=== PATIENT | male | born 1950 | race Caucasian/White ===

== ENCOUNTER 2018-08-01 12:29 | Inpatient (IN) | payer MEDICARE, OTHER ==
[~2018-08-01] VITALS: Ht 180.3 cm; Wt 70.3 kg
[2018-08-01] MEDS ORDERED: DIOVAN160 MG ORAL (12:32)
[2018-08-01] MEDS ORDERED: METFORMIN500 MG/5 M PO (12:32)
[2018-08-01] MEDS ORDERED: FLOMAX0.4 MG ORAL (12:32)
[2018-08-01] MEDS ORDERED: RISPERIDONE2 MG/2 ML PO (12:32)
[2018-08-01] MEDS ORDERED: DIURIL25 MG ORAL (12:32)
--- NOTE | 2018-08-01 12:40 | NUR ---
ED Nurse Note: Pt came from [facility] due to necrotic tissue on his right toe x 4 days. Denies pain. Pt has a hx of HTN, DM, schizophrenia. A + O x4. Skin warm to touch.
--- NOTE | 2018-08-01 13:09 | NUR ---
ED Nurse Note: Blood has been collected.
[2018-08-01 13:22] LABS: BASOPHILS % (AUTO) 0.8 % (0.0-2.0); EOSINOPHILS % (AUTO) 1.6 % (0.0-3.0); HEMATOCRIT 31.2 % (42.0-52.0); HEMOGLOBIN 9.7 G/DL (14.2-18.0); LYMPHOCYTES % (AUTO) 24.2 % (20.0-45.0); MEAN CORPUSCULAR VOLUME 71 FL (80-99); MONOCYTES % (AUTO) 6.3 % (1.0-10.0); PLATELET COUNT 344 K/UL (150-450); RED CELL DISTRIBUTION WIDTH 18.2 % (11.6-14.8)
--- NOTE | 2018-08-01 13:22 | NUR ---
ED Nurse Note: Xray has been completed.
[2018-08-01 13:29] LABS: ANION GAP 10 mmol/L (5-15); BLOOD UREA NITROGEN 16 mg/dL (7-18); CALCIUM 10.2 MG/DL (8.5-10.1); CARBON DIOXIDE 28 MMOL/L (21-32); CHLORIDE 104 MMOL/L (98-107); CREATININE 0.9 MG/DL (0.55-1.30); POTASSIUM 3.6 MMOL/L (3.5-5.1); SODIUM 142 MMOL/L (136-145)
[2018-08-01 13:44] LABS: ALANINE AMINOTRANSFERASE 20 U/L (12-78); ALBUMIN 3.6 G/DL (3.4-5.0); ALBUMIN/GLOBULIN RATIO 0.8 (1.0-2.7); ALKALINE PHOSPHATASE 97 U/L (46-116); ASPARTATE AMINO TRANSFERASE 15 U/L (15-37); BILIRUBIN,TOTAL 0.2 MG/DL (0.2-1.0); CKMB 0.6 NG/ML (0.0-3.6); CREATINE KINASE 94 U/L (26-308)
[2018-08-01] MEDS ORDERED: cefTRIAXone 1 GM in NS 55 ML IVPB ONE (14:30)
[2018-08-01] MEDS ORDERED: Vancomycin 1 GM in NS 275 ML IVPB ONE (14:30)
--- NOTE | 2018-08-01 14:59 | NUR ---
ED Nurse Note: Gave telephone report to NAMAN Schwartz.
--- NOTE | 2018-08-01 15:41 | NUR ---
ED Nurse Note: Pt was transferred up to unit via kelly w/ EMT. No acute distress noted. Left ER w/ all belongings.
--- NOTE | 2018-08-01 16:11 | NUR ---
NURSE NOTES: received pt awake alert, aox2, call light within reach. pt came with soiled diaper with bm formed, cleaned pt kept pt clean dry and comfortable. paged Dr Kelley via office [phone] awaiting callback for admission orders lac 20g, bed in lowest position locked.
[2018-08-01] MEDS ORDERED: RISPERDAL0.5 MG ORAL (16:33)
[2018-08-01] MEDS ORDERED: LANTUS SOL100 UNIT/1 SUBQ (16:33)
[2018-08-01] MEDS ORDERED: GLIMEPIRIDE1 MG ORAL (16:33)
[2018-08-01] MEDS ORDERED: CRESTOR10 M2 ORAL (16:33)
[2018-08-01] MEDS ORDERED: AMLODIPINE BESY10 MG ORAL (16:33)
[2018-08-01] MEDS ORDERED: HUMALOG 75/255 UNIT1 SUBQ (16:33)
[2018-08-01] MEDS ORDERED: QUETIAPINE FUMA50 MG ORAL (16:33)
[2018-08-01] MEDS ORDERED: POTASSIUM CHLO10 ME3 ORAL (16:41)
[2018-08-01] MEDS: NovoLOG Insulin Flexpen SUBQ SCH ×2 (16:51→20:35)
--- NOTE | 2018-08-01 17:13 | Diagnostic Imaging Report ---
Indication: Cough, chest pain Technique: One view of the chest Comparison: none Findings: No acute infiltrates, effusions, or congestion. Tortuous calcified aorta. Normal heart size. Upper mediastinum unremarkable. Impression: No acute process.
--- NOTE | 2018-08-01 17:19 | Diagnostic Imaging Report ---
Indication: Pain Technique: 2 views of the left tibia and fibula Comparison: none Findings: No acute fractures. No dislocations. The joint spaces are preserved. There are vascular calcifications noted. Impression: No acute process
--- NOTE | 2018-08-01 17:26 | Diagnostic Imaging Report ---
Indication: Foot pain Technique: 2 views right foot Comparison: none Findings: Exam is limited, due to the availability of only 2 views. Bones appear osteoporotic. There are questionably destructive changes of the terminal tuft of the fifth distal phalanx. No acute fractures. No dislocations. The joint spaces are preserved. Impression: Apparent destructive changes of the fifth distal phalanx, raises concern for acute osteomyelitis. Correlate with clinical findings. Patient's nurse notified of this finding at the time of interpretation No acute bony trauma
--- NOTE | 2018-08-01 17:28 | Consultation ---
Consult Note Consult Note asked to eval at the request of Dr Brown Assessment/Plan Diabetic Right Foot Osteo right 5th toe Hypochromic Anemia mild Hypercalcemia clinically dehydrated h/o HTN Plan: Iron Panel Stool OB Antibiotics BP and BS check Hydrate Per orders Levi Urias MD Aug 01, 2018 17:28
[2018-08-01] MEDS: D5NS 1,000 ML IV SCH (17:33)
[2018-08-01 17:35] VITALS: BP 137/70
[2018-08-01] MEDS: Docusate 100mg cap ORAL SCH (17:56)
[2018-08-01 18:00] LABS: % IRON SATURATION 9 % (15-50); IRON 33 ug/dL (50-175); TOTAL IRON BINDING CAPACITY 358 ug/dL (250-450)
[2018-08-01 18:14] LABS: FERRITIN 8 NG/ML (8-388)
--- NOTE | 2018-08-01 18:48 | NUR ---
HAND-OFF: Report given to CHARLENE FLORENCE.
--- NOTE | 2018-08-01 18:50 | NUR ---
NURSE NOTES: called and spoke with Dr Short re blood glucose fingerstick results, received order to not continue lantus 65u sq qd, and dc glipimiride
--- NOTE | 2018-08-01 19:35 | NUR ---
NURSE NOTES: Received patient in bed, awake, alert, oriented x2, patient is responsive to verbal and tactile stimuli, call light is within reach, be dis in low position, locked and alarm is on. Will continue to follow up on safety and comfort.
[2018-08-01 20:00] VITALS: BP 131/64
[2018-08-01] MEDS: Tamsulosin 0.4mg cap ORAL SCH (20:27)
[2018-08-01] MEDS ORDERED: NovoLOG Insulin Flexpen SUBQ SCH (21:00)
[2018-08-01] MEDS: Piperacillin/Tazobactam 3.375 GM in NS 110 ML IVPB SCH (22:27)
[2018-08-02] VITALS: BP 123/66
[2018-08-02] MEDS: Vancomycin 750mg/NS 250ml IVPB SCH ×2 (03:56→17:21)
[2018-08-02 04:47] VITALS: BP 131/72
[2018-08-02] MEDS: Piperacillin/Tazobactam 3.375 GM in NS 110 ML IVPB SCH ×3 (05:40→22:00)
[2018-08-02 06:03] LABS: BASOPHILS % (AUTO) 0.5 % (0.0-2.0); EOSINOPHILS % (AUTO) 2.3 % (0.0-3.0); HEMATOCRIT 30.2 % (42.0-52.0); HEMOGLOBIN 9.4 G/DL (14.2-18.0); LYMPHOCYTES % (AUTO) 23.8 % (20.0-45.0); MEAN CORPUSCULAR VOLUME 70 FL (80-99); MONOCYTES % (AUTO) 6.2 % (1.0-10.0); NEUTROPHILS % (AUTO) 67.1 % (45.0-75.0); PLATELET COUNT 352 K/UL (150-450); RED BLOOD COUNT 4.29 M/UL (4.70-6.10); RED CELL DISTRIBUTION WIDTH 18.2 % (11.6-14.8)
[2018-08-02 06:17] LABS: ALANINE AMINOTRANSFERASE 20 U/L (12-78); ALBUMIN 3.5 G/DL (3.4-5.0); ALBUMIN/GLOBULIN RATIO 0.8 (1.0-2.7); ALKALINE PHOSPHATASE 93 U/L (46-116); ANION GAP 8 mmol/L (5-15); ASPARTATE AMINO TRANSFERASE 15 U/L (15-37); BILIRUBIN,TOTAL 0.5 MG/DL (0.2-1.0); BLOOD UREA NITROGEN 10 mg/dL (7-18); CALCIUM 9.4 MG/DL (8.5-10.1); CARBON DIOXIDE 29 MMOL/L (21-32); CHLORIDE 105 MMOL/L (98-107); CHOLESTEROL 133 MG/DL (< 200); CREATININE 0.9 MG/DL (0.55-1.30); HDL CHOLESTEROL 51 MG/DL (40-60); PHOSPHORUS 3.5 MG/DL (2.5-4.9); POTASSIUM 3.2 MMOL/L (3.5-5.1); SODIUM 142 MMOL/L (136-145); TRIGLYCERIDES 132 MG/DL (30-150)
[2018-08-02] MEDS: NovoLOG Insulin Flexpen SUBQ SCH ×4 (06:19→21:00)
[2018-08-02] MEDS ORDERED: Glimepiride 1mg tab ORAL SCH (06:30)
--- NOTE | 2018-08-02 06:57 | General Progress Note ---
Assessment/Plan Problem List: (1) Lactic acidosis ICD Codes: E87.2 - Acidosis SNOMED: 83128131 (2) Abnormal TSH ICD Codes: R79.89 - Other specified abnormal findings of blood chemistry SNOMED: 102867216 (3) Diabetes mellitus out of control ICD Codes: E11.65 - Type 2 diabetes mellitus with hyperglycemia SNOMED: 95051944, 718273814 (4) Gangrene ICD Codes: I96 - Gangrene, not elsewhere classified SNOMED: 334118919 Assessment/Plan add Levemir 12 units qam add Starlix 120 mg ac tid continue to hold Metformin NISS ac / hs low TSH is most likely due to sick euthyroid repeat thyroid function tomorrow Subjective Allergies: Coded Allergies: No Known Allergies (Unverified , 08/01/18) All Systems: reviewed and negative except above Subjective events noted admitted with right foot osteo DM regimen as OP: Lantus 65 units + Metformin 1000 mg bid + Amaryl 2 mg daily lactic acid elevated on presentation Objective Last 24 Hour Vital Signs Date Time Temp Pulse Resp B/P (MAP) Pulse Ox O2 Delivery O2 Flow Rate FiO2 08/02/18 04:47 97.5 76 18 131/72 (91) 08/02/18 00:00 97.0 74 17 123/66 (85) 08/01/18 21:00 Room Air 08/01/18 20:00 97.2 76 18 131/64 (86) 08/01/18 17:35 98.0 70 20 137/70 (92) 100 08/01/18 16:24 Room Air 08/01/18 15:39 98.0 78 22 129/77 98 Room Air 08/01/18 12:25 97.3 76 16 130/66 94 Room Air Intake and Output 08/01/18 08/02/18 19:00 07:00 Intake Total 340 ml 550 ml Output Total 1 ml Balance 340 ml 549 ml Intake Oral 240 ml IV Total 100 ml 550 ml Output Urine Total 1 ml # Voids 1 # Bowel Movements 1 1 Laboratory Tests 08/01/18 10:00: Iron Level 33L, Total Iron Binding Capacity 358, Percent Iron Saturation 9L, Unsaturated Iron Binding 325, Ferritin 8, C-Reactive Protein, Quantitative 0.6 08/01/18 13:00: White Blood Count 10.0, Red Blood Count 4.40L, Hemoglobin 9.7L, Hematocrit 31.2L , Mean Corpuscular Volume 71L, Mean Corpuscular Hemoglobin 22.0L, Mean Corpuscular Hemoglobin Concent 31.1L, Red Cell Distribution Width 18.2H, Platelet Count 344, Mean Platelet Volume 6.4L, Neutrophils (%) (Auto) 67.0, Lymphocytes (%) (Auto) 24.2, Monocytes (%) (Auto) 6.3, Eosinophils (%) (Auto) 1.6, Basophils (%) (Auto) 0.8, Sodium Level 142, Potassium Level 3.6, Chloride Level 104, Carbon Dioxide Level 28, Anion Gap 10, Blood Urea Nitrogen 16, Creatinine 0.9, Estimat Glomerular Filtration Rate > 60, Glucose Level 102, Lactic Acid Level 2.40H, Calcium Level 10.2H, Total Bilirubin 0.2, Aspartate Amino Transf (AST/SGOT) 15, Alanine Aminotransferase (ALT/SGPT) 20, Alkaline Phosphatase 97, Total Creatine Kinase 94, Creatine Kinase MB 0.6, Creatine Kinase MB Relative Index 0.6, Troponin I 0.090H, Total Protein 8.1, Albumin 3.6 , Globulin 4.5, Albumin/Globulin Ratio 0.8L, Lipase 42L 08/01/18 14:03: Lactic Acid Level 2.20 08/02/18 05:15: White Blood Count 11.0H, Red Blood Count 4.29L, Hemoglobin 9.4L, Hematocrit 30.2L, Mean Corpuscular Volume 70L, Mean Corpuscular Hemoglobin 21.9L, Mean Corpuscular Hemoglobin Concent 31.1L, Red Cell Distribution Width 18.2H, Platelet Count 352, Mean Platelet Volume 6.2L, Neutrophils (%) (Auto) 67.1, Lymphocytes (%) (Auto) 23.8, Monocytes (%) (Auto) 6.2, Eosinophils (%) (Auto) 2.3, Basophils (%) (Auto) 0.5, Sodium Level 142, Potassium Level 3.2L, Chloride Level 105, Carbon Dioxide Level 29, Anion Gap 8, Blood Urea Nitrogen 10, Creatinine 0.9, Estimat Glomerular Filtration Rate > 60, Glucose Level 72L, Calcium Level 9.4, Total Bilirubin 0.5, Aspartate Amino Transf (AST/SGOT) 15, Alanine Aminotransferase (ALT/SGPT) 20, Alkaline Phosphatase 93, Troponin I [ Pending], Total Protein 7.9, Albumin 3.5, Globulin 4.4, Albumin/Globulin Ratio 0.8L, Erythrocyte Sedimentation Rate [Pending], Hemoglobin A1c 8.8H, Uric Acid 2.9, Phosphorus Level 3.5, Magnesium Level 1.3L, Pro-B-Type Natriuretic Peptide 151H, Triglycerides Level 132, Cholesterol Level 133, LDL Cholesterol 56, HDL Cholesterol 51, Cholesterol/HDL Ratio 2.6L, Vitamin B12 Level [Pending], Folate [Pending], Thyroid Stimulating Hormone (TSH) 0.288L Height (Feet): 5 Height (Inches): 11.00 Weight (Pounds): 155 General Appearance: no apparent distress Neck: normal alignment Cardiovascular: normal rate Respiratory/Chest: lungs clear Abdomen: normal bowel sounds Objective Current Medications Medications (Trade) Dose Ordered Sig/Stacey Route PRN Reason Start Time Stop Time Status Last Admin Dose Admin Acetaminophen (Tylenol) 650 mg Q4H PRN ORAL Mild Pain/Temp > 100.5 08/01/18 16:45 08/31/18 16:44 Amlodipine Besylate (Norvasc) 10 mg DAILY ORAL 08/02/18 09:00 09/01/18 08:59 Atorvastatin Calcium (Lipitor) 10 mg BEDTIME ORAL 08/01/18 21:00 08/31/18 20:59 08/01/18 20:27 Dextrose (Dextrose 50%) 25 ml Q30M PRN IV Hypoglycemia 08/01/18 16:45 08/31/18 16:44 08/01/18 17:28 Dextrose (Dextrose 50%) 50 ml Q30M PRN IV Hypoglycemia 08/01/18 16:45 08/31/18 16:44 Dextrose/Sodium Chloride 1,000 ml @ 50 mls/hr Q20H IV 08/01/18 17:33 08/31/18 17:32 08/01/18 17:33 Docusate Sodium (Colace) 100 mg THREE TIMES A DAY ORAL 08/01/18 18:00 08/31/18 17:59 08/01/18 17:56 Insulin Aspart (NovoLOG) BEFORE MEALS AND HS SUBQ 08/01/18 16:51 08/31/18 16:50 08/01/18 20:35 Pantoprazole (Protonix) 40 mg DAILY ORAL 08/01/18 17:45 08/31/18 17:44 08/01/18 17:56 Piperacillin Sod/ Tazobactam Sod 3.375 gm/Sodium Chloride 110 ml @ 27.5 mls/hr EVERY 8 HOURS IVPB 08/01/18 22:00 08/06/18 21:59 08/02/18 05:40 Quetiapine Fumarate (SEROquel) 100 mg QHS ORAL 08/01/18 21:00 08/31/18 20:59 08/01/18 20:27 Tamsulosin HCl (Flomax) 0.4 mg QHS ORAL 08/01/18 21:00 08/31/18 20:59 08/01/18 20:27 Vancomycin HCl (Vanco rx to dose) 1 ea DAILY PRN MISC Per rx protocol 08/01/18 16:00 08/31/18 15:59 Vancomycin/Sodium Chloride 250 ml @ 166.667 mls/hr Q12H IVPB 08/02/18 05:00 08/07/18 04:59 08/02/18 03:56 Item Value Date Time Bedside Blood Glucose 94 mg/dl 08/02/18 06 Bedside Blood Glucose 204 mg/dl H 08/01/182034 Bedside Blood Glucose 180 mg/dl H 08/01/18 184 Juvencio Short MD Aug 02, 2018 06:57
--- NOTE | 2018-08-02 07:02 | NUR ---
NURSE NOTES: Received a call from the lab, troponin is 0.094, called Dr. Kelley and left a voice message. Addendum: 08/02/18 at 0716 by RENEE CHANG RN laboratory equipment cleanerbetsey Paiz
--- NOTE | 2018-08-02 07:16 | NUR ---
HAND-OFF: Report given to Efren FLORENCE.
[2018-08-02 07:36] VITALS: BP 133/74
[2018-08-02] MEDS: Docusate 100mg cap ORAL SCH ×3 (08:15→17:31)
[2018-08-02] MEDS ORDERED: Levemir Flexpen SUBQ SCH (09:00)
--- NOTE | 2018-08-02 09:50 | NUR ---
NURSE NOTES: paged dr Starkey via md office (spoke with Phuong) re troponin uptrend
[2018-08-02 11:33] LABS: APPEARANCE,URINE CLEAR; BILIRUBIN, URINE NEGATIVE (NEGATIVE); COLOR,URINE PALE YELLOW; GLUCOSE, URINE (UA) 4+ (NEGATIVE); KETONES,URINE NEGATIVE (NEGATIVE); LEUKOCYTE ESTERASE ,URINE 1+ (NEGATIVE); NITRITE,URINE NEGATIVE (NEGATIVE); PH,URINE 6.5 (4.5-8.0); PROTEIN,URINE NEGATIVE (NEGATIVE); UROBILINOGEN,URINE NORMAL MG/DL (0.0-1.0)
[2018-08-02 12:00] VITALS: BP 126/72
--- NOTE | 2018-08-02 12:30 | NUR ---
NURSE NOTES: dr Starkey called back ordered for ekg. pt asymptomatic
--- NOTE | 2018-08-02 12:31 | Nephrology Progress Note ---
Assessment/Plan Problem List: (1) Diabetes mellitus out of control (2) Gangrene (3) Low iron (4) Low vitamin B12 level Assessment Diabetic Right Foot Osteo right 5th toe Hypochromic Anemia mild Hypercalcemia clinically dehydrated h/o HTN Plan IV Iron B12 IM Mag IV BP and BS control antibiotics per consultants Subjective ROS Limited/Unobtainable: No Constitutional: Reports: malaise Objective Objective Last 24 Hour Vital Signs Date Time Temp Pulse Resp B/P (MAP) Pulse Ox O2 Delivery O2 Flow Rate FiO2 08/02/18 08:15 80 133/74 08/02/18 07:45 Room Air 08/02/18 07:36 97.5 80 18 133/74 (93) 08/02/18 04:47 97.5 76 18 131/72 (91) 08/02/18 00:00 97.0 74 17 123/66 (85) 08/01/18 21:00 Room Air 08/01/18 20:00 97.2 76 18 131/64 (86) 08/01/18 17:35 98.0 70 20 137/70 (92) 100 08/01/18 16:24 Room Air 08/01/18 15:39 98.0 78 22 129/77 98 Room Air Intake and Output 08/01/18 08/02/18 19:00 07:00 Intake Total 340 ml 550 ml Output Total 1 ml Balance 340 ml 549 ml Intake Oral 240 ml IV Total 100 ml 550 ml Output Urine Total 1 ml # Voids 1 # Bowel Movements 1 1 Laboratory Tests 08/01/18 13:00: White Blood Count 10.0, Red Blood Count 4.40L, Hemoglobin 9.7L, Hematocrit 31.2L , Mean Corpuscular Volume 71L, Mean Corpuscular Hemoglobin 22.0L, Mean Corpuscular Hemoglobin Concent 31.1L, Red Cell Distribution Width 18.2H, Platelet Count 344, Mean Platelet Volume 6.4L, Neutrophils (%) (Auto) 67.0, Lymphocytes (%) (Auto) 24.2, Monocytes (%) (Auto) 6.3, Eosinophils (%) (Auto) 1.6, Basophils (%) (Auto) 0.8, Sodium Level 142, Potassium Level 3.6, Chloride Level 104, Carbon Dioxide Level 28, Anion Gap 10, Blood Urea Nitrogen 16, Creatinine 0.9, Estimat Glomerular Filtration Rate > 60, Glucose Level 102, Lactic Acid Level 2.40H, Calcium Level 10.2H, Total Bilirubin 0.2, Aspartate Amino Transf (AST/SGOT) 15, Alanine Aminotransferase (ALT/SGPT) 20, Alkaline Phosphatase 97, Total Creatine Kinase 94, Creatine Kinase MB 0.6, Creatine Kinase MB Relative Index 0.6, Troponin I 0.090H, Total Protein 8.1, Albumin 3.6 , Globulin 4.5, Albumin/Globulin Ratio 0.8L, Lipase 42L 08/01/18 14:03: Lactic Acid Level 2.20 08/02/18 05:15: White Blood Count 11.0H, Red Blood Count 4.29L, Hemoglobin 9.4L, Hematocrit 30.2L, Mean Corpuscular Volume 70L, Mean Corpuscular Hemoglobin 21.9L, Mean Corpuscular Hemoglobin Concent 31.1L, Red Cell Distribution Width 18.2H, Platelet Count 352, Mean Platelet Volume 6.2L, Neutrophils (%) (Auto) 67.1, Lymphocytes (%) (Auto) 23.8, Monocytes (%) (Auto) 6.2, Eosinophils (%) (Auto) 2.3, Basophils (%) (Auto) 0.5, Sodium Level 142, Potassium Level 3.2L, Chloride Level 105, Carbon Dioxide Level 29, Anion Gap 8, Blood Urea Nitrogen 10, Creatinine 0.9, Estimat Glomerular Filtration Rate > 60, Glucose Level 72L, Calcium Level 9.4, Total Bilirubin 0.5, Aspartate Amino Transf (AST/SGOT) 15, Alanine Aminotransferase (ALT/SGPT) 20, Alkaline Phosphatase 93, Troponin I 0.094H, Total Protein 7.9, Albumin 3.5, Globulin 4.4, Albumin/Globulin Ratio 0.8L, Erythrocyte Sedimentation Rate 32H, Hemoglobin A1c 8.8H, Uric Acid 2.9, Phosphorus Level 3.5, Magnesium Level 1.3L, Pro-B-Type Natriuretic Peptide 151H , Triglycerides Level 132, Cholesterol Level 133, LDL Cholesterol 56, HDL Cholesterol 51, Cholesterol/HDL Ratio 2.6L, Vitamin B12 Level 124L, Folate 28.6 , Thyroid Stimulating Hormone (TSH) 0.288L 08/02/18 10:30: Urine Color Pale yellow, Urine Appearance Clear, Urine pH 6.5, Urine Specific [place] 1.005, Urine Protein Negative, Urine Glucose (UA) 4+H, Urine Ketones Negative, Urine Blood Negative, Urine Nitrite Negative, Urine Bilirubin Negative , Urine Urobilinogen Normal, Urine Leukocyte Esterase 1+H, Urine RBC [Pending], Urine WBC [Pending], Urine Squamous Epithelial Cells [Pending], Urine Bacteria [ Pending] Height (Feet): 5 Height (Inches): 11.00 Weight (Pounds): 155 General Appearance: no apparent distress Cardiovascular: normal rate Respiratory/Chest: lungs clear Abdomen: soft Extremities: other - no change Levi Urias MD Aug 02, 2018 12:31
[2018-08-02] MEDS ORDERED: Nitroglycerin Patch 0.4mg TDERMAL SCH (13:00)
[2018-08-02] MEDS ORDERED: Vitamin B12 1000mcg/ml Inj IM ONE (13:00)
--- NOTE | 2018-08-02 13:14 | Consultation ---
History of Present Illness General Date patient seen: Aug 02, 2018 Time patient seen: 13:07 Chief Complaint: Lower Extremity Injury Present Illness HPI - Pt seen bedside, with nursing staff. Pt was transferred from SNF for Right foot 5th and 3rd digit gangrene. Pt denies any constitutional symptoms, relates pain to Right foot. States his wounds have been there for many 6 months. Allergies: Coded Allergies: No Known Allergies (Unverified , 08/01/18) Medication History Scheduled Amlodipine Besylate* (Amlodipine Besylate*), 10 MG ORAL DAILY, (Reported) Glimepiride* (Glimepiride*), 2 MG ORAL BEFORE BREAKFAST, (Reported) Hydrochlorothiazide (Hydrochlorothiazide), 12.5 MG ORAL DAILY, (Reported) Insulin Glargine (Lantus), 65 SUBQ DAILY, (Reported) Metformin HCl (Metformin HCl), 1,000 MG PO BID, (Reported) Potassium Chloride (Potassium Chloride), 10 MEQ ORAL DAILY, (Reported) Quetiapine Fumarate* (Quetiapine Fumarate*), 100 MG ORAL QHS, (Reported) Risperidone* (Risperdal*), 0.5 MG ORAL QHS, (Reported) Rosuvastatin Calcium* (Crestor*), 10 MG ORAL QHS, (Reported) Tamsulosin HCl (Flomax), 0.4 MG ORAL DAILY, (Reported) Valsartan (Diovan), 320 MG ORAL DAILY, (Reported) Miscellaneous Medications Insulin Human Lispro (Humalog), 0 SUBQ, (Reported) Risperidone (Risperidone), 1 MG PO, (Reported) Patient History Healthcare decision maker N Resuscitation status Advanced Directive on File Physical Exam Physical Exam Narrative Focused LE PE: Right foot: non-palpable pulses DP/PT. Increase temp differential. necrosis noted to digits 3 and 5 . No active purulent drainage or malodor. (+) edema and ascending erythema. Last 24 Hour Vital Signs Date Time Temp Pulse Resp B/P (MAP) Pulse Ox O2 Delivery O2 Flow Rate FiO2 08/02/18 12:00 97.5 72 18 126/72 (90) 08/02/18 08:15 80 133/74 08/02/18 07:45 Room Air 08/02/18 07:36 97.5 80 18 133/74 (93) 08/02/18 04:47 97.5 76 18 131/72 (91) 08/02/18 00:00 97.0 74 17 123/66 (85) 08/01/18 21:00 Room Air 08/01/18 20:00 97.2 76 18 131/64 (86) 08/01/18 17:35 98.0 70 20 137/70 (92) 100 08/01/18 16:24 Room Air 08/01/18 15:39 98.0 78 22 129/77 98 Room Air Intake and Output 08/01/18 08/02/18 19:00 07:00 Intake Total 340 ml 550 ml Output Total 1 ml Balance 340 ml 549 ml Intake Oral 240 ml IV Total 100 ml 550 ml Output Urine Total 1 ml # Voids 1 # Bowel Movements 1 1 Laboratory Tests Test 08/01/18 14:03 08/02/18 05:15 08/02/18 05:18 08/02/18 10:30 Lactic Acid Level 2.20 mmol/L (0.66-2.22) White Blood Count 11.0 K/UL (4.8-10.8) H Red Blood Count 4.29 M/UL (4.70-6.10) L Hemoglobin 9.4 G/DL (14.2-18.0) L Hematocrit 30.2 % (42.0-52.0) L Mean Corpuscular Volume 70 FL (80-99) L Mean Corpuscular Hemoglobin 21.9 PG (27.0-31.0) L Mean Corpuscular Hemoglobin Concent 31.1 G/DL (32.0-36.0) L Red Cell Distribution Width 18.2 % (11.6-14.8) H Platelet Count 352 K/UL (150-450) Mean Platelet Volume 6.2 FL (6.5-10.1) L Neutrophils (%) (Auto) 67.1 % (45.0-75.0) Lymphocytes (%) (Auto) 23.8 % (20.0-45.0) Monocytes (%) (Auto) 6.2 % (1.0-10.0) Eosinophils (%) (Auto) 2.3 % (0.0-3.0) Basophils (%) (Auto) 0.5 % (0.0-2.0) Erythrocyte Sedimentation Rate 32 MM/HR (0-20) H Sodium Level 142 MMOL/L (136-145) Potassium Level 3.2 MMOL/L (3.5-5.1) L Chloride Level 105 MMOL/L (98-107) Carbon Dioxide Level 29 MMOL/L (21-32) Anion Gap 8 mmol/L (5-15) Blood Urea Nitrogen 10 mg/dL (7-18) Creatinine 0.9 MG/DL (0.55-1.30) Estimat Glomerular Filtration Rate > 60 mL/min (>60) Glucose Level 72 MG/DL (74-106) L Hemoglobin A1c 8.8 % (4.3-6.0) H Uric Acid 2.9 MG/DL (2.6-7.2) Calcium Level 9.4 MG/DL (8.5-10.1) Phosphorus Level 3.5 MG/DL (2.5-4.9) Magnesium Level 1.3 MG/DL (1.8-2.4) L Total Bilirubin 0.5 MG/DL (0.2-1.0) Aspartate Amino Transf (AST/SGOT) 15 U/L (15-37) Alanine Aminotransferase (ALT/SGPT) 20 U/L (12-78) Alkaline Phosphatase 93 U/L (46-116) Troponin I 0.094 ng/mL (0.000-0.056) Pro-B-Type Natriuretic Peptide 151 pg/mL (0-125) H Total Protein 7.9 G/DL (6.4-8.2) Albumin 3.5 G/DL (3.4-5.0) Globulin 4.4 g/dL Albumin/Globulin Ratio 0.8 (1.0-2.7) L Triglycerides Level 132 MG/DL (30-150) Cholesterol Level 133 MG/DL (< 200) LDL Cholesterol 56 mg/dL (<100) HDL Cholesterol 51 MG/DL (40-60) Cholesterol/HDL Ratio 2.6 (3.3-4.4) L Vitamin B12 Level 124 PG/ML (193-986) L Folate 28.6 NG/ML (8.6-58.9) Thyroid Stimulating Hormone (TSH) 0.288 uiU/mL (0.358-3.740) Carcinoembryonic Antigen Pending Urine Color Pale yellow Urine Appearance Clear Urine pH 6.5 (4.5-8.0) Urine Specific [place] 1.005 (1.005-1.035) Urine Protein Negative (NEGATIVE) Urine Glucose (UA) 4+ (NEGATIVE) H Urine Ketones Negative (NEGATIVE) Urine Blood Negative (NEGATIVE) Urine Nitrite Negative (NEGATIVE) Urine Bilirubin Negative (NEGATIVE) Urine Urobilinogen Normal MG/DL (0.0-1.0) Urine Leukocyte Esterase 1+ (NEGATIVE) H Urine RBC 0-2 /HPF (0 - 0) H Urine WBC 0-2 /HPF (0 - 0) Urine Squamous Epithelial Cells Occasional /LPF Urine Bacteria Occasional /HPF (NONE) Height (Feet): 5 Height (Inches): 11.00 Weight (Pounds): 155 Medications Current Medications Medications (Trade) Dose Ordered Sig/Stacey Route PRN Reason Start Time Stop Time Status Last Admin Dose Admin Acetaminophen (Tylenol) 650 mg Q4H PRN ORAL Mild Pain/Temp > 100.5 08/01/18 16:45 08/31/18 16:44 Amlodipine Besylate (Norvasc) 10 mg DAILY ORAL 08/02/18 09:00 09/01/18 08:59 08/02/18 08:15 Aspirin (ASA) 81 mg DAILY ORAL 08/03/18 09:00 09/02/18 08:59 Atorvastatin Calcium (Lipitor) 10 mg BEDTIME ORAL 08/01/18 21:00 08/31/18 20:59 08/01/18 20:27 Dextrose (Dextrose 50%) 25 ml Q30M PRN IV Hypoglycemia 08/02/18 07:00 09/01/18 06:59 Dextrose (Dextrose 50%) 50 ml Q30M PRN IV Hypoglycemia 08/02/18 07:00 09/01/18 06:59 Dextrose/Sodium Chloride 1,000 ml @ 50 mls/hr Q20H IV 08/01/18 17:33 08/31/18 17:32 08/01/18 17:33 Docusate Sodium (Colace) 100 mg THREE TIMES A DAY ORAL 08/01/18 18:00 08/31/18 17:59 08/01/18 17:56 Insulin Aspart (NovoLOG) BEFORE MEALS AND HS SUBQ 08/01/18 16:51 08/31/18 16:50 08/02/18 12:13 Insulin Detemir (Levemir) 12 units DAILY SUBQ 08/02/18 09:00 09/01/18 08:59 08/02/18 08:59 Iron Sucrose 100 mg/Sodium Chloride 60 ml @ 240 mls/hr BEDTIME IV 08/03/18 21:00 08/07/18 21:14 Iron Sucrose 200 mg/Sodium Chloride 120 ml @ 240 mls/hr ONCE IV 08/02/18 15:00 08/02/18 17:00 Nateglinide (Starlix) 120 mg TIAC ORAL 08/02/18 11:30 09/01/18 11:29 08/02/18 12:22 Nitroglycerin (Ntg) 1 patch Q24H TDERMAL 08/02/18 13:00 09/01/18 12:59 Pantoprazole (Protonix) 40 mg DAILY ORAL 08/01/18 17:45 08/31/18 17:44 08/02/18 08:15 Piperacillin Sod/ Tazobactam Sod 3.375 gm/Sodium Chloride 110 ml @ 27.5 mls/hr EVERY 8 HOURS IVPB 08/01/18 22:00 08/06/18 21:59 08/02/18 05:40 Quetiapine Fumarate (SEROquel) 100 mg QHS ORAL 08/01/18 21:00 08/31/18 20:59 08/01/18 20:27 Tamsulosin HCl (Flomax) 0.4 mg QHS ORAL 08/01/18 21:00 08/31/18 20:59 08/01/18 20:27 Vancomycin HCl (Vanco rx to dose) 1 ea DAILY PRN MISC Per rx protocol 08/01/18 16:00 08/31/18 15:59 Vancomycin/Sodium Chloride 250 ml @ 166.667 mls/hr Q12H IVPB 08/02/18 05:00 08/07/18 04:59 08/02/18 03:56 Assessment/Plan Assessment/Plan A: Right foot cellulitis Right foot dry gangrene of digits 3 and 5. P: - Pt seen and evaluated. - Discuss findings with patient. - WBC, 11 - Temp, 97.5 - Ordered Right foot XR and MRI, complete study if no contraindications present. R/O OM or deep ST infection, abscess. - Arterial U/S to Right foot ordered. - Rec vasc consult. - IV Abx. - Will await vasc and imaging studies before proceeding with surgical intervention. - Pod will cont to monitor. Guanaco Herrmann DPM Aug 02, 2018 13:14
[2018-08-02] MEDS: D5NS 1,000 ML IV SCH (13:43)
[2018-08-02] MEDS ORDERED: Iron Sucrose 200 MG in NS 110 ML IV SCH (15:00)
--- NOTE | 2018-08-02 15:27 | NUR ---
CARDIOLOGY : PT REFUSED 2-D ECHO .
--- NOTE | 2018-08-02 16:00 | Consultation ---
DATE OF CONSULTATION: 08/02/2018 INFECTIOUS DISEASES CONSULTATION CONSULTING PHYSICIAN: Flako Rivas M.D. PRIMARY ATTENDING PHYSICIAN: Wyatt Kelley M.D. REASON FOR CONSULTATION: Toe osteomyelitis and gangrene, diabetic foot. HISTORY OF PRESENT ILLNESS: This is a 67-year-old white male [facility] because of blue discoloration on right foot. The patient has history of diabetes mellitus that seems to be poorly controlled. X-ray of the foot showed big toe osteomyelitis on the right side. PAST MEDICAL HISTORY: Significant for diabetes mellitus, CVA, anemia, hypertension. ALLERGIES: No known drug allergies. MEDICATIONS: Getting amlodipine, Levemir insulin, magnesium sulfate, vancomycin and Zosyn, Flomax, atorvastatin, Colace, Tylenol. SOCIAL HISTORY: intermediate resident. History of smoking. Single. No drug or alcohol abuse. REVIEW OF SYSTEMS: The pain in the right foot. No fever. No chills. No coughing. No nausea or vomiting. No diarrhea. No problem passing urine. PHYSICAL EXAMINATION: VITAL SIGNS: Temperature 97.5, pulse 80, blood pressure 133/74. GENERAL APPEARANCE: No acute distress. HEAD AND NECK: No teeth. HEART: S1 and S2 regular. LUNGS: Clear. ABDOMEN: Soft and nontender. EXTREMITIES: No edema. Has gangrene in the third and fifth toe in the right side, foot seems to be warm. LABORATORY AND DIAGNOSTIC DATA: Sodium 142, potassium 3.2, chloride 105, bicarb 25. Hemoglobin A1c 8.8. lactic acid at the time of admission was 2.4, coming to 2.2. Albumin is 3.5. WBC 11, hemoglobin 9.4, hematocrit 30.2, platelet 352. UA is pending. Tibia and fibular x-ray, no acute problem. Right hip x-ray, destructive change of the fifth distal phalanx, concern of acute osteomyelitis. Chest x-ray, no acute process. IMPRESSION: 1. Diabetic foot with osteomyelitis of the fifth toe and gangrene of third and fifth toe. 2. The patient have uncontrolled diabetes mellitus. 3. Anemia. 4. History of CVA. 5. Hypertension. 6. Dyslipidemia. RECOMMENDATION: We will continue with vancomycin and Zosyn. Case was discussed with the primary doctor. The patient needs content manager and vascular surgery evaluation. At the end of my exam, I thank Dr. Kelley for involving me in the care of this patient. Flako Rivas M.D. DR: Vera JOB#: [id number] CC: [id number]
[2018-08-02 16:14] VITALS: BP 129/77
--- NOTE | 2018-08-02 16:58 | NUR ---
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 97.3 HR 76 RR 16 B/P 130/66 ESR 32 WBC 11.0 TROP 0.090 XRAY-TIBIAL/FIB NO FX RIGHT FOOT X-RAY= SUSPICIOUS OF OSTEOMYELITIS IS: H/L INSERTION ADMITTED TO MED/SURG MED/SURG STATUS
[2018-08-02] MEDS ORDERED: Isovue-370 150ml vial INJ PRN (17:00)
--- NOTE | 2018-08-02 17:02 | NUR ---
NURSE NOTES: relayed to Dr Collins re right leg vascular findings, received orders and entered.
[2018-08-02] MEDS: Heparin 5000 units/ml inj SUBQ SCH ×2 (17:21→21:42)
--- NOTE | 2018-08-02 17:30 | NUR ---
ENTRY LEVEL SALES CONSULTANT NOTES CLINICALS FAXED TO [facility] FOR TRANSFER.
--- NOTE | 2018-08-02 17:46 | Cardiology Report ---
APPROVED REPORT EXAM: Two-dimensional and M-mode echocardiogram with Doppler and color Doppler. INDICATION Chest Pain M-Mode DIMENSIONS IVSd1.0 (0.7-1.1cm)Left Atrium (MM)2.6 (1.6-4.0cm) LVDd4.4 (3.5-5.6cm)Aortic Root4.1 (2.0-3.7cm) PWd1.1 (0.7-1.1cm)Aortic Cusp Exc.1.8 (1.5-2.0cm) IVSs1.2 cm LVDs2.9 (2.5-4.0cm) PWs1.8 cm Normal left ventricular chamber size, systolic function and wall motion to extent visualized. Left ventricular ejection fraction estimated to be 55-60%. No evidence of left ventricular hypertrophy. No evidence of pericardial fat or effusion. All other cardiac chamber sizes are within normal limits. Mild aortic valve sclerosis with adequate cusp excursion. Mildly thickened mitral valve leaflets with normal excursion. Mild mitral annulus and aortic root calcification. Pulmonic valve not well visualized. IVC at normal size with physiologic collapse . A color flow and spectral Doppler study was performed and revealed: Mild aortic regurgitation. Mitral diastolic velocities suggest reduced left ventricular relaxation c/w mild LV diastolic dysfunction (Grade I ) Trace mitral regurgitation. Trace tricuspid regurgitation. Tricuspid systolic velocities suggests peak right ventricular systolic pressure of 15mmHg
[2018-08-02] MEDS ORDERED: Norco 5mg/325mg tab ORAL PRN (18:00)
--- NOTE | 2018-08-02 18:42 | Cardiology Report ---
APPROVED REPORT EKG Measurement Heart [id number] Sinus rhythm with premature atrial complexes Nonspecific T wave abnormality Abnormal ECG
--- NOTE | 2018-08-02 18:46 | NUR ---
HAND-OFF: Report given to CHARLENE FLORENCE.
--- NOTE | 2018-08-02 18:48 | NUR ---
NURSE NOTES: CALLED AND SPOKE Luke AMAYA FROM [employer] [phone] AND DARIA AMAYA PT HAS NO FAMILY AND TO CALL HAND ENGRAVER EUSEBIO [phone] Addendum: 08/02/18 at 1852 by LUIS LINDSAY RN NURSE NOTES: CORRECTION ADRIAN* Addendum: 08/02/18 at 1853 by LUIS LINDSAY RN ADRIAN FLORES IS THE SPIRITUAL ADVISOR BUT NOT THE PT POA NOR RESPONSIBLE LIBERTARIAN Addendum: 08/02/18 at 1857 by LUIS LINDSAY RN PAGED DR HUERTA [phone] AND DR FRANCO [phone] TO LET THEM KNOW PT HAS NO FAMILY (PER SPIRITUAL ADVISOR OF [employer]) AND CANT CONSENT. AWAITING CALL BACK. THEY NEED TO SIGN OFF ON ANY PROCEDURE. ADRIAN FLORES (SPIRITUAL ADVISOR ) IS NOT THE LEGAL GUARDIAN
--- NOTE | 2018-08-02 19:22 | NUR ---
NURSE NOTES: Per Dr. Butler, contact Dr. Kelley for consent, MD was paged by am nurse Efren, awaiting for to call back
--- NOTE | 2018-08-02 19:41 | NUR ---
NURSE NOTES: Received patient in bed, asleep, responsive to verbal and tactile stimuli, no acute distress noted or reported, call light is within reach, bed is locked, low and alarm is on. Will continue to monitor for safety and comfort.
[2018-08-02 20:00] VITALS: BP 125/65
--- NOTE | 2018-08-02 20:10 | Cardiology Progress Note ---
Assessment/Plan Assessment/Plan The patient is seen and examined, full cardiology consult note is dictated. Objective Last 24 Hour Vital Signs Date Time Temp Pulse Resp B/P (MAP) Pulse Ox O2 Delivery O2 Flow Rate FiO2 08/02/18 18:28 97.5 08/02/18 16:14 97.5 76 18 129/77 (94) 08/02/18 13:05 126/72 08/02/18 12:00 97.5 72 18 126/72 (90) 08/02/18 08:15 80 133/74 08/02/18 07:45 Room Air 08/02/18 07:36 97.5 80 18 133/74 (93) 08/02/18 04:47 97.5 76 18 131/72 (91) 08/02/18 00:00 97.0 74 17 123/66 (85) 08/01/18 21:00 Room Air Intake and Output 08/01/18 08/02/18 19:00 07:00 Intake Total 340 ml 550 ml Output Total 1 ml Balance 340 ml 549 ml Intake Oral 240 ml IV Total 100 ml 550 ml Output Urine Total 1 ml # Voids 1 # Bowel Movements 1 1 Laboratory Tests Test 08/02/18 05:15 08/02/18 05:18 08/02/18 10:30 White Blood Count 11.0 K/UL (4.8-10.8) H Red Blood Count 4.29 M/UL (4.70-6.10) L Hemoglobin 9.4 G/DL (14.2-18.0) L Hematocrit 30.2 % (42.0-52.0) L Mean Corpuscular Volume 70 FL (80-99) L Mean Corpuscular Hemoglobin 21.9 PG (27.0-31.0) L Mean Corpuscular Hemoglobin Concent 31.1 G/DL (32.0-36.0) L Red Cell Distribution Width 18.2 % (11.6-14.8) H Platelet Count 352 K/UL (150-450) Mean Platelet Volume 6.2 FL (6.5-10.1) L Neutrophils (%) (Auto) 67.1 % (45.0-75.0) Lymphocytes (%) (Auto) 23.8 % (20.0-45.0) Monocytes (%) (Auto) 6.2 % (1.0-10.0) Eosinophils (%) (Auto) 2.3 % (0.0-3.0) Basophils (%) (Auto) 0.5 % (0.0-2.0) Erythrocyte Sedimentation Rate 32 MM/HR (0-20) H Sodium Level 142 MMOL/L (136-145) Potassium Level 3.2 MMOL/L (3.5-5.1) L Chloride Level 105 MMOL/L (98-107) Carbon Dioxide Level 29 MMOL/L (21-32) Anion Gap 8 mmol/L (5-15) Blood Urea Nitrogen 10 mg/dL (7-18) Creatinine 0.9 MG/DL (0.55-1.30) Estimat Glomerular Filtration Rate > 60 mL/min (>60) Glucose Level 72 MG/DL (74-106) L Hemoglobin A1c 8.8 % (4.3-6.0) H Uric Acid 2.9 MG/DL (2.6-7.2) Calcium Level 9.4 MG/DL (8.5-10.1) Phosphorus Level 3.5 MG/DL (2.5-4.9) Magnesium Level 1.3 MG/DL (1.8-2.4) L Total Bilirubin 0.5 MG/DL (0.2-1.0) Aspartate Amino Transf (AST/SGOT) 15 U/L (15-37) Alanine Aminotransferase (ALT/SGPT) 20 U/L (12-78) Alkaline Phosphatase 93 U/L (46-116) Troponin I 0.094 ng/mL (0.000-0.056) Pro-B-Type Natriuretic Peptide 151 pg/mL (0-125) H Total Protein 7.9 G/DL (6.4-8.2) Albumin 3.5 G/DL (3.4-5.0) Globulin 4.4 g/dL Albumin/Globulin Ratio 0.8 (1.0-2.7) L Triglycerides Level 132 MG/DL (30-150) Cholesterol Level 133 MG/DL (< 200) LDL Cholesterol 56 mg/dL (<100) HDL Cholesterol 51 MG/DL (40-60) Cholesterol/HDL Ratio 2.6 (3.3-4.4) L Vitamin B12 Level 124 PG/ML (193-986) L Folate 28.6 NG/ML (8.6-58.9) Thyroid Stimulating Hormone (TSH) 0.288 uiU/mL (0.358-3.740) Carcinoembryonic Antigen Pending Urine Color Pale yellow Urine Appearance Clear Urine pH 6.5 (4.5-8.0) Urine Specific Tyner 1.005 (1.005-1.035) Urine Protein Negative (NEGATIVE) Urine Glucose (UA) 4+ (NEGATIVE) H Urine Ketones Negative (NEGATIVE) Urine Blood Negative (NEGATIVE) Urine Nitrite Negative (NEGATIVE) Urine Bilirubin Negative (NEGATIVE) Urine Urobilinogen Normal MG/DL (0.0-1.0) Urine Leukocyte Esterase 1+ (NEGATIVE) H Urine RBC 0-2 /HPF (0 - 0) H Urine WBC 0-2 /HPF (0 - 0) Urine Squamous Epithelial Cells Occasional /LPF Urine Bacteria Occasional /HPF (NONE) Igor Starkey MD Aug 02, 2018 20:10
[2018-08-02] MEDS: Tamsulosin 0.4mg cap ORAL SCH (21:00)
--- NOTE | 2018-08-02 22:10 | NUR ---
NURSE NOTES:Basin Operator Adam Jorgensenamara nursing hammer shop supervisor Aditya called to see if a bed is still needed for this patient, nurse charge rn spoke with Dr Kelley at 2230 who stated that he and Dr Collins will document that this is an emergency transfer in view of the fact that the patient is unable to give informed consent and there is no documented next of kin. Aditya assigned [facility] 534. [facility] at [phone] with eta of 45 minutes.
--- NOTE | 2018-08-02 22:27 | NUR ---
NURSE NOTES: troponin reported 0.105, RN called and left a vm for Dr. Kelley. CN was made aware
--- NOTE | 2018-08-02 22:30 | Consultation ---
DATE OF CONSULTATION: 08/02/2018 CARDIOLOGY CONSULTATION CONSULTING PHYSICIAN: Igor Starkey M.D. REFERRING PHYSICIAN: Wyatt Kelley M.D. REASON FOR CONSULTATION: Management of elevated troponin I level. HISTORY OF PRESENT ILLNESS: The patient is a very unfortunate 67-year-old gentleman, a resident of nursing facility, who was brought in by the ambulance from [facility] due to necrotic tissue on the right foot. The patient was started on IV antibiotic therapy. Consultation with net web application developer. Initial evaluation in the emergency department revealed the blood pressure 130/66 mmHg and heart rate of 76. The patient was afebrile. The patient's past medical history is significant for history of hypertension, diabetes mellitus, and schizophrenia. At the time of arrival to the emergency department, initial evaluation revealed anemia with hemoglobin and hematocrit of 9.7 and 31.2 respectively. Also presence of elevation of troponin I level at 0.09. The patient was admitted to Med/Surg unit for evaluation and management of the gangrenous toe, possible osteomyelitis. Cardiology consultation was made at the request of Dr. Kelley for evaluation and management of elevated troponin I level. PAST MEDICAL HISTORY: Diabetes mellitus, history of CVA, history of anemia, history of hypertension, and history of psychiatric disorder/schizophrenia. ALLERGIES: No known drug allergies. SOCIAL HISTORY: He is resident of a detention facility. The patient is single. There is no prior history of drug or alcohol use, although the patient was a smoker. REVIEW OF SYSTEMS: HEENT: Denies any headache, diplopia, or blurred vision. CONSTITUTIONAL: No fever, chills, night sweats, or weight loss. CARDIOVASCULAR: Denies any chest pain, shortness breath, PND, orthopnea, or leg swelling. PULMONARY: Denies any cough, hemoptysis, or wheezing. GASTROINTESTINAL: Denies any nausea, vomiting, diarrhea, constipation, abdominal pain, or GI bleed. GENITOURINARY: Denies any hematuria, dysuria, or incontinence. NEUROLOGIC: Denies any motor dysfunction, sensory deficit, or altered speech. There is a history of prior stroke. MUSCULOSKELETAL: The patient has pain in the right foot due to ulceration. MEDICATIONS: List of medications in the nursing facility including amlodipine 10 mg p.o. daily, glimepiride 2 mg p.o. before meals, hydrochlorothiazide 12.5 mg daily, Lantus insulin 65 units subcutaneous daily, Humalog insulin as needed, metformin 1000 mg twice daily, potassium chloride 10 mEq p.o. daily, Seroquel 100 mg p.o. nightly, risperidone 1 mg p.o. daily and 0.5 mg nightly, Crestor 10 mg p.o. nightly, tamsulosin 0.4 mg p.o. daily, and Diovan mg p.o. daily. ALLERGIES: No known drug allergies. FAMILY HISTORY: No premature coronary artery disease in first-degree relatives. PHYSICAL EXAMINATION: VITAL SIGNS: The patient's blood pressure was 130/66, heart rate 76, respirations 16, O2 saturation 94% on room air, and temperature 97.3 degrees Fahrenheit. GENERAL: The patient is a very unfortunate 67-year-old, in no apparent respiratory distress. HEENT: Atraumatic and normocephalic. Anicteric. Pupils are equal, round, and reactive to light and accommodation. Extraocular muscles intact. NECK: JVP less than 5 cm. No carotid bruits. Carotid upstrokes 2+ bilaterally. CARDIOVASCULAR: Normal S1, S2. Regular rate and rhythm. No murmurs, gallops, or rubs. PMI is at fourth intercostal space in the midclavicular line. LUNGS: Clear to auscultation bilaterally. ABDOMEN: Soft, nontender, and nondistended. No hepatosplenomegaly. Positive bowel sounds. EXTREMITIES: There is no edema, clubbing, or cyanosis. There is a gangrene in the third and fifth toe on the right foot. DIAGNOSTIC DATA: A 12-lead electrocardiogram showed sinus rhythm at a rate of 73 with premature atrial complexes and nonspecific ST and T-wave abnormalities. A 2-D echocardiography shows normal LV systolic function with LVEF of about 55% to 60%. There is mild aortic regurgitation, grade 1 LV diastolic dysfunction, and right ventricular systolic pressure measured at 15 mmHg. Chest x-ray showed no acute cardiopulmonary disease. ASSESSMENT AND PLAN: The patient is a very unfortunate 67-year-old gentleman, seen in Cardiology consultation. 1. Slight elevation of troponin I level, could be secondary to underlying infection. However, non-ST elevation myocardial infarction type 2 with demand ischemia is also a consideration, especially in a patient with many risk factors for coronary artery disease including diabetes mellitus, hypertension, and prior history of vascular event, i.e. CVA. I would like to obtain another serial troponin I level. The patient will benefit from aspirin as well as statin. The patient's atorvastatin will be up titrated to 40 mg p.o. nightly. We will also start the patient on metoprolol for double-product control. The patient is currently chest pain free, therefore no urgent cardiac intervention is required. 2. Diabetic foot ulcer/osteomyelitis. The patient will benefit from lower extremity arterial duplex study. 3. Diabetes mellitus. Aspirin and statin are the mainstay of therapy for peripheral vasculopathy. 4. History of hypertension. The patient will be continued on amlodipine. Metoprolol will be added to the regimen for double-product control as well as management of hypertension. We will continue following the blood pressure in this hospitalization. I would like to thank Dr. Kelley for allowing me to participate in the care of this patient. Igor Starkey M.D. DR: HI JOB#: [id number] CC:
--- NOTE | 2018-08-02 22:41 | General Progress Note ---
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
--- NOTE | 2018-08-02 22:43 | NUR ---
NURSE NOTES: RN called dr Starkey and left vm in regards to high troponin levels, awaiting for MD to call back
--- NOTE | 2018-08-02 22:48 | NUR ---
NURSE NOTES: DR Starkey called back, no new orders or concerns at this time.
[2018-08-02] MEDS ORDERED: ASPIR 8181 MG ORAL (23:14)
[2018-08-02] MEDS ORDERED: ACETAMINOPHEN325 M1 ORAL (23:14)
[2018-08-02] MEDS ORDERED: ATORVASTATIN CA10 MG ORAL (23:14)
[2018-08-02] MEDS ORDERED: DEXTROSE 50%-WA50 M1 IV (23:15)
[2018-08-02] MEDS ORDERED: NORCO 5-325 TA1 EACH ORAL (23:15)
[2018-08-02] MEDS ORDERED: D5NS IV (23:15)
[2018-08-02] MEDS ORDERED: COLACE100 MG ORAL (23:15)
[2018-08-02] MEDS ORDERED: NOVOLOG100 UNITS1 (23:16)
[2018-08-02] MEDS ORDERED: VENOFER100 MG/5 M IV (23:16)
[2018-08-02] MEDS ORDERED: HEPARIN SO5000 UNIT2 SUBQ (23:16)
[2018-08-02] MEDS ORDERED: LEVEMIR FL100 UNIT/1 SUBQ (23:17)
[2018-08-02] MEDS ORDERED: NITROSTAT0.4 M1 SL (23:17)
[2018-08-02] MEDS ORDERED: STARLIX60 MG ORAL (23:17)
[2018-08-02] MEDS ORDERED: ZOSYN 3.373.375 GM/1 IVPB (23:18)
[2018-08-02] MEDS ORDERED: PROTONIX40 MG ORAL (23:18)
[2018-08-02] MEDS ORDERED: VANCOMYCIN750 MG/150 IV (23:19)
[2018-08-02] MEDS ORDERED: DEXTROSE 50%-WA50 ML IV (23:21)
--- NOTE | 2018-08-02 23:44 | NUR ---
NURSE NOTES: Patient will be transferred to [facility] bed 534, report given to Mable, awaiting ambulance.
--- NOTE | 2018-08-03 00:03 | NUR ---
NURSE NOTES: Patient is being picked up by [facility], VSS, no distress noted, time of discharge is 0010. Report given to ambulance staff.
--- NOTE | 2018-08-03 05:00 | History and Physical Report ---
DATE OF ADMISSION: 08/01/2018 HISTORY OF PRESENT ILLNESS: The patient is admitted for gangrene of the right toe mainly the third and fifth digit toe on the right. 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 The patient is diabetic and also has high blood pressure as well. The patient is a poor historian, but does complain of pain over the wound. PAST MEDICAL HISTORY: Hypertension, NIDDM, psychosis, BPH, prior CVA with left paresis. ALLERGIES: No known allergies. MEDICATIONS: Hydrochlorothiazide, insulin, calcium, Seroquel, Flomax, and losartan. FAMILY HISTORY: Does have history of hypertension. SOCIAL HISTORY: Denies smoking, alcohol, or illicit drugs. Does have history of smoking. REVIEW OF SYSTEMS: HEENT: Denies headaches. RESPIRATORY: Denies shortness of breath. Denies cough. Clear to auscultation. CARDIOVASCULAR: Denies chest pain. GASTROINTESTINAL: Denies nausea, vomiting, or diarrhea. Abdomen is soft. EXTREMITIES: Does have gangrene in the third and fifth right toe fingers. PHYSICAL EXAMINATION: VITAL SIGNS: Temperature is 97.5, pulse is 70, and blood pressure 126/70. HEENT: PERRLA. NECK: Supple. No lymphadenopathy. CHEST: Clear to auscultation. CARDIOVASCULAR: Regular rate and rhythm. No murmurs or extra sounds. GASTROINTESTINAL: Soft, nontender, and nondistended. No organomegaly. EXTREMITIES: Does have gangrene of the third and fifth right toe, dry, but does have pedal pulses present in that leg. SCREENER AND BLENDER: Oriented x1. Reflexes equal in both sides. LABORATORY DATA: WBC of 10, hemoglobin 9.7, and platelets of 344,000. Sodium 142, potassium 3.2, and creatinine of 0.9. Troponin of 0.092. ASSESSMENT AND PLAN: 1. Hypokalemia. 2. Gangrene in the right third and fifth toes. pedal pulses present. He does have contractures. 3. Electrolyte imbalance. PLAN: I have consulted Dr. Short, Dr. Collins, Dr. Urias, Dr. Staton, Dr. Arriola, , and Dr. Starkey for cardiac clearance in case for a possible angiogram. We are going to transfer the patient to [facility] because we do not have angiogram suites at the [facility]. The gearcase assembler and the charge nurse both are made aware of the transfer. Wyatt Kelley M.D. DR: AJAY JOB#: [id number] CC:
[2018-08-03] MEDS ORDERED: Aspirin Baby 81mg ORAL SCH (09:00)
--- NOTE | 2018-08-03 10:41 | Diagnostic Imaging Report ---
Indication: Foot pain and osteomyelitis Technique: 3 views right foot Comparison: none Findings: No acute fractures. No dislocations. There is mild hallux valgus and metatarsus adductus. No osseous erosions, or unusual periosteal reaction, or other findings to suggest acute osteomyelitis. Note that the terminal tuft of the fifth digit is not well-demonstrated, however. There are some vascular calcifications Impression: No definite acute bony trauma No definite findings to suggest acute osseous myelitis. Note, however, limited sensitivity of plain radiograph for such. Consider MRI or bone scan for better characterization if there is high clinical suspicion
[2018-08-03] MEDS ORDERED: Iron Sucrose 100 MG in NS 55 ML IV SCH (21:00)
--- NOTE | 2018-08-03 22:52 | Consultation ---
History of Present Illness General Chief Complaint: Lower Extremity Injury Present Illness Allergies: Coded Allergies: No Known Allergies (Unverified , 08/01/18) Medication History Scheduled Amlodipine Besylate* (Amlodipine Besylate*), 10 MG ORAL DAILY, (Reported) Aspirin* (Aspir 81*), 81 MG ORAL DAILY, (Reported) Atorvastatin Calcium* (Lipitor*), 10 MG ORAL BEDTIME, (Reported) Docusate Sodium* (Colace*), 100 MG ORAL THREE TIMES A DAY, (Reported) Heparin Sod (Porcine) (Heparin Sodium*), 5,000 UNITS SUBQ EVERY 8 HOURS, ( Reported) Insulin Detemir (Levemir Flexpen), 12 UNITS SUBQ DAILY, (Reported) Iron Sucrose (Venofer), 100 MG IV HS, (Reported) Nateglinide* (Starlix*), 120 MG ORAL THREE TIMES A DAY, (Reported) Pantoprazole* (Protonix*), 40 MG ORAL DAILY, (Reported) Muvyzxclemjf-Ajgg-Tppdytci,Iso (Zosyn 3.375 Gm Pre Mix-Bag), 3.375 GM IVPB EVERY 8 HOURS, (Reported) Quetiapine Fumarate* (Quetiapine Fumarate*), 100 MG ORAL QHS, (Reported) Tamsulosin HCl (Flomax), 0.4 MG ORAL DAILY, (Reported) Vancomycin In Dextrose,Iso-Osm (Vancomycin 750 Mg/150 Ml Bag), 750 MG IV Q12HR, (Reported) [D5ns], 50 ML IV Q1HR, (Reported) Scheduled PRN Acetaminophen* (Acetaminophen 325MG Tablet*), 650 MG ORAL Q4H PRN for Mild Pain/ Temp > 100.5, (Reported) Dextrose 50 % In Water (Dextrose 50%-Water Vial), 50 ML IV Q30MIN PRN for hypoglycemia, (Reported) Dextrose 50 % in Water (Dextrose 50%-Water Syringe), 25 ML IV Q30MIN PRN for Hypoglycemia, (Reported) Hydrocodone Bit/Acetaminophen 5-325* ([place] 5-325*), 1 TAB ORAL Q4H PRN for For Pain, (Reported) Nitroglycerin (Nitrostat), 0.4 MG SL Q5M X3 DOSES PRN for CHEST PAIN, (Reported) Miscellaneous Medications Insulin Aspart (Novolog Flexpen), (Reported) Discontinued Medications Glimepiride* (Glimepiride*), 2 MG ORAL BEFORE BREAKFAST, (Reported) Discontinued Reason: MD discontinued med Hydrochlorothiazide (Hydrochlorothiazide), 12.5 MG ORAL DAILY, (Reported) Discontinued Reason: MD discontinued med Insulin Glargine (Lantus), 65 SUBQ DAILY, (Reported) Discontinued Reason: MD discontinued med Insulin Human Lispro (Humalog), 0 SUBQ, (Reported) Discontinued Reason: MD discontinued med Metformin HCl (Metformin HCl), 1,000 MG PO BID, (Reported) Discontinued Reason: MD discontinued med Potassium Chloride (Potassium Chloride), 10 MEQ ORAL DAILY, (Reported) Discontinued Reason: MD discontinued med Risperidone (Risperidone), 1 MG PO, (Reported) Discontinued Reason: MD discontinued med Risperidone* (Risperdal*), 0.5 MG ORAL QHS, (Reported) Discontinued Reason: MD discontinued med Rosuvastatin Calcium* (Crestor*), 10 MG ORAL QHS, (Reported) Discontinued Reason: MD discontinued med Valsartan (Diovan), 320 MG ORAL DAILY, (Reported) Discontinued Reason: MD discontinued med Patient History Healthcare decision maker N Resuscitation status Advanced Directive on File Physical Exam Intake and Output 08/02/18 08/03/18 19:00 07:00 Intake Total 1017.5 ml Output Total 300 ml Balance 717.5 ml Intake Oral 640 ml IV Total 377.5 ml Output Urine Total 300 ml # Voids 1 # Bowel Movements 1 Height (Feet): 5 Height (Inches): 11.00 Weight (Pounds): 155 Assessment/Plan Assessment/Plan Hematology/Oncology Consultation Requesting MD: Wyatt Kelley Date of Service: 08/02/18 Reason for consultation: Anemia and Leukocytosis HISTORY OF PRESENT ILLNESS:The patient is admitted for gangrene of the right toe mainly the third and fifth digit toe on the right. The patient has organic brain syndrome. 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 Hematology/Oncology was consulted due to Anemia and Leukocytosis. Hgb 9, Wbc 11. PAST MEDICAL HISTORY: Hypertension, diabetes mellitus,schizophrenia, prior CVA with left paresis. ALLERGIES: No known allergies. MEDICATIONS: Hydrochlorothiazide, insulin, calcium, Seroquel, Flomax, and losartan. FAMILY HISTORY: Does have history of hypertension. SOCIAL HISTORY: Denies smoking, alcohol, or illicit drugs. Does have history of smoking. REVIEW OF SYSTEMS: HEENT: Denies headaches. RESPIRATORY: Denies shortness of breath. Denies cough. Clear to auscultation. CARDIOVASCULAR: Denies chest pain. GASTROINTESTINAL: Denies nausea, vomiting, or diarrhea. Abdomen is soft. EXTREMITIES: Does have gangrene in the third and fifth right toe fingers. PHYSICAL EXAMINATION: VITAL SIGNS: Temperature is 97.5, pulse is 70, and blood pressure 126/70. HEENT: PERRLA. NECK: Supple. No lymphadenopathy. CHEST: Clear to auscultation. CARDIOVASCULAR: Regular rate and rhythm. No murmurs or extra sounds. GASTROINTESTINAL: Soft, nontender, and nondistended. No organomegaly. EXTREMITIES: Does have gangrene of the third and fifth right toe, dry, but does have pedal pulses present in that leg. LINING SEWER: Oriented x1. Reflexes equal in both sides. LABORATORY DATA: WBC of 10, hemoglobin 9.7, and platelets of 344,000. Sodium 142, potassium 3.2, and creatinine of 0.9. Troponin of 0.092. ASSESSMENT AND PLAN: # Anemia of chronic disease (or of iron deficiency) due to underlying chronic medical issues, multifactorial --> Anemia workup has been ordered --> No evidence of hemolysis is noted, peripheral smear has been reviewed. --> Hgb goal >7. Transfuse prn. --> Epogen or iron at this time is not particularly indicated --> Medications have been reviewed #Leukocytosis. Likely related to underlying infection versus reactive process. -->Peripheral has been ordered, results are pending -->Medications have been reviewed -->Imaging has been reviewed --> Blood cultures and urine cultures prn has been started on abx, empiric treatment # Gangrene in the right third and fifth toes. pedal pulse present. He does have contractures. # Diabetic foot ulcer/osteomyelitis. # Diabetes mellitus. Aspirin and statin are the mainstay of therapy for peripheral vasculopathy. # History of hypertension, control as well as management of hypertension. --> appreciate cardiology recs The timing of this note does not necessarily reflect the time of the patient was seen Greatly appreciate consultation! Jose M Wade MD Aug 03, 2018 22:52
--- NOTE | 2018-08-04 10:56 | Discharge Summary ---
Discharge Summary Discharge Summary _ DATE OF ADMISSION: 08/01/2018 DATE OF DISCHARGE: 08/03/2018 DISCHARGED BY: Dr. Wyatt Darling CONSULTANTS: Dr. Jose M Urias BRIEF HOSPITAL COURSE: Patient is a 67-year-old male, who presented to ED for evaluation of gangrene of the right toe mainly on the third and fifth digit of the right foot. Patient has history of organic brain syndrome. He had previous stroke with residual left-sided hemiparesis and tremors in the upper extremity. He has diabetes and elevated blood pressure. He has history of BPH and psychosis. On evaluation at ED, vital signs were stable. Patient was afebrile. Blood work did not show any leukocytosis, hemoglobin was 9.7, hematocrit 31. Electrolytes were stable. Calcium was elevated to 10. Troponin was 0.090. X- ray of the right foot showed apparent destructive changes in the fifth distal phalanx, concerning for osteomyelitis. There was no acute bony trauma. Then admitted for evaluation of gangrene was third and fifth right toe. ID was consulted. Patient was started on IV vancomycin and Zosyn. I at least was consulted. On examination of the right foot patient have nonpalpable pulses on the dorsalis pedis and posterior tibia. There was necrosis noted to the digits on the third and fifth. There was no active purulent drainage or malodor. There was edema and ascending erythema. He was given wound care. Cardiac evaluation was done. Patient had elevated troponin level. Twelve-lead electrocardiogram showed sinus rhythm with a rate of 73 with premature atrial complexes and nonspecific ST and T wave abnormalities. A 2D echocardiogram showed normal LV systolic function with LVEF of about 55-60%. There is mild aortic regurgitation, grade 1 LV diastolic dysfunction and right ventricular systolic pressure measured at 50 mmHg. Slight elevation of troponin could be secondary to underlying infection, however non-ST elevated [place] type II with demand ischemia is also consideration especially patient had many risk factors for coronary artery disease including diabetes mellitus, hypertension and prior history of a vascular event. He was given Lipitor. He was given aspirin. Noted to have low TSH. He was seen by erosion control specialist. Patient most likely have sick euthyroid. Blood glucose was monitored. Hemoglobin A1c was 8.8. He was continued on a low sliding scale, Levemir 12 units every morning and was started on Starlix 120 mg before meals 3 times daily. Metformin was placed on hold. Patient was noted to have anemia, assessed to be due to chronic disease and of iron deficiency. He was given IV iron and B12. Magnesium was repleted. He was given potassium supplement. He was placed on heparin for DVT prophylaxis. He was seen by vascular surgeon. Patient has severe right leg arterial ischemia and multilevel arterial occlusive iliac, femoral and tibial disease. Patient was recommended need to have right leg angiogram and revascularization and to have CT angiogram of the aorta to feet to delineate vascular pathology. He was eventually transferred to [facility] for angiogram. FINAL DIAGNOSES: Ischemic right foot and toe gangrene Severe right leg arterial ischemia Multilevel arterial occlusive disease Anemia of chronic disease due to iron deficiency Leukocytosis due to infection and reactive process Diabetic right foot ulcer with possible osteomyelitis, present on admission Diabetes mellitus Hypertension Hypokalemia Hypomagnesemia Mild hyperkalemia COPD Hyperlipidemia Elevated troponin possibly due to underlying infection or non-ST elevated [place] type II with demand ischemia DISPOSITION: Patient was transferred to [facility]. DISCHARGE MEDICATIONS: Refer to Discharge Medication List. I have been assigned to complete a discharge summary on this account, I was not involved with the patient's management. Christina Andrade NP Aug 04, 2018 10:56
--- NOTE | 2018-08-04 22:04 | Emergency Room Report ---
History of Present Illness General Chief Complaint: Lower Extremity Injury Source: Patient, Medical Record, EMS Present Illness HPI Patient presents from nursing facility with complaint of possible infection to the right foot Patient himself reports that these symptoms have been ongoing for several days Denies any fevers or chills patient is somewhat of a poor historian therefore history of present illness is limited Also refer to the transferring note for input and nursing facility report There was no reports of fevers patient denies any trauma patient has multiple comorbidities including diabetes Allergies: Coded Allergies: No Known Allergies (Unverified , 08/01/18) Patient History Limited by: medical condition Past Medical History: see triage record Pertinent Family History: unable to obtain Reviewed Nursing Documentation: PMH: Agreed; PSxH: Agreed Nursing Documentation-PMH Past Medical History: No History, Except For Hx Cardiac Problems: Yes Hx Hypertension: Yes Hx Diabetes: Yes Hx Cancer: No Hx Gastrointestinal Problems: No History Of Psychiatric Problem: Yes - SCHIZO Hx Neurological Problems: No Review of Systems All Other Systems: limited - Other than the ones mentioned in the history of present illness all others are reviewed however they do stay limited due to the patient's mental status Physical Exam Vital Signs Date Time Temp Pulse Resp B/P (MAP) Pulse Ox O2 Delivery O2 Flow Rate FiO2 08/01/18 12:25 97.3 76 16 130/66 94 Room Air Sp02 EP Interpretation: reviewed, normal General Appearance: no apparent distress Head: normocephalic, atraumatic Eyes: bilateral eye PERRL, bilateral eye EOMI ENT: dry mucus membranes Neck: full range of motion, supple Respiratory: lungs clear Cardiovascular #1: regular rate, rhythm Gastrointestinal: non tender, soft Genitourinary: no CVA tenderness Musculoskeletal: other - Patient has flexion-extension of both feet Neurologic: alert, responsive, motor strength/tone normal Skin: other - Concerning findings of the right foot patient has purpuric discoloration of right toe, decreased palpable pulses, surrounding erythema Lymphatic: no adenopathy Medical Decision Making Diagnostic Impression: Primary Impression: Gangrene Additional Impressions: Necrosis Vascular insufficiency ER Course Patient's findings are concerning There are signs of vascular pathology along with secondary infection Patient symptoms have been ongoing for several days now Patient is initiated on initial antibiotics IV hydration will require further vascular specialty consultation and inpatient care Labs Test 08/02/18 05:15 08/02/18 05:18 08/02/18 10:30 08/02/18 21:20 White Blood Count 11.0 K/UL (4.8-10.8) Red Blood Count 4.29 M/UL (4.70-6.10) Hemoglobin 9.4 G/DL (14.2-18.0) Hematocrit 30.2 % (42.0-52.0) Mean Corpuscular Volume 70 FL (80-99) Mean Corpuscular Hemoglobin 21.9 PG (27.0-31.0) Mean Corpuscular Hemoglobin Concent 31.1 G/DL (32.0-36.0) Red Cell Distribution Width 18.2 % (11.6-14.8) Platelet Count 352 K/UL (150-450) Mean Platelet Volume 6.2 FL (6.5-10.1) Neutrophils (%) (Auto) 67.1 % (45.0-75.0) Lymphocytes (%) (Auto) 23.8 % (20.0-45.0) Monocytes (%) (Auto) 6.2 % (1.0-10.0) Eosinophils (%) (Auto) 2.3 % (0.0-3.0) Basophils (%) (Auto) 0.5 % (0.0-2.0) Erythrocyte Sedimentation Rate 32 MM/HR (0-20) Sodium Level 142 MMOL/L (136-145) Potassium Level 3.2 MMOL/L (3.5-5.1) Chloride Level 105 MMOL/L (98-107) Carbon Dioxide Level 29 MMOL/L (21-32) Anion Gap 8 mmol/L (5-15) Blood Urea Nitrogen 10 mg/dL (7-18) Creatinine 0.9 MG/DL (0.55-1.30) Estimat Glomerular Filtration Rate > 60 mL/min (>60) Glucose Level 72 MG/DL (74-106) Hemoglobin A1c 8.8 % (4.3-6.0) Uric Acid 2.9 MG/DL (2.6-7.2) Calcium Level 9.4 MG/DL (8.5-10.1) Phosphorus Level 3.5 MG/DL (2.5-4.9) Magnesium Level 1.3 MG/DL (1.8-2.4) Total Bilirubin 0.5 MG/DL (0.2-1.0) Aspartate Amino Transf (AST/SGOT) 15 U/L (15-37) Alanine Aminotransferase (ALT/SGPT) 20 U/L (12-78) Alkaline Phosphatase 93 U/L (46-116) Troponin I 0.094 ng/mL (0.000-0.056) 0.105 ng/mL (0.000-0.056) Pro-B-Type Natriuretic Peptide 151 pg/mL (0-125) Total Protein 7.9 G/DL (6.4-8.2) Albumin 3.5 G/DL (3.4-5.0) Globulin 4.4 g/dL Albumin/Globulin Ratio 0.8 (1.0-2.7) Triglycerides Level 132 MG/DL (30-150) Cholesterol Level 133 MG/DL (< 200) LDL Cholesterol 56 mg/dL (<100) HDL Cholesterol 51 MG/DL (40-60) Cholesterol/HDL Ratio 2.6 (3.3-4.4) Vitamin B12 Level 124 PG/ML (193-986) Folate 28.6 NG/ML (8.6-58.9) Thyroid Stimulating Hormone (TSH) 0.288 uiU/mL (0.358-3.740) Carcinoembryonic Antigen 3.0 ng/mL (0.0-4.7) Urine Color Pale yellow Urine Appearance Clear Urine pH 6.5 (4.5-8.0) Urine Specific [place] 1.005 (1.005-1.035) Urine Protein Negative (NEGATIVE) Urine Glucose (UA) 4+ (NEGATIVE) Urine Ketones Negative (NEGATIVE) Urine Blood Negative (NEGATIVE) Urine Nitrite Negative (NEGATIVE) Urine Bilirubin Negative (NEGATIVE) Urine Urobilinogen Normal MG/DL (0.0-1.0) Urine Leukocyte Esterase 1+ (NEGATIVE) Urine RBC 0-2 /HPF (0 - 0) Urine WBC 0-2 /HPF (0 - 0) Urine Squamous Epithelial Cells Occasional /LPF Urine Bacteria Occasional /HPF (NONE) Rhythm Strip Diag. Results EP Interpretation: yes Rate: 80 Rhythm: NSR, no PVC's, no ectopy Last Vital Signs Date Time Temp Pulse Resp B/P (MAP) Pulse Ox O2 Delivery O2 Flow Rate FiO2 08/02/18 21:00 Room Air 08/02/18 20:00 98.4 75 18 125/65 (85) 93 Status: improved Disposition: ADMITTED INPATIENT Condition: Serious Referrals: Wyatt Kelley MD (PCP) Wyatt Galvan DO Aug 04, 2018 22:04
--- NOTE | 2018-08-06 11:20 | Cardiology Report ---
APPROVED REPORT EKG Measurement Heart [id number] Normal sinus rhythm Normal ECG
--- NOTE | 2018-08-06 22:30 | Consultation ---
DATE OF CONSULTATION: 08/02/2018 VASCULAR SURGERY CONSULTATION CONSULTING PHYSICIAN: Ricardo Collins M.D. REFERRING PHYSICIAN: Wyatt Kelley M.D. REASON FOR EVALUATION: Right foot ischemic toe gangrene. HISTORY OF PRESENT ILLNESS: This is a 67-year-old male, who presented with worsening right foot necrosis and gangrene. The patient is awake, but confused. All the history obtained from medical records. The patient reportedly is nonambulatory in the fdc. PAST MEDICAL HISTORY: As above, history of stroke, PAD, hypertension, COPD, smoker 2 packs a day, diabetes mellitus, hyperlipidemia. MEDICATIONS: See attached MAR. ALLERGIES: No known drug allergies. SOCIAL HISTORY: He smokes 2 packs a day. prison resident. Denies history of drugs or alcohol abuse. FAMILY HISTORY: Unobtainable. REVIEW OF SYSTEMS: Unobtainable. PHYSICAL EXAMINATION: GENERAL: The patient is awake, but confused. Alert, but disoriented. VITAL SIGNS: Afebrile at 97, heart rate 80, blood pressure 115/70, and respirations 16. The patient has palpable radial pulses. No evidence of carotid bruit. LUNGS: Clear to auscultation. HEART: Regular rate. ABDOMEN: Soft, nontender. VASCULAR: He has weak right femoral pulse, stronger left femoral pulse. Absent popliteal and pedal pulses bilaterally. Left foot Dopplers are stronger. Right foot has ischemic toe gangrene and necrosis. IMPRESSION: 1. Ischemic right foot toe and foot gangrene and necrosis with weaker right femoral pulses, severe arterial occlusive disease, multilevel both inflow and outflow. 2. History of stroke. 3. Dementia 4. Hypertension. 5. COPD. 6. 2 pack-a-day smoker. 7. Diabetes mellitus. 8. Hyperlipidemia. PLAN: 1. Medical optimization progress. 2. Antiplatelet and statin therapy. 3. We will obtain a CT angiogram of the aorta to both lower extremity to delineate vasculopathy. The patient will need right leg angiography and revascularization prior to right foot toe amputation with Podiatry service. 4. The above was discussed at length with the patient and the nurse at bedside and prior medical service. Ricardo Collins M.D. DR: COLIN JOB#: [id number] CC: Ricardo Collins M.D.; Fax#: [phone] WYATT KELLEY M.D. ; FAX#: [phone]
--- NOTE | 2018-08-07 14:16 | Diagnostic Imaging Report ---
APPROVED REPORT CPT Code: 17912 Symptoms Comments: Right foot 5th and 3rd digit gangrene Pain RIGHT LEG: Common femoral artery waveform analysis is abnormal, suggestive of iliac arterial occlusive disease. Color flow duplex sonography reveals an occlusion in the proximal superficial femoral artery. Reconstitution is noted at the distal superficial femoral artery The popliteal artery is patent. The tibioperoneal trunk is also patent. The posterior tibial, anterior tibial and dorsalis pedis arteries are severely calcified. Doppler tibial artery waveform analysis is monophasic is consistent with severe to critical ischemia at rest. NAMAN Schwartz was notified of abnormal results at 1430 hours.
--- NOTE | 2018-08-07 14:16 | Diagnostic Imaging Report ---
APPROVED REPORT CPT Code: 82264 Present Symptoms Lower Extremity Pain: BILATERAL: Imaging reveals a patent deep venous system bilaterally. There is no evidence of thrombus within the femoral, popliteal or tibial segments. The greater saphenous veins are also within normal limits. Doppler indicates normal spontaneous flow within these segments.
--- NOTE | 2018-08-07 14:16 | Diagnostic Imaging Report ---
APPROVED REPORT CPT Code: 74333 Vascular Symptoms CVA/TIA: Risk Factors Smoking: Doppler Spectral Velocity Analysis RightLeft arteries. The Doppler spectral flow analysis is within normal limits in the common carotid artery. The Doppler spectral flow analysis indicates the degree of stenosis is moderate (50-69%) in the internal carotid artery, the external carotid artery, and the proximal subclavian artery. The vertebral artery is patent, without evidence of stenosis or steal. carotid arteries. The Doppler spectral flow analysis is within normal limits in the common carotid artery and the external carotid artery. The Doppler spectral flow analysis indicates the degree of stenosis is moderate (50-69%) in the internal carotid artery. The vertebral artery is patent, without evidence of stenosis or steal. Exam was very limited due to patient situation. Dr. Collins was informed at 1630 hours.
== END 2018-08-03 00:15 | disposition short-term general hospital (02) | DRG 281 ==
LOC: EDBD 12:29 → EMR 13:07 → 4E 14:10 → EDBEDREQ 14:14
DX: E11.52 Type 2 diabetes mellitus with diabetic peripheral angiopathy with gangrene (principal); I21.A1 Myocardial infarction type 2; I96 Gangrene, not elsewhere classified; I69.354 Hemiplegia and hemiparesis following cerebral infarction affecting left non-dominant side; M86.9 Osteomyelitis, unspecified; E11.621 Type 2 diabetes mellitus with foot ulcer; E86.0 Dehydration; E11.69 Type 2 diabetes mellitus with other specified complication; E78.5 Hyperlipidemia, unspecified; F17.210 Nicotine dependence, cigarettes, uncomplicated; E11.65 Type 2 diabetes mellitus with hyperglycemia; J44.9 Chronic obstructive pulmonary disease, unspecified; M20.5X1 Other deformities of toe(s) (acquired), right foot; I77.1 Stricture of artery; I10 Essential (primary) hypertension; F03.90 Unspecified dementia, unspecified severity, without behavioral disturbance, psychotic disturbance, mood disturbance, and anxiety; I69.398 Other sequelae of cerebral infarction; R25.1 Tremor, unspecified; N40.0 Benign prostatic hyperplasia without lower urinary tract symptoms; D50.9 Iron deficiency anemia, unspecified; E83.42 Hypomagnesemia; D63.8 Anemia in other chronic diseases classified elsewhere; Z79.4 Long term (current) use of insulin; E87.6 Hypokalemia; F09 Unspecified mental disorder due to known physiological condition; F20.9 Schizophrenia, unspecified; E07.81 Sick-euthyroid syndrome
CPT/HCPCS: 36415; 71045; 80053; 80061; 81001; 82378; 82550; 82553; 82607; 82728; 82746; 82962; 83036; 83540; 83550; 83605; 83690; 83735; 83880; 84100; 84443; 84484; 84550; 85025; 85651; 86140; 87040; 87081; 93005; 93306; 93880; 93926; 93970; 96365; 96368; 99285; J1815; J8499; S5561

== ENCOUNTER 2018-12-02 11:07 | Inpatient (IN) | payer MEDICARE, OTHER ==
[~2018-12-02] VITALS: Ht 175.3 cm; Wt 70.9 kg
[~2018-12-02 11:07] MED LIST: ACETAMINOPHEN325 M1 ORAL; AMLODIPINE BESY10 MG ORAL; ASPIR 8181 MG ORAL; ATORVASTATIN CA10 MG ORAL; COLACE100 MG ORAL; CRESTOR10 M2 ORAL; D5NS IV; DEXTROSE 50%-WA50 M1 IV; DEXTROSE 50%-WA50 ML IV; DIOVAN160 MG ORAL; DIURIL25 MG ORAL; FLOMAX0.4 MG ORAL; GLIMEPIRIDE1 MG ORAL; HEPARIN SO5000 UNIT2 SUBQ; HUMALOG 75/255 UNIT1 SUBQ; LANTUS SOL100 UNIT/1 SUBQ; LEVEMIR FL100 UNIT/1 SUBQ; METFORMIN500 MG/5 M PO; NITROSTAT0.4 M1 SL; NORCO 5-325 TA1 EACH ORAL; NOVOLOG100 UNITS1; POTASSIUM CHLO10 ME3 ORAL; PROTONIX40 MG ORAL; QUETIAPINE FUMA50 MG ORAL; RISPERDAL0.5 MG ORAL; RISPERIDONE2 MG/2 ML PO; STARLIX60 MG ORAL; VANCOMYCIN750 MG/150 IV; VENOFER100 MG/5 M IV; ZOSYN 3.373.375 GM/1 IVPB
[2018-12-02] MEDS ORDERED: HYDROcodone/Acetamin 5/325 tab ORAL ONE (11:15)
--- NOTE | 2018-12-02 11:18 | Emergency Room Report ---
History of Present Illness General Chief Complaint: Edema Source: Patient, EMS Present Illness HPI Patient presents with one week of increased pain and redness of his right lower leg. Patient has diabetes and is had partial foot amputation on that side. He denies taking any medication medication for the pain or antibiotics at this time. He states his tetanus is up-to-date. He still smokes. He denies any edema or calf tenderness. The pain is more in the anterior lower leg rated 10/ 10, burning and aching and constant. The foot is not tender. He is post transmetatarsal amputation of the foot. The patient denies fevers, chills, nausea, vomiting, diarrhea, chest pain, cough , joint pain, dysuria. Patient admitted July. D/C dx: Ischemic right foot and toe gangrene Severe right leg arterial ischemia Multilevel arterial occlusive disease Anemia of chronic disease due to iron deficiency Leukocytosis due to infection and reactive process Diabetic right foot ulcer with possible osteomyelitis, present on admission Diabetes mellitus Hypertension Hypokalemia Hypomagnesemia Mild hyperkalemia COPD Hyperlipidemia Elevated troponin possibly due to underlying infection or non-ST elevated [place] type II with demand ischemia Allergies: Coded Allergies: No Known Allergies (Unverified , 08/01/18) Patient History Past Medical History: see triage record, old chart reviewed Past Surgical History: other - transmetatarsal amputation R foot Social History: Reports: smoking Social History Narrative assisted living Reviewed Nursing Documentation: PMH: Agreed; PSxH: Agreed Nursing Documentation-PMH Hx Cardiac Problems: Yes Hx Hypertension: Yes Hx Diabetes: Yes Hx Cancer: No Hx Gastrointestinal Problems: No History Of Psychiatric Problem: Yes - SCHIZO Hx Neurological Problems: No Review of Systems All Other Systems: negative except mentioned in HPI Physical Exam Vital Signs Date Time Temp Pulse Resp B/P (MAP) Pulse Ox O2 Delivery O2 Flow Rate FiO2 12/02/18 11:07 98.2 73 20 115/70 (85) 96 Room Air Sp02 EP Interpretation: reviewed, normal General Appearance: no apparent distress, GCS 15, Chronically Ill Head: normocephalic Eyes: bilateral eye normal inspection, bilateral eye PERRL, bilateral eye EOMI ENT: moist mucus membranes Neck: supple Respiratory: lungs clear, normal breath sounds Cardiovascular #1: regular rate, rhythm Cardiovascular #2: 2+ radial (R); 1+ dorsalis pedis (R) - Slow but adequate capillary refill Gastrointestinal: normal inspection, normal bowel sounds, non tender, no mass, non-distended, scaphoid Genitourinary: no CVA tenderness Musculoskeletal: back normal, normal range of motion, other - Right foot transmetatarsal amputation Neurologic: alert, oriented x3, grossly normal Psychiatric: mood/affect normal Skin: warm/dry, other - Erythema mid right anterior tibial area, tobacco stains , small ulcer right dorsum of foot less than centimeter diameter without surrounding erythema Medical Decision Making Diagnostic Impression: Primary Impression: Cellulitis of right lower extremity Additional Impressions: Vascular insufficiency Tobacco abuse ER Course Patient presents with erythema and pain in his right lower extremity. Differential includes cellulitis, arterial insufficiency, muscle injury, fasciitis, osteomyelitis amongst others. Patient will be evaluated with EKG, chest x-ray, x-rays of the right lower extremities and labs. Clinically there is no evidence of DVT at this time and a good pulses dorsalis pedis. Patient will be treated with IV hydration and also [place] as he declines morphine at this time. I think consideration is vascular insufficiency. However there is good capillary refill in the foot is warm. EKG without injury. Chest x-ray with COPD and increased vascular markings. Tib- fib and right foot without gas gangrene however bony changes after amputation are present. Laboratory with normal white count. Normal lactate. Sedimentation rate upper limits of normal. Antibiotics begun. Pain improved. Patient admitted for further evaluation and continuation of IV antibiotics. Discussed with Dr. Kelley. Admitted to medical floor. Laboratory Tests Test 12/02/18 11:10 12/02/18 19:30 White Blood Count 7.6 K/UL (4.8-10.8) Red Blood Count 4.34 M/UL (4.70-6.10) L Hemoglobin 13.3 G/DL (14.2-18.0) L Hematocrit 39.0 % (42.0-52.0) L Mean Corpuscular Volume 90 FL (80-99) Mean Corpuscular Hemoglobin 30.6 PG (27.0-31.0) Mean Corpuscular Hemoglobin Concent 34.1 G/DL (32.0-36.0) Red Cell Distribution Width 12.7 % (11.6-14.8) Platelet Count 200 K/UL (150-450) Mean Platelet Volume 6.2 FL (6.5-10.1) L Neutrophils (%) (Auto) 62.6 % (45.0-75.0) Lymphocytes (%) (Auto) 26.8 % (20.0-45.0) Monocytes (%) (Auto) 7.1 % (1.0-10.0) Eosinophils (%) (Auto) 2.7 % (0.0-3.0) Basophils (%) (Auto) 0.8 % (0.0-2.0) Erythrocyte Sedimentation Rate 20 MM/HR (0-20) Prothrombin Time 10.7 SEC (9.30-11.50) Prothrombin Time INR 1.0 (0.9-1.1) PTT 26 SEC (23-33) Sodium Level 141 MMOL/L (136-145) Potassium Level 3.8 MMOL/L (3.5-5.1) Chloride Level 103 MMOL/L (98-107) Carbon Dioxide Level 29 MMOL/L (21-32) Anion Gap 9 mmol/L (5-15) Blood Urea Nitrogen 13 mg/dL (7-18) Creatinine 0.7 MG/DL (0.55-1.30) Estimate Glomerular Filtration Rate > 60 mL/min (>60) Glucose Level 120 MG/DL (74-106) H Lactic Acid Level 1.60 mmol/L (0.4-2.0) Calcium Level 9.3 MG/DL (8.5-10.1) Magnesium Level 1.3 MG/DL (1.8-2.4) L Total Bilirubin 0.7 MG/DL (0.2-1.0) Aspartate Amino Transferase (AST) 23 U/L (15-37) Alanine Aminotransferase (ALT) 35 U/L (12-78) Alkaline Phosphatase 72 U/L (46-116) Total Creatine Kinase 32 U/L (26-308) Troponin I 0.029 ng/mL (0.000-0.056) Pro-B-Type Natriuretic Peptide 61 pg/mL (0-125) Total Protein 7.1 G/DL (6.4-8.2) Albumin 3.4 G/DL (3.4-5.0) Globulin 3.7 g/dL Albumin/Globulin Ratio 0.9 (1.0-2.7) L Urine Color Pale yellow Urine Appearance Clear Urine pH 6.5 (4.5-8.0) Urine Specific [place] 1.005 (1.005-1.035) Urine Protein Negative (NEGATIVE) Urine Glucose (UA) Negative (NEGATIVE) Urine Ketones Negative (NEGATIVE) Urine Blood Negative (NEGATIVE) Urine Nitrite Negative (NEGATIVE) Urine Bilirubin Negative (NEGATIVE) Urine Urobilinogen Normal MG/DL (0.0-1.0) Urine Leukocyte Esterase 3+ (NEGATIVE) H Urine RBC 0-2 /HPF (0 - 0) H Urine WBC 2-4 /HPF (0 - 0) Urine Squamous Epithelial Cells None /LPF (NONE/OCC) Urine Bacteria Few /HPF (NONE) EKG Diagnostic Results Rate: normal Rhythm: NSR ST Segments: no acute changes Rhythm Strip Diag. Results EP Interpretation: yes Rhythm: NSR, no PVC's, no ectopy Chest X-Ray Diagnostic Results Chest X-Ray Diagnostic Results : Chest X-Ray Ordered: Yes # of Views/Limited/Complete: 1 View Indication: Other EP Interpretation: Yes Interpretation: no effusion, no pneumothorax, other - increased fuentes, technique? Impression: Other Electronically Signed by: Electronically signed by Azar Monteiro MD Other X-Ray Diagnostic Results Other X-Ray Diagnostic Results #1: X-Ray ordered: R tib fib # of Views/Limited Vs Complete: 4 View Indication: Other EP Interpretation: Yes Interpretation: no dislocation, no fractures, other - STS Impression: Other Electronically Signed by: Electronically signed by Azar Monteiro MD Other X-Ray Diagnostic Results #2: X-Ray ordered: foot # of Views/Limited Vs Complete: 3 View Indication: Other Interpretation: no dislocation, other - amputation, no gas, + STS Impression: Other Electronically Signed by: Electronically signed by Azar Monteiro MD Last Vital Signs Date Time Temp Pulse Resp B/P (MAP) Pulse Ox O2 Delivery O2 Flow Rate FiO2 12/02/18 16:00 98.1 63 17 116/53 (74) 95 12/02/18 14:46 Room Air Status: improved Disposition: ADMITTED INPATIENT Condition: Serious Azar Monteiro MD December 02, 2018 11:18
[2018-12-02] MEDS ORDERED: METFORMIN HCL750 MG ORAL (11:27)
[2018-12-02] MEDS ORDERED: CRESTOR10 M2 ORAL (11:27)
[2018-12-02] MEDS ORDERED: GLIMEPIRIDE1 MG ORAL (11:27)
[2018-12-02] MEDS ORDERED: DIOVAN320 MG ORAL (11:27)
[2018-12-02] MEDS ORDERED: RISPERDAL0.5 MG ORAL (11:27)
[2018-12-02] MEDS ORDERED: K-TAB ER20 MEQ PO (11:27)
[2018-12-02] MEDS ORDERED: HYDROCHLOROTH12.5 M2 ORAL (11:27)
--- NOTE | 2018-12-02 11:31 | NUR ---
ED Nurse Note: Pt BRENDA from [facility] due to R foot swelling and pain x 2 weeks, +2 non-pitting. All toes were amputated last year due to DM. Pain 04/19 rodrick. Pt AOx4, VSS rodrick. Will cont to monitor.
[2018-12-02 11:32] VITALS: BP 115/51
[2018-12-02 11:33] LABS: BASOPHILS % (AUTO) 0.8 % (0.0-2.0); EOSINOPHILS % (AUTO) 2.7 % (0.0-3.0); HEMOGLOBIN 13.3 G/DL (14.2-18.0); LYMPHOCYTES % (AUTO) 26.8 % (20.0-45.0); MEAN CORPUSCULAR VOLUME 90 FL (80-99); MONOCYTES % (AUTO) 7.1 % (1.0-10.0); NEUTROPHILS % (AUTO) 62.6 % (45.0-75.0); PLATELET COUNT 200 K/UL (150-450); RED BLOOD COUNT 4.34 M/UL (4.70-6.10); RED CELL DISTRIBUTION WIDTH 12.7 % (11.6-14.8); WHITE BLOOD COUNT 7.6 K/UL (4.8-10.8)
[2018-12-02 11:42] LABS: ANION GAP 9 mmol/L (5-15); BLOOD UREA NITROGEN 13 mg/dL (7-18); CALCIUM 9.3 MG/DL (8.5-10.1); CARBON DIOXIDE 29 MMOL/L (21-32); CHLORIDE 103 MMOL/L (98-107); CREATININE 0.7 MG/DL (0.55-1.30); POTASSIUM 3.8 MMOL/L (3.5-5.1); SODIUM 141 MMOL/L (136-145)
--- NOTE | 2018-12-02 11:43 | NUR ---
ED Nurse Note: Pt down to X-ray for imaging.
[2018-12-02 11:53] LABS: ALANINE AMINOTRANSFERASE 35 U/L (12-78); ALBUMIN 3.4 G/DL (3.4-5.0); ALBUMIN/GLOBULIN RATIO 0.9 (1.0-2.7); ALKALINE PHOSPHATASE 72 U/L (46-116); ASPARTATE AMINO TRANSFERASE 23 U/L (15-37); BILIRUBIN,TOTAL 0.7 MG/DL (0.2-1.0); CREATINE KINASE 32 U/L (26-308)
[2018-12-02] MEDS ORDERED: Piperacillin/Tazobactam 3.375 GM in NS 110 ML IVPB ONE (12:15)
[2018-12-02] MEDS ORDERED: Vancomycin 1 GM in NS 275 ML IVPB ONE (12:15)
--- NOTE | 2018-12-02 13:14 | Diagnostic Imaging Report ---
EXAM: XR Right Foot Complete, 3 or More Views CLINICAL HISTORY: Evaluate for osteomyelitis TECHNIQUE: Frontal, lateral and oblique views of the right foot. COMPARISON: Right foot x-rays dated 08/02/18 FINDINGS: Bones/joints: Patient is status post transmetatarsal amputation of the foot. No visible acute fracture or dislocation. No osseous erosions to suggest osteomyelitis. Soft tissues: No radiodense foreign bodies. No soft tissue gas lucencies. IMPRESSION: 1. Patient is status post transmetatarsal amputation of the foot. 2. No osseous erosions to suggest osteomyelitis. If there is continued clinical concern, MRI or nuclear medicine bone scan may be considered.
--- NOTE | 2018-12-02 13:15 | Diagnostic Imaging Report ---
EXAM: XR Chest, 1 View CLINICAL HISTORY: Osteomyelitis TECHNIQUE: Frontal view of the chest. COMPARISON: Chest x-rays dated 08/01/18 FINDINGS: Lungs: Mildly increased interstitial markings. The lungs are otherwise clear without focal consolidation. Pleural space: Unremarkable. The costophrenic angles are sharp. No visible pneumothorax. Heart: Unremarkable. No cardiomegaly. Mediastinum: Unremarkable. Bones/joints: Mild degenerative changes throughout the visualized spine and shoulder joints. Vasculature: Atherosclerotic calcifications are noted within the aortic arch. Tubes, lines and devices: Telemetry leads overlie the thorax. IMPRESSION: Mildly increased interstitial markings. This is nonspecific but may suggest mild pulmonary vascular congestion or a mild interstitial pneumonitis. No focal consolidation.
--- NOTE | 2018-12-02 13:16 | Diagnostic Imaging Report ---
EXAM: XR Right Tibia and Fibula, 2 Views CLINICAL HISTORY: Osteomyelitis TECHNIQUE: Frontal and lateral views of the right tibia and fibula. COMPARISON: No relevant prior studies available. FINDINGS: Bones/joints: Patient is status post transmetatarsal amputation of the right forefoot. The tibia and fibula appear intact without visible fracture or erosions. Soft tissues: Bimalleolar soft tissue swelling. No radiodense foreign bodies. No soft tissue gas lucencies. IMPRESSION: Bimalleolar soft tissue swelling.
--- NOTE | 2018-12-02 13:19 | NUR ---
NURSE NOTES: Received telephone report from NAMAN Guzman in ED. Per report, patient was swabbed for MRSA, VRE/CRE in ED. Patient is not yet on unit, will come up approximately 1330.
--- NOTE | 2018-12-02 14:00 | NUR ---
ED Nurse Note: Charge nurse Megan gave report to NAMAN Malloy at ext [phone]. Pt to be transfered to [facility] per protocol.
[2018-12-02] MEDS ORDERED: RISPERIDONE OD0.5 MG PO (14:26)
[2018-12-02 14:30] VITALS: BP 115/56
--- NOTE | 2018-12-02 14:30 | NUR ---
NURSE NOTES: Patient admitted to unit at 1410 accompanied by information technology manager. IV intact. Belongings checked at bedside. Transferred safely to bed, patient has unsteady gait, states he usually walks with a walker at home. Skin assessed by myself and [employer] operations consultant Jennifer. 2.5cm x 1cm raised scab on distal right foot present on admission, skin otherwise intact. Swelling noted in right leg. Patient reports no pain. Patient oriented to room. Fall precautions implemented. Side rails upx3, bed low and locked, call light in reach, bed alarm armed. Will continue to monitor.
[2018-12-02] MEDS ORDERED: METFORMIN HCL1000 M1 ORAL (14:36)
[2018-12-02] MEDS ORDERED: METFORMIN HCL1000 M2 ORAL (14:37)
[2018-12-02] MEDS ORDERED: POTASSIUM CHLO10 ME3 ORAL (14:38)
--- NOTE | 2018-12-02 15:03 | NUR ---
NURSE NOTES: Called Dr. Kelley emergency line and left voicemail with MD for admission orders. Awaiting callback from .
--- NOTE | 2018-12-02 15:29 | NUR ---
NURSE NOTES: Received callback from Dr. Kelley with admission orders. Entered orders. Reported Mag of 1.3 to MD LI stated to call Dr. Urias regarding Mag replacement and IVF. Will follow up and continue to monitor.
[2018-12-02] MEDS ORDERED: SEROQUEL XR150 MG ORAL (15:36)
[2018-12-02 16:00] VITALS: BP 116/53
--- NOTE | 2018-12-02 16:21 | NUR ---
NURSE NOTES: Called Dr. Urias for orders for Mag and IVF. Reported Mag of 1.3 to MD. No orders given, stated he will enter orders into EMR shortly. Will continue to monitor.
[2018-12-02] MEDS: NovoLOG Insulin Flexpen SUBQ SCH ×2 (16:30→20:43)
--- NOTE | 2018-12-02 16:35 | NUR ---
NURSE NOTES: Patient given urine cup for UA sample. Instructed to inform RN when voided.
--- NOTE | 2018-12-02 16:40 | Consultation ---
Consult Note Consult Note asked to eval for Low mag and fluid management HPI Patient presents with one week of increased pain and redness of his right lower leg. Patient has diabetes and is had partial foot amputation on that side. He denies taking any medication medication for the pain or antibiotics at this time. He states his tetanus is up-to-date. The patient denies fevers, chills, nausea, vomiting, diarrhea, chest pain, cough , joint pain, dysuria. No Known Allergies (Unverified , 08/01/18) Hx Cardiac Problems: Yes Hx Hypertension: Yes Hx Diabetes: Yes History Of Psychiatric Problem: Yes - SCHIZO examined interviewed data reviewed Assessment/Plan Low mag corrected Cellulitis UTI HTN controlled DM HgbA1c high IV mag given IV fluid UA adjust BP Levi Parker MD December 02, 2018 16:40
[2018-12-02] MEDS: D5 1/2NS 1,000 ML IV SCH (17:01)
--- NOTE | 2018-12-02 17:35 | NUR ---
NURSE NOTES: Contacted Dr. Kelley regarding patient's Seroquel, reported to MD that patient takes extended release at home. MD stated ok for patient to take regular release while in hospital.
--- NOTE | 2018-12-02 19:15 | NUR ---
NURSE NOTES: Urine sample provided, will transport to lab.
--- NOTE | 2018-12-02 19:35 | NUR ---
HAND-OFF: Report given to Tiffany FLORENCE. Patient is in stable condition.
[2018-12-02 20:06] VITALS: BP 149/63
[2018-12-02 20:15] LABS: APPEARANCE,URINE CLEAR; BILIRUBIN, URINE NEGATIVE (NEGATIVE); COLOR,URINE PALE YELLOW; GLUCOSE, URINE (UA) NEGATIVE (NEGATIVE); KETONES,URINE NEGATIVE (NEGATIVE); LEUKOCYTE ESTERASE ,URINE 3+ (NEGATIVE); NITRITE,URINE NEGATIVE (NEGATIVE); PH,URINE 6.5 (4.5-8.0); PROTEIN,URINE NEGATIVE (NEGATIVE); UROBILINOGEN,URINE NORMAL MG/DL (0.0-1.0)
--- NOTE | 2018-12-02 20:30 | NUR ---
NURSE NOTES: PATIENT IN BED, AWAKE, ALERT TO NAME AND PLACE. NO S/S DISTRESS NOTED. NO COMPLAINTS OF PAIN AT THIS TIME. BED IN LOWEST POSITION, CALL LIGHT WITHIN REACH, BED ALARM ON. IV IN PLACE, RUNNING IV FLUIDS. RIGHT LEG NOTED TO HAVE REDNESS AND SLIGHT SWELLING AND A SCAB AT THE END OF THE FOOT, PATIENT HAS NO TOES ON RIGHT FOOT. WILL CONTINUE TO MONITOR.
[2018-12-02] MEDS: Tamsulosin 0.4mg cap ORAL SCH (20:39)
[2018-12-02] MEDS: Atorvastatin 20mg tab ORAL SCH (20:39)
[2018-12-02] MEDS: metFORMIN 500mg tab ORAL SCH (20:39)
--- NOTE | 2018-12-02 21:45 | History and Physical Report ---
DATE OF ADMISSION: 12/02/2018 HISTORY OF PRESENT ILLNESS: The patient admitted for lower leg cellulitis. The patient also has diabetes and also borderline potassium. The patient is a poor historian due to dementia. Denies nausea, vomiting, or diarrhea. No pain. No shortness of breath. No cough or chills. Denies abdominal pain. Denies chills. PAST MEDICAL HISTORY: Hypertension, NIDDM, peripheral vascular disease, psychosis, BPH, hypertension. PAST SURGICAL HISTORY: Toe amputation. ALLERGIES: No known allergies. MEDICATIONS: Glimepiride, amlodipine, hydrochlorothiazide, metformin, potassium, Seroquel, risperidone, Flomax, and valsartan. FAMILY HISTORY: Noncontributory. SOCIAL HISTORY: Denies alcohol or illicit drugs. Comes from an assisted living. REVIEW OF SYSTEMS: HEENT: Denies headaches. RESPIRATORY: Denies shortness of breath. Denies cough. CARDIOVASCULAR: Denies chest pain. GASTROINTESTINAL: Denies nausea, vomiting, or diarrhea. EXTREMITIES: He does have chronic pain. CENTRAL NERVOUS SYSTEM: No change in vision or speech pattern. PHYSICAL EXAMINATION: VITAL SIGNS: Temperature 98.2, pulse is 73, blood pressure 115/70. HEENT: PERRLA. NECK: Supple. CHEST: Clear to auscultation. CARDIOVASCULAR: Regular rate and rhythm. No murmurs or extra sounds. GASTROINTESTINAL: Soft, nontender, and nondistended. No organomegaly. EXTREMITIES: He does have right cellulitis and it is warm to touch and tender to touch and edematous as well in the lower extremities status post . LABORATORY DATA: WBC of 7.6, hemoglobin of 13.2, and platelets of 200,000. Sodium 42, potassium 3.8, BUN of 313, creatinine 0.7, magnesium 1.3. ASSESSMENT AND PLAN: 1. Left lower extremity intravenous antibiotics. 2. Magnesium, on borderline. I will have Dr. Urias see the patient. 3. Cardiovascular, continue home medications. Wyatt Kelley M.D. DR: DEBBY JOB#: [id number] CC:
[2018-12-03 00:28] VITALS: BP 130/61
[2018-12-03 03:54] VITALS: BP 123/54
[2018-12-03] MEDS: NovoLOG Insulin Flexpen SUBQ SCH ×4 (05:47→21:05)
--- NOTE | 2018-12-03 05:47 | NUR ---
NURSE NOTES: PATIENT REFUSED ACCUCHECK AND NOVOLOG. NURSE EXPLAINED RISKS AND BENEFITS, PATIENT STILL REFUSED.
[2018-12-03 07:17] LABS: BASOPHILS % (AUTO) 0.6 % (0.0-2.0); EOSINOPHILS % (AUTO) 2.5 % (0.0-3.0); HEMATOCRIT 34.9 % (42.0-52.0); LYMPHOCYTES % (AUTO) 22.3 % (20.0-45.0); MEAN CORPUSCULAR VOLUME 90 FL (80-99); MONOCYTES % (AUTO) 6.6 % (1.0-10.0); NEUTROPHILS % (AUTO) 67.9 % (45.0-75.0); PLATELET COUNT 183 K/UL (150-450); RED BLOOD COUNT 3.87 M/UL (4.70-6.10); RED CELL DISTRIBUTION WIDTH 12.9 % (11.6-14.8); WHITE BLOOD COUNT 8.1 K/UL (4.8-10.8)
--- NOTE | 2018-12-03 07:25 | NUR ---
HAND-OFF: Report given to LIZZY JAVIER RN.
[2018-12-03 07:43] LABS: ALANINE AMINOTRANSFERASE 31 U/L (12-78); ALBUMIN/GLOBULIN RATIO 0.9 (1.0-2.7); ALKALINE PHOSPHATASE 62 U/L (46-116); ANION GAP 8 mmol/L (5-15); ASPARTATE AMINO TRANSFERASE 17 U/L (15-37); BILIRUBIN,TOTAL 0.6 MG/DL (0.2-1.0); BLOOD UREA NITROGEN 10 mg/dL (7-18); CALCIUM 8.6 MG/DL (8.5-10.1); CARBON DIOXIDE 28 MMOL/L (21-32); CHLORIDE 104 MMOL/L (98-107); CHOLESTEROL 116 MG/DL (< 200); CREATININE 0.7 MG/DL (0.55-1.30); GAMMA GLUTAMYL TRANSPEPTIDASE 24 U/L (5-85); HDL CHOLESTEROL 40 MG/DL (40-60); PHOSPHORUS 3.7 MG/DL (2.5-4.9); POTASSIUM 3.5 MMOL/L (3.5-5.1); SODIUM 139 MMOL/L (136-145); TRIGLYCERIDES 154 MG/DL (30-150)
--- NOTE | 2018-12-03 07:45 | NUR ---
NURSE NOTES: Received report from Tiffany FLORENCE. Patient is awake alert and oriented x2 with moments of confusion. IV intact and asymptomatic, running IVF per order. Patient sitting up in bed eating breakfast. Updated on plan of care. Mild swelling and redness noted in right leg. Fall precautions maintained. Side rails upx3, bed low and locked, call light in reach, bed alarm armed. Will continue to monitor.
[2018-12-03 08:00] VITALS: BP 137/66
[2018-12-03] MEDS ORDERED: hydroCHLOROthiazide 12.5mg TAB ORAL SCH (09:00)
[2018-12-03] MEDS ORDERED: Irbesartan 150mg tablet ORAL SCH ×2 (09:00)
[2018-12-03] MEDS: metFORMIN 500mg tab ORAL SCH ×2 (09:51→20:57)
[2018-12-03] MEDS: Glimepiride 1mg tab ORAL SCH (09:52)
[2018-12-03 12:00] VITALS: BP 139/65
[2018-12-03] MEDS: D5 1/2NS 1,000 ML IV SCH (13:22)
--- NOTE | 2018-12-03 13:38 | Nephrology Progress Note ---
Assessment/Plan Problem List: (1) Cellulitis of right lower extremity (2) UTI (urinary tract infection) (3) Electrolyte imbalance (4) Diabetes mellitus out of control Plan monitor lytes and chemistries- DC IV fluids Antibiotics Subjective ROS Limited/Unobtainable: No Constitutional: Reports: malaise Objective Objective Last 24 Hour Vital Signs Date Time Temp Pulse Resp B/P (MAP) Pulse Ox O2 Delivery O2 Flow Rate FiO2 12/03/18 12:00 97.1 70 18 139/65 (89) 97 12/03/18 09:52 74 137/66 12/03/18 09:52 137/66 12/03/18 09:00 Room Air 12/03/18 08:00 98.1 74 18 137/66 (89) 97 12/03/18 03:54 97.5 68 18 123/54 (77) 94 12/03/18 00:28 97.3 74 18 130/61 (84) 94 12/02/18 21:35 Room Air 12/02/18 20:06 97.3 64 18 149/63 (91) 94 12/02/18 16:00 98.1 63 17 116/53 (74) 95 12/02/18 16:00 98.1 63 17 116/53 (74) 95 12/02/18 14:46 Room Air 12/02/18 14:30 97.3 63 17 115/56 (75) 95 12/02/18 14:30 97.3 63 17 115/56 (75) 95 12/02/18 14:00 98.2 66 21 115/51 97 Room Air Intake and Output 12/02/18 12/03/18 18:59 06:59 Intake Total 1743.7 ml 300 ml Balance 1743.7 ml 300 ml Intake Oral 300 ml IV Total 1443.7 ml 300 ml # Voids 2 Current Medications Medications (Trade) Dose Ordered Sig/Stacey Route PRN Reason Start Time Stop Time Status Last Admin Dose Admin Amlodipine Besylate (Norvasc) 5 mg DAILY ORAL 12/03/18 09:00 01/02/19 08:59 12/03/18 09:52 Atorvastatin Calcium (Lipitor) 20 mg BEDTIME ORAL 12/02/18 21:00 01/01/19 20:59 12/02/18 20:39 Cefazolin Sodium 1 gm/Dextrose 55 ml @ 110 mls/hr Q8HR IVPB 12/03/18 14:00 12/10/18 13:59 Dextrose (Dextrose 50%) 25 ml Q30M PRN IV Hypoglycemia 12/02/18 15:15 01/01/19 15:14 Dextrose (Dextrose 50%) 50 ml Q30M PRN IV Hypoglycemia 12/02/18 15:15 01/01/19 15:14 Dextrose/Sodium Chloride 1,000 ml @ 50 mls/hr Q20H IV 12/02/18 17:00 01/01/19 16:59 12/03/18 13:22 Glimepiride (Amaryl) 2 mg DAILY ORAL 12/03/18 09:00 01/02/19 08:59 12/03/18 09:52 Insulin Aspart (NovoLOG) BEFORE MEALS AND HS SUBQ 12/02/18 16:30 01/01/19 16:29 12/03/18 11:44 Irbesartan (Avapro) 300 mg DAILY ORAL 12/04/18 09:00 01/03/19 08:59 Metformin HCl (Glucophage) 1,000 mg Q12HR ORAL 12/02/18 21:00 01/01/19 20:59 12/03/18 09:51 Potassium Chloride (K-Dur) 20 meq DAILY ORAL 12/03/18 09:00 01/02/19 08:59 12/03/18 09:52 Quetiapine Fumarate (SEROquel) 150 mg QHS ORAL 12/02/18 21:00 01/01/19 20:59 12/02/18 20:40 Risperidone (RisperDAL) 0.5 mg QHS ORAL 12/02/18 21:00 01/01/19 20:59 12/02/18 20:40 Tamsulosin HCl (Flomax) 0.4 mg BEDTIME ORAL 12/02/18 21:00 01/01/19 20:59 12/02/18 20:39 Laboratory Tests 12/02/18 19:30: Urine Color Pale yellow, Urine Appearance Clear, Urine pH 6.5, Urine Specific [place] 1.005, Urine Protein Negative, Urine Glucose (UA) Negative, Urine Ketones Negative, Urine Blood Negative, Urine Nitrite Negative, Urine Bilirubin Negative, Urine Urobilinogen Normal, Urine Leukocyte Esterase 3+H, Urine RBC 0- 2H, Urine WBC 2-4, Urine Squamous Epithelial Cells None, Urine Bacteria Few 12/03/18 04:50: White Blood Count 8.1, Red Blood Count 3.87L, Hemoglobin 12.0L, Hematocrit 34.9L , Mean Corpuscular Volume 90, Mean Corpuscular Hemoglobin 31.0, Mean Corpuscular Hemoglobin Concent 34.4, Red Cell Distribution Width 12.9, Platelet Count 183, Mean Platelet Volume 6.2L, Neutrophils (%) (Auto) 67.9, Lymphocytes ( %) (Auto) 22.3, Monocytes (%) (Auto) 6.6, Eosinophils (%) (Auto) 2.5, Basophils (%) (Auto) 0.6, Sodium Level 139, Potassium Level 3.5, Chloride Level 104, Carbon Dioxide Level 28, Anion Gap 8, Blood Urea Nitrogen 10, Creatinine 0.7, Estimat Glomerular Filtration Rate > 60, Glucose Level 175H, Hemoglobin A1c 9.7H , Uric Acid 3.7, Calcium Level 8.6, Phosphorus Level 3.7, Magnesium Level 1.9, Total Bilirubin 0.6, Gamma Glutamyl Transpeptidase 24, Aspartate Amino Transf ( AST/SGOT) 17, Alanine Aminotransferase (ALT/SGPT) 31, Alkaline Phosphatase 62, C -Reactive Protein, Quantitative < 0.4, Pro-B-Type Natriuretic Peptide 140H, Total Protein 6.5, Albumin 3.0L, Globulin 3.5, Albumin/Globulin Ratio 0.9L, Triglycerides Level 154H, Cholesterol Level 116, LDL Cholesterol 58, HDL Cholesterol 40, Cholesterol/HDL Ratio 2.9L Height (Feet): 5 Height (Inches): 9.00 Weight (Pounds): 157 General Appearance: no apparent distress Cardiovascular: regular rhythm Respiratory/Chest: lungs clear Abdomen: soft Objective no change Levi Urias MD December 03, 2018 13:38
[2018-12-03] MEDS: ceFAZolin sod 1 GM in D5W 55 ML IVPB SCH ×2 (13:41→21:15)
--- NOTE | 2018-12-03 14:49 | NUR ---
CASE MANAGEMENT: INITIAL REVIEW 68 YO M BRENDA CIFUENTES CC: EDEMA PMHX: HTN. DM. SCHIZOPHRENIA. SI:CELLULITIS. T 98.2 HR 73 RR 20 B/P 115/70 SATS 96% ON RA GLU 175 MG 1.3 IS: NS BOLUS X1 HYDROCODONE PO X1 PATIENT ADMITTED TO MED/SURG STATUS 12/02/2018 @ 1148 DC: PATIENT TO BE DISCHARGED TO SNF ONCE MEDICALLY CLEARED. PLAN OF CARE: VENOUS DUPLEX
[2018-12-03 16:00] VITALS: BP 98/52
--- NOTE | 2018-12-03 16:45 | Consultation ---
DATE OF CONSULTATION: 12/03/2018 INFECTIOUS DISEASES CONSULTATION PRIMARY ATTENDING PHYSICIAN: Wyatt Kelley M.D. REASON FOR CONSULTATION: Right leg cellulitis. HISTORY OF PRESENT ILLNESS: This is a 68-year-old white male admitted yesterday from nursing facility complaining of pain and erythema in right lower extremity. The patient has a history of admission in July 2018 with toe gangrene in right foot. It seems that the patient after discharge have toe amputation and vascular procedure in the right leg. The patient currently has no complaint. PAST MEDICAL HISTORY: Diabetes mellitus type 2, hypertension, hyperlipidemia, peripheral vascular disease, previous smoking, anemia, dementia, and toe amputation in right foot. ALLERGIES: No known drug allergies. MEDICATIONS: Amaryl, Avapro, amlodipine, Seroquel, Flomax, metformin, Risperdal, atorvastatin, insulin, got a dose of Zosyn and vancomycin yesterday in the ER. SOCIAL HISTORY: He is single. History of heavy smoking. No drug or alcohol abuse. custodial resident. REVIEW OF SYSTEMS: Currently, he has no fever, no chills. No coughing. No problem passing urine. No pain. PHYSICAL EXAMINATION: VITAL SIGNS: Temperature 98.1 degrees, pulse 74, and blood pressure 137/66. GENERAL APPEARANCE: No acute distress. HEAD AND NECK: Vineyard conjunctiva. No teeth or dentures. HEART: Normal rate. LUNGS: Clear. ABDOMEN: Soft and nontender. EXTREMITIES: He has some edema in right lower extremity. Faint erythema in lower asencio area. No open wound. Stump of toe amputation seems to be clean. He has a scar of surgery in femoral area that is healed. NEUROLOGIC: Awake, responsive. LABORATORY AND DIAGNOSTIC DATA: Sodium 139, potassium 3.5, chloride 104, bicarbonate 28, BUN 10, creatinine 0.7, and glucose is 175. WBC 8.1, hemoglobin 12, hematocrit 34.9, and platelets 183,0000. UA showed wbc's of 2 to 4. Foot x-ray showed transmetatarsal amputation. No osteomyelitis. tibia & fibula x-ray showed soft tissue swelling. Chest x-ray showed mildly increased interstitial markings. IMPRESSION: Cellulitis of right lower extremity nonpurulent. The patient has peripheral vascular disease, diabetes mellitus, dementia, hyperlipidemia, and hypertension. RECOMMENDATION: 1. We will start the patient on Ancef. 2. We will follow up venous duplex of right lower extremity. We will follow up the cultures. At the end of my exam, I thank Dr. Kelley for involving me in the care of this patient. Flako Rivas M.D. DR: Rhys JOB#: [id number] CC: ZEHRA
--- NOTE | 2018-12-03 19:30 | NUR ---
HAND-OFF: Report given to Leyla FLORENCE. Patient is in stable condition.
--- NOTE | 2018-12-03 19:31 | NUR ---
NURSE NOTES: Received report & pt from NAMAN Hughes. Pt lying in bed, a&ox2-3, in room air. No s/s of acute distress & no c/o pain at this time. IV site intact & S/L'd. Bed in lowest position, bed alarm on, call light within reach. Instructed pt to call for assistance. Will continue to monitor.
[2018-12-03 20:00] VITALS: BP 133/86
[2018-12-03] MEDS: Tamsulosin 0.4mg cap ORAL SCH (20:58)
[2018-12-03] MEDS: Atorvastatin 20mg tab ORAL SCH (20:58)
--- NOTE | 2018-12-03 22:16 | General Progress Note ---
Assessment/Plan Problem List: (1) Cellulitis of right lower extremity ICD Codes: L03.115 - Cellulitis of right lower limb SNOMED: 495928951 (2) Diabetes mellitus out of control ICD Codes: E11.65 - Type 2 diabetes mellitus with hyperglycemia SNOMED: 48178437, 702748395 (3) Electrolyte imbalance ICD Codes: E87.8 - Other disorders of electrolyte and fluid balance, not elsewhere classified SNOMED: 226758528 Status: progressing Assessment/Plan: cellulitis of lower extremity is improving afebrile niddm h/o labile sugar reviewed chart and labs Subjective ROS Limited/Unobtainable: Yes Allergies: Coded Allergies: No Known Allergies (Unverified , 08/01/18) Objective Last 24 Hour Vital Signs Date Time Temp Pulse Resp B/P (MAP) Pulse Ox O2 Delivery O2 Flow Rate FiO2 12/03/18 21:00 Room Air 12/03/18 20:00 97.2 69 18 133/86 (102) 96 12/03/18 16:00 97.3 75 19 98/52 (67) 98 12/03/18 12:00 97.1 70 18 139/65 (89) 97 12/03/18 09:52 74 137/66 12/03/18 09:52 137/66 12/03/18 09:00 Room Air 12/03/18 08:00 98.1 74 18 137/66 (89) 97 12/03/18 03:54 97.5 68 18 123/54 (77) 94 12/03/18 00:28 97.3 74 18 130/61 (84) 94 Intake and Output 12/02/18 12/03/18 19:00 07:00 Intake Total 1743.7 ml 350 ml Balance 1743.7 ml 350 ml Intake Oral 300 ml IV Total 1443.7 ml 350 ml # Voids 2 Laboratory Tests 12/03/18 04:50: White Blood Count 8.1, Red Blood Count 3.87L, Hemoglobin 12.0L, Hematocrit 34.9L , Mean Corpuscular Volume 90, Mean Corpuscular Hemoglobin 31.0, Mean Corpuscular Hemoglobin Concent 34.4, Red Cell Distribution Width 12.9, Platelet Count 183, Mean Platelet Volume 6.2L, Neutrophils (%) (Auto) 67.9, Lymphocytes ( %) (Auto) 22.3, Monocytes (%) (Auto) 6.6, Eosinophils (%) (Auto) 2.5, Basophils (%) (Auto) 0.6, Sodium Level 139, Potassium Level 3.5, Chloride Level 104, Carbon Dioxide Level 28, Anion Gap 8, Blood Urea Nitrogen 10, Creatinine 0.7, Estimat Glomerular Filtration Rate > 60, Glucose Level 175H, Hemoglobin A1c 9.7H , Uric Acid 3.7, Calcium Level 8.6, Phosphorus Level 3.7, Magnesium Level 1.9, Total Bilirubin 0.6, Gamma Glutamyl Transpeptidase 24, Aspartate Amino Transf ( AST/SGOT) 17, Alanine Aminotransferase (ALT/SGPT) 31, Alkaline Phosphatase 62, C -Reactive Protein, Quantitative < 0.4, Pro-B-Type Natriuretic Peptide 140H, Total Protein 6.5, Albumin 3.0L, Globulin 3.5, Albumin/Globulin Ratio 0.9L, Triglycerides Level 154H, Cholesterol Level 116, LDL Cholesterol 58, HDL Cholesterol 40, Cholesterol/HDL Ratio 2.9L Height (Feet): 5 Height (Inches): 9.00 Weight (Pounds): 157 Neck: supple Cardiovascular: regular rhythm Respiratory/Chest: lungs clear Abdomen: soft Wyatt Kelley MD December 03, 2018 22:16
[2018-12-04 04:00] VITALS: BP 128/50
[2018-12-04] MEDS: ceFAZolin sod 1 GM in D5W 55 ML IVPB SCH ×3 (05:15→21:24)
[2018-12-04] MEDS: NovoLOG Insulin Flexpen SUBQ SCH ×4 (06:30→21:23)
--- NOTE | 2018-12-04 06:31 | NUR ---
NURSE NOTES: Pt refused blood sugar check. Explained risks & benefits but pt continued to say "No". Offered to be repositioned but pt states "No".
--- NOTE | 2018-12-04 07:30 | NUR ---
HAND-OFF: Report given to NAMAN Wei. Pt in stable condition. Rounds done.
[2018-12-04 08:00] VITALS: BP 126/50
[2018-12-04] MEDS: Glimepiride 1mg tab ORAL SCH (08:57)
[2018-12-04] MEDS: metFORMIN 500mg tab ORAL SCH ×2 (08:57→20:45)
--- NOTE | 2018-12-04 10:00 | NUR ---
NURSE NOTES: During AM care, while RN and SOLAR DESIGN ENGINEER were bathing and changing pt. RN notes some redness in the sacral area. per wound care protocol pictures taken and uploaded. RN applied triad cream and Optifoam dressing. As well entered wound care consult to f/u. I will f/u as needed.
--- NOTE | 2018-12-04 10:15 | NUR ---
NURSE NOTES: Received report from Leyla FLORENCE, pt a/a/o laying in bed with no signs of distress or other issues at this time. pt has IV on the right FA gauge #18 heplock. pt has a right foot scab and right redness where was the cellulitis. pt is incontinent. [facility] medium diet, soft easy chew. pt is tolerating well with no signs of n/v. call light within reach, bed in lowest position. side rales up x2. I will f/u as needed.
[2018-12-04 12:00] VITALS: BP 137/60
--- NOTE | 2018-12-04 12:52 | Nephrology Progress Note ---
Assessment/Plan Problem List: (1) Cellulitis of right lower extremity (2) UTI (urinary tract infection) (3) Electrolyte imbalance (4) Diabetes mellitus out of control Plan monitor lytes and chemistries- DC IV fluids Antibiotics Subjective ROS Limited/Unobtainable: No Objective Objective Last 24 Hour Vital Signs Date Time Temp Pulse Resp B/P (MAP) Pulse Ox O2 Delivery O2 Flow Rate FiO2 12/04/18 09:00 Room Air 12/04/18 08:57 75 126/50 12/04/18 08:55 126/50 12/04/18 08:00 98.1 75 17 126/50 (75) 97 12/04/18 04:00 97.6 82 17 128/50 (76) 98 12/03/18 21:00 Room Air 12/03/18 20:00 97.2 69 18 133/86 (102) 96 12/03/18 16:00 97.3 75 19 98/52 (67) 98 Intake and Output 12/03/18 12/04/18 19:00 07:00 Intake Total 1330 ml 120 ml Balance 1330 ml 120 ml Intake Oral 920 ml 120 ml IV Total 410 ml # Voids 2 1 Current Medications Medications (Trade) Dose Ordered Sig/Stacey Route PRN Reason Start Time Stop Time Status Last Admin Dose Admin Amlodipine Besylate (Norvasc) 5 mg DAILY ORAL 12/03/18 09:00 01/02/19 08:59 12/04/18 08:57 Atorvastatin Calcium (Lipitor) 20 mg BEDTIME ORAL 12/02/18 21:00 01/01/19 20:59 12/03/18 20:58 Cefazolin Sodium 1 gm/Dextrose 55 ml @ 110 mls/hr Q8HR IVPB 12/03/18 14:00 12/10/18 13:59 12/04/18 05:15 Dextrose (Dextrose 50%) 25 ml Q30M PRN IV Hypoglycemia 12/02/18 15:15 01/01/19 15:14 Dextrose (Dextrose 50%) 50 ml Q30M PRN IV Hypoglycemia 12/02/18 15:15 01/01/19 15:14 Glimepiride (Amaryl) 2 mg DAILY ORAL 12/03/18 09:00 01/02/19 08:59 12/04/18 08:57 Insulin Aspart (NovoLOG) BEFORE MEALS AND HS SUBQ 12/02/18 16:30 01/01/19 16:29 12/04/18 11:27 Irbesartan (Avapro) 300 mg DAILY ORAL 12/04/18 09:00 01/03/19 08:59 12/04/18 08:55 Metformin HCl (Glucophage) 1,000 mg Q12HR ORAL 12/02/18 21:00 01/01/19 20:59 12/04/18 08:57 Potassium Chloride (K-Dur) 20 meq BID ORAL 12/03/18 18:00 01/02/19 08:59 12/04/18 08:57 Quetiapine Fumarate (SEROquel) 150 mg QHS ORAL 12/02/18 21:00 01/01/19 20:59 12/03/18 20:58 Risperidone (RisperDAL) 0.5 mg QHS ORAL 12/02/18 21:00 01/01/19 20:59 12/03/18 20:57 Tamsulosin HCl (Flomax) 0.4 mg BEDTIME ORAL 12/02/18 21:00 01/01/19 20:59 12/03/18 20:58 Height (Feet): 5 Height (Inches): 9.00 Weight (Pounds): 157 General Appearance: no apparent distress Objective no change Levi Urias MD December 04, 2018 12:52
--- NOTE | 2018-12-04 14:53 | Cardiology Report ---
APPROVED REPORT EKG Measurement Heart [id number] Normal sinus rhythm Normal ECG
[2018-12-04 16:00] VITALS: BP 141/93
--- NOTE | 2018-12-04 19:40 | NUR ---
HAND-OFF: Report given to Eze Benoit pt in stable condition.
--- NOTE | 2018-12-04 19:42 | NUR ---
NURSE NOTES: Patient in bed awake and oriented. VSS. No SOB noted. Able to verbalize needs. IV site clean and intact. Currently watching TV with no signs of pain or any discomfort. Needs attended. Call light within reach. Bed is locked and in low position. In stable condition.
[2018-12-04 20:00] VITALS: BP 60/93
--- NOTE | 2018-12-04 20:41 | General Progress Note ---
Assessment/Plan Problem List: (1) Cellulitis of right lower extremity ICD Codes: L03.115 - Cellulitis of right lower limb SNOMED: 777325493 (2) Diabetes mellitus out of control ICD Codes: E11.65 - Type 2 diabetes mellitus with hyperglycemia SNOMED: 28037862, 737530751 (3) Electrolyte imbalance ICD Codes: E87.8 - Other disorders of electrolyte and fluid balance, not elsewhere classified SNOMED: 403128537 Status: progressing Assessment/Plan: cellulitis of lower extremity is improving abx per id niddm Subjective ROS Limited/Unobtainable: Yes Allergies: Coded Allergies: No Known Allergies (Unverified , 08/01/18) Objective Last 24 Hour Vital Signs Date Time Temp Pulse Resp B/P (MAP) Pulse Ox O2 Delivery O2 Flow Rate FiO2 12/04/18 16:00 98.1 66 17 141/93 (109) 97 12/04/18 12:00 98.2 64 16 137/60 (85) 97 12/04/18 09:00 Room Air 12/04/18 08:57 75 126/50 12/04/18 08:55 126/50 12/04/18 08:00 98.1 75 17 126/50 (75) 97 12/04/18 04:00 97.6 82 17 128/50 (76) 98 12/03/18 21:00 Room Air Intake and Output 12/03/18 12/04/18 18:59 06:59 Intake Total 1380 ml 120 ml Balance 1380 ml 120 ml Intake Oral 920 ml 120 ml IV Total 460 ml # Voids 2 1 Height (Feet): 5 Height (Inches): 9.00 Weight (Pounds): 157 Cardiovascular: normal rate Respiratory/Chest: lungs clear - l Abdomen: soft Wyatt Kelley MD December 04, 2018 20:41
[2018-12-04] MEDS: Tamsulosin 0.4mg cap ORAL SCH (20:45)
[2018-12-04] MEDS: Atorvastatin 20mg tab ORAL SCH (20:45)
[2018-12-05 04:00] VITALS: BP 128/83
[2018-12-05] MEDS: ceFAZolin sod 1 GM in D5W 55 ML IVPB SCH ×3 (05:52→20:57)
[2018-12-05] MEDS: NovoLOG Insulin Flexpen SUBQ SCH ×4 (05:52→20:57)
[2018-12-05 06:19] LABS: BASOPHILS % (AUTO) 0.7 % (0.0-2.0); EOSINOPHILS % (AUTO) 2.2 % (0.0-3.0); HEMATOCRIT 35.7 % (42.0-52.0); HEMOGLOBIN 12.4 G/DL (14.2-18.0); LYMPHOCYTES % (AUTO) 16.6 % (20.0-45.0); MEAN CORPUSCULAR VOLUME 90 FL (80-99); MONOCYTES % (AUTO) 6.3 % (1.0-10.0); NEUTROPHILS % (AUTO) 74.1 % (45.0-75.0); PLATELET COUNT 182 K/UL (150-450); RED BLOOD COUNT 3.95 M/UL (4.70-6.10); RED CELL DISTRIBUTION WIDTH 12.6 % (11.6-14.8); WHITE BLOOD COUNT 8.9 K/UL (4.8-10.8)
[2018-12-05 07:17] LABS: ALANINE AMINOTRANSFERASE 51 U/L (12-78); ALBUMIN/GLOBULIN RATIO 0.9 (1.0-2.7); ALKALINE PHOSPHATASE 79 U/L (46-116); ANION GAP 11 mmol/L (5-15); ASPARTATE AMINO TRANSFERASE 30 U/L (15-37); BILIRUBIN,TOTAL 0.7 MG/DL (0.2-1.0); BLOOD UREA NITROGEN 13 mg/dL (7-18); CALCIUM 8.8 MG/DL (8.5-10.1); CARBON DIOXIDE 25 MMOL/L (21-32); CHLORIDE 105 MMOL/L (98-107); CREATININE 0.9 MG/DL (0.55-1.30); PHOSPHORUS 3.1 MG/DL (2.5-4.9); SODIUM 141 MMOL/L (136-145)
[2018-12-05 08:00] VITALS: BP 117/69
--- NOTE | 2018-12-05 08:00 | NUR ---
NURSE NOTES: Received report from Eze Benoit pt a/a/o laying in bed with no signs of distress or other issues at this time. IV on the right FA gauge #18 saline lock. pt able to tolerate his diet with no n/v. call light within reach, bed in lowest position. side rales up x2. I will f/u as needed.
[2018-12-05] MEDS: metFORMIN 500mg tab ORAL SCH ×2 (08:59→20:55)
[2018-12-05] MEDS: Glimepiride 1mg tab ORAL SCH (09:00)
[2018-12-05 12:00] VITALS: BP 114/57
--- NOTE | 2018-12-05 13:01 | Infectious Diseases Prog Note ---
Assessment/Plan Assessment/Plan IMPRESSION: Cellulitis of right lower extremity, nonpurulent. peripheral vascular disease, diabetes mellitus, dementia, hyperlipidemia, hypertension. RECOMMENDATION: 1. Continue Ancef. 2. At time of discharge PO Keflex Subjective ROS Limited/Unobtainable: Yes Constitutional: Reports: no symptoms Respiratory: Reports: no symptoms Gastrointestinal/Abdominal: Reports: no symptoms Musculoskeletal: Reports: no symptoms Allergies: Coded Allergies: No Known Allergies (Unverified , 08/01/18) Objective Vital Signs Last 24 Hour Vital Signs Date Time Temp Pulse Resp B/P (MAP) Pulse Ox O2 Delivery O2 Flow Rate FiO2 12/05/18 09:00 71 117/69 12/05/18 09:00 Room Air 12/05/18 08:58 117/69 12/05/18 08:00 97.1 71 19 117/69 (85) 97 12/05/18 04:00 98.6 69 17 128/83 (98) 98 12/04/18 21:00 Room Air 12/04/18 20:00 98.6 69 17 60/93 (82) 98 12/04/18 16:00 98.1 66 17 141/93 (109) 97 Height (Feet): 5 Height (Inches): 9.00 Weight (Pounds): 157 General Appearance: no acute distress HEENT: mucous membranes moist Respiratory/Chest: lungs clear Cardiovascular: normal rate Abdomen: soft, non tender Extremities: no edema, other - R TMA Skin: other - erythema on right leg decreased Neurologic/Psychiatric: alert, responsive Microbiology Date/Time Source Procedure Growth Status 12/02/18 13:32 Nasal Nares MRSA Culture - Final NO METHICILLIN RESISTANT STAPH AUREUS... Complete 12/02/18 13:32 Rectum VRE Culture - Final NO VANCOMYCIN RESISTANT ENTEROCOCCUS ... Complete 12/02/18 13:32 Rectum - Final NO CARBAPENEM-RESISTANT ENTEROBACTERI... Complete Laboratory Tests Test 12/05/18 05:49 White Blood Count 8.9 K/UL (4.8-10.8) Red Blood Count 3.95 M/UL (4.70-6.10) L Hemoglobin 12.4 G/DL (14.2-18.0) L Hematocrit 35.7 % (42.0-52.0) L Mean Corpuscular Volume 90 FL (80-99) Mean Corpuscular Hemoglobin 31.3 PG (27.0-31.0) H Mean Corpuscular Hemoglobin Concent 34.6 G/DL (32.0-36.0) Red Cell Distribution Width 12.6 % (11.6-14.8) Platelet Count 182 K/UL (150-450) Mean Platelet Volume 6.4 FL (6.5-10.1) L Neutrophils (%) (Auto) 74.1 % (45.0-75.0) Lymphocytes (%) (Auto) 16.6 % (20.0-45.0) L Monocytes (%) (Auto) 6.3 % (1.0-10.0) Eosinophils (%) (Auto) 2.2 % (0.0-3.0) Basophils (%) (Auto) 0.7 % (0.0-2.0) Sodium Level 141 MMOL/L (136-145) Potassium Level 4.0 MMOL/L (3.5-5.1) Chloride Level 105 MMOL/L (98-107) Carbon Dioxide Level 25 MMOL/L (21-32) Anion Gap 11 mmol/L (5-15) Blood Urea Nitrogen 13 mg/dL (7-18) Creatinine 0.9 MG/DL (0.55-1.30) Estimat Glomerular Filtration Rate > 60 mL/min (>60) Glucose Level 169 MG/DL (74-106) H Calcium Level 8.8 MG/DL (8.5-10.1) Phosphorus Level 3.1 MG/DL (2.5-4.9) Magnesium Level 1.2 MG/DL (1.8-2.4) L Total Bilirubin 0.7 MG/DL (0.2-1.0) Aspartate Amino Transf (AST/SGOT) 30 U/L (15-37) Alanine Aminotransferase (ALT/SGPT) 51 U/L (12-78) Alkaline Phosphatase 79 U/L (46-116) Total Protein 6.5 G/DL (6.4-8.2) Albumin 3.0 G/DL (3.4-5.0) L Globulin 3.5 g/dL Albumin/Globulin Ratio 0.9 (1.0-2.7) L Current Medications Medications (Trade) Dose Ordered Sig/Stacey Route PRN Reason Start Time Stop Time Status Last Admin Dose Admin Amlodipine Besylate (Norvasc) 5 mg DAILY ORAL 12/03/18 09:00 01/02/19 08:59 12/05/18 09:00 Atorvastatin Calcium (Lipitor) 20 mg BEDTIME ORAL 12/02/18 21:00 01/01/19 20:59 12/04/18 20:45 Cefazolin Sodium 1 gm/Dextrose 55 ml @ 110 mls/hr Q8HR IVPB 12/03/18 14:00 12/10/18 13:59 12/05/18 05:52 Dextrose (Dextrose 50%) 25 ml Q30M PRN IV Hypoglycemia 12/02/18 15:15 01/01/19 15:14 Dextrose (Dextrose 50%) 50 ml Q30M PRN IV Hypoglycemia 12/02/18 15:15 01/01/19 15:14 Glimepiride (Amaryl) 2 mg DAILY ORAL 12/03/18 09:00 01/02/19 08:59 12/05/18 09:00 Insulin Aspart (NovoLOG) BEFORE MEALS AND HS SUBQ 12/02/18 16:30 01/01/19 16:29 12/05/18 11:41 Irbesartan (Avapro) 300 mg DAILY ORAL 12/04/18 09:00 01/03/19 08:59 12/05/18 08:58 Magnesium Sulfate 100 ml @ 100 mls/hr Q1H IVPB 12/05/18 09:45 12/05/18 13:44 12/05/18 12:50 Metformin HCl (Glucophage) 1,000 mg Q12HR ORAL 12/02/18 21:00 01/01/19 20:59 12/05/18 08:59 Potassium Chloride (K-Dur) 20 meq BID ORAL 12/03/18 18:00 01/02/19 08:59 12/05/18 09:00 Quetiapine Fumarate (SEROquel) 150 mg QHS ORAL 12/02/18 21:00 01/01/19 20:59 12/04/18 20:45 Risperidone (RisperDAL) 0.5 mg QHS ORAL 12/02/18 21:00 01/01/19 20:59 12/04/18 20:45 Tamsulosin HCl (Flomax) 0.4 mg BEDTIME ORAL 12/02/18 21:00 01/01/19 20:59 12/04/18 20:45 Flako Rivas MD December 05, 2018 13:01
--- NOTE | 2018-12-05 14:31 | Nephrology Progress Note ---
Assessment/Plan Problem List: (1) Cellulitis of right lower extremity (2) UTI (urinary tract infection) (3) Electrolyte imbalance (4) Diabetes mellitus out of control Plan mag IV ordered monitor lytes and chemistries- DC IV fluids Antibiotics Subjective ROS Limited/Unobtainable: No Objective Objective Last 24 Hour Vital Signs Date Time Temp Pulse Resp B/P (MAP) Pulse Ox O2 Delivery O2 Flow Rate FiO2 12/05/18 12:00 98.1 79 20 114/57 (76) 95 12/05/18 09:00 71 117/69 12/05/18 09:00 Room Air 12/05/18 08:58 117/69 12/05/18 08:00 97.1 71 19 117/69 (85) 97 12/05/18 04:00 98.6 69 17 128/83 (98) 98 12/04/18 21:00 Room Air 12/04/18 20:00 98.6 69 17 60/93 (82) 98 12/04/18 16:00 98.1 66 17 141/93 (109) 97 Intake and Output 12/04/18 12/05/18 19:00 07:00 Intake Total 1800 ml 600 ml Balance 1800 ml 600 ml Intake Oral 1800 ml 600 ml # Voids 3 2 Laboratory Tests 12/05/18 05:49: White Blood Count 8.9, Red Blood Count 3.95L, Hemoglobin 12.4L, Hematocrit 35.7L , Mean Corpuscular Volume 90, Mean Corpuscular Hemoglobin 31.3H, Mean Corpuscular Hemoglobin Concent 34.6, Red Cell Distribution Width 12.6, Platelet Count 182, Mean Platelet Volume 6.4L, Neutrophils (%) (Auto) 74.1, Lymphocytes ( %) (Auto) 16.6L, Monocytes (%) (Auto) 6.3, Eosinophils (%) (Auto) 2.2, Basophils (%) (Auto) 0.7, Sodium Level 141, Potassium Level 4.0, Chloride Level 105, Carbon Dioxide Level 25, Anion Gap 11, Blood Urea Nitrogen 13, Creatinine 0.9, Estimat Glomerular Filtration Rate > 60, Glucose Level 169H, Calcium Level 8.8, Phosphorus Level 3.1, Magnesium Level 1.2L, Total Bilirubin 0.7, Aspartate Amino Transf (AST/SGOT) 30, Alanine Aminotransferase (ALT/SGPT) 51, Alkaline Phosphatase 79, Total Protein 6.5, Albumin 3.0L, Globulin 3.5, Albumin/Globulin Ratio 0.9L Height (Feet): 5 Height (Inches): 9.00 Weight (Pounds): 157 General Appearance: no apparent distress Cardiovascular: regular rhythm Respiratory/Chest: lungs clear Abdomen: soft Objective no change Levi Urias MD December 05, 2018 14:31
[2018-12-05 16:00] VITALS: BP 130/76
--- NOTE | 2018-12-05 16:09 | NUR ---
P.T NOTE: P.T EVALUATION COMPLETE. PATIENT IS BASELINE INDEPENDENT WITH ADL/FUNCTIONAL MOBILITIES. CURRENT FUNCTIONAL STATUS DOES NOT WARRANT SKILLED P.T SERVICES. NO P.T FOLLOW UP NEEDED. PATIENT MAY AMBULATE WITH NURSING DURING STAY. Addendum: 12/05/18 at 1609 by JASMIN DELVALLE PT Amended: Links added.
--- NOTE | 2018-12-05 19:34 | NUR ---
HAND-OFF: Report given to Eze Benoit pt in stable condition.
[2018-12-05 20:00] VITALS: BP 116/57
[2018-12-05] MEDS: Tamsulosin 0.4mg cap ORAL SCH (20:55)
[2018-12-05] MEDS: Atorvastatin 20mg tab ORAL SCH (20:56)
--- NOTE | 2018-12-05 21:00 | NUR ---
NURSE NOTES: Patient in bed awake and oriented. VSS. No SOB noted. Ambulated with assist. IV site running kept on TKO. Bed changed. Patient kept clean and dry. needs attended. Call light within reach. bed is locked and in low position. In stable condition.
--- NOTE | 2018-12-05 22:11 | General Progress Note ---
Assessment/Plan Problem List: (1) Cellulitis of right lower extremity ICD Codes: L03.115 - Cellulitis of right lower limb SNOMED: 641276035 (2) Diabetes mellitus out of control ICD Codes: E11.65 - Type 2 diabetes mellitus with hyperglycemia SNOMED: 29916457, 772581775 (3) Electrolyte imbalance ICD Codes: E87.8 - Other disorders of electrolyte and fluid balance, not elsewhere classified SNOMED: 437322141 Status: progressing Assessment/Plan: cellulitis of lower extremity is improving abx per id niddm dc planning s/p toe amputation sugar is improving reviewed chart and labs Subjective ROS Limited/Unobtainable: Yes Allergies: Coded Allergies: No Known Allergies (Unverified , 08/01/18) Objective Last 24 Hour Vital Signs Date Time Temp Pulse Resp B/P (MAP) Pulse Ox O2 Delivery O2 Flow Rate FiO2 12/05/18 21:00 Room Air 12/05/18 20:00 97.6 68 19 116/57 (76) 96 12/05/18 16:00 97.6 68 20 130/76 (94) 99 12/05/18 12:00 98.1 79 20 114/57 (76) 95 12/05/18 09:00 71 117/69 12/05/18 09:00 Room Air 12/05/18 08:58 117/69 12/05/18 08:00 97.1 71 19 117/69 (85) 97 12/05/18 04:00 98.6 69 17 128/83 (98) 98 Intake and Output 12/04/18 12/05/18 18:59 06:59 Intake Total 1800 ml 600 ml Balance 1800 ml 600 ml Intake Oral 1800 ml 600 ml # Voids 3 2 Laboratory Tests 12/05/18 05:49: White Blood Count 8.9, Red Blood Count 3.95L, Hemoglobin 12.4L, Hematocrit 35.7L , Mean Corpuscular Volume 90, Mean Corpuscular Hemoglobin 31.3H, Mean Corpuscular Hemoglobin Concent 34.6, Red Cell Distribution Width 12.6, Platelet Count 182, Mean Platelet Volume 6.4L, Neutrophils (%) (Auto) 74.1, Lymphocytes ( %) (Auto) 16.6L, Monocytes (%) (Auto) 6.3, Eosinophils (%) (Auto) 2.2, Basophils (%) (Auto) 0.7, Sodium Level 141, Potassium Level 4.0, Chloride Level 105, Carbon Dioxide Level 25, Anion Gap 11, Blood Urea Nitrogen 13, Creatinine 0.9, Estimat Glomerular Filtration Rate > 60, Glucose Level 169H, Calcium Level 8.8, Phosphorus Level 3.1, Magnesium Level 1.2L, Total Bilirubin 0.7, Aspartate Amino Transf (AST/SGOT) 30, Alanine Aminotransferase (ALT/SGPT) 51, Alkaline Phosphatase 79, Total Protein 6.5, Albumin 3.0L, Globulin 3.5, Albumin/Globulin Ratio 0.9L Height (Feet): 5 Height (Inches): 9.00 Weight (Pounds): 157 Neck: supple Cardiovascular: normal rate Respiratory/Chest: lungs clear Abdomen: soft Wyatt Kelley MD December 05, 2018 22:11
[2018-12-06] VITALS: BP 114/59
[2018-12-06 04:00] VITALS: BP 120/58
[2018-12-06] MEDS: ceFAZolin sod 1 GM in D5W 55 ML IVPB SCH (06:07)
[2018-12-06] MEDS: NovoLOG Insulin Flexpen SUBQ SCH ×2 (06:45→11:42)
--- NOTE | 2018-12-06 07:24 | NUR ---
NURSE NOTES:Resting in bed during rounds,nad,room air,bed locked,will continue current plan of care.
--- NOTE | 2018-12-06 07:24 | NUR ---
HAND-OFF: Report given to Светлана FLORENCE.
[2018-12-06 07:51] VITALS: BP 113/66
[2018-12-06] MEDS: Glimepiride 1mg tab ORAL SCH (08:27)
[2018-12-06] MEDS: metFORMIN 500mg tab ORAL SCH (08:28)
[2018-12-06] MEDS ORDERED: CEFTRIAXONE1 G2 IV (10:44)
--- NOTE | 2018-12-06 11:03 | NUR ---
DISCHARGE PLANNING CLINICALS FAXED TO [facility] T: [phone] F: [phone] AWAIT ACCEPTANCE
[2018-12-06 11:50] VITALS: BP 114/56
--- NOTE | 2018-12-06 12:32 | Nephrology Progress Note ---
Assessment/Plan Problem List: (1) Cellulitis of right lower extremity (2) UTI (urinary tract infection) (3) Electrolyte imbalance (4) Diabetes mellitus out of control Plan mag IV ordered 12/05 monitor lytes and chemistries- DC IV fluids Antibiotics ? DC Subjective ROS Limited/Unobtainable: No Objective Objective Last 24 Hour Vital Signs Date Time Temp Pulse Resp B/P (MAP) Pulse Ox O2 Delivery O2 Flow Rate FiO2 12/06/18 11:50 97.9 81 17 114/56 (75) 98 12/06/18 09:00 Room Air 12/06/18 08:30 113/66 12/06/18 08:28 79 113/66 12/06/18 07:51 97.4 79 17 113/66 (82) 98 12/06/18 04:00 97.6 66 18 120/58 (78) 96 12/06/18 00:00 97.8 70 18 114/59 (77) 96 12/05/18 21:00 Room Air 12/05/18 20:00 97.6 68 19 116/57 (76) 96 12/05/18 16:00 97.6 68 20 130/76 (94) 99 Intake and Output 12/05/18 12/06/18 19:00 07:00 Intake Total 800 ml 600 ml Balance 800 ml 600 ml Intake Oral 800 ml 600 ml # Voids 3 2 # Bowel Movements 1 Height (Feet): 5 Height (Inches): 9.00 Weight (Pounds): 156 General Appearance: no apparent distress Objective no change Levi Urias MD December 06, 2018 12:32
--- NOTE | 2018-12-06 13:51 | NUR ---
DISCHARGE PLANNED PATIENT WILL DISCHARGE TO [facility] ROOM [facility] SKILLED T: [phone] FOR NURSE TO NURSE REPORT [facility] HAS BEEN ARRANGED FOR 1530 SKILL TRAINING PROGRAM COORDINATOR PATIENT IS IN AGREEMENT WITH DISCHARGE PLAN ENGINEERING LEADER NOTIFIED [facility] TO WHERE PATIENT IS GOING
--- NOTE | 2018-12-06 14:12 | Infectious Diseases Prog Note ---
Assessment/Plan Assessment/Plan IMPRESSION: Cellulitis of right lower extremity, nonpurulent. peripheral vascular disease, diabetes mellitus, dementia, hyperlipidemia, hypertension. RECOMMENDATION: 1. discontinue Ancef. 2. discharge PO Keflex X 2 days Subjective ROS Limited/Unobtainable: Yes Constitutional: Reports: no symptoms Respiratory: Reports: no symptoms Cardiovascular: Reports: no symptoms Gastrointestinal/Abdominal: Reports: no symptoms Genitourinary: Reports: no symptoms Musculoskeletal: Reports: no symptoms Allergies: Coded Allergies: No Known Allergies (Unverified , 08/01/18) Objective Vital Signs Last 24 Hour Vital Signs Date Time Temp Pulse Resp B/P (MAP) Pulse Ox O2 Delivery O2 Flow Rate FiO2 12/06/18 11:50 97.9 81 17 114/56 (75) 98 12/06/18 09:00 Room Air 12/06/18 08:30 113/66 12/06/18 08:28 79 113/66 12/06/18 07:51 97.4 79 17 113/66 (82) 98 12/06/18 04:00 97.6 66 18 120/58 (78) 96 12/06/18 00:00 97.8 70 18 114/59 (77) 96 12/05/18 21:00 Room Air 12/05/18 20:00 97.6 68 19 116/57 (76) 96 12/05/18 16:00 97.6 68 20 130/76 (94) 99 Height (Feet): 5 Height (Inches): 9.00 Weight (Pounds): 156 General Appearance: no acute distress HEENT: mucous membranes moist Respiratory/Chest: lungs clear Cardiovascular: normal rate Abdomen: soft, non tender Extremities: other - mild edema of R leg, s/p TMA in R foot Skin: other - faint erythema of right leg near ankle Neurologic/Psychiatric: alert, responsive Current Medications Medications (Trade) Dose Ordered Sig/Stacey Route PRN Reason Start Time Stop Time Status Last Admin Dose Admin Amlodipine Besylate (Norvasc) 5 mg DAILY ORAL 12/03/18 09:00 01/02/19 08:59 12/05/18 09:00 Atorvastatin Calcium (Lipitor) 20 mg BEDTIME ORAL 12/02/18 21:00 01/01/19 20:59 12/05/18 20:56 Cefazolin Sodium 1 gm/Dextrose 55 ml @ 110 mls/hr Q8HR IVPB 12/03/18 14:00 12/10/18 13:59 12/06/18 06:07 Dextrose (Dextrose 50%) 25 ml Q30M PRN IV Hypoglycemia 12/02/18 15:15 01/01/19 15:14 Dextrose (Dextrose 50%) 50 ml Q30M PRN IV Hypoglycemia 12/02/18 15:15 01/01/19 15:14 Glimepiride (Amaryl) 2 mg DAILY ORAL 12/03/18 09:00 01/02/19 08:59 12/06/18 08:27 Insulin Aspart (NovoLOG) BEFORE MEALS AND HS SUBQ 12/02/18 16:30 01/01/19 16:29 12/06/18 11:42 Irbesartan (Avapro) 300 mg DAILY ORAL 12/04/18 09:00 01/03/19 08:59 12/06/18 08:30 Metformin HCl (Glucophage) 1,000 mg Q12HR ORAL 12/02/18 21:00 01/01/19 20:59 12/06/18 08:28 Potassium Chloride (K-Dur) 20 meq BID ORAL 12/03/18 18:00 01/02/19 08:59 12/06/18 08:29 Quetiapine Fumarate (SEROquel) 150 mg QHS ORAL 12/02/18 21:00 01/01/19 20:59 12/05/18 20:56 Risperidone (RisperDAL) 0.5 mg QHS ORAL 12/02/18 21:00 01/01/19 20:59 12/05/18 20:56 Tamsulosin HCl (Flomax) 0.4 mg BEDTIME ORAL 12/02/18 21:00 01/01/19 20:59 12/05/18 20:55 Flako Rivas MD December 06, 2018 14:12
--- NOTE | 2018-12-06 14:40 | NUR ---
NURSE NOTES:REORT GIVEN TO BISMARK CARTER.RE:TRANSFER REPORT TO [facility].
--- NOTE | 2018-12-06 15:25 | NUR ---
NURSE NOTES:REPORT GIVEN TO JOSE E([facility] TRANSPORTER TECH)RE:TRANSFER REPORT TO [facility].PATIENT STABLE ON BOBBIN STRIPPER.IV HEPLOCK FLUSHED/PATENT.
[2018-12-06] MEDS ORDERED: Cephalexin 500mg cap ORAL SCH (22:00)
--- NOTE | 2018-12-07 10:29 | Discharge Summary ---
Discharge Summary Discharge Summary _ DATE OF ADMISSION: 12/02/2018 DATE OF DISCHARGE: 12/06/2018 DISCHARGED BY: REASON FOR ADMISSION: 58 years old male with past medical history of hypertension, diabetes mellitus, COPD, hyperlipidemia, peripheral arterial occlusive disease with severe right leg arterial ischemia , status post transmetatarsal amputation, presented with increased pain and redness of the right lower leg. Patient reported tetanus up-to-date. Patient reported that he did not take any pain medication or antibiotics at this time. Patient still reported smoking. He denied edema or calf tenderness. Pain located more in the anterior lower leg , 10 out of 10, burning , aching and constant. Foot was nontender. Upon evaluation vital signs were stable. Laboratory work-up revealed no leukocytosis , stable hemoglobin and hematocrit. Stable electrolytes and renal parameters. Lactic acid 1.6. Glucose 120. Stable LFT. Troponin - 0.029. Pro BNP 61. Albumin 3.4. Urinalysis revealed few bacteria , +3 leukocyte esterase and minimal pyuria. EKG revealed sinus rhythm , no acute ischemic changes. Chest x-ray revealed mildly increased interstitial markings. No focal consolidation. X-ray of the right foot demonstrated status post transmetatarsal amputation of the foot. No osseous erosion to suggest osteomyelitis. X-ray of the right tibia-fibula demonstrated bimalleolar soft tissue swelling. No soft tissue gas , no erosion, no visible fracture. Patient started on empiric antibiotic , provided with analgesic and admitted for further evaluation and management. CONSULTANTS: ID specialist Dr. Barber art objects repairer Dr. Urias HOSPITAL COURSE: Patient admitted . Media Sales Executive and ID specialist closely followed. Blood cultures were negative. No leukocytosis , no fever. Patient was on IV antibiotic while in the hospital and discharged on oral Keflex to complete the course of treatment. Renal parameters and electrolytes were closely monitored, electrolytes corrected as needed and nephrotoxins were avoided. Magnesium was replaced. Blood sugar was managed with sliding scale of insulin. Hemoglobin A1c 9.7 , clearly not at goal. Blood sugar was managed with metformin, Amaryl and sliding scale of insulin. Patient will need further optimization of anti-glycemic regimen as outpatient. Patient will need further optimization of anti-glycemic regimen as outpatient. Lipid panel revealed borderline triglycerides of 154 , otherwise stable. Blood pressure was managed with angiotensin receptor anton and calcium channel anton. Blood pressure remained stable. Statin continued. Psychiatric medication regimen was continued . Patient was counseled on abstinence from smoking. Patient declined nicotine patch. Placement was arranged to senior care facility for continuation of care. Patient was stable for transfer . FINAL DIAGNOSES: Right lower extremity cellulitis Status post recent right foot transmetatarsal amputation Electrolyte imbalance/hypomagnesemia Diabetes mellitus [id number] Peripheral vascular disease Hypertension Hyperlipidemia Dementia DISCHARGE MEDICATIONS: See Medication Reconciliation list. DISCHARGE INSTRUCTIONS: Patient was discharged to the senior care facility. Follow up with medical doctor at the facility. I have been assigned to dictate discharge summary for this account. I was not involved in the patient's management. Rossi Randhawa NP December 07, 2018 10:29
--- NOTE | 2018-12-07 19:45 | Diagnostic Imaging Report ---
APPROVED REPORT CPT Code: 42042 Present Symptoms Lower Extremity Edema: BILATERAL: Imaging reveals a patent deep venous system bilaterally. There is no evidence of thrombus within the femoral, popliteal or tibial segments. The greater saphenous veins are also within normal limits. Doppler indicates normal spontaneous flow within these segments.
== END 2018-12-06 15:55 | DRG 603 ==
LOC: EDBD 11:07 → EMR 11:38 → 3E 11:48 → EDBEDREQ 12:31
DX: L03.115 Cellulitis of right lower limb (principal); I10 Essential (primary) hypertension; E11.51 Type 2 diabetes mellitus with diabetic peripheral angiopathy without gangrene; E83.42 Hypomagnesemia; E11.65 Type 2 diabetes mellitus with hyperglycemia; E78.5 Hyperlipidemia, unspecified; F03.90 Unspecified dementia, unspecified severity, without behavioral disturbance, psychotic disturbance, mood disturbance, and anxiety; Z89.421 Acquired absence of other right toe(s); Z87.891 Personal history of nicotine dependence; Z79.82 Long term (current) use of aspirin
CPT/HCPCS: 36415; 71045; 80053; 80061; 81001; 82550; 82962; 82977; 83036; 83605; 83735; 83880; 84100; 84484; 84550; 85025; 85610; 85651; 85730; 86140; 87040; 87081; 93005; 93970; 96365; 96368; 99285; J1815; J8499

== ENCOUNTER 2019-11-08 11:28 | Inpatient (IN) | payer MEDICARE, OTHER ==
[~2019-11-08] VITALS: Ht 172.7 cm; Wt 67.1 kg
[~2019-11-08 11:28] MED LIST changes: +CEFTRIAXONE1 G2 IV; +DIOVAN320 MG ORAL; +HYDROCHLOROTH12.5 M2 ORAL; +K-TAB ER20 MEQ PO; +METFORMIN HCL1000 M1 ORAL; +METFORMIN HCL1000 M2 ORAL; +METFORMIN HCL750 MG ORAL; +RISPERIDONE OD0.5 MG PO; +SEROQUEL XR150 MG ORAL
[2019-11-08] MEDS ORDERED: NOVOLOG100 UNIT/4 SQ (11:39)
[2019-11-08] MEDS ORDERED: TELMISARTAN80 MG PO (11:39)
[2019-11-08] MEDS ORDERED: LEVEMIR100 UNIT/1 SUBQ (11:39)
--- NOTE | 2019-11-08 11:40 | NUR ---
ED Nurse Note: Pt brought in by ambulance from [facility] d/t fever a couple days ago. No other symptoms noted. Pt 98.5 in triage. Respirations even and unlabored on room air. Heart rate elevated on the monitor @ 118. All other vitals stable as documented.
--- NOTE | 2019-11-08 11:47 | Emergency Room Report ---
History of Present Illness General Chief Complaint: Fever Source: Patient, EMS Present Illness HPI Disclaimer: Please note that this report is being documented using [employer] technology. This can lead to erroneous entry secondary to incorrect interpretation by the dictating instrument. HPI: 68-year-old male with a history of diabetes, COPD, hypertension, hyperlipidemia, peripheral arterial disease presents for evaluation of fever, hypoxia and hypotension. He presents from a nursing facility. Reportedly has been febrile over the past few days and short of breath. EMS denied cough. Patient does not provide any significant history and is not conversant. He appears to understand and sometimes nods at questions but does not seem to engage verbally. He does not provide any additional history. EMS states he is full code. They state he was hypoxic on room air approximately 88% but improved on 2 L nasal cannula. They also noted slight hypotension and tachycardia on route. His PMD notified me that his blood sugar was also elevated. PMH: Hyperlipidemia, hypertension, diabetes, COPD PSH: Right transmetatarsal amputation, right lower extremity orthopedic repair Allergies: None listed in chart Social Hx: None listed in chart Allergies: Coded Allergies: No Known Allergies (Unverified , 08/01/18) COVID-19 Screening Contact w/high risk pt: No Recent Travel to affected area: No Experienced COVID-19 symptoms?: Yes COVID-19 symptoms experienced: Fever (T>100.4F or >38C), Shortness of Breath Nursing Documentation-PMH Hx Cardiac Problems: Yes Hx Hypertension: Yes Hx Diabetes: Yes Hx Cancer: No Hx Gastrointestinal Problems: No Hx Neurological Problems: Yes Hx Weakness: Yes Review of Systems All Other Systems: limited - Unable to obtain information from patient Physical Exam Vital Signs Date Time Temp Pulse Resp B/P (MAP) Pulse Ox O2 Delivery O2 Flow Rate FiO2 11/08/19 11:29 98.4 82 20 88/56 (08) 89 Room Air General: Awake and alert, no acute distress, not responding verbally but nodding for yes and no answers HEENT: NC/AT. EOMI. Cardiovascular: Tachycardic. S1 and S2 normal. No murmur appreciated Resp: Normal work of breathing. No cough, wheezing or crackles appreciated Abdomen: Abdomen is soft, nondistended. Nontender Skin: Right TMA site clean dry and intact. Surgical scar on right upper asencio clean dry and intact and well-healed. MSK: Normal tone and bulk. Moving all extremities. Right transmetatarsal amputation looks clean dry and intact. Neuro: Awake and alert. Appears to understand but not responding verbally. He will not in hand gesture. Procedures Critical Care Time Critical Care Time Total critical care time: Approximately 31 minutes Due to a high probability of clinically significant, life threatening deterioration, the patient required the highest level of preparedness to intervene emergently and I personally spent this critical care time directly and personally managing the patient. This critical care time included obtaining a history, examining the patient, pulse oximetry, ordering and reviewing studies , ordering treatments, evaluating response to treatment and updating management plan as needed, frequent reassessment and discussion with other providers as well as arranging for ultimate disposition. This critical to care time was performed to assess and manage the high probability of life-threatening deterioration that could result in multiorgan failure. This critical care time is separate from the separately billable procedures and treating other patients. Medical Decision Making Diagnostic Impression: Primary Impression: Pneumonia due to COVID-19 virus Additional Impressions: UTI (urinary tract infection) Sepsis Hyperglycemia Elevated troponin ER Course 68-year-old male presents for evaluation of fever, shortness of breath, tachycardia and hypotension as well as elevated blood sugars. He presents from nursing facility. Differential includes was not limited to viral syndrome, pneumonia, bronchitis, COPD exacerbation, CHF gasping, ACS, dehydration, electrolyte abnormality, COVID-19 infection, sepsis to name a few. He arrives tachycardic and slightly hypotensive but saturating 95% on room air. Highest concern for respiratory tract infection or cardiac etiology. Based on the patient's presenting signs, symptoms and physical exam findings, the patient has been screened and is suspected to have COVID-19. Will order coronavirus swabs. Will treat empirically with antibiotics. Started IV hydration though will hydrate slowly to avoid fluid overload and pulmonary edema as the patient is suspected COVID-19. Patient will require admission. Laboratory Tests Test 11/08/19 11:50 11/08/19 12:04 White Blood Count 12.0 K/UL (4.8-10.8) H Red Blood Count 4.95 M/UL (4.70-6.10) Hemoglobin 14.2 G/DL (14.2-18.0) Hematocrit 42.5 % (42.0-52.0) Mean Corpuscular Volume 86 FL (80-99) Mean Corpuscular Hemoglobin 28.8 PG (27.0-31.0) Mean Corpuscular Hemoglobin Concent 33.5 G/DL (32.0-36.0) Red Cell Distribution Width 12.5 % (11.6-14.8) Platelet Count 141 K/UL (150-450) L Mean Platelet Volume 6.7 FL (6.5-10.1) Neutrophils (%) (Auto) % (45.0-75.0) Lymphocytes (%) (Auto) % (20.0-45.0) Monocytes (%) (Auto) % (1.0-10.0) Eosinophils (%) (Auto) % (0.0-3.0) Basophils (%) (Auto) % (0.0-2.0) Differential Total Cells Counted 100 Neutrophils % (Manual) 88 % (45-75) H Lymphocytes % (Manual) 11 % (20-45) L Monocytes % (Manual) 1 % (1-10) Eosinophils % (Manual) 0 % (0-3) Basophils % (Manual) 0 % (0-2) Band Neutrophils 0 % (0-8) Platelet Estimate Decreased L Platelet Morphology Normal Red Blood Cell Morphology Normal Prothrombin Time 10.0 SEC (9.30-11.50) Prothrombin Time INR 0.9 (0.9-1.1) Urine Color Pale yellow Urine Appearance Cloudy Urine pH 5 (4.5-8.0) Urine Specific [place] 1.015 (1.005-1.035) Urine Protein 3+ (NEGATIVE) H Urine Glucose (UA) 4+ (NEGATIVE) H Urine Ketones 3+ (NEGATIVE) H Urine Blood 4+ (NEGATIVE) H Urine Nitrite Negative (NEGATIVE) Urine Bilirubin Negative (NEGATIVE) Urine Urobilinogen Normal MG/DL (0.0-1.0) Urine Leukocyte Esterase 3+ (NEGATIVE) H Urine RBC 10-15 /HPF (0 - 0) H Urine WBC Tntc /HPF (0 - 0) H Urine Squamous Epithelial Cells Occasional /LPF Urine Bacteria Few /HPF (NONE) Urine Yeast Many /HPF (NONE) H Sodium Level 142 MMOL/L (136-145) Potassium Level 4.0 MMOL/L (3.5-5.1) Chloride Level 101 MMOL/L (98-107) Carbon Dioxide Level 28 MMOL/L (21-32) Anion Gap 13 mmol/L (5-15) Blood Urea Nitrogen 41 mg/dL (7-18) H Creatinine 2.3 MG/DL (0.55-1.30) H Estimated Glomerular Filtration Rate 28.3 mL/min (>60) Glucose Level 582 MG/DL (74-106) *H Lactic Acid Level 4.90 mmol/L (0.4-2.0) H Calcium Level 8.4 MG/DL (8.5-10.1) L Total Bilirubin 0.7 MG/DL (0.2-1.0) Aspartate Amino Transferase (AST) 57 U/L (15-37) H Alanine Aminotransferase (ALT) 58 U/L (12-78) Alkaline Phosphatase 89 U/L (46-116) Total Creatine Kinase 1057 U/L (26-308) H Creatine Kinase MB < 0.5 NG/ML (0.0-3.6) Creatine Kinase MB Relative Index 0.0 Troponin I 0.088 ng/mL (0.000-0.056) Pro-B-Type Natriuretic Peptide 491 pg/mL (0-125) H Total Protein 7.8 G/DL (6.4-8.2) Albumin 3.1 G/DL (3.4-5.0) L Globulin 4.7 g/dL Albumin/Globulin Ratio 0.7 (1.0-2.7) L Arterial Blood pH 7.462 (7.350-7.450) Arterial Blood Partial Pressure CO2 33.8 mmHg (35.0-45.0) L Arterial Blood Partial Pressure O2 59.7 mmHg (75.0-100.0) L Arterial Blood HCO3 23.6 mmol/L (22.0-26.0) Arterial Blood Oxygen Saturation 91.3 % (95-100) L Arterial Blood Base Excess 0.4 (-2-2) Gordon Test Positive EKG Diagnostic Results EKG Time: 11:54 Rate: tachycardiac Rhythm: NSR ST Segments: no acute changes Other Impression Sinus rhythm, normal axis, normal intervals, QTC 4 6 7 ms, no ST segment changes Rhythm Strip Diag. Results Rhythm Strip Time: 11:54 EP Interpretation: yes Rate: 115 Rhythm: no PVC's, no ectopy Chest X-Ray Diagnostic Results Chest X-Ray Diagnostic Results : Chest X-Ray Ordered: Yes # of Views/Limited/Complete: 1 View Indication: Shortness of Breath EP Interpretation: Yes Interpretation: other - Concern for right-sided consolidation consistent with pneumonia. No effusion, no pneumothorax Impression: Other - Right middle lobe pneumonia Electronically Signed by: Electronically signed by Dr. Forrest Mercado Reevaluation Time: 13:10 Last Vital Signs Date Time Temp Pulse Resp B/P (MAP) Pulse Ox O2 Delivery O2 Flow Rate FiO2 11/08/19 11:29 98.4 82 20 88/56 (67) 89 Room Air Reevaluation Impression Chest x-ray concerning for pneumonia in the right middle lobe with bilateral vascular congestion. Suspect novel coronavirus 19.swab is sent. Patient stays in isolation. EKG shows sinus tachycardia. Labs show lactic acidosis, elevated troponin, hyperglycemia without gap. Patient given IV fluids, IV insulin and will be admitted for further treatment to his PMD, Dr. Kelley. Disposition: ADMITTED INPATIENT Condition: Serious Forrest Mercado MD Nov 08, 2019 11:47
[2019-11-08] MEDS ORDERED: cefTRIAXone 1 GM in NS 55 ML IVPB ONE (12:00)
[2019-11-08] MEDS ORDERED: Azithromycin 500 MG in NS 275 ML IV ONE (12:00)
--- NOTE | 2019-11-08 12:05 | NUR ---
ED Nurse Note: blood and urine sent to lab
[2019-11-08 12:13] VITALS: BP 94/58
[2019-11-08 12:14] LABS: HEMATOCRIT 42.5 % (42.0-52.0); HEMOGLOBIN 14.2 G/DL (14.2-18.0); MEAN CORPUSCULAR VOLUME 86 FL (80-99); PLATELET COUNT 141 K/UL (150-450); RED BLOOD COUNT 4.95 M/UL (4.70-6.10); RED CELL DISTRIBUTION WIDTH 12.5 % (11.6-14.8)
[2019-11-08 12:15] LABS: APPEARANCE,URINE CLOUDY; BILIRUBIN, URINE NEGATIVE (NEGATIVE); COLOR,URINE PALE YELLOW; GLUCOSE, URINE (UA) 4+ (NEGATIVE); KETONES,URINE 3+ (NEGATIVE); LEUKOCYTE ESTERASE ,URINE 3+ (NEGATIVE); NITRITE,URINE NEGATIVE (NEGATIVE); PH,URINE 5 (4.5-8.0); PROTEIN,URINE 3+ (NEGATIVE); UROBILINOGEN,URINE NORMAL MG/DL (0.0-1.0)
[2019-11-08 12:26] LABS: INR 0.9 (0.9-1.1)
[2019-11-08 12:43] LABS: ALANINE AMINOTRANSFERASE 58 U/L (12-78); ALBUMIN 3.1 G/DL (3.4-5.0); ALBUMIN/GLOBULIN RATIO 0.7 (1.0-2.7); ALKALINE PHOSPHATASE 89 U/L (46-116); ANION GAP 13 mmol/L (5-15); ASPARTATE AMINO TRANSFERASE 57 U/L (15-37); BILIRUBIN,TOTAL 0.7 MG/DL (0.2-1.0); BLOOD UREA NITROGEN 41 mg/dL (7-18); CALCIUM 8.4 MG/DL (8.5-10.1); CARBON DIOXIDE 28 MMOL/L (21-32); CHLORIDE 101 MMOL/L (98-107); CKMB < 0.5 NG/ML (0.0-3.6); CREATINE KINASE 1057 U/L (26-308); CREATININE 2.3 MG/DL (0.55-1.30); SODIUM 142 MMOL/L (136-145)
[2019-11-08] MEDS ORDERED: Insulin Human Regular 100units/ml 3ml IV ONE (13:00)
--- NOTE | 2019-11-08 13:24 | NUR ---
ED Nurse Note: reflex lactic sent to lab
--- NOTE | 2019-11-08 14:03 | Consultation ---
Consult Note Consult Note I am asked to evaluate the patient at the request of Dr. Kelley for renal failure Patient presents to emergency room with fever hypoxia and hypotension Patient is known to me from his previous admission During last ER admission the patient had normal renal parameters Today in the emergency room the BUN and creatinine are elevated Medication list reviewed which includes diuretics and blood pressure medications Emergency room note: HPI: 68-year-old male with a history of diabetes, COPD, hypertension, hyperlipidemia, peripheral arterial disease presents for evaluation of fever, hypoxia and hypotension. He presents from a nursing facility. Reportedly has been febrile over the past few days and short of breath. EMS denied cough. Patient does not provide any significant history and is not conversant. He appears to understand and sometimes nods at questions but does not seem to engage verbally. He does not provide any additional history. EMS states he is full code. They state he was hypoxic on room air approximately 88% but improved on 2 L nasal cannula. They also noted slight hypotension and tachycardia on route. His PMD notified me that his blood sugar was also elevated. PMH: Hyperlipidemia, hypertension, diabetes, COPD PSH: Right transmetatarsal amputation, right lower extremity orthopedic repair No Known Allergies (Unverified , 08/01/18) COVID-19 Screening Contact w/high risk pt: No Recent Travel to affected area: No Experienced COVID-19 symptoms?: Yes COVID-19 symptoms experienced: Fever (T>100.4F or >38C), Shortness of Breath Hx Cardiac Problems: Yes Hx Hypertension: Yes Hx Diabetes: Yes Hx Neurological Problems: Yes Hx Weakness: Yes . Assessment/Plan Renal failure most likely acute on chronic Diabetes mellitus, presents with hyperglycemia Pneumonia due to COVID-19 virus Elevated troponin Sepsis, UTI, Suggestions: Will stop blood pressure medications Will hold diuretics and metformin Fluid challenge Keep the blood pressure and blood sugar in check Monitor renal parameters Avoid nephrotoxic's Antibiotics per ID Per orders Levi Urias MD Nov 08, 2019 14:03
--- NOTE | 2019-11-08 14:16 | Diagnostic Imaging Report ---
Indication: Shortness of breath Technique: One view of the chest Comparison: 12/02/2018 Findings: There is a wedge-shaped area of infiltrate in the inferior right upper lobe. This is not evident previously. There may be some peripheral hazy opacity in the right lower lobe. There is some atelectasis in the left midlung. The heart size is normal. Impression: Wedge-shaped area of infiltrate in the inferior right upper lobe. Most likely an area of pneumonia. Possibility of a pulmonary infarct should also be considered. Equivocal hazy right lower lung periphery opacity Left perihilar atelectasis
--- NOTE | 2019-11-08 14:40 | NUR ---
ED Nurse Note: called TELE to give report, charge nurse stated room is not ready yet, give us 20 more min.
[2019-11-08 15:19] VITALS: BP 130/69
--- NOTE | 2019-11-08 15:30 | NUR ---
ED Nurse Note: Patient was admited to TELE unit due to fever. Patient was transfered to the unit via gurney, by ACLS protocol, with all belongings. Patient AAO x1, VSS at this time.
--- NOTE | 2019-11-08 16:09 | NUR ---
NURSE NOTES: Patient was admitted from ED, IV is 18g left hand, pt is incontinent, pt was swabbed for CV-19, CRE, VRE, MRSA too, condom cath in place, pt has no orientation is semi non-verbal,
[2019-11-08] MEDS ORDERED: NovoLOG Insulin Flexpen SUBQ SCH (18:00)
[2019-11-08] MEDS ORDERED: Tamsulosin 0.4mg cap ORAL SCH (18:00)
[2019-11-08] MEDS: Levemir Flexpen SUBQ SCH (18:49)
[2019-11-08] MEDS: NovoLOG Insulin Flexpen SUBQ SCH ×2 (18:50→21:24)
--- NOTE | 2019-11-08 18:55 | NUR ---
NURSE NOTES: Md Short, stated to not give the 15 units of novolog but instead 8 units. This was due to the nurse contacting the Md and instruction that the blood sugar on the floor was 243. will change order
--- NOTE | 2019-11-08 19:35 | NUR ---
NURSE NOTES: Received pt and report from NAMAN Grigsby. Observed pt resting in bed with both eyes open and watching TV. Pt is A/Ox1. quality assurance monitor final is in placed; pt is ST (108). IV site intact, asymptomatic and patent; running 1/2 NS @100cc/hr. Bed is in the lowest position and locked. Call light and bedside table is within reach. No signs/symptoms of acute distress noted at this time. Will continue plan of care.
--- NOTE | 2019-11-08 19:47 | NUR ---
HAND-OFF: Report given to NAMAN Cheng. Pt in stable condition, endorsed plan of care.
[2019-11-08 20:00] VITALS: BP 121/63
[2019-11-08] MEDS: Pantoprazole Inj IVP SCH (21:08)
[2019-11-09] VITALS: BP 128/67
--- NOTE | 2019-11-09 00:14 | Consultation ---
DATE OF CONSULTATION: 11/08/2019 PULMONARY CONSULTATION CONSULTING PHYSICIAN: Jay Petersen MD HISTORY OF PRESENT ILLNESS: This is a 68-year-old male with history of COPD, hypertension, hyperlipidemia, disease, and diabetes, who was sent in for evaluation of fever, hypoxia, and hypotension. He is a alf resident. The patient has been short of breath for several days. He is unable to provide any further history. The patient was hypoxic on room air and received 2 liters of oxygen. He is a Full Code. PAST MEDICAL HISTORY: Notable for hyperlipidemia, hypertension, diabetes mellitus, COPD, alf resident. PAST SURGICAL HISTORY: Right metatarsal amputation and right lower extremity surgical repair. REVIEW OF SYSTEMS: Denies any headaches, hematemesis, melena, hematochezia, or weight loss. PHYSICAL EXAMINATION: GENERAL: Reveals a 68-year-old male. HEENT: Unremarkable. LUNGS: Clear breath sounds bilaterally. HEART: Normal heart sounds. ABDOMEN: Soft VITAL SIGNS: Blood pressure is 130/70, heart rate 110, respirations 20, he is afebrile, O2 saturation 99% on 2 L of oxygen. LABORATORY DATA: Lab testing shows white count 12,000, otherwise normal CBC. Creatinine is 2.3, glucose 582. Lactic acid 4.9. Troponin 0.08. IMAGING STUDIES: X-ray of the chest obtained, which shows right lung pneumonia. IMPRESSION: 1. Pneumonia. 2. Renal failure. 3. Diabetes mellitus. 4. disease. DISCUSSION: Admit to the hospital. The patient needs broad-spectrum antibiotics, diabetes control, IV fluids. Nephrology consultation has been obtained. Hold off on Glucophage. 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 Antibiotics have been placed. Jay Petersen M.D. DR: ONELIA JOB#: [id number] CC:
[2019-11-09 04:00] VITALS: BP 132/55
[2019-11-09] MEDS: Acetaminophen 500mg (ES) tab ORAL PRN (04:31)
[2019-11-09] MEDS: NovoLOG Insulin Flexpen SUBQ SCH ×7 (06:17→21:00)
[2019-11-09] MEDS ORDERED: metFORMIN 500mg tab ORAL SCH (06:30)
--- NOTE | 2019-11-09 06:40 | Consultation ---
History of Present Illness General Chief Complaint: Fever Present Illness Allergies: Coded Allergies: No Known Allergies (Unverified , 08/01/18) Medication History Scheduled Amlodipine Besylate* (Amlodipine Besylate*), 10 MG ORAL DAILY, (Reported) Ceftriaxone Sodium (Ceftriaxone), 1 GM IV DAILY, (Reported) Glimepiride* (Glimepiride*), 2 MG ORAL DAILY, (Reported) Hydrochlorothiazide* (Hydrochlorothiazide*), 12.5 MG ORAL DAILY, (Reported) Insulin Detemir (Levemir), 70 SUBQ BEDTIME, (Reported) Metformin Hcl (Metformin Hcl Er), 2,000 MG ORAL DAILY, (Reported) Potassium Chloride (Potassium Chloride), 10 MEQ ORAL DAILY, (Reported) Quetiapine Fumarate (Seroquel Xr), 150 MG ORAL BEDTIME, (Reported) Risperidone (Risperidone Odt), 0.5 MG PO HS, (Reported) Rosuvastatin Calcium* (Crestor*), 10 MG ORAL HS, (Reported) Tamsulosin HCl (Flomax), 0.4 MG ORAL HS, (Reported) Valsartan (Diovan), 320 MG ORAL DAILY, (Reported) Miscellaneous Medications Insulin Aspart (Novolog), UNIT SQ, (Reported) Telmisartan (Telmisartan), 80 MG PO, (Reported) Patient History Healthcare decision maker Resuscitation status Full Code Advanced Directive on File No Physical Exam Last 24 Hour Vital Signs Date Time Temp Pulse Resp B/P (MAP) Pulse Ox O2 Delivery O2 Flow Rate FiO2 11/09/19 05:15 98.7 11/09/19 05:01 98.7 11/09/19 04:00 115 11/09/19 04:00 100.6 106 20 132/55 (80) 92 11/09/19 00:00 117 11/09/19 00:00 99.9 113 20 128/67 (87) 93 11/08/19 21:00 Nasal Cannula 2.0 11/08/19 20:00 115 11/08/19 20:00 97.5 115 20 121/63 (82) 93 11/08/19 16:25 112 11/08/19 16:23 Nasal Cannula 2.0 11/08/19 15:30 98.4 111 20 130/69 96 Nasal Cannula 2.0 11/08/19 15:19 98.4 111 20 130/69 96 Nasal Cannula 2.0 11/08/19 12:13 79 20 Room Air 11/08/19 12:13 98.4 119 20 94/58 96 Room Air 11/08/19 11:29 98.4 82 20 88/56 (67) 89 Room Air Intake and Output 11/08/19 11/09/19 19:00 07:00 Intake Total 240 ml Output Total 200 ml Balance 40 ml Intake Oral 240 ml Output Urine Total 200 ml # Bowel Movements 1 Laboratory Tests Test 11/08/19 11:50 11/08/19 12:04 11/08/19 13:15 White Blood Count 12.0 K/UL (4.8-10.8) H Red Blood Count 4.95 M/UL (4.70-6.10) Hemoglobin 14.2 G/DL (14.2-18.0) Hematocrit 42.5 % (42.0-52.0) Mean Corpuscular Volume 86 FL (80-99) Mean Corpuscular Hemoglobin 28.8 PG (27.0-31.0) Mean Corpuscular Hemoglobin Concent 33.5 G/DL (32.0-36.0) Red Cell Distribution Width 12.5 % (11.6-14.8) Platelet Count 141 K/UL (150-450) L Mean Platelet Volume 6.7 FL (6.5-10.1) Neutrophils (%) (Auto) % (45.0-75.0) Lymphocytes (%) (Auto) % (20.0-45.0) Monocytes (%) (Auto) % (1.0-10.0) Eosinophils (%) (Auto) % (0.0-3.0) Basophils (%) (Auto) % (0.0-2.0) Differential Total Cells Counted 100 Neutrophils % (Manual) 88 % (45-75) H Lymphocytes % (Manual) 11 % (20-45) L Monocytes % (Manual) 1 % (1-10) Eosinophils % (Manual) 0 % (0-3) Basophils % (Manual) 0 % (0-2) Band Neutrophils 0 % (0-8) Platelet Estimate Decreased L Platelet Morphology Normal Red Blood Cell Morphology Normal Prothrombin Time 10.0 SEC (9.30-11.50) Prothromb Time International Ratio 0.9 (0.9-1.1) Urine Color Pale yellow Urine Appearance Cloudy Urine pH 5 (4.5-8.0) Urine Specific [place] 1.015 (1.005-1.035) Urine Protein 3+ (NEGATIVE) H Urine Glucose (UA) 4+ (NEGATIVE) H Urine Ketones 3+ (NEGATIVE) H Urine Blood 4+ (NEGATIVE) H Urine Nitrite Negative (NEGATIVE) Urine Bilirubin Negative (NEGATIVE) Urine Urobilinogen Normal MG/DL (0.0-1.0) Urine Leukocyte Esterase 3+ (NEGATIVE) H Urine RBC 10-15 /HPF (0 - 0) H Urine WBC Tntc /HPF (0 - 0) H Urine Squamous Epithelial Cells Occasional /LPF Urine Bacteria Few /HPF (NONE) Urine Yeast Many /HPF (NONE) H Sodium Level 142 MMOL/L (136-145) Potassium Level 4.0 MMOL/L (3.5-5.1) Chloride Level 101 MMOL/L (98-107) Carbon Dioxide Level 28 MMOL/L (21-32) Anion Gap 13 mmol/L (5-15) Blood Urea Nitrogen 41 mg/dL (7-18) H Creatinine 2.3 MG/DL (0.55-1.30) H Estimat Glomerular Filtration Rate 28.3 mL/min (>60) Glucose Level 582 MG/DL (74-106) *H Lactic Acid Level 4.90 mmol/L (0.4-2.0) H 4.40 mmol/L (0.66-2.22) H Calcium Level 8.4 MG/DL (8.5-10.1) L Total Bilirubin 0.7 MG/DL (0.2-1.0) Aspartate Amino Transf (AST/SGOT) 57 U/L (15-37) H Alanine Aminotransferase (ALT/SGPT) 58 U/L (12-78) Alkaline Phosphatase 89 U/L (46-116) Total Creatine Kinase 1057 U/L (26-308) H Creatine Kinase MB < 0.5 NG/ML (0.0-3.6) Creatine Kinase MB Relative Index 0.0 Troponin I 0.088 ng/mL (0.000-0.056) Pro-B-Type Natriuretic Peptide 491 pg/mL (0-125) H Total Protein 7.8 G/DL (6.4-8.2) Albumin 3.1 G/DL (3.4-5.0) L Globulin 4.7 g/dL Albumin/Globulin Ratio 0.7 (1.0-2.7) L Acetone Level Negative (NEGATIVE) Arterial Blood pH 7.462 (7.350-7.450) Arterial Blood Partial Pressure CO2 33.8 mmHg (35.0-45.0) L Arterial Blood Partial Pressure O2 59.7 mmHg (75.0-100.0) L Arterial Blood HCO3 23.6 mmol/L (22.0-26.0) Arterial Blood Oxygen Saturation 91.3 % (95-100) L Arterial Blood Base Excess 0.4 (-2-2) Gordon Test Positive Microbiology Date/Time Source Procedure Growth Status 11/08/19 11:50 Urine,Clean Catch Urine Culture - Preliminary NO GROWTH Resulted 11/08/19 14:25 Rectum Received Height (Feet): 5 Height (Inches): 8.00 Weight (Pounds): 148 Medications Current Medications Medications (Trade) Dose Ordered Sig/Stacey Route PRN Reason Start Time Stop Time Status Last Admin Dose Admin Acetaminophen (Tylenol) 500 mg Q4H PRN ORAL Temp >100.5/pain 11/08/19 16:45 12/08/19 16:44 11/09/19 04:31 Ceftriaxone Sodium 1 gm/ Dextrose 55 ml @ 110 mls/hr Q24H IVPB 11/09/19 12:00 11/16/19 11:59 Dextrose (Dextrose 50%) 25 ml Q30M PRN IV Hypoglycemia 11/08/19 18:00 02/06/20 17:59 Dextrose (Dextrose 50%) 50 ml Q30M PRN IV Hypoglycemia 11/08/19 18:00 02/06/20 17:59 Glimepiride (AmaryL) 2 mg DAILY ORAL 11/09/19 09:00 12/09/19 08:59 Insulin Aspart (NovoLOG) BEFORE MEALS AND HS SUBQ 11/08/19 21:00 02/06/20 20:59 11/08/19 21:24 Insulin Aspart (NovoLOG) 8 units NOVOTIAC SUBQ 11/09/19 06:30 02/06/20 17:59 Insulin Detemir (Levemir) 30 units BID SUBQ 11/08/19 18:00 02/06/20 17:59 11/08/19 18:49 Pantoprazole (Protonix) 40 mg Q12HR IVP 11/08/19 21:00 12/08/19 20:59 11/08/19 21:08 Sodium Chloride 1,000 ml @ 100 mls/hr Q10H IV 11/08/19 14:30 12/08/19 14:29 11/09/19 01:09 Tamsulosin HCl (Flomax) 0.4 mg DAILY@1800 ORAL 11/08/19 18:00 12/08/19 17:59 11/08/19 18:48 Assessment/Plan Assessment/Plan: Hematology/Oncology Consultation Requesting MD: Wyatt Kelley Date of Service: 11/09/2019 Reason for consultation: Anemia low platelets HISTORY OF PRESENT ILLNESS: 68y old male patient well known to me, is admitted for pna and also covid like symptoms, have reviewed pulm and renal recs. The patient has organic brain syndrome. 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 Hematology/Oncology was consulted due to Anemia and low plt. Currently on iso precautions, have seen him before. PAST MEDICAL HISTORY: Hypertension, diabetes mellitus,schizophrenia, prior CVA with left paresis. PAST SURG: right metatarsal foot amp ALLERGIES: No known allergies. MEDICATIONS: Hydrochlorothiazide, insulin, calcium, Seroquel, Flomax, and losartan. FAMILY HISTORY: Does have history of hypertension. SOCIAL HISTORY: Denies smoking, alcohol, or illicit drugs. Does have history of smoking. REVIEW OF SYSTEMS: HEENT: Denies headaches. RESPIRATORY: Some shortness of breath is noted. Denies cough. Clear to auscultation. CARDIOVASCULAR: Denies chest pain. GASTROINTESTINAL: Denies nausea, vomiting, or diarrhea. Abdomen is soft. EXTREMITIES s/p amp right metatarsal in the past PHYSICAL EXAMINATION: VITAL SIGNS: Temperature is 97.5, pulse is 70, and blood pressure 126/70. HEENT: PERRLA. NECK: Supple. No lymphadenopathy. CHEST: Clear to auscultation. CARDIOVASCULAR: Regular rate and rhythm. No murmurs or extra sounds. GASTROINTESTINAL: Soft, nontender, and nondistended. No organomegaly. EXTREMITIES: s/p metatarsal right sided amputation CODER: Oriented x1. Reflexes equal in both sides. LABORATORY DATA: 07/2018 WBC of 10, hemoglobin 9.7, and platelets of 344,000. Sodium 142, potassium 3.2, and creatinine of 0.9. Troponin of 0.092. 11/08/2019: wbc 12, hgb 13, plt 141k ASSESSMENT AND PLAN: # Leukocytosis. Likely related to underlying infection versus reactive process. In this case likely COVID19 related --> Peripheral has been ordered, results are pending --> Medications have been reviewed --> Imaging has been reviewed --> Blood cultures and urine cultures prn has been started on abx, empiric treatment --> COVID19 iso treatment # Thrombocytopenia likely covid v other infection related --> hep and hiv pending --> us abd as needed --> smear is noted --> pulm recss noted # Gangrene in the right third and fifth toes --> s/p right sided a,putation right metatarsal # Diabetic foot ulcer/osteomyelitis. # Diabetes mellitus. Aspirin and statin are the mainstay of therapy for peripheral vasculopathy. # History of hypertension --> appreciate cardiology recs The timing of this note does not necessarily reflect the time of the patient was seen Greatly appreciate consultation! Jose M Wade MD November 09, 2019 06:40
[2019-11-09 07:31] LABS: HEMOGLOBIN 14.2 G/DL (14.2-18.0); MEAN CORPUSCULAR VOLUME 85 FL (80-99); PLATELET COUNT 157 K/UL (150-450); RED BLOOD COUNT 4.94 M/UL (4.70-6.10); RED CELL DISTRIBUTION WIDTH 12.3 % (11.6-14.8); WHITE BLOOD COUNT 12.5 K/UL (4.8-10.8)
--- NOTE | 2019-11-09 07:37 | NUR ---
HAND-OFF: Report given to NAMAN Grigsby. Plan of care endorsed.
[2019-11-09 08:00] VITALS: BP 140/69
--- NOTE | 2019-11-09 08:15 | NUR ---
NURSE NOTES: Received report from NAMAN Cheng. Pt A/O x1, denies any pain, no s/sx of acute distress. Pt breathing and unlabored in 2L NC. Pt has R FA IV site, patent and asymptomatic, running IVF at 100ml/hr. Bed in lowest position, call light within reach. Will continue plan of care.
[2019-11-09] MEDS: Pantoprazole Inj IVP SCH (08:28)
[2019-11-09] MEDS: Glimepiride 1mg tab ORAL SCH (08:28)
[2019-11-09 08:42] LABS: ALANINE AMINOTRANSFERASE 57 U/L (12-78); ALBUMIN 2.9 G/DL (3.4-5.0); ALBUMIN/GLOBULIN RATIO 0.6 (1.0-2.7); ALKALINE PHOSPHATASE 84 U/L (46-116); ANION GAP 9 mmol/L (5-15); ASPARTATE AMINO TRANSFERASE 73 U/L (15-37); BILIRUBIN,TOTAL 0.7 MG/DL (0.2-1.0); BLOOD UREA NITROGEN 32 mg/dL (7-18); CALCIUM 8.1 MG/DL (8.5-10.1); CARBON DIOXIDE 30 MMOL/L (21-32); CHLORIDE 109 MMOL/L (98-107); CHOLESTEROL 82 MG/DL (< 200); CREATINE KINASE 925 U/L (26-308); CREATININE 1.3 MG/DL (0.55-1.30); GAMMA GLUTAMYL TRANSPEPTIDASE 42 U/L (5-85); HDL CHOLESTEROL 34 MG/DL (40-60); LACTATE DEHYDROGENASE 401 U/L (81-234); PHOSPHORUS 2.4 MG/DL (2.5-4.9); POTASSIUM 3.1 MMOL/L (3.5-5.1); SODIUM 148 MMOL/L (136-145); TRIGLYCERIDES 123 MG/DL (30-150)
[2019-11-09] MEDS: Levemir Flexpen SUBQ SCH ×2 (08:59→17:31)
--- NOTE | 2019-11-09 09:59 | Nephrology Progress Note ---
Assessment/Plan Problem List: (1) STEPHANIE (acute kidney injury) (2) Electrolyte imbalance (3) Hyperglycemia (4) Sepsis (5) Elevated troponin (6) Pneumonia due to COVID-19 virus (7) UTI (urinary tract infection) Assessment Renal failure most likely acute on chronic Diabetes mellitus, presents with hyperglycemia Pneumonia due to COVID-19 virus Elevated troponin Sepsis, UTI, Plan Will adjust blood pressure medications Correct low potassium and low phosphorus Will hold diuretics and metformin Discontinue IV fluid as BUN and creatinine improved Keep the blood pressure and blood sugar in check Monitor renal parameters Avoid nephrotoxic's Antibiotics per ID Per orders Subjective ROS Limited/Unobtainable: No Constitutional: Reports: malaise Objective Objective Last 24 Hour Vital Signs Date Time Temp Pulse Resp B/P (MAP) Pulse Ox O2 Delivery O2 Flow Rate FiO2 11/09/19 08:00 98.9 76 20 140/69 (92) 97 11/09/19 05:15 98.7 11/09/19 05:01 98.7 11/09/19 04:00 115 11/09/19 04:00 100.6 106 20 132/55 (80) 92 11/09/19 00:00 117 11/09/19 00:00 99.9 113 20 128/67 (87) 93 11/08/19 21:00 Nasal Cannula 2.0 11/08/19 20:00 115 11/08/19 20:00 97.5 115 20 121/63 (82) 93 11/08/19 16:25 112 11/08/19 16:23 Nasal Cannula 2.0 11/08/19 15:30 98.4 111 20 130/69 96 Nasal Cannula 2.0 11/08/19 15:19 98.4 111 20 130/69 96 Nasal Cannula 2.0 11/08/19 12:13 79 20 Room Air 11/08/19 12:13 98.4 119 20 94/58 96 Room Air 11/08/19 11:29 98.4 82 20 88/56 (67) 89 Room Air Intake and Output 11/08/19 11/09/19 19:00 07:00 Intake Total 240 ml Output Total 200 ml 300 ml Balance 40 ml -300 ml Intake Oral 240 ml Output Urine Total 200 ml 300 ml # Voids 2 # Bowel Movements 1 Laboratory Tests 11/08/19 11:50: White Blood Count 12.0H, Red Blood Count 4.95, Hemoglobin 14.2, Hematocrit 42.5 , Mean Corpuscular Volume 86, Mean Corpuscular Hemoglobin 28.8, Mean Corpuscular Hemoglobin Concent 33.5, Red Cell Distribution Width 12.5, Platelet Count 141L, Mean Platelet Volume 6.7, Neutrophils (%) (Auto) , Lymphocytes (%) ( Auto) , Monocytes (%) (Auto) , Eosinophils (%) (Auto) , Basophils (%) (Auto) , Differential Total Cells Counted 100, Neutrophils % (Manual) 88H, Lymphocytes % (Manual) 11L, Monocytes % (Manual) 1, Eosinophils % (Manual) 0, Basophils % ( Manual) 0, Band Neutrophils 0, Platelet Estimate DecreasedL, Platelet Morphology Normal, Red Blood Cell Morphology Normal, Prothrombin Time 10.0, Prothromb Time International Ratio 0.9, Urine Color Pale yellow, Urine Appearance Cloudy, Urine pH 5, Urine Specific [place] 1.015, Urine Protein 3+H, Urine Glucose (UA) 4+H, Urine Ketones 3+H, Urine Blood 4+H, Urine Nitrite Negative, Urine Bilirubin Negative, Urine Urobilinogen Normal, Urine Leukocyte Esterase 3+H, Urine RBC 10-15H, Urine WBC TntcH, Urine Squamous Epithelial Cells Occasional, Urine Bacteria Few, Urine Yeast ManyH, Sodium Level 142, Potassium Level 4.0, Chloride Level 101, Carbon Dioxide Level 28, Anion Gap 13, Blood Urea Nitrogen 41H, Creatinine 2.3H, Estimat Glomerular Filtration Rate 28.3, Glucose Level 582*H, Lactic Acid Level 4.90H, Calcium Level 8.4L, Total Bilirubin 0.7, Aspartate Amino Transf (AST/SGOT) 57H, Alanine Aminotransferase ( ALT/SGPT) 58, Alkaline Phosphatase 89, Total Creatine Kinase 1057H, Creatine Kinase MB < 0.5, Creatine Kinase MB Relative Index 0.0, Troponin I 0.088H, Pro-B -Type Natriuretic Peptide 491H, Total Protein 7.8, Albumin 3.1L, Globulin 4.7, Albumin/Globulin Ratio 0.7L, Acetone Level Negative 11/08/19 12:04: Arterial Blood pH 7.462H, Arterial Blood Partial Pressure CO2 33.8L, Arterial Blood Partial Pressure O2 59.7L, Arterial Blood HCO3 23.6, Arterial Blood Oxygen Saturation 91.3L, Arterial Blood Base Excess 0.4, Gordon Test Positive 11/08/19 13:15: Lactic Acid Level 4.40H 11/09/19 05:40: White Blood Count 12.5H, Red Blood Count 4.94, Hemoglobin 14.2, Hematocrit 42.0 , Mean Corpuscular Volume 85, Mean Corpuscular Hemoglobin 28.7, Mean Corpuscular Hemoglobin Concent 33.7, Red Cell Distribution Width 12.3, Platelet Count 157, Mean Platelet Volume 7.0, Neutrophils (%) (Auto) , Lymphocytes (%) ( Auto) , Monocytes (%) (Auto) , Eosinophils (%) (Auto) , Basophils (%) (Auto) , Differential Total Cells Counted 100, Neutrophils % (Manual) 87H, Lymphocytes % (Manual) 11L, Monocytes % (Manual) 2, Eosinophils % (Manual) 0, Basophils % ( Manual) 0, Band Neutrophils 0, Platelet Estimate Adequate, Platelet Morphology Normal, Sodium Level 148H, Potassium Level 3.1L, Chloride Level 109H, Carbon Dioxide Level 30, Anion Gap 9, Blood Urea Nitrogen 32H, Creatinine 1.3, Estimat Glomerular Filtration Rate 54.7, Glucose Level 65#L, Lactic Acid Level 1.40, Calcium Level 8.1L, Total Bilirubin 0.7, Aspartate Amino Transf (AST/SGOT) 73H, Alanine Aminotransferase (ALT/SGPT) 57, Alkaline Phosphatase 84, Total Creatine Kinase 925H, Troponin I [Pending], Pro-B-Type Natriuretic Peptide 346H, Total Protein 7.9, Albumin 2.9L, Globulin 5.0, Albumin/Globulin Ratio 0.6L, D-Dimer 2.21H, Hemoglobin A1c 10.4H, Uric Acid 4.9, Phosphorus Level 2.4L, Magnesium Level 2.3, Ferritin [Pending], Gamma Glutamyl Transpeptidase 42, Lactate Dehydrogenase 401H, C-Reactive Protein, Quantitative 16.5H, Triglycerides Level 123, Cholesterol Level 82, LDL Cholesterol 34, HDL Cholesterol 34L, Cholesterol/ HDL Ratio 2.4L, Thyroid Stimulating Hormone (TSH) < 0.010L Height (Feet): 5 Height (Inches): 8.00 Weight (Pounds): 148 General Appearance: no apparent distress Cardiovascular: tachycardia Respiratory/Chest: decreased breath sounds Abdomen: soft Levi Urias MD November 09, 2019 09:59
[2019-11-09] MEDS ORDERED: Phospha 250 Neutral tab ORAL SCH (10:00)
--- NOTE | 2019-11-09 11:20 | Pulmonology Progress Note ---
Assessment/Plan Assessment/Plan IMPRESSION: 1. Pneumonia. 2. Renal failure. 3. Diabetes mellitus. DISCUSSION: Continue broad-spectrum antibiotics, diabetes control, IV fluids. Nephrology consultation has been obtained. Hold off on Glucophage. 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 Jay Petersen M.D. Subjective ROS Limited/Unobtainable: No Interval Events: None new Constitutional: Reports: no symptoms; Denies: fever, chills, fatigue, anorexia , drenching sweats, other HEENT: Repors: no symptoms; Denies: visual change, discharge, earache, hearing change, coryza, congestion, post-nasal drip, dysphagia, other Respiratory: Reports: no symptoms Gastrointestinal/Abdominal: Reports: no symptoms; Denies: nausea, vomiting, diarrhea, constipation, blood in stool, bloating, other Genitourinary: Reports: no symptoms Allergies: Coded Allergies: No Known Allergies (Unverified , 08/01/18) Objective Last 24 Hour Vital Signs Date Time Temp Pulse Resp B/P (MAP) Pulse Ox O2 Delivery O2 Flow Rate FiO2 11/09/19 09:00 Nasal Cannula 2.0 11/09/19 08:00 98.9 76 20 140/69 (92) 97 11/09/19 07:41 96 11/09/19 05:15 98.7 11/09/19 05:01 98.7 11/09/19 04:00 115 11/09/19 04:00 100.6 106 20 132/55 (80) 92 11/09/19 00:00 117 11/09/19 00:00 99.9 113 20 128/67 (87) 93 11/08/19 21:00 Nasal Cannula 2.0 11/08/19 20:00 115 11/08/19 20:00 97.5 115 20 121/63 (82) 93 11/08/19 16:25 112 11/08/19 16:23 Nasal Cannula 2.0 11/08/19 15:30 98.4 111 20 130/69 96 Nasal Cannula 2.0 11/08/19 15:19 98.4 111 20 130/69 96 Nasal Cannula 2.0 11/08/19 12:13 79 20 Room Air 11/08/19 12:13 98.4 119 20 94/58 96 Room Air 11/08/19 11:29 98.4 82 20 88/56 (67) 89 Room Air Intake and Output 11/08/19 11/09/19 19:00 07:00 Intake Total 240 ml Output Total 200 ml 300 ml Balance 40 ml -300 ml Intake Oral 240 ml Output Urine Total 200 ml 300 ml # Voids 2 # Bowel Movements 1 General Appearance: no acute distress HEENT: normocephalic Respiratory/Chest: chest wall non-tender, lungs clear Cardiovascular: normal peripheral pulses Abdomen: normal bowel sounds Extremities: no cyanosis Microbiology Date/Time Source Procedure Growth Status 11/08/19 11:50 Urine,Clean Catch Urine Culture - Preliminary NO GROWTH Resulted 11/08/19 14:25 Rectum Received Laboratory Tests 11/08/19 11:50: White Blood Count 12.0H, Red Blood Count 4.95, Hemoglobin 14.2, Hematocrit 42.5 , Mean Corpuscular Volume 86, Mean Corpuscular Hemoglobin 28.8, Mean Corpuscular Hemoglobin Concent 33.5, Red Cell Distribution Width 12.5, Platelet Count 141L, Mean Platelet Volume 6.7, Neutrophils (%) (Auto) , Lymphocytes (%) ( Auto) , Monocytes (%) (Auto) , Eosinophils (%) (Auto) , Basophils (%) (Auto) , Differential Total Cells Counted 100, Neutrophils % (Manual) 88H, Lymphocytes % (Manual) 11L, Monocytes % (Manual) 1, Eosinophils % (Manual) 0, Basophils % ( Manual) 0, Band Neutrophils 0, Platelet Estimate DecreasedL, Platelet Morphology Normal, Red Blood Cell Morphology Normal, Prothrombin Time 10.0, Prothromb Time International Ratio 0.9, Urine Color Pale yellow, Urine Appearance Cloudy, Urine pH 5, Urine Specific [place] 1.015, Urine Protein 3+H, Urine Glucose (UA) 4+H, Urine Ketones 3+H, Urine Blood 4+H, Urine Nitrite Negative, Urine Bilirubin Negative, Urine Urobilinogen Normal, Urine Leukocyte Esterase 3+H, Urine RBC 10-15H, Urine WBC TntcH, Urine Squamous Epithelial Cells Occasional, Urine Bacteria Few, Urine Yeast ManyH, Sodium Level 142, Potassium Level 4.0, Chloride Level 101, Carbon Dioxide Level 28, Anion Gap 13, Blood Urea Nitrogen 41H, Creatinine 2.3H, Estimat Glomerular Filtration Rate 28.3, Glucose Level 582*H, Lactic Acid Level 4.90H, Calcium Level 8.4L, Total Bilirubin 0.7, Aspartate Amino Transf (AST/SGOT) 57H, Alanine Aminotransferase ( ALT/SGPT) 58, Alkaline Phosphatase 89, Total Creatine Kinase 1057H, Creatine Kinase MB < 0.5, Creatine Kinase MB Relative Index 0.0, Troponin I 0.088H, Pro-B -Type Natriuretic Peptide 491H, Total Protein 7.8, Albumin 3.1L, Globulin 4.7, Albumin/Globulin Ratio 0.7L, Acetone Level Negative 11/08/19 12:04: Arterial Blood pH 7.462H, Arterial Blood Partial Pressure CO2 33.8L, Arterial Blood Partial Pressure O2 59.7L, Arterial Blood HCO3 23.6, Arterial Blood Oxygen Saturation 91.3L, Arterial Blood Base Excess 0.4, Gordon Test Positive 11/08/19 13:15: Lactic Acid Level 4.40H 11/09/19 05:40: White Blood Count 12.5H, Red Blood Count 4.94, Hemoglobin 14.2, Hematocrit 42.0 , Mean Corpuscular Volume 85, Mean Corpuscular Hemoglobin 28.7, Mean Corpuscular Hemoglobin Concent 33.7, Red Cell Distribution Width 12.3, Platelet Count 157, Mean Platelet Volume 7.0, Neutrophils (%) (Auto) , Lymphocytes (%) ( Auto) , Monocytes (%) (Auto) , Eosinophils (%) (Auto) , Basophils (%) (Auto) , Differential Total Cells Counted 100, Neutrophils % (Manual) 87H, Lymphocytes % (Manual) 11L, Monocytes % (Manual) 2, Eosinophils % (Manual) 0, Basophils % ( Manual) 0, Band Neutrophils 0, Platelet Estimate Adequate, Platelet Morphology Normal, Sodium Level 148H, Potassium Level 3.1L, Chloride Level 109H, Carbon Dioxide Level 30, Anion Gap 9, Blood Urea Nitrogen 32H, Creatinine 1.3, Estimat Glomerular Filtration Rate 54.7, Glucose Level 65#L, Lactic Acid Level 1.40, Calcium Level 8.1L, Total Bilirubin 0.7, Aspartate Amino Transf (AST/SGOT) 73H, Alanine Aminotransferase (ALT/SGPT) 57, Alkaline Phosphatase 84, Total Creatine Kinase 925H, Troponin I 0.137H, Pro-B-Type Natriuretic Peptide 346H, Total Protein 7.9, Albumin 2.9L, Globulin 5.0, Albumin/Globulin Ratio 0.6L, D-Dimer 2.21H, Hemoglobin A1c 10.4H, Uric Acid 4.9, Phosphorus Level 2.4L, Magnesium Level 2.3, Ferritin 390H, Gamma Glutamyl Transpeptidase 42, Lactate Dehydrogenase 401H, C-Reactive Protein, Quantitative 16.5H, Triglycerides Level 123, Cholesterol Level 82, LDL Cholesterol 34, HDL Cholesterol 34L, Cholesterol/ HDL Ratio 2.4L, Thyroid Stimulating Hormone (TSH) < 0.010L Current Medications Medications (Trade) Dose Ordered Sig/Stacey Route PRN Reason Start Time Stop Time Status Last Admin Dose Admin Acetaminophen (Tylenol) 500 mg Q4H PRN ORAL Temp >100.5/pain 11/08/19 16:45 12/08/19 16:44 11/09/19 04:31 Amlodipine Besylate (Norvasc) 5 mg DAILY ORAL 11/10/19 09:00 12/10/19 08:59 Ceftriaxone Sodium 1 gm/ Dextrose 55 ml @ 110 mls/hr Q24H IVPB 11/09/19 12:00 11/16/19 11:59 Dextrose (Dextrose 50%) 25 ml Q30M PRN IV Hypoglycemia 11/08/19 18:00 02/06/20 17:59 Dextrose (Dextrose 50%) 50 ml Q30M PRN IV Hypoglycemia 11/08/19 18:00 02/06/20 17:59 Glimepiride (AmaryL) 2 mg DAILY ORAL 11/09/19 09:00 12/09/19 08:59 11/09/19 08:28 Insulin Aspart (NovoLOG) BEFORE MEALS AND HS SUBQ 11/08/19 21:00 02/06/20 20:59 11/08/19 21:24 Insulin Aspart (NovoLOG) 8 units NOVOTIAC SUBQ 11/09/19 06:30 02/06/20 17:59 Insulin Detemir (Levemir) 30 units BID SUBQ 11/08/19 18:00 02/06/20 17:59 11/09/19 08:59 Pantoprazole (Protonix) 40 mg EVERY 12 HOURS ORAL 11/09/19 21:00 12/09/19 20:59 Potassium Chloride (K-Dur) 40 meq TWICE A DAY ORAL 11/09/19 11:00 02/07/20 10:59 11/09/19 10:34 Tamsulosin HCl (Flomax) 0.4 mg BID ORAL 11/09/19 18:00 12/08/19 17:59 Tamsulosin HCl (Flomax) 0.4 mg DAILY@1800 ORAL 11/08/19 18:00 11/09/19 18:00 11/08/19 18:48 Jay Petersen MD November 09, 2019 11:20
--- NOTE | 2019-11-09 11:29 | Cardiac Electrophysiology PN ---
Subjective Subjective [id number] Objective Last 24 Hour Vital Signs Date Time Temp Pulse Resp B/P (MAP) Pulse Ox O2 Delivery O2 Flow Rate FiO2 11/09/19 09:00 Nasal Cannula 2.0 11/09/19 08:00 98.9 76 20 140/69 (92) 97 11/09/19 07:41 96 11/09/19 05:15 98.7 11/09/19 05:01 98.7 11/09/19 04:00 115 11/09/19 04:00 100.6 106 20 132/55 (80) 92 11/09/19 00:00 117 11/09/19 00:00 99.9 113 20 128/67 (87) 93 11/08/19 21:00 Nasal Cannula 2.0 11/08/19 20:00 115 11/08/19 20:00 97.5 115 20 121/63 (82) 93 11/08/19 16:25 112 11/08/19 16:23 Nasal Cannula 2.0 11/08/19 15:30 98.4 111 20 130/69 96 Nasal Cannula 2.0 11/08/19 15:19 98.4 111 20 130/69 96 Nasal Cannula 2.0 11/08/19 12:13 79 20 Room Air 11/08/19 12:13 98.4 119 20 94/58 96 Room Air 11/08/19 11:29 98.4 82 20 88/56 (67) 89 Room Air Intake and Output 11/08/19 11/09/19 19:00 07:00 Intake Total 240 ml Output Total 200 ml 300 ml Balance 40 ml -300 ml Intake Oral 240 ml Output Urine Total 200 ml 300 ml # Voids 2 # Bowel Movements 1 Laboratory Tests Test 11/08/19 11:50 11/08/19 12:04 11/08/19 13:15 11/09/19 05:40 White Blood Count 12.0 K/UL (4.8-10.8) H 12.5 K/UL (4.8-10.8) H Red Blood Count 4.95 M/UL (4.70-6.10) 4.94 M/UL (4.70-6.10) Hemoglobin 14.2 G/DL (14.2-18.0) 14.2 G/DL (14.2-18.0) Hematocrit 42.5 % (42.0-52.0) 42.0 % (42.0-52.0) Mean Corpuscular Volume 86 FL (80-99) 85 FL (80-99) Mean Corpuscular Hemoglobin 28.8 PG (27.0-31.0) 28.7 PG (27.0-31.0) Mean Corpuscular Hemoglobin Concent 33.5 G/DL (32.0-36.0) 33.7 G/DL (32.0-36.0) Red Cell Distribution Width 12.5 % (11.6-14.8) 12.3 % (11.6-14.8) Platelet Count 141 K/UL (150-450) L 157 K/UL (150-450) Mean Platelet Volume 6.7 FL (6.5-10.1) 7.0 FL (6.5-10.1) Neutrophils (%) (Auto) % (45.0-75.0) % (45.0-75.0) Lymphocytes (%) (Auto) % (20.0-45.0) % (20.0-45.0) Monocytes (%) (Auto) % (1.0-10.0) % (1.0-10.0) Eosinophils (%) (Auto) % (0.0-3.0) % (0.0-3.0) Basophils (%) (Auto) % (0.0-2.0) % (0.0-2.0) Differential Total Cells Counted 100 100 Neutrophils % (Manual) 88 % (45-75) H 87 % (45-75) H Lymphocytes % (Manual) 11 % (20-45) L 11 % (20-45) L Monocytes % (Manual) 1 % (1-10) 2 % (1-10) Eosinophils % (Manual) 0 % (0-3) 0 % (0-3) Basophils % (Manual) 0 % (0-2) 0 % (0-2) Band Neutrophils 0 % (0-8) 0 % (0-8) Platelet Estimate Decreased L Adequate Platelet Morphology Normal Normal Red Blood Cell Morphology Normal Prothrombin Time 10.0 SEC (9.30-11.50) Prothromb Time International Ratio 0.9 (0.9-1.1) Urine Color Pale yellow Urine Appearance Cloudy Urine pH 5 (4.5-8.0) Urine Specific [place] 1.015 (1.005-1.035) Urine Protein 3+ (NEGATIVE) H Urine Glucose (UA) 4+ (NEGATIVE) H Urine Ketones 3+ (NEGATIVE) H Urine Blood 4+ (NEGATIVE) H Urine Nitrite Negative (NEGATIVE) Urine Bilirubin Negative (NEGATIVE) Urine Urobilinogen Normal MG/DL (0.0-1.0) Urine Leukocyte Esterase 3+ (NEGATIVE) H Urine RBC 10-15 /HPF (0 - 0) H Urine WBC Tntc /HPF (0 - 0) H Urine Squamous Epithelial Cells Occasional /LPF Urine Bacteria Few /HPF (NONE) Urine Yeast Many /HPF (NONE) H Sodium Level 142 MMOL/L (136-145) 148 MMOL/L (136-145) H Potassium Level 4.0 MMOL/L (3.5-5.1) 3.1 MMOL/L (3.5-5.1) L Chloride Level 101 MMOL/L (98-107) 109 MMOL/L (98-107) H Carbon Dioxide Level 28 MMOL/L (21-32) 30 MMOL/L (21-32) Anion Gap 13 mmol/L (5-15) 9 mmol/L (5-15) Blood Urea Nitrogen 41 mg/dL (7-18) H 32 mg/dL (7-18) H Creatinine 2.3 MG/DL (0.55-1.30) H 1.3 MG/DL (0.55-1.30) Estimat Glomerular Filtration Rate 28.3 mL/min (>60) 54.7 mL/min (>60) Glucose Level 582 MG/DL (74-106) *H 65 MG/DL (74-106) #L Lactic Acid Level 4.90 mmol/L (0.4-2.0) H 4.40 mmol/L (0.66-2.22) H 1.40 mmol/L (0.4-2.0) Calcium Level 8.4 MG/DL (8.5-10.1) L 8.1 MG/DL (8.5-10.1) L Total Bilirubin 0.7 MG/DL (0.2-1.0) 0.7 MG/DL (0.2-1.0) Aspartate Amino Transf (AST/SGOT) 57 U/L (15-37) H 73 U/L (15-37) H Alanine Aminotransferase (ALT/SGPT) 58 U/L (12-78) 57 U/L (12-78) Alkaline Phosphatase 89 U/L (46-116) 84 U/L (46-116) Total Creatine Kinase 1057 U/L (26-308) H 925 U/L (26-308) H Creatine Kinase MB < 0.5 NG/ML (0.0-3.6) Creatine Kinase MB Relative Index 0.0 Troponin I 0.088 ng/mL (0.000-0.056) 0.137 ng/mL (0.000-0.056) Pro-B-Type Natriuretic Peptide 491 pg/mL (0-125) H 346 pg/mL (0-125) H Total Protein 7.8 G/DL (6.4-8.2) 7.9 G/DL (6.4-8.2) Albumin 3.1 G/DL (3.4-5.0) L 2.9 G/DL (3.4-5.0) L Globulin 4.7 g/dL 5.0 g/dL Albumin/Globulin Ratio 0.7 (1.0-2.7) L 0.6 (1.0-2.7) L Acetone Level Negative (NEGATIVE) Arterial Blood pH 7.462 (7.350-7.450) Arterial Blood Partial Pressure CO2 33.8 mmHg (35.0-45.0) L Arterial Blood Partial Pressure O2 59.7 mmHg (75.0-100.0) L Arterial Blood HCO3 23.6 mmol/L (22.0-26.0) Arterial Blood Oxygen Saturation 91.3 % (95-100) L Arterial Blood Base Excess 0.4 (-2-2) Gordon Test Positive D-Dimer 2.21 mg/L FEU (0.00-0.49) H Hemoglobin A1c 10.4 % (4.3-6.0) H Uric Acid 4.9 MG/DL (2.6-7.2) Phosphorus Level 2.4 MG/DL (2.5-4.9) L Magnesium Level 2.3 MG/DL (1.8-2.4) Ferritin 390 NG/ML (8-388) H Gamma Glutamyl Transpeptidase 42 U/L (5-85) Lactate Dehydrogenase 401 U/L (81-234) H C-Reactive Protein, Quantitative 16.5 mg/dL (0.00-0.90) H Triglycerides Level 123 MG/DL (30-150) Cholesterol Level 82 MG/DL (< 200) LDL Cholesterol 34 mg/dL (<100) HDL Cholesterol 34 MG/DL (40-60) L Cholesterol/HDL Ratio 2.4 (3.3-4.4) L Thyroid Stimulating Hormone (TSH) < 0.010 uiU/mL (0.358-3.740) Microbiology Date/Time Source Procedure Growth Status 11/08/19 11:50 Urine,Clean Catch Urine Culture - Preliminary NO GROWTH Resulted 11/08/19 14:25 Rectum Received Igor Zapien MD November 09, 2019 11:29
--- NOTE | 2019-11-09 11:50 | NUR ---
NURSE NOTES: Dr Zapien aware of troponin level 0.137
[2019-11-09 12:00] VITALS: BP 138/74
[2019-11-09] MEDS: cefTRIAXone 1 GM in D5W 55 ML IVPB SCH (12:08)
--- NOTE | 2019-11-09 12:44 | General Progress Note ---
Assessment/Plan Problem List: (1) Necrosis ICD Codes: I96 - Gangrene, not elsewhere classified SNOMED: 241680165, 5292942 (2) Hyperglycemia ICD Codes: R73.9 - Hyperglycemia, unspecified; J12.89 - Other viral pneumonia SNOMED: 57366164, 634744647 (3) Sepsis ICD Codes: A41.9 - Sepsis, unspecified organism SNOMED: 27851580, 654229465, 577440686 (4) Elevated troponin ICD Codes: R79.89 - Other specified abnormal findings of blood chemistry; J12.89 - Other viral pneumonia SNOMED: 681514738, 763320571, 192966605 (5) Pneumonia due to COVID-19 virus ICD Codes: U07.1 - COVID-19; J12.89 - Other viral pneumonia SNOMED: 750659747, 246858703 Assessment/Plan: continue current diabetic regimen plan to reduce insulin dosage by tomorrow continue Novolog sliding scale ac / hs Subjective Allergies: Coded Allergies: No Known Allergies (Unverified , 08/01/18) Subjective events noted glucose values are trending down Objective Last 24 Hour Vital Signs Date Time Temp Pulse Resp B/P (MAP) Pulse Ox O2 Delivery O2 Flow Rate FiO2 11/09/19 09:00 Nasal Cannula 2.0 11/09/19 08:00 98.9 76 20 140/69 (92) 97 11/09/19 07:41 96 11/09/19 05:15 98.7 11/09/19 05:01 98.7 11/09/19 04:00 115 11/09/19 04:00 100.6 106 20 132/55 (80) 92 11/09/19 00:00 117 11/09/19 00:00 99.9 113 20 128/67 (87) 93 11/08/19 21:00 Nasal Cannula 2.0 11/08/19 20:00 115 11/08/19 20:00 97.5 115 20 121/63 (82) 93 11/08/19 16:25 112 11/08/19 16:23 Nasal Cannula 2.0 11/08/19 15:30 98.4 111 20 130/69 96 Nasal Cannula 2.0 11/08/19 15:19 98.4 111 20 130/69 96 Nasal Cannula 2.0 Intake and Output 11/08/19 11/09/19 19:00 07:00 Intake Total 240 ml Output Total 200 ml 300 ml Balance 40 ml -300 ml Intake Oral 240 ml Output Urine Total 200 ml 300 ml # Voids 2 # Bowel Movements 1 Laboratory Tests 11/08/19 13:15: Lactic Acid Level 4.40H 11/09/19 05:40: Lactic Acid Level 1.40, White Blood Count 12.5H, Red Blood Count 4.94, Hemoglobin 14.2, Hematocrit 42.0, Mean Corpuscular Volume 85, Mean Corpuscular Hemoglobin 28.7, Mean Corpuscular Hemoglobin Concent 33.7, Red Cell Distribution Width 12.3, Platelet Count 157, Mean Platelet Volume 7.0, Neutrophils (%) (Auto) , Lymphocytes (%) (Auto) , Monocytes (%) (Auto) , Eosinophils (%) (Auto) , Basophils (%) (Auto) , Differential Total Cells Counted 100, Neutrophils % (Manual) 87H, Lymphocytes % (Manual) 11L, Monocytes % (Manual) 2, Eosinophils % (Manual) 0, Basophils % (Manual) 0, Band Neutrophils 0, Platelet Estimate Adequate, Platelet Morphology Normal, D-Dimer 2.21H, Sodium Level 148H, Potassium Level 3.1L, Chloride Level 109H, Carbon Dioxide Level 30, Anion Gap 9, Blood Urea Nitrogen 32H, Creatinine 1.3, Estimat Glomerular Filtration Rate 54.7, Glucose Level 65#L, Hemoglobin A1c 10.4H, Uric Acid 4.9, Calcium Level 8.1L, Phosphorus Level 2.4L, Magnesium Level 2.3, Ferritin 390H, Total Bilirubin 0.7, Gamma Glutamyl Transpeptidase 42, Aspartate Amino Transf (AST/SGOT) 73H, Alanine Aminotransferase (ALT/SGPT) 57, Alkaline Phosphatase 84, Lactate Dehydrogenase 401H, Total Creatine Kinase 925H, Troponin I 0.137H, C-Reactive Protein, Quantitative 16.5H, Pro-B-Type Natriuretic Peptide 346H, Total Protein 7.9, Albumin 2.9L, Globulin 5.0, Albumin /Globulin Ratio 0.6L, Triglycerides Level 123, Cholesterol Level 82, LDL Cholesterol 34, HDL Cholesterol 34L, Cholesterol/HDL Ratio 2.4L, Thyroid Stimulating Hormone (TSH) < 0.010L Height (Feet): 5 Height (Inches): 8.00 Weight (Pounds): 148 General Appearance: no apparent distress Neck: normal alignment Cardiovascular: normal rate Respiratory/Chest: decreased breath sounds Juvencio Short MD November 09, 2019 12:44
--- NOTE | 2019-11-09 13:38 | NUR ---
CASE MANAGEMENT:REVIEW 68 YR OLD MALE BIBA FROM [facility] CC: FEVER AND SOB SI: SEPSIS. PNA. UTI. ELEVATED TROPONIN 98.5 82 20 88/56 89% ON RA WBC+12.0 BUN+41 CR+2.3 GLUCOSE+582 TROPONIN(+) 0.088 TCK+1057 PH+7.46 PCO2-33.8 PO2-59.7 IS: 1L NS BOLUS IV ROCEPHIN IV AZITHROMYCIN URINE CX COVID 19 SWAB CXR BLOOD CX : TO TELEMETRY DCP: FROM [facility] PLAN: 2DECHO ISOLATION
[2019-11-09 16:00] VITALS: BP 132/84
--- NOTE | 2019-11-09 16:44 | Consultation ---
DATE OF CONSULTATION: 11/09/2019 INFECTIOUS DISEASE CONSULTATION CONSULTING PHYSICIAN: Flako Rivas MD. PRIMARY ATTENDING: Wyatt Kelley MD. REASON FOR CONSULTATION: Sepsis, pneumonia likely with COVID-19. HISTORY OF PRESENT ILLNESS: This is a 68-year-old white male who is a half-way resident admitted yesterday from facility because of fever, hypoxemia, and hypotension. Patient has leukocytosis of 12,000 at the time of admission. Had maximum temperature of 100.6 in hospital. Had tachycardia with heart rate up to 119. Had lactic acidosis. PAST MEDICAL HISTORY: Diabetes mellitus, COPD, hypertension. Has peripheral arterial disease, hyperlipidemia, dementia. PAST SURGICAL HISTORY: Had right transmetatarsal amputation. ALLERGIES: No known drug allergies. MEDICATIONS: Getting amlodipine, Flomax, Protonix, ceftriaxone, phosphorus, Amaryl, insulin, Levemir insulin, Tylenol. Got also a dose of Zithromax in the ER. SOCIAL HISTORY: Single. senior care resident. Has history of heavy smoking in the past. No history of alcohol or drug abuse. REVIEW OF SYSTEMS: Limited. Patient is minimally communicative with nodding. PHYSICAL EXAMINATION: VITAL SIGNS: Temperature 98.9, pulse 76, blood pressure 140/69. GENERAL APPEARANCE: No acute distress. HEAD AND NECK: Moist mucous membranes. HEART: Normal rate. LUNGS: Getting oxygen by nasal cannula. ABDOMEN: Soft and nontender. EXTREMITIES: No edema. NEUROLOGIC: Awake, responsive. LABORATORY AND DIAGNOSTIC DATA: WBC 12.5, hemoglobin 14.2, hematocrit 42, platelets 157. Sodium 148, potassium 3.1, chloride 109, bicarbonate 30, BUN 32, creatinine 1.3. Creatinine at the time of admission was 2.3. Hemoglobin A1c is 10.4. Glucose at the time of admission was 582. The second glucose today is 65. Lactic acid was initially elevated 4.4, decreased to 1.4 today. Troponin is elevated 0.137. Albumin is 2.9. Acetone level was negative. Urine culture so far no growth. Chest x-ray showed infiltrate in the inferior right lower lobe, mostly pneumonia, possibility of pulmonary infarct should be also considered. UA showed wbc's too numerous to count, rbc's 10 to 15, leukocyte esterase 3+, ketones 3+, blood 4+. Urine culture so far negative. IMPRESSION: Sepsis with fever, leukocytosis, tachycardia. Has pneumonia, suspected to have COVID-19. Has diabetes mellitus with hyperglycemia. Has acute renal failure, lactic acidosis, COPD, hypertension, hyperlipidemia, dementia. RECOMMENDATION: Continue ceftriaxone. We will follow up the cultures. We will follow up COVID-19 test. At the end of my exam, I thank Dr. Kelley for involving me in the care of this patient. Flako Rivas M.D. DR: AUDREY JOB#: [id number] CC:
[2019-11-09] MEDS: Tamsulosin 0.4mg cap ORAL SCH (17:07)
--- NOTE | 2019-11-09 19:22 | NUR ---
HAND-OFF: Report given to EMMA Dewitt. Pt in stable condition, endorsed plan of care.
--- NOTE | 2019-11-09 19:45 | Consultation ---
DATE OF CONSULTATION: 11/09/2019 CARDIOLOGY CONSULTATION CONSULTING PHYSICIAN: Igor Zapien MD. REFERRING PHYSICIAN: Wyatt Kelley MD. REASON FOR CONSULTATION: Rising elevated troponins. HISTORY OF PRESENT ILLNESS: Patient is a 68-year-old gentleman with history of hypertension, diabetes, hyperlipidemia, COPD, and peripheral vascular disease who was brought to the emergency room for fever, hypoxia, and hypotension. Patient also noted to have elevated BUN and creatinine. [facility] was [facility] from [facility], has been febrile last few days, and also being short of breath. He was hypoxic with room oxygenation of 88% that improved on 2 L nasal cannula. He is also noted to be slightly hypotensive and tachycardic en route. His first troponin was mildly elevated. It is also increased this morning. On my evaluation, patient is alert, however, cannot communicate. Seems comfortable. REVIEW OF SYSTEMS: Cannot be obtained. PAST MEDICAL HISTORY: As mentioned above. FAMILY HISTORY: Noncontributory. SOCIAL HISTORY: He is a [facility] resident. Does not smoke or drink alcohol. PHYSICAL EXAMINATION: VITAL SIGNS: Show a blood pressure 140/69, pulse 76, respirations 18, temperature 98.9. His maximum temperature 100.6. HEAD AND NECK: Showed no JVD. LUNGS: Coarse rhonchi. CARDIOVASCULAR: Regular S1 and S2 with no gallop or murmur. ABDOMEN: Soft. EXTREMITIES: No pitting edema. LABORATORY AND DIAGNOSTIC DATA: His labs show sodium 148, potassium 3.1, BUN of 30, creatinine 1.3, and glucose of 65. Lactic acid was 4.4. His troponin initially was 0.088 and followup is 0.137. His D-dimer is 2.2. Urinalysis, too numerous to count wbc's, many yeast, 4+ blood. ASSESSMENT AND PLAN: 1. Troponin leak. Etiology is not clear at this time. Patient does not have any chest pain. On admission, his creatinine was 2.3, however, today creatinine is 1.3. on aspirin and Lopressor as well as Lipitor and we will repeat the EKG and echocardiogram for further evaluation. 2. Hypertension. Discontinue amlodipine. Keep patient on metoprolol in view of elevated troponin. 3. Acute renal failure. Creatinine of 2.3 that normalized to 1.3. Further evaluation by Dr. Fouladian. 4. Fever and cough and possible COVID pneumonia. Patient is on isolation. Result is pending. 5. Diabetes. Thank you very much for allowing me to participate in the care of this patient. Please do not hesitate to contact me for any questions regarding my evaluation. Igor Zapien M.D. DR: MARCOS JOB#: [id number] CC:
[2019-11-09 20:00] VITALS: BP 117/87
--- NOTE | 2019-11-09 20:00 | NUR ---
NURSE NOTES: RECEIVED PATIENT LYING IN BED, AWAKE, EYES OPEN, NON VERBAL DURING ASSESSMENT, NO SIGNS AND SYMPTOMS OF ACUTE CARDIO RESPIRATORY DISTRESS/SHORTNESS OF BREATH, NO PERIPHERAL EDEMA NOTED, CONTINUE ON MEMBER SERVICES REPRESENTATIVE. NOTED WITH GENERALIZED WEAKNESS, REQUIRE MAX ASSIST WITH ADL'S. INCONTINENT, CARE PROVIDED, ASSISTED WITH REPOSITIONING, TOLERATED WELL. SIDE RAILS UP X3/BED IN LOWEST POSITION FOR SAFETY, FREQUENT ROUNDING FOR SAFETY/NEEDS. CONTINUE WITH CURRENT PLAN OF CARE. NAD.
[2019-11-10] VITALS: BP 115/66
--- NOTE | 2019-11-10 03:58 | NUR ---
NURSE NOTES:mrsa nares reported by Dedrick barrett, lupe delatorre.
[2019-11-10 04:00] VITALS: BP 143/71
[2019-11-10] MEDS: NovoLOG Insulin Flexpen SUBQ SCH ×5 (06:30→22:00)
--- NOTE | 2019-11-10 06:34 | NUR ---
NURSE NOTES: BLOOD GLUCOSE LEVEL MONITORED VIA GLUCOMETER WITH RESULT 72MG/DL, ASYMPTOMATIC, 240ML ORANGE JUICE PO, TOLERATED WELL, WILL CONTINUE TO MONITOR.
--- NOTE | 2019-11-10 06:55 | NUR ---
NURSE NOTES: PATIENT POSITIVE MRSA NARES, DR. TAYA GRISSOM NOTIFIED, NO NEW ORDER RECEIVED.
--- NOTE | 2019-11-10 07:30 | NUR ---
HAND-OFF: Report given to NAMAN SEBASTIAN.
--- NOTE | 2019-11-10 07:57 | NUR ---
NURSE NOTES: Received report from EMMA Dewitt. Observed pt sleeping, no s/sx of acute distress, breathing even and unlabored in 2L NC. IV site on F RA patent and asymptomatic. Bed on lowest position, call light within reach. Will continue plan of care.
[2019-11-10 08:00] VITALS: BP 147/68
--- NOTE | 2019-11-10 08:19 | Pulmonology Progress Note ---
Assessment/Plan Assessment/Plan IMPRESSION: 1. Pneumonia. 2. Renal failure. 3. Diabetes mellitus. DISCUSSION: Continue broad-spectrum antibiotics, diabetes control, IV fluids. Nephrology consultation has been obtained. Hold off on Glucophage. 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 Jay Petersen M.D. Subjective ROS Limited/Unobtainable: No Interval Events: None new Constitutional: Reports: no symptoms; Denies: fever, chills, fatigue, anorexia , drenching sweats, other HEENT: Repors: no symptoms; Denies: visual change, discharge, earache, hearing change, coryza, congestion, post-nasal drip, dysphagia, other Respiratory: Reports: no symptoms Gastrointestinal/Abdominal: Reports: no symptoms; Denies: nausea, vomiting, diarrhea, constipation, blood in stool, bloating, other Genitourinary: Reports: no symptoms Allergies: Coded Allergies: No Known Allergies (Unverified , 08/01/18) Objective Last 24 Hour Vital Signs Date Time Temp Pulse Resp B/P (MAP) Pulse Ox O2 Delivery O2 Flow Rate FiO2 11/10/19 04:00 98 11/10/19 04:00 97.7 95 18 143/71 (95) 95 11/10/19 00:00 92 11/10/19 00:00 98.0 100 18 115/66 (82) 94 11/09/19 21:31 110 114/62 11/09/19 20:27 Nasal Cannula 2.0 11/09/19 20:00 97.4 129 18 117/87 (97) 93 11/09/19 20:00 126 11/09/19 16:04 125 11/09/19 16:00 98.4 86 20 132/84 (100) 98 11/09/19 12:00 98.7 81 20 138/74 (95) 98 11/09/19 11:46 116 11/09/19 09:00 Nasal Cannula 2.0 Intake and Output 11/09/19 11/10/19 19:00 07:00 Intake Total 960 ml 120 ml Balance 960 ml 120 ml Intake Oral 960 ml 120 ml # Voids 5 4 General Appearance: no acute distress HEENT: normocephalic Respiratory/Chest: chest wall non-tender, lungs clear Cardiovascular: normal peripheral pulses Abdomen: normal bowel sounds Extremities: no cyanosis Microbiology Date/Time Source Procedure Growth Status 11/08/19 11:00 Blood Blood Culture - Preliminary NO GROWTH AFTER 24 HOURS Resulted 11/08/19 11:00 Blood Blood Culture - Preliminary NO GROWTH AFTER 24 HOURS Resulted 11/08/19 14:25 Nasal Nares MRSA Culture - Final Staphylococcus Aureus - Mrsa Complete 11/08/19 11:50 Urine,Clean Catch Urine Culture - Preliminary Yeast Species Resulted 11/08/19 14:25 Rectum - Final NO CARBAPENEM-RESISTANT ENTEROBACTERI... Complete 11/08/19 14:25 Rectum VRE Culture - Final NO VANCOMYCIN RESISTANT ENTEROCOCCUS ... Complete Current Medications Medications (Trade) Dose Ordered Sig/Stacey Route PRN Reason Start Time Stop Time Status Last Admin Dose Admin Acetaminophen (Tylenol) 500 mg Q4H PRN ORAL Temp >100.5/pain 11/08/19 16:45 12/08/19 16:44 11/09/19 04:31 Aspirin (Ecotrin) 81 mg DAILY ORAL 11/10/19 09:00 12/25/19 08:59 Ceftriaxone Sodium 1 gm/ Dextrose 55 ml @ 110 mls/hr Q24H IVPB 11/09/19 12:00 11/16/19 11:59 11/09/19 12:08 Dextrose (Dextrose 50%) 25 ml Q30M PRN IV Hypoglycemia 11/08/19 18:00 02/06/20 17:59 Dextrose (Dextrose 50%) 50 ml Q30M PRN IV Hypoglycemia 11/08/19 18:00 02/06/20 17:59 Glimepiride (AmaryL) 2 mg DAILY ORAL 11/09/19 09:00 12/09/19 08:59 11/09/19 08:28 Insulin Aspart (NovoLOG) BEFORE MEALS AND HS SUBQ 11/08/19 21:00 02/06/20 20:59 11/09/19 16:30 Insulin Aspart (NovoLOG) 8 units NOVOTIAC SUBQ 11/09/19 06:30 02/06/20 17:59 Insulin Detemir (Levemir) 30 units BID SUBQ 11/08/19 18:00 02/06/20 17:59 11/09/19 17:31 Metoprolol Tartrate (Lopressor) 25 mg Q12HR ORAL 11/09/19 21:00 02/07/20 20:59 11/09/19 21:31 Pantoprazole (Protonix) 40 mg EVERY 12 HOURS ORAL 11/09/19 21:00 12/09/19 20:59 11/09/19 21:31 Potassium Chloride (K-Dur) 40 meq TWICE A DAY ORAL 11/09/19 11:00 02/07/20 10:59 11/09/19 17:06 Tamsulosin HCl (Flomax) 0.4 mg BID ORAL 11/09/19 18:00 12/08/19 17:59 11/09/19 17:07 Jay Petersen MD November 10, 2019 08:19
[2019-11-10 09:22] LABS: HEMATOCRIT 37.9 % (42.0-52.0); HEMOGLOBIN 12.9 G/DL (14.2-18.0); MEAN CORPUSCULAR VOLUME 85 FL (80-99); PLATELET COUNT 161 K/UL (150-450); RED BLOOD COUNT 4.48 M/UL (4.70-6.10); RED CELL DISTRIBUTION WIDTH 12.7 % (11.6-14.8); WHITE BLOOD COUNT 16.1 K/UL (4.8-10.8)
[2019-11-10 09:42] LABS: ALANINE AMINOTRANSFERASE 73 U/L (12-78); ALBUMIN 2.4 G/DL (3.4-5.0); ALBUMIN/GLOBULIN RATIO 0.5 (1.0-2.7); ALKALINE PHOSPHATASE 81 U/L (46-116); ANION GAP 10 mmol/L (5-15); ASPARTATE AMINO TRANSFERASE 137 U/L (15-37); BILIRUBIN,TOTAL 1.1 MG/DL (0.2-1.0); BLOOD UREA NITROGEN 23 mg/dL (7-18); CALCIUM 8.4 MG/DL (8.5-10.1); CARBON DIOXIDE 27 MMOL/L (21-32); CHLORIDE 110 MMOL/L (98-107); PHOSPHORUS 2.6 MG/DL (2.5-4.9); POTASSIUM 3.4 MMOL/L (3.5-5.1); SODIUM 147 MMOL/L (136-145)
[2019-11-10 09:43] LABS: BILIRUBIN,DIRECT 0.3 MG/DL (0.0-0.3)
[2019-11-10 09:46] LABS: CREATINE KINASE 1013 U/L (26-308)
[2019-11-10] MEDS: Tamsulosin 0.4mg cap ORAL SCH ×2 (09:47→17:12)
[2019-11-10] MEDS: Aspirin EC 81mg tab ORAL SCH (09:47)
[2019-11-10] MEDS: Glimepiride 1mg tab ORAL SCH (09:48)
--- NOTE | 2019-11-10 10:08 | General Progress Note ---
Assessment/Plan Problem List: (1) Necrosis ICD Codes: I96 - Gangrene, not elsewhere classified SNOMED: 783755304, 0269942 (2) Hyperglycemia ICD Codes: R73.9 - Hyperglycemia, unspecified; J12.89 - Other viral pneumonia SNOMED: 75829136, 105300045 (3) Sepsis ICD Codes: A41.9 - Sepsis, unspecified organism SNOMED: 57617289, 112459696, 497158063 (4) Elevated troponin ICD Codes: R79.89 - Other specified abnormal findings of blood chemistry; J12.89 - Other viral pneumonia SNOMED: 869217925, 617546523, 928526844 (5) Pneumonia due to COVID-19 virus ICD Codes: U07.1 - COVID-19; J12.89 - Other viral pneumonia SNOMED: 016293560, 712717863 Assessment/Plan: reduce Levemir to 20 units qhs DC Novolog 8 units ac tid DC Amaryl 2 mg qam continue Novolog sliding scale ac / hs Subjective Allergies: Coded Allergies: No Known Allergies (Unverified , 08/01/18) All Systems: reviewed and negative except above Subjective events noted insulin requirement has diminished Item Value Date Time Glucose Level 130 MG/DL H 11/10/19 0705 Bedside Blood Glucose 72 mg/dl 11/10/19 0633 Bedside Blood Glucose 117 mg/dl 11/09/19 2116 Bedside Blood Glucose 211 mg/dl H 11/09/19 1731 Glucose Level 65 MG/DL L # 11/09/19 0540 Objective Last 24 Hour Vital Signs Date Time Temp Pulse Resp B/P (MAP) Pulse Ox O2 Delivery O2 Flow Rate FiO2 11/10/19 09:47 109 147/68 11/10/19 08:00 99.3 109 21 147/68 (94) 91 11/10/19 04:00 98 11/10/19 04:00 97.7 95 18 143/71 (95) 95 11/10/19 00:00 92 11/10/19 00:00 98.0 100 18 115/66 (82) 94 11/09/19 21:31 110 114/62 11/09/19 20:27 Nasal Cannula 2.0 11/09/19 20:00 97.4 129 18 117/87 (97) 93 11/09/19 20:00 126 5/1/20 16:04 125 11/09/19 16:00 98.4 86 20 132/84 (100) 98 11/09/19 12:00 98.7 81 20 138/74 (95) 98 11/09/19 11:46 116 Intake and Output 11/09/19 11/10/19 19:00 07:00 Intake Total 960 ml 120 ml Balance 960 ml 120 ml Intake Oral 960 ml 120 ml # Voids 5 4 Laboratory Tests 11/10/19 07:05: White Blood Count 16.1H, Red Blood Count 4.48L, Hemoglobin 12.9L, Hematocrit 37.9L, Mean Corpuscular Volume 85, Mean Corpuscular Hemoglobin 28.9, Mean Corpuscular Hemoglobin Concent 34.2, Red Cell Distribution Width 12.7, Platelet Count 161, Mean Platelet Volume 6.7, Neutrophils (%) (Auto) , Lymphocytes (%) ( Auto) , Monocytes (%) (Auto) , Eosinophils (%) (Auto) , Basophils (%) (Auto) , Neutrophils % (Manual) [Pending], Lymphocytes % (Manual) [Pending], Platelet Estimate [Pending], Platelet Morphology [Pending], Sodium Level 147H, Potassium Level 3.4L, Chloride Level 110H, Carbon Dioxide Level 27, Anion Gap 10, Blood Urea Nitrogen 23H, Creatinine 1.0, Estimat Glomerular Filtration Rate > 60, Glucose Level 130H, Uric Acid 3.2, Calcium Level 8.4L, Phosphorus Level 2.6, Magnesium Level 2.3, Total Bilirubin 1.1H, Direct Bilirubin 0.3, Aspartate Amino Transf (AST/SGOT) 137H, Alanine Aminotransferase (ALT/SGPT) 73, Alkaline Phosphatase 81, Total Creatine Kinase 1013H, Total Protein 6.9, Albumin 2.4L, Globulin 4.5, Albumin/Globulin Ratio 0.5L Height (Feet): 5 Height (Inches): 8.00 Weight (Pounds): 148 General Appearance: no apparent distress Neck: normal alignment Cardiovascular: normal rate Respiratory/Chest: decreased breath sounds Abdomen: normal bowel sounds Objective Current Medications Medications (Trade) Dose Ordered Sig/Stacey Route PRN Reason Start Time Stop Time Status Last Admin Dose Admin Acetaminophen (Tylenol) 500 mg Q4H PRN ORAL Temp >100.5/pain 11/08/19 16:45 12/08/19 16:44 11/09/19 04:31 Aspirin (Ecotrin) 81 mg DAILY ORAL 11/10/19 09:00 12/25/19 08:59 11/10/19 09:47 Ceftriaxone Sodium 1 gm/ Dextrose 55 ml @ 110 mls/hr Q24H IVPB 11/09/19 12:00 11/16/19 11:59 11/09/19 12:08 Dextrose (Dextrose 50%) 25 ml Q30M PRN IV Hypoglycemia 11/08/19 18:00 02/06/20 17:59 Dextrose (Dextrose 50%) 50 ml Q30M PRN IV Hypoglycemia 11/08/19 18:00 02/06/20 17:59 Glimepiride (AmaryL) 2 mg DAILY ORAL 11/09/19 09:00 12/09/19 08:59 11/10/19 09:48 Insulin Aspart (NovoLOG) BEFORE MEALS AND HS SUBQ 11/08/19 21:00 02/06/20 20:59 11/09/19 16:30 Insulin Aspart (NovoLOG) 8 units NOVOTIAC SUBQ 11/09/19 06:30 02/06/20 17:59 Insulin Detemir (Levemir) 30 units BID SUBQ 11/08/19 18:00 02/06/20 17:59 11/09/19 17:31 Metoprolol Tartrate (Lopressor) 25 mg Q12HR ORAL 11/09/19 21:00 02/07/20 20:59 11/10/19 09:47 Pantoprazole (Protonix) 40 mg EVERY 12 HOURS ORAL 11/09/19 21:00 12/09/19 20:59 11/10/19 09:47 Potassium Chloride (K-Dur) 40 meq TWICE A DAY ORAL 11/09/19 11:00 02/07/20 10:59 11/10/19 09:47 Tamsulosin HCl (Flomax) 0.4 mg BID ORAL 11/09/19 18:00 12/08/19 17:59 11/10/19 09:47 Juvencio Short MD November 10, 2019 10:07
--- NOTE | 2019-11-10 10:15 | NUR ---
NURSE NOTES: Levemir administered at 9:45A before it was DC'd, unable to document. Pt BS was 140 before administration, per protocol, hold if BS less 100.
[2019-11-10] MEDS: cefTRIAXone 1 GM in D5W 55 ML IVPB SCH (11:51)
[2019-11-10 12:00] VITALS: BP 129/75
--- NOTE | 2019-11-10 13:46 | Cardiac Electrophysiology PN ---
Assessment/Plan Assessment/Plan 1. Troponin leak. Etiology is not clear . Patient does not have any chest pain. On admission, his creatinine was 2.3 that improved to 1.3 on aspirin and Lopressor Echocardiogram pending 2. Hypertension. On metoprolol 25 bid 3. Acute renal failure. Creatinine of 2.3 that normalized to 1.3. Fu by Dr. Urias. 4. Fever and cough and possible COVID pneumonia. Patient is on isolation. Result is pending. 5. Diabetes. Subjective Subjective No new events. Still being ruled out for COvid Objective Last 24 Hour Vital Signs Date Time Temp Pulse Resp B/P (MAP) Pulse Ox O2 Delivery O2 Flow Rate FiO2 11/10/19 12:00 96.7 87 20 129/75 (93) 98 11/10/19 09:47 109 147/68 11/10/19 09:00 Nasal Cannula 2.0 11/10/19 08:00 99.3 109 21 147/68 (94) 91 11/10/19 07:52 108 11/10/19 04:00 98 11/10/19 04:00 97.7 95 18 143/71 (95) 95 11/10/19 00:00 92 11/10/19 00:00 98.0 100 18 115/66 (82) 94 11/09/19 21:31 110 114/62 11/09/19 20:27 Nasal Cannula 2.0 11/09/19 20:00 97.4 129 18 117/87 (97) 93 11/09/19 20:00 126 11/09/19 16:04 125 11/09/19 16:00 98.4 86 20 132/84 (100) 98 Intake and Output 11/09/19 11/10/19 19:00 07:00 Intake Total 960 ml 120 ml Balance 960 ml 120 ml Intake Oral 960 ml 120 ml # Voids 5 4 Laboratory Tests Test 11/10/19 07:05 White Blood Count 16.1 K/UL (4.8-10.8) H Red Blood Count 4.48 M/UL (4.70-6.10) L Hemoglobin 12.9 G/DL (14.2-18.0) L Hematocrit 37.9 % (42.0-52.0) L Mean Corpuscular Volume 85 FL (80-99) Mean Corpuscular Hemoglobin 28.9 PG (27.0-31.0) Mean Corpuscular Hemoglobin Concent 34.2 G/DL (32.0-36.0) Red Cell Distribution Width 12.7 % (11.6-14.8) Platelet Count 161 K/UL (150-450) Mean Platelet Volume 6.7 FL (6.5-10.1) Neutrophils (%) (Auto) % (45.0-75.0) Lymphocytes (%) (Auto) % (20.0-45.0) Monocytes (%) (Auto) % (1.0-10.0) Eosinophils (%) (Auto) % (0.0-3.0) Basophils (%) (Auto) % (0.0-2.0) Neutrophils % (Manual) Pending Lymphocytes % (Manual) Pending Platelet Estimate Pending Platelet Morphology Pending Sodium Level 147 MMOL/L (136-145) H Potassium Level 3.4 MMOL/L (3.5-5.1) L Chloride Level 110 MMOL/L (98-107) H Carbon Dioxide Level 27 MMOL/L (21-32) Anion Gap 10 mmol/L (5-15) Blood Urea Nitrogen 23 mg/dL (7-18) H Creatinine 1.0 MG/DL (0.55-1.30) Estimat Glomerular Filtration Rate > 60 mL/min (>60) Glucose Level 130 MG/DL (74-106) H Uric Acid 3.2 MG/DL (2.6-7.2) Calcium Level 8.4 MG/DL (8.5-10.1) L Phosphorus Level 2.6 MG/DL (2.5-4.9) Magnesium Level 2.3 MG/DL (1.8-2.4) Total Bilirubin 1.1 MG/DL (0.2-1.0) H Direct Bilirubin 0.3 MG/DL (0.0-0.3) Aspartate Amino Transf (AST/SGOT) 137 U/L (15-37) H Alanine Aminotransferase (ALT/SGPT) 73 U/L (12-78) Alkaline Phosphatase 81 U/L (46-116) Total Creatine Kinase 1013 U/L (26-308) H Total Protein 6.9 G/DL (6.4-8.2) Albumin 2.4 G/DL (3.4-5.0) L Globulin 4.5 g/dL Albumin/Globulin Ratio 0.5 (1.0-2.7) L Thyroid Stimulating Hormone (TSH) < 0.010 uiU/mL (0.358-3.740) Free Thyroxine 1.70 NG/DL (0.76-1.46) H Free Triiodothyronine 1.8 pg/mL (2.3-4.2) L Microbiology Date/Time Source Procedure Growth Status 11/08/19 11:00 Blood Blood Culture - Preliminary NO GROWTH AFTER 24 HOURS Resulted 11/08/19 11:00 Blood Blood Culture - Preliminary NO GROWTH AFTER 24 HOURS Resulted 11/08/19 14:25 Nasal Nares MRSA Culture - Final Staphylococcus Aureus - Mrsa Complete 11/08/19 11:50 Urine,Clean Catch Urine Culture - Preliminary Yeast Species Resulted 11/08/19 14:25 Rectum - Final NO CARBAPENEM-RESISTANT ENTEROBACTERI... Complete 11/08/19 14:25 Rectum VRE Culture - Final NO VANCOMYCIN RESISTANT ENTEROCOCCUS ... Complete Objective HEAD AND NECK: Showed no JVD. LUNGS: Coarse rhonchi. CARDIOVASCULAR: Regular S1 and S2 with no gallop or murmur. ABDOMEN: Soft. EXTREMITIES: No pitting edema. Igor Zapien MD November 10, 2019 13:46
[2019-11-10 16:00] VITALS: BP 123/83
--- NOTE | 2019-11-10 16:22 | Nephrology Progress Note ---
Assessment/Plan Problem List: (1) STEPHANIE (acute kidney injury) (2) Electrolyte imbalance (3) Hyperglycemia (4) Sepsis (5) Elevated troponin (6) Pneumonia due to COVID-19 virus (7) UTI (urinary tract infection) Assessment Renal failure most likely acute on chronic Diabetes mellitus, presents with hyperglycemia Pneumonia due to COVID-19 virus Elevated troponin Sepsis, UTI, Plan Will adjust blood pressure medications Correct low potassium and low phosphorus Will hold diuretics and metformin Discontinue IV fluid as BUN and creatinine improved Keep the blood pressure and blood sugar in check Monitor renal parameters Avoid nephrotoxic's Antibiotics per ID Per orders Subjective ROS Limited/Unobtainable: No Constitutional: Reports: malaise Objective Objective Last 24 Hour Vital Signs Date Time Temp Pulse Resp B/P (MAP) Pulse Ox O2 Delivery O2 Flow Rate FiO2 11/10/19 12:18 101 11/10/19 12:00 96.7 87 20 129/75 (93) 98 11/10/19 09:47 109 147/68 11/10/19 09:00 Nasal Cannula 2.0 11/10/19 08:00 99.3 109 21 147/68 (94) 91 11/10/19 07:52 108 11/10/19 04:00 98 11/10/19 04:00 97.7 95 18 143/71 (95) 95 11/10/19 00:00 92 11/10/19 00:00 98.0 100 18 115/66 (82) 94 11/09/19 21:31 110 114/62 11/09/19 20:27 Nasal Cannula 2.0 11/09/19 20:00 97.4 129 18 117/87 (97) 93 11/09/19 20:00 126 Intake and Output 11/09/19 11/10/19 19:00 07:00 Intake Total 960 ml 120 ml Balance 960 ml 120 ml Intake Oral 960 ml 120 ml # Voids 5 4 Laboratory Tests 11/10/19 07:05: White Blood Count 16.1H, Red Blood Count 4.48L, Hemoglobin 12.9L, Hematocrit 37.9L, Mean Corpuscular Volume 85, Mean Corpuscular Hemoglobin 28.9, Mean Corpuscular Hemoglobin Concent 34.2, Red Cell Distribution Width 12.7, Platelet Count 161, Mean Platelet Volume 6.7, Neutrophils (%) (Auto) , Lymphocytes (%) ( Auto) , Monocytes (%) (Auto) , Eosinophils (%) (Auto) , Basophils (%) (Auto) , Differential Total Cells Counted 100, Neutrophils % (Manual) 88H, Lymphocytes % (Manual) 10L, Monocytes % (Manual) 2, Eosinophils % (Manual) 0, Basophils % ( Manual) 0, Band Neutrophils 0, Platelet Estimate Adequate, Platelet Morphology Normal, Red Blood Cell Morphology Normal, Sodium Level 147H, Potassium Level 3.4L, Chloride Level 110H, Carbon Dioxide Level 27, Anion Gap 10, Blood Urea Nitrogen 23H, Creatinine 1.0, Estimat Glomerular Filtration Rate > 60, Glucose Level 130H, Uric Acid 3.2, Calcium Level 8.4L, Phosphorus Level 2.6, Magnesium Level 2.3, Total Bilirubin 1.1H, Direct Bilirubin 0.3, Aspartate Amino Transf ( AST/SGOT) 137H, Alanine Aminotransferase (ALT/SGPT) 73, Alkaline Phosphatase 81 , Total Creatine Kinase 1013H, Total Protein 6.9, Albumin 2.4L, Globulin 4.5, Albumin/Globulin Ratio 0.5L, Thyroid Stimulating Hormone (TSH) < 0.010L, Free Thyroxine 1.70H, Free Triiodothyronine 1.8L Height (Feet): 5 Height (Inches): 8.00 Weight (Pounds): 148 General Appearance: no apparent distress Cardiovascular: tachycardia Respiratory/Chest: decreased breath sounds Objective no change Levi Urias MD November 10, 2019 16:22
--- NOTE | 2019-11-10 19:23 | NUR ---
HAND-OFF: Report given to EMMA Dewitt. Pt in stable condition, endorsed plan of care.
[2019-11-10 20:00] VITALS: BP 134/73
--- NOTE | 2019-11-10 20:00 | NUR ---
NURSE NOTES: RECEIVED PATIENT LYING IN BED, AWAKE, ALERT/ORIENTED TO PERSON, NON VERBAL, REALITY ORIENTATION DURING ASSESSMENT. IV INTACT TO RIGHT FOREARM/GAUGE 22, SALINE LOCK, NO REDNESS/SWELLING NOTED TO SITE. NO SIGNS AND SYMPTOMS OF ACUTE CARDIO RESPIRATORY DISTRESS/SHORTNESS OF BREATH, NO PERIPHERAL EDEMA NOTED. ABDOMEN SOFT/NON DISTENDED/AUDIBLE BOWEL SOUNDS, NO REPORT OF N/V/D, INCONTINENT OF BLADDER, CARE PROVIDED, TOLERATED WELL, ASSISTED WITH REPOSITIONING. SIDE RAILS UP X3/BED IN LOWEST POSITION FOR SAFETY, FREQUENT ROUNDING FOR SAFETY/NEEDS. CONTINUE WITH CURRENT PLAN OF CARE. BED ALARM ACTIVATED. NAD.
--- NOTE | 2019-11-10 20:11 | General Progress Note ---
Assessment/Plan Problem List: (1) Diabetes mellitus out of control ICD Codes: E11.65 - Type 2 diabetes mellitus with hyperglycemia SNOMED: 89745538, 996669061 (2) Hyperglycemia ICD Codes: R73.9 - Hyperglycemia, unspecified; J12.89 - Other viral pneumonia SNOMED: 08040261, 263728317 (3) Sepsis ICD Codes: A41.9 - Sepsis, unspecified organism SNOMED: 74450880, 511936273, 498294415 (4) Fever ICD Codes: R50.9 - Fever, unspecified SNOMED: 811474291 (5) Electrolyte imbalance ICD Codes: E87.8 - Other disorders of electrolyte and fluid balance, not elsewhere classified SNOMED: 590787944 (6) UTI (urinary tract infection) ICD Codes: N39.0 - Urinary tract infection, site not specified SNOMED: 83328807 Status: progressing Assessment/Plan: low k afebrile worsening leukocytosis sepsis uti abx per id sugar improving Subjective ROS Limited/Unobtainable: Yes Allergies: Coded Allergies: No Known Allergies (Unverified , 08/01/18) Objective Last 24 Hour Vital Signs Date Time Temp Pulse Resp B/P (MAP) Pulse Ox O2 Delivery O2 Flow Rate FiO2 11/10/19 16:00 96.7 68 19 123/83 (96) 96 11/10/19 16:00 110 11/10/19 12:18 101 11/10/19 12:00 96.7 87 20 129/75 (93) 98 11/10/19 09:47 109 147/68 11/10/19 09:00 Nasal Cannula 2.0 11/10/19 08:00 99.3 109 21 147/68 (94) 91 11/10/19 07:52 108 11/10/19 04:00 98 11/10/19 04:00 97.7 95 18 143/71 (95) 95 11/10/19 00:00 92 11/10/19 00:00 98.0 100 18 115/66 (82) 94 11/09/19 21:31 110 114/62 11/09/19 20:27 Nasal Cannula 2.0 Intake and Output 11/09/19 11/10/19 19:00 07:00 Intake Total 960 ml 120 ml Balance 960 ml 120 ml Intake Oral 960 ml 120 ml # Voids 5 4 Laboratory Tests 11/10/19 07:05: White Blood Count 16.1H, Red Blood Count 4.48L, Hemoglobin 12.9L, Hematocrit 37.9L, Mean Corpuscular Volume 85, Mean Corpuscular Hemoglobin 28.9, Mean Corpuscular Hemoglobin Concent 34.2, Red Cell Distribution Width 12.7, Platelet Count 161, Mean Platelet Volume 6.7, Neutrophils (%) (Auto) , Lymphocytes (%) ( Auto) , Monocytes (%) (Auto) , Eosinophils (%) (Auto) , Basophils (%) (Auto) , Differential Total Cells Counted 100, Neutrophils % (Manual) 88H, Lymphocytes % (Manual) 10L, Monocytes % (Manual) 2, Eosinophils % (Manual) 0, Basophils % ( Manual) 0, Band Neutrophils 0, Platelet Estimate Adequate, Platelet Morphology Normal, Red Blood Cell Morphology Normal, Sodium Level 147H, Potassium Level 3.4L, Chloride Level 110H, Carbon Dioxide Level 27, Anion Gap 10, Blood Urea Nitrogen 23H, Creatinine 1.0, Estimat Glomerular Filtration Rate > 60, Glucose Level 130H, Uric Acid 3.2, Calcium Level 8.4L, Phosphorus Level 2.6, Magnesium Level 2.3, Total Bilirubin 1.1H, Direct Bilirubin 0.3, Aspartate Amino Transf ( AST/SGOT) 137H, Alanine Aminotransferase (ALT/SGPT) 73, Alkaline Phosphatase 81 , Total Creatine Kinase 1013H, Total Protein 6.9, Albumin 2.4L, Globulin 4.5, Albumin/Globulin Ratio 0.5L, Thyroid Stimulating Hormone (TSH) < 0.010L, Free Thyroxine 1.70H, Free Triiodothyronine 1.8L Height (Feet): 5 Height (Inches): 8.00 Weight (Pounds): 148 Wyatt Kelley MD November 10, 2019 20:11
--- NOTE | 2019-11-10 21:55 | NUR ---
NURSE NOTES: BLOOD GLUCOSE MONITORED VIA GLUCOMETER WITH RESULT 164MG/DL, ASYMPTOMATIC, ADM. SUBCUT INSULIN ORDERED, TOLERATED WELL, NO ADVERSE REACTION NOTED AFTER 15 MINUTES.
[2019-11-10] MEDS: Levemir Flexpen SUBQ SCH (21:59)
--- NOTE | 2019-11-10 22:00 | Consultation ---
DATE OF CONSULTATION: 11/08/2019 ENDOCRINOLOGY CONSULTATION CONSULTING PHYSICIAN: Juvencio Short MD. REFERRING PHYSICIAN: Wyatt Kelley MD. REASON FOR CONSULTATION: Diabetes management. HISTORY OF PRESENT ILLNESS: The patient is a 68-year-old male with history of diabetes, hypertension, hyperlipidemia, peripheral vascular disease, who presented to the hospital from a long term facility after having fever for the past few days with shortness of breath. He ruled in for COVID-19. He has been admitted to the floor for observation and treatment. Glucose is elevated. Endocrinology was consulted in order to assist in the management of diabetes. The patient is hypoxic. PAST MEDICAL HISTORY: 1. Hypertension. 2. Diabetes. 3. Hyperlipidemia. 4. COPD. PAST SURGICAL HISTORY: Right metatarsal amputation. ALLERGIES TO MEDICATIONS: None. SOCIAL HISTORY: Lives in a long term facility. No smoking, alcohol, or drug use. REVIEW OF SYSTEMS: As per HPI. LABORATORY VALUES: WBC 12, hemoglobin 14, hematocrit 42, platelet count 141,000. Sodium 142, potassium 4, chloride 101, glucose of 582. Calcium 8.4. TSH is pending. PHYSICAL EXAMINATION: VITAL SIGNS: The patient is febrile, blood pressure 113/62, heart rate of 110, temperature 100.1. HEENT: Pupils are equal and reactive to light. Sclerae are anicteric. NECK: No JVD. HEART: Regular. LUNGS: Scattered rhonchi. ABDOMEN: Positive bowel sounds. EXTREMITIES: Amputation in right foot. DIAGNOSES: 1. Pneumonia. 2. Diabetes, out of control. 3. Renal failure. PLAN: 1. Levemir 30 units b.i.d. 2. Novolog 15 units ac tid. 3. Continue glimepiride. 4. Further adjustments according to blood glucose values. Thank you, Dr. Kelley, for the courtesy of this consultation. Juvencio Short M.D. DR: AISSATOU JOB#: [id number] CC: [email or web address]
[2019-11-11] VITALS: BP 110/51
[2019-11-11 04:00] VITALS: BP 112/56
--- NOTE | 2019-11-11 06:15 | NUR ---
NURSE NOTES: BLOOD GLUCOSE LEVEL MONITORED VIA GLUCOMETER WITH RESULT 80MG/DL, ASSESSED FOR SIGNS AND SYMPTOMS OF HYPOGLYCEMIA, NONE NOTED; NO NOVOLOG SLIDING SCALE COVERAGE. NAD.
[2019-11-11] MEDS: NovoLOG Insulin Flexpen SUBQ SCH ×4 (06:20→21:18)
--- NOTE | 2019-11-11 07:15 | NUR ---
NURSE NOTES: Received report from EMMA Blake. Patient in bed resting, no active s/s cardiac, respiratory distress noticed at this time. Patient AOx2, eye contact, follow simple command. On 2L oxygen via NC. IV on right FA 22g, asymptomatic, patent intact. Bed in lowest position, side rails upx2, call light within reach, bed alarm on. Will continue to monitor.
[2019-11-11 08:00] VITALS: BP 130/66
[2019-11-11] MEDS: Tamsulosin 0.4mg cap ORAL SCH ×2 (08:38→17:17)
[2019-11-11] MEDS: Aspirin EC 81mg tab ORAL SCH (08:38)
--- NOTE | 2019-11-11 10:37 | Nephrology Progress Note ---
Assessment/Plan Problem List: (1) STEPHANIE (acute kidney injury) (2) Electrolyte imbalance (3) Hyperglycemia (4) Sepsis (5) Elevated troponin (6) Pneumonia due to COVID-19 virus (7) UTI (urinary tract infection) Assessment Renal failure most likely acute on chronic Diabetes mellitus, presents with hyperglycemia Pneumonia due to COVID-19 virus Elevated troponin Sepsis, UTI, Plan Will adjust blood pressure medications Correct low potassium and low phosphorus Will hold diuretics and metformin Discontinue IV fluid as BUN and creatinine improved Keep the blood pressure and blood sugar in check Monitor renal parameters Avoid nephrotoxic's Antibiotics per ID Per orders Subjective ROS Limited/Unobtainable: No Constitutional: Reports: malaise Objective Objective Last 24 Hour Vital Signs Date Time Temp Pulse Resp B/P (MAP) Pulse Ox O2 Delivery O2 Flow Rate FiO2 11/11/19 09:00 Nasal Cannula 2.0 11/11/19 08:38 93 130/66 11/11/19 08:00 101 11/11/19 08:00 97.8 93 20 130/66 (87) 97 11/11/19 08:00 96 Nasal Cannula 2.0 28 11/11/19 04:00 95 11/11/19 04:00 98.2 91 18 112/56 (74) 94 11/11/19 00:00 98.6 94 18 110/51 (70) 91 11/11/19 00:00 88 11/10/19 21:57 89 126/70 11/10/19 21:00 Nasal Cannula 2.0 11/10/19 21:00 Nasal Cannula 2.0 11/10/19 20:00 99.4 113 18 134/73 (93) 95 11/10/19 20:00 108 11/10/19 16:00 96.7 68 19 123/83 (96) 96 11/10/19 16:00 110 11/10/19 12:18 101 11/10/19 12:00 96.7 87 20 129/75 (93) 98 Intake and Output 11/10/19 11/11/19 19:00 07:00 Intake Total 960 ml 480 ml Balance 960 ml 480 ml Intake Oral 960 ml 480 ml # Voids 5 3 No labs done today Height (Feet): 5 Height (Inches): 8.00 Weight (Pounds): 148 General Appearance: no apparent distress Objective no change Fouladian,Levi MD November 11, 2019 10:37
[2019-11-11 12:00] VITALS: BP 138/67
--- NOTE | 2019-11-11 12:14 | Infectious Diseases Prog Note ---
Assessment/Plan Assessment/Plan IMPRESSION: Sepsis pneumonia,will try to rule out COVID-19. Diabetes mellitus with hyperglycemia. Acute renal failure, lactic acidosis, COPD, Hypertension, Hyperlipidemia, Dementia. MRSA carrier RECOMMENDATION: Continue ceftriaxone. We will follow up the cultures. We will follow up COVID-19 test. Subjective ROS Limited/Unobtainable: Yes Constitutional: Denies: fever Allergies: Coded Allergies: No Known Allergies (Unverified , 08/01/18) Objective Vital Signs Last 24 Hour Vital Signs Date Time Temp Pulse Resp B/P (MAP) Pulse Ox O2 Delivery O2 Flow Rate FiO2 11/11/19 09:00 Nasal Cannula 2.0 11/11/19 08:38 93 130/66 11/11/19 08:00 101 11/11/19 08:00 97.8 93 20 130/66 (87) 97 11/11/19 08:00 96 Nasal Cannula 2.0 28 11/11/19 04:00 95 11/11/19 04:00 98.2 91 18 112/56 (74) 94 11/11/19 00:00 98.6 94 18 110/51 (70) 91 11/11/19 00:00 88 11/10/19 21:57 89 126/70 11/10/19 21:00 Nasal Cannula 2.0 11/10/19 21:00 Nasal Cannula 2.0 11/10/19 20:00 99.4 113 18 134/73 (93) 95 11/10/19 20:00 108 11/10/19 16:00 96.7 68 19 123/83 (96) 96 11/10/19 16:00 110 11/10/19 12:18 101 Height (Feet): 5 Height (Inches): 8.00 Weight (Pounds): 148 General Appearance: no acute distress HEENT: mucous membranes moist Cardiovascular: normal rate Abdomen: soft, non tender Extremities: no edema Neurologic/Psychiatric: alert, responsive Microbiology Date/Time Source Procedure Growth Status 11/08/19 14:25 Nasal Nares MRSA Culture - Final Staphylococcus Aureus - Mrsa Complete 11/08/19 14:25 Rectum - Final NO CARBAPENEM-RESISTANT ENTEROBACTERI... Complete 11/08/19 14:25 Rectum VRE Culture - Final NO VANCOMYCIN RESISTANT ENTEROCOCCUS ... Complete Current Medications Medications (Trade) Dose Ordered Sig/Stacey Route PRN Reason Start Time Stop Time Status Last Admin Dose Admin Acetaminophen (Tylenol) 500 mg Q4H PRN ORAL Temp >100.5/pain 11/08/19 16:45 12/08/19 16:44 11/09/19 04:31 Aspirin (Ecotrin) 81 mg DAILY ORAL 11/10/19 09:00 12/25/19 08:59 11/11/19 08:38 Ceftriaxone Sodium 1 gm/ Dextrose 55 ml @ 110 mls/hr Q24H IVPB 11/09/19 12:00 11/16/19 11:59 11/10/19 11:51 Dextrose (Dextrose 50%) 25 ml Q30M PRN IV Hypoglycemia 11/08/19 18:00 02/06/20 17:59 Dextrose (Dextrose 50%) 50 ml Q30M PRN IV Hypoglycemia 11/08/19 18:00 02/06/20 17:59 Insulin Aspart (NovoLOG) BEFORE MEALS AND HS SUBQ 11/08/19 21:00 02/06/20 20:59 11/10/19 22:00 Insulin Detemir (Levemir) 20 units QHS SUBQ 11/10/19 21:00 02/06/20 17:59 11/10/19 21:59 Metoprolol Tartrate (Lopressor) 25 mg Q12HR ORAL 11/09/19 21:00 02/07/20 20:59 11/11/19 08:38 Pantoprazole (Protonix) 40 mg EVERY 12 HOURS ORAL 11/09/19 21:00 12/09/19 20:59 11/11/19 08:38 Potassium Chloride (K-Dur) 40 meq TWICE A DAY ORAL 11/09/19 11:00 02/07/20 10:59 11/11/19 08:38 Tamsulosin HCl (Flomax) 0.4 mg BID ORAL 11/09/19 18:00 12/08/19 17:59 11/11/19 08:38 Flako Rivas MD November 11, 2019 12:14
[2019-11-11] MEDS: cefTRIAXone 1 GM in D5W 55 ML IVPB SCH (12:52)
[2019-11-11 16:00] VITALS: BP 134/75
--- NOTE | 2019-11-11 16:55 | Pulmonology Progress Note ---
Assessment/Plan Assessment/Plan IMPRESSION: 1. Pneumonia. 2. Renal failure. 3. Diabetes mellitus. 4. + nares MRSA DISCUSSION: Continue broad-spectrum antibiotics, diabetes control, IV fluids. DC Glucophage. 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 Saturating well on 2L/min O2 Jay Petersen M.D. Subjective ROS Limited/Unobtainable: Yes Interval Events: None new Constitutional: Denies: fever HEENT: Repors: no symptoms; Denies: visual change, discharge, earache, hearing change, coryza, congestion, post-nasal drip, dysphagia, other Respiratory: Reports: no symptoms Gastrointestinal/Abdominal: Reports: no symptoms; Denies: nausea, vomiting, diarrhea, constipation, blood in stool, bloating, other Genitourinary: Reports: no symptoms Allergies: Coded Allergies: No Known Allergies (Unverified , 08/01/18) All Systems: reviewed and negative except above Objective Last 24 Hour Vital Signs Date Time Temp Pulse Resp B/P (MAP) Pulse Ox O2 Delivery O2 Flow Rate FiO2 11/11/19 16:00 97.7 88 20 134/75 (94) 97 11/11/19 16:00 90 11/11/19 12:00 83 11/11/19 12:00 98.7 91 20 138/67 (90) 97 11/11/19 09:00 Nasal Cannula 2.0 11/11/19 08:38 93 130/66 11/11/19 08:00 101 11/11/19 08:00 97.8 93 20 130/66 (87) 97 11/11/19 08:00 96 Nasal Cannula 2.0 28 11/11/19 04:00 95 11/11/19 04:00 98.2 91 18 112/56 (74) 94 11/11/19 00:00 98.6 94 18 110/51 (70) 91 11/11/19 00:00 88 11/10/19 21:57 89 126/70 11/10/19 21:00 Nasal Cannula 2.0 11/10/19 21:00 Nasal Cannula 2.0 5/2/20 20:00 99.4 113 18 134/73 (93) 95 11/10/19 20:00 108 Intake and Output 11/10/19 11/11/19 19:00 07:00 Intake Total 960 ml 480 ml Balance 960 ml 480 ml Intake Oral 960 ml 480 ml # Voids 5 3 General Appearance: no acute distress HEENT: mucous membranes moist Respiratory/Chest: chest wall non-tender, lungs clear Cardiovascular: normal peripheral pulses Abdomen: soft, non tender Extremities: no edema Neurologic/Psychiatric: alert, responsive Current Medications Medications (Trade) Dose Ordered Sig/Stacey Route PRN Reason Start Time Stop Time Status Last Admin Dose Admin Acetaminophen (Tylenol) 500 mg Q4H PRN ORAL Temp >100.5/pain 11/08/19 16:45 12/08/19 16:44 11/09/19 04:31 Aspirin (Ecotrin) 81 mg DAILY ORAL 11/10/19 09:00 12/25/19 08:59 11/11/19 08:38 Ceftriaxone Sodium 1 gm/ Dextrose 55 ml @ 110 mls/hr Q24H IVPB 11/09/19 12:00 11/16/19 11:59 11/11/19 12:52 Dextrose (Dextrose 50%) 25 ml Q30M PRN IV Hypoglycemia 11/08/19 18:00 02/06/20 17:59 Dextrose (Dextrose 50%) 50 ml Q30M PRN IV Hypoglycemia 11/08/19 18:00 02/06/20 17:59 Insulin Aspart (NovoLOG) BEFORE MEALS AND HS SUBQ 11/08/19 21:00 02/06/20 20:59 11/11/19 16:35 Insulin Detemir (Levemir) 20 units QHS SUBQ 11/10/19 21:00 02/06/20 17:59 11/10/19 21:59 Metoprolol Tartrate (Lopressor) 25 mg Q12HR ORAL 11/09/19 21:00 02/07/20 20:59 11/11/19 08:38 Pantoprazole (Protonix) 40 mg EVERY 12 HOURS ORAL 11/09/19 21:00 12/09/19 20:59 11/11/19 08:38 Potassium Chloride (K-Dur) 40 meq TWICE A DAY ORAL 11/09/19 11:00 02/07/20 10:59 11/11/19 08:38 Tamsulosin HCl (Flomax) 0.4 mg BID ORAL 11/09/19 18:00 12/08/19 17:59 11/11/19 08:38 Jay Petersen MD November 11, 2019 16:55
--- NOTE | 2019-11-11 18:09 | Hematology/Onc Progress Note ---
Assessment/Plan Assessment/Plan ASSESSMENT AND PLAN: # Leukocytosis. Likely related to underlying infection versus reactive process. In this case likely COVID19 related --> Peripheral has been reviewed --> Medications have been reviewed --> Imaging has been reviewed --> Blood cultures and urine cultures prn has been started on abx, empiric treatment --> COVID19 iso treatment --> abx: cftx # Thrombocytopenia likely covid v other infection related --> hep and hiv pending --> us abd as needed --> smear is noted --> pulm recss noted # Gangrene in the right third and fifth toes --> s/p right sided a,putation right metatarsal # Diabetic foot ulcer/osteomyelitis. # Diabetes mellitus. Aspirin and statin are the mainstay of therapy for peripheral vasculopathy. # History of hypertension --> appreciate cardiology recs The timing of this note does not necessarily reflect the time of the patient was seen Greatly appreciate consultation! Subjective Allergies: Coded Allergies: No Known Allergies (Unverified , 08/01/18) Subjective 5/3 on tele, no acute events, nc 2l, cftx per id, bp stable Objective Objective Current Medications Medications (Trade) Dose Ordered Sig/Stacey Route PRN Reason Start Time Stop Time Status Last Admin Dose Admin Acetaminophen (Tylenol) 500 mg Q4H PRN ORAL Temp >100.5/pain 11/08/19 16:45 12/08/19 16:44 11/09/19 04:31 Aspirin (Ecotrin) 81 mg DAILY ORAL 11/10/19 09:00 12/25/19 08:59 11/11/19 08:38 Ceftriaxone Sodium 1 gm/ Dextrose 55 ml @ 110 mls/hr Q24H IVPB 11/09/19 12:00 11/16/19 11:59 11/11/19 12:52 Dextrose (Dextrose 50%) 25 ml Q30M PRN IV Hypoglycemia 11/08/19 18:00 02/06/20 17:59 Dextrose (Dextrose 50%) 50 ml Q30M PRN IV Hypoglycemia 11/08/19 18:00 02/06/20 17:59 Insulin Aspart (NovoLOG) BEFORE MEALS AND HS SUBQ 11/08/19 21:00 02/06/20 20:59 11/11/19 16:35 Insulin Detemir (Levemir) 20 units QHS SUBQ 11/10/19 21:00 02/06/20 17:59 11/10/19 21:59 Metoprolol Tartrate (Lopressor) 25 mg Q12HR ORAL 11/09/19 21:00 02/07/20 20:59 11/11/19 08:38 Pantoprazole (Protonix) 40 mg EVERY 12 HOURS ORAL 11/09/19 21:00 12/09/19 20:59 11/11/19 08:38 Potassium Chloride (K-Dur) 40 meq TWICE A DAY ORAL 11/09/19 11:00 02/07/20 10:59 11/11/19 17:17 Tamsulosin HCl (Flomax) 0.4 mg BID ORAL 11/09/19 18:00 12/08/19 17:59 11/11/19 17:17 Last 24 Hour Vital Signs Date Time Temp Pulse Resp B/P (MAP) Pulse Ox O2 Delivery O2 Flow Rate FiO2 11/11/19 16:00 97.7 88 20 134/75 (94) 97 11/11/19 16:00 90 11/11/19 12:00 83 11/11/19 12:00 98.7 91 20 138/67 (90) 97 11/11/19 09:00 Nasal Cannula 2.0 11/11/19 08:38 93 130/66 11/11/19 08:00 101 11/11/19 08:00 97.8 93 20 130/66 (87) 97 11/11/19 08:00 96 Nasal Cannula 2.0 28 11/11/19 04:00 95 11/11/19 04:00 98.2 91 18 112/56 (74) 94 11/11/19 00:00 98.6 94 18 110/51 (70) 91 11/11/19 00:00 88 11/10/19 21:57 89 126/70 11/10/19 21:00 Nasal Cannula 2.0 11/10/19 21:00 Nasal Cannula 2.0 11/10/19 20:00 99.4 113 18 134/73 (93) 95 11/10/19 20:00 108 11/10/19 16:00 96.7 68 19 123/83 (96) 96 11/10/19 16:00 110 11/10/19 12:18 101 11/10/19 12:00 96.7 87 20 129/75 (93) 98 11/10/19 09:47 109 147/68 11/10/19 09:00 Nasal Cannula 2.0 11/10/19 08:00 99.3 109 21 147/68 (94) 91 11/10/19 07:52 108 11/10/19 04:00 98 11/10/19 04:00 97.7 95 18 143/71 (95) 95 11/10/19 00:00 92 11/10/19 00:00 98.0 100 18 115/66 (82) 94 11/09/19 21:31 110 114/62 11/09/19 20:27 Nasal Cannula 2.0 11/09/19 20:00 97.4 129 18 117/87 (97) 93 11/09/19 20:00 126 Intake and Output 11/10/19 11/11/19 19:00 07:00 Intake Total 960 ml 480 ml Balance 960 ml 480 ml Intake Oral 960 ml 480 ml # Voids 5 3 Labs Test 11/09/19 05:40 11/10/19 07:05 White Blood Count 12.5 K/UL (4.8-10.8) 16.1 K/UL (4.8-10.8) Red Blood Count 4.94 M/UL (4.70-6.10) 4.48 M/UL (4.70-6.10) Hemoglobin 14.2 G/DL (14.2-18.0) 12.9 G/DL (14.2-18.0) Hematocrit 42.0 % (42.0-52.0) 37.9 % (42.0-52.0) Mean Corpuscular Volume 85 FL (80-99) 85 FL (80-99) Mean Corpuscular Hemoglobin 28.7 PG (27.0-31.0) 28.9 PG (27.0-31.0) Mean Corpuscular Hemoglobin Concent 33.7 G/DL (32.0-36.0) 34.2 G/DL (32.0-36.0) Red Cell Distribution Width 12.3 % (11.6-14.8) 12.7 % (11.6-14.8) Platelet Count 157 K/UL (150-450) 161 K/UL (150-450) Mean Platelet Volume 7.0 FL (6.5-10.1) 6.7 FL (6.5-10.1) Neutrophils (%) (Auto) % (45.0-75.0) % (45.0-75.0) Lymphocytes (%) (Auto) % (20.0-45.0) % (20.0-45.0) Monocytes (%) (Auto) % (1.0-10.0) % (1.0-10.0) Eosinophils (%) (Auto) % (0.0-3.0) % (0.0-3.0) Basophils (%) (Auto) % (0.0-2.0) % (0.0-2.0) Differential Total Cells Counted 100 100 Neutrophils % (Manual) 87 % (45-75) 88 % (45-75) Lymphocytes % (Manual) 11 % (20-45) 10 % (20-45) Monocytes % (Manual) 2 % (1-10) 2 % (1-10) Eosinophils % (Manual) 0 % (0-3) 0 % (0-3) Basophils % (Manual) 0 % (0-2) 0 % (0-2) Band Neutrophils 0 % (0-8) 0 % (0-8) Platelet Estimate Adequate Adequate Platelet Morphology Normal Normal D-Dimer 2.21 mg/L FEU (0.00-0.49) Sodium Level 148 MMOL/L (136-145) 147 MMOL/L (136-145) Potassium Level 3.1 MMOL/L (3.5-5.1) 3.4 MMOL/L (3.5-5.1) Chloride Level 109 MMOL/L (98-107) 110 MMOL/L (98-107) Carbon Dioxide Level 30 MMOL/L (21-32) 27 MMOL/L (21-32) Anion Gap 9 mmol/L (5-15) 10 mmol/L (5-15) Blood Urea Nitrogen 32 mg/dL (7-18) 23 mg/dL (7-18) Creatinine 1.3 MG/DL (0.55-1.30) 1.0 MG/DL (0.55-1.30) Estimat Glomerular Filtration Rate 54.7 mL/min (>60) > 60 mL/min (>60) Glucose Level 65 MG/DL (74-106) 130 MG/DL (74-106) Hemoglobin A1c 10.4 % (4.3-6.0) Lactic Acid Level 1.40 mmol/L (0.4-2.0) Uric Acid 4.9 MG/DL (2.6-7.2) 3.2 MG/DL (2.6-7.2) Calcium Level 8.1 MG/DL (8.5-10.1) 8.4 MG/DL (8.5-10.1) Phosphorus Level 2.4 MG/DL (2.5-4.9) 2.6 MG/DL (2.5-4.9) Magnesium Level 2.3 MG/DL (1.8-2.4) 2.3 MG/DL (1.8-2.4) Ferritin 390 NG/ML (8-388) Total Bilirubin 0.7 MG/DL (0.2-1.0) 1.1 MG/DL (0.2-1.0) Gamma Glutamyl Transpeptidase 42 U/L (5-85) Aspartate Amino Transf (AST/SGOT) 73 U/L (15-37) 137 U/L (15-37) Alanine Aminotransferase (ALT/SGPT) 57 U/L (12-78) 73 U/L (12-78) Alkaline Phosphatase 84 U/L (46-116) 81 U/L (46-116) Lactate Dehydrogenase 401 U/L (81-234) Total Creatine Kinase 925 U/L (26-308) 1013 U/L (26-308) Troponin I 0.137 ng/mL (0.000-0.056) C-Reactive Protein, Quantitative 16.5 mg/dL (0.00-0.90) Pro-B-Type Natriuretic Peptide 346 pg/mL (0-125) Total Protein 7.9 G/DL (6.4-8.2) 6.9 G/DL (6.4-8.2) Albumin 2.9 G/DL (3.4-5.0) 2.4 G/DL (3.4-5.0) Globulin 5.0 g/dL 4.5 g/dL Albumin/Globulin Ratio 0.6 (1.0-2.7) 0.5 (1.0-2.7) Triglycerides Level 123 MG/DL (30-150) Cholesterol Level 82 MG/DL (< 200) LDL Cholesterol 34 mg/dL (<100) HDL Cholesterol 34 MG/DL (40-60) Cholesterol/HDL Ratio 2.4 (3.3-4.4) Thyroid Stimulating Hormone (TSH) < 0.010 uiU/mL (0.358-3.740) < 0.010 uiU/mL (0.358-3.740) Red Blood Cell Morphology Normal Direct Bilirubin 0.3 MG/DL (0.0-0.3) Free Thyroxine 1.70 NG/DL (0.76-1.46) Free Triiodothyronine 1.8 pg/mL (2.3-4.2) Height (Feet): 5 Height (Inches): 8.00 Weight (Pounds): 148 Objective PHYSICAL EXAMINATION: VITAL SIGNS: Temperature is 97.5, pulse is 70, and blood pressure 126/70. HEENT: PERRLA. NECK: Supple. No lymphadenopathy. CHEST: Clear to auscultation. CARDIOVASCULAR: Regular rate and rhythm. No murmurs or extra sounds. GASTROINTESTINAL: Soft, nontender, and nondistended. No organomegaly. 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 Reflexes equal in both sides. Jose M Wade MD November 11, 2019 18:09
--- NOTE | 2019-11-11 19:35 | NUR ---
HAND-OFF: Report given to NAMAN Hernandez. Endorsed plan of care.
--- NOTE | 2019-11-11 19:36 | NUR ---
NURSE NOTES: Got report from Tavia FLORENCE. Pt in stable condition. No s/s of distress or discomfort noted. Pt resting in bed comfortably. Bed in low and locked position, call light within reach, bedside table within reach. Continue to monitor.
[2019-11-11 20:00] VITALS: BP 132/71
[2019-11-11] MEDS: Levemir Flexpen SUBQ SCH (21:17)
--- NOTE | 2019-11-11 22:13 | General Progress Note ---
Assessment/Plan Problem List: (1) Diabetes mellitus out of control ICD Codes: E11.65 - Type 2 diabetes mellitus with hyperglycemia SNOMED: 72918050, 216805422 (2) Hyperglycemia ICD Codes: R73.9 - Hyperglycemia, unspecified; J12.89 - Other viral pneumonia SNOMED: 86894658, 532485072 (3) Sepsis ICD Codes: A41.9 - Sepsis, unspecified organism SNOMED: 92008998, 205094559, 832755140 (4) Fever ICD Codes: R50.9 - Fever, unspecified SNOMED: 481245341 (5) Electrolyte imbalance ICD Codes: E87.8 - Other disorders of electrolyte and fluid balance, not elsewhere classified SNOMED: 988187816 (6) UTI (urinary tract infection) ICD Codes: N39.0 - Urinary tract infection, site not specified SNOMED: 00534754 Status: progressing Assessment/Plan: lyte abnormality afebrile clinically improving sepsis uti abx per id sugar improving Subjective ROS Limited/Unobtainable: Yes Allergies: Coded Allergies: No Known Allergies (Unverified , 08/01/18) Objective Last 24 Hour Vital Signs Date Time Temp Pulse Resp B/P (MAP) Pulse Ox O2 Delivery O2 Flow Rate FiO2 11/11/19 21:13 93 132/71 11/11/19 20:25 97 Nasal Cannula 2.0 28 11/11/19 16:00 97.7 88 20 134/75 (94) 97 11/11/19 16:00 90 11/11/19 12:00 83 11/11/19 12:00 98.7 91 20 138/67 (90) 97 11/11/19 09:00 Nasal Cannula 2.0 11/11/19 08:38 93 130/66 11/11/19 08:00 101 11/11/19 08:00 97.8 93 20 130/66 (87) 97 11/11/19 08:00 96 Nasal Cannula 2.0 28 11/11/19 04:00 95 11/11/19 04:00 98.2 91 18 112/56 (74) 94 11/11/19 00:00 98.6 94 18 110/51 (70) 91 11/11/19 00:00 88 Intake and Output 11/10/19 11/11/19 19:00 07:00 Intake Total 960 ml 480 ml Balance 960 ml 480 ml Intake Oral 960 ml 480 ml # Voids 5 3 Height (Feet): 5 Height (Inches): 8.00 Weight (Pounds): 148 Wyatt Kelley MD November 11, 2019 22:13
[2019-11-12] VITALS: BP 135/70
[2019-11-12 04:00] VITALS: BP 130/75
[2019-11-12] MEDS: NovoLOG Insulin Flexpen SUBQ SCH ×4 (06:00→20:54)
--- NOTE | 2019-11-12 07:10 | NUR ---
HAND-OFF: Report given to Tavia FLORENCE.
--- NOTE | 2019-11-12 07:11 | NUR ---
NURSE NOTES: Received report from NAMAN Hernandez. Patient in bed resting, no active s/s cardiac, respiratory distress noticed at this time. Patient AOx1, follow simple command, open eyes spontaneously. IV on right FA 22G, asymptomatic, patent, intact. Bed in lowest position, side rails upx2, call light within reach, bed alarm on. Will continue to monitor.
[2019-11-12 07:15] LABS: BASOPHILS % (AUTO) 0.2 % (0.0-2.0); HEMATOCRIT 37.2 % (42.0-52.0); HEMOGLOBIN 12.8 G/DL (14.2-18.0); LYMPHOCYTES % (AUTO) 15.8 % (20.0-45.0); MEAN CORPUSCULAR VOLUME 85 FL (80-99); MONOCYTES % (AUTO) 2.5 % (1.0-10.0); NEUTROPHILS % (AUTO) 79.5 % (45.0-75.0); PLATELET COUNT 264 K/UL (150-450); RED CELL DISTRIBUTION WIDTH 12.6 % (11.6-14.8); WHITE BLOOD COUNT 8.1 K/UL (4.8-10.8)
--- NOTE | 2019-11-12 07:23 | General Progress Note ---
Assessment/Plan Problem List: (1) Necrosis ICD Codes: I96 - Gangrene, not elsewhere classified SNOMED: 701197208, 8972235 (2) Hyperglycemia ICD Codes: R73.9 - Hyperglycemia, unspecified; J12.89 - Other viral pneumonia SNOMED: 41068648, 172701061 (3) Sepsis ICD Codes: A41.9 - Sepsis, unspecified organism SNOMED: 36348018, 278798052, 694405875 (4) Elevated troponin ICD Codes: R79.89 - Other specified abnormal findings of blood chemistry; J12.89 - Other viral pneumonia SNOMED: 556306304, 659864169, 697007173 (5) Pneumonia due to COVID-19 virus ICD Codes: U07.1 - COVID-19; J12.89 - Other viral pneumonia SNOMED: 652290990, 034633086 Status: progressing Assessment/Plan: continue Levemir 20 units qhs continue Novolog sliding scale ac / hs Subjective Allergies: Coded Allergies: No Known Allergies (Unverified , 08/01/18) Subjective events noted glucose values are stable Item Value Date Time Bedside Blood Glucose 119 mg/dl 11/12/19 0630 Bedside Blood Glucose 181 mg/dl H 11/11/19 2118 Bedside Blood Glucose 145 mg/dl H 11/11/19 1635 Bedside Blood Glucose 85 mg/dl 11/11/19 1130 Bedside Blood Glucose 80 mg/dl 11/11/19 0620 Objective Last 24 Hour Vital Signs Date Time Temp Pulse Resp B/P (MAP) Pulse Ox O2 Delivery O2 Flow Rate FiO2 11/12/19 04:00 98.0 92 20 130/75 (93) 95 11/12/19 04:00 79 11/12/19 00:00 98.3 95 20 135/70 (91) 96 11/12/19 00:00 82 11/11/19 21:13 93 132/71 11/11/19 21:00 Nasal Cannula 2.0 11/11/19 20:25 97 Nasal Cannula 2.0 28 11/11/19 20:00 95 11/11/19 20:00 98.0 93 20 132/71 (91) 95 11/11/19 16:00 97.7 88 20 134/75 (94) 97 11/11/19 16:00 90 11/11/19 12:00 83 11/11/19 12:00 98.7 91 20 138/67 (90) 97 11/11/19 09:00 Nasal Cannula 2.0 11/11/19 08:38 93 130/66 11/11/19 08:00 101 11/11/19 08:00 97.8 93 20 130/66 (87) 97 11/11/19 08:00 96 Nasal Cannula 2.0 28 Intake and Output 11/11/19 11/12/19 19:00 07:00 # Voids 4 3 # Bowel Movements 2 1 Laboratory Tests 11/12/19 05:40: White Blood Count [Pending], Red Blood Count [Pending], Hemoglobin [Pending], Hematocrit [Pending], Mean Corpuscular Volume [Pending], Mean Corpuscular Hemoglobin [Pending], Mean Corpuscular Hemoglobin Concent [Pending], Red Cell Distribution Width [Pending], Platelet Count [Pending], Mean Platelet Volume [ Pending], Neutrophils (%) (Auto) [Pending], Lymphocytes (%) (Auto) [Pending], Monocytes (%) (Auto) [Pending], Eosinophils (%) (Auto) [Pending], Basophils (%) (Auto) [Pending], Sodium Level [Pending], Potassium Level [Pending], Chloride Level [Pending], Carbon Dioxide Level [Pending], Blood Urea Nitrogen [Pending], Creatinine [Pending], Estimat Glomerular Filtration Rate [Pending], Glucose Level [Pending], Calcium Level [Pending], Phosphorus Level [Pending], Magnesium Level [Pending], Total Bilirubin [Pending], Aspartate Amino Transf (AST/SGOT) [ Pending], Alanine Aminotransferase (ALT/SGPT) [Pending], Alkaline Phosphatase [ Pending], Total Protein [Pending], Albumin [Pending], Globulin [Pending] Height (Feet): 5 Height (Inches): 8.00 Weight (Pounds): 148 General Appearance: no apparent distress Neck: normal alignment Cardiovascular: normal rate Respiratory/Chest: decreased breath sounds Abdomen: normal bowel sounds Pelvis: normal external exam Objective Current Medications Medications (Trade) Dose Ordered Sig/Stacey Route PRN Reason Start Time Stop Time Status Last Admin Dose Admin Acetaminophen (Tylenol) 500 mg Q4H PRN ORAL Temp >100.5/pain 11/08/19 16:45 12/08/19 16:44 11/09/19 04:31 Aspirin (Ecotrin) 81 mg DAILY ORAL 11/10/19 09:00 12/25/19 08:59 11/11/19 08:38 Ceftriaxone Sodium 1 gm/ Dextrose 55 ml @ 110 mls/hr Q24H IVPB 11/09/19 12:00 11/16/19 11:59 11/11/19 12:52 Dextrose (Dextrose 50%) 25 ml Q30M PRN IV Hypoglycemia 11/08/19 18:00 02/06/20 17:59 Dextrose (Dextrose 50%) 50 ml Q30M PRN IV Hypoglycemia 11/08/19 18:00 02/06/20 17:59 Insulin Aspart (NovoLOG) BEFORE MEALS AND HS SUBQ 11/08/19 21:00 02/06/20 20:59 11/11/19 21:18 Insulin Detemir (Levemir) 20 units QHS SUBQ 11/10/19 21:00 02/06/20 17:59 11/11/19 21:17 Metoprolol Tartrate (Lopressor) 25 mg Q12HR ORAL 11/09/19 21:00 02/07/20 20:59 11/11/19 21:13 Pantoprazole (Protonix) 40 mg EVERY 12 HOURS ORAL 11/09/19 21:00 12/09/19 20:59 11/11/19 21:13 Potassium Chloride (K-Dur) 40 meq TWICE A DAY ORAL 11/09/19 11:00 02/07/20 10:59 11/11/19 17:17 Tamsulosin HCl (Flomax) 0.4 mg BID ORAL 11/09/19 18:00 12/08/19 17:59 11/11/19 17:17 Juvencio Short MD November 12, 2019 07:23
[2019-11-12 07:49] LABS: ALANINE AMINOTRANSFERASE 154 U/L (12-78); ALBUMIN 2.4 G/DL (3.4-5.0); ALBUMIN/GLOBULIN RATIO 0.5 (1.0-2.7); ALKALINE PHOSPHATASE 105 U/L (46-116); ANION GAP 11 mmol/L (5-15); ASPARTATE AMINO TRANSFERASE 177 U/L (15-37); BILIRUBIN,TOTAL 1.3 MG/DL (0.2-1.0); BLOOD UREA NITROGEN 21 mg/dL (7-18); CALCIUM 8.4 MG/DL (8.5-10.1); CARBON DIOXIDE 25 MMOL/L (21-32); CHLORIDE 111 MMOL/L (98-107); CREATININE 0.8 MG/DL (0.55-1.30); PHOSPHORUS 2.7 MG/DL (2.5-4.9); SODIUM 147 MMOL/L (136-145)
[2019-11-12 07:50] LABS: BILIRUBIN,DIRECT 0.3 MG/DL (0.0-0.3)
[2019-11-12 08:00] VITALS: BP 150/84
[2019-11-12] MEDS: Tamsulosin 0.4mg cap ORAL SCH ×2 (08:55→17:21)
[2019-11-12] MEDS: Aspirin EC 81mg tab ORAL SCH (08:56)
--- NOTE | 2019-11-12 10:19 | Hematology/Onc Progress Note ---
Assessment/Plan Assessment/Plan ASSESSMENT AND PLAN: # Leukocytosis. Likely related to underlying infection versus reactive process. In this case likely COVID19 related --> Peripheral has been reviewed --> Medications have been reviewed --> Imaging has been reviewed --> Blood cultures and urine cultures prn has been started on abx, empiric treatment --> COVID19 iso treatment --> abx: cftx # Thrombocytopenia likely covid v other infection related --> hep and hiv pending->only if plt drop --> us abd as needed --> smear is noted --> pulm recss noted --> plt 141-->260k # Gangrene in the right third and fifth toes --> s/p right sided a,putation right metatarsal # Diabetic foot ulcer/osteomyelitis. # Diabetes mellitus. --> Aspirin and statin are the mainstay of therapy for peripheral vasculopathy. # History of hypertension --> appreciate cardiology recs # Dvt ppx scds The timing of this note does not necessarily reflect the time of the patient was seen Greatly appreciate consultation! Subjective Allergies: Coded Allergies: No Known Allergies (Unverified , 08/01/18) All Systems: reviewed and negative except above Subjective 5/3 on tele, no acute events, nc 2l, cftx per id, bp stable 5/4 confused, no night sweats, no bleeding, labs reviewed Objective Objective Current Medications Medications (Trade) Dose Ordered Sig/Stacey Route PRN Reason Start Time Stop Time Status Last Admin Dose Admin Acetaminophen (Tylenol) 500 mg Q4H PRN ORAL Temp >100.5/pain 11/08/19 16:45 12/08/19 16:44 11/09/19 04:31 Aspirin (Ecotrin) 81 mg DAILY ORAL 11/10/19 09:00 12/25/19 08:59 11/12/19 08:56 Ceftriaxone Sodium 1 gm/ Dextrose 55 ml @ 110 mls/hr Q24H IVPB 11/09/19 12:00 11/16/19 11:59 11/11/19 12:52 Dextrose (Dextrose 50%) 25 ml Q30M PRN IV Hypoglycemia 11/08/19 18:00 02/06/20 17:59 Dextrose (Dextrose 50%) 50 ml Q30M PRN IV Hypoglycemia 11/08/19 18:00 02/06/20 17:59 Insulin Aspart (NovoLOG) BEFORE MEALS AND HS SUBQ 11/08/19 21:00 02/06/20 20:59 11/11/19 21:18 Insulin Detemir (Levemir) 20 units QHS SUBQ 11/10/19 21:00 02/06/20 17:59 11/11/19 21:17 Metoprolol Tartrate (Lopressor) 25 mg Q12HR ORAL 11/09/19 21:00 02/07/20 20:59 11/12/19 08:56 Pantoprazole (Protonix) 40 mg EVERY 12 HOURS ORAL 11/09/19 21:00 12/09/19 20:59 11/12/19 08:56 Potassium Chloride (K-Dur) 40 meq TWICE A DAY ORAL 11/09/19 11:00 02/07/20 10:59 11/12/19 08:56 Tamsulosin HCl (Flomax) 0.4 mg BID ORAL 11/09/19 18:00 12/08/19 17:59 11/12/19 08:55 Last 24 Hour Vital Signs Date Time Temp Pulse Resp B/P (MAP) Pulse Ox O2 Delivery O2 Flow Rate FiO2 11/12/19 09:00 Nasal Cannula 2.0 11/12/19 08:56 95 150/84 11/12/19 08:00 97.4 95 20 150/84 (106) 96 11/12/19 08:00 101 11/12/19 04:00 98.0 92 20 130/75 (93) 95 11/12/19 04:00 79 11/12/19 00:00 98.3 95 20 135/70 (91) 96 11/12/19 00:00 82 11/11/19 21:13 93 132/71 11/11/19 21:00 Nasal Cannula 2.0 11/11/19 20:25 97 Nasal Cannula 2.0 28 11/11/19 20:00 95 11/11/19 20:00 98.0 93 20 132/71 (91) 95 11/11/19 16:00 97.7 88 20 134/75 (94) 97 11/11/19 16:00 90 11/11/19 12:00 83 11/11/19 12:00 98.7 91 20 138/67 (90) 97 5/3/20 09:00 Nasal Cannula 2.0 11/11/19 08:38 93 130/66 11/11/19 08:00 101 11/11/19 08:00 97.8 93 20 130/66 (87) 97 11/11/19 08:00 96 Nasal Cannula 2.0 28 11/11/19 04:00 95 11/11/19 04:00 98.2 91 18 112/56 (74) 94 11/11/19 00:00 98.6 94 18 110/51 (70) 91 11/11/19 00:00 88 11/10/19 21:57 89 126/70 11/10/19 21:00 Nasal Cannula 2.0 11/10/19 21:00 Nasal Cannula 2.0 11/10/19 20:00 99.4 113 18 134/73 (93) 95 11/10/19 20:00 108 11/10/19 16:00 96.7 68 19 123/83 (96) 96 11/10/19 16:00 110 11/10/19 12:18 101 11/10/19 12:00 96.7 87 20 129/75 (93) 98 Intake and Output 11/11/19 11/12/19 19:00 07:00 # Voids 4 3 # Bowel Movements 2 1 Labs Test 11/10/19 07:05 11/12/19 05:40 White Blood Count 16.1 K/UL (4.8-10.8) 8.1 K/UL (4.8-10.8) Red Blood Count 4.48 M/UL (4.70-6.10) 4.40 M/UL (4.70-6.10) Hemoglobin 12.9 G/DL (14.2-18.0) 12.8 G/DL (14.2-18.0) Hematocrit 37.9 % (42.0-52.0) 37.2 % (42.0-52.0) Mean Corpuscular Volume 85 FL (80-99) 85 FL (80-99) Mean Corpuscular Hemoglobin 28.9 PG (27.0-31.0) 29.2 PG (27.0-31.0) Mean Corpuscular Hemoglobin Concent 34.2 G/DL (32.0-36.0) 34.5 G/DL (32.0-36.0) Red Cell Distribution Width 12.7 % (11.6-14.8) 12.6 % (11.6-14.8) Platelet Count 161 K/UL (150-450) 264 K/UL (150-450) Mean Platelet Volume 6.7 FL (6.5-10.1) 7.0 FL (6.5-10.1) Neutrophils (%) (Auto) % (45.0-75.0) 79.5 % (45.0-75.0) Lymphocytes (%) (Auto) % (20.0-45.0) 15.8 % (20.0-45.0) Monocytes (%) (Auto) % (1.0-10.0) 2.5 % (1.0-10.0) Eosinophils (%) (Auto) % (0.0-3.0) 2.0 % (0.0-3.0) Basophils (%) (Auto) % (0.0-2.0) 0.2 % (0.0-2.0) Differential Total Cells Counted 100 Neutrophils % (Manual) 88 % (45-75) Lymphocytes % (Manual) 10 % (20-45) Monocytes % (Manual) 2 % (1-10) Eosinophils % (Manual) 0 % (0-3) Basophils % (Manual) 0 % (0-2) Band Neutrophils 0 % (0-8) Platelet Estimate Adequate Platelet Morphology Normal Red Blood Cell Morphology Normal Sodium Level 147 MMOL/L (136-145) 147 MMOL/L (136-145) Potassium Level 3.4 MMOL/L (3.5-5.1) 4.0 MMOL/L (3.5-5.1) Chloride Level 110 MMOL/L (98-107) 111 MMOL/L (98-107) Carbon Dioxide Level 27 MMOL/L (21-32) 25 MMOL/L (21-32) Anion Gap 10 mmol/L (5-15) 11 mmol/L (5-15) Blood Urea Nitrogen 23 mg/dL (7-18) 21 mg/dL (7-18) Creatinine 1.0 MG/DL (0.55-1.30) 0.8 MG/DL (0.55-1.30) Estimat Glomerular Filtration Rate > 60 mL/min (>60) > 60 mL/min (>60) Glucose Level 130 MG/DL (74-106) 123 MG/DL (74-106) Uric Acid 3.2 MG/DL (2.6-7.2) Calcium Level 8.4 MG/DL (8.5-10.1) 8.4 MG/DL (8.5-10.1) Phosphorus Level 2.6 MG/DL (2.5-4.9) 2.7 MG/DL (2.5-4.9) Magnesium Level 2.3 MG/DL (1.8-2.4) 2.5 MG/DL (1.8-2.4) Total Bilirubin 1.1 MG/DL (0.2-1.0) 1.3 MG/DL (0.2-1.0) Direct Bilirubin 0.3 MG/DL (0.0-0.3) 0.3 MG/DL (0.0-0.3) Aspartate Amino Transf (AST/SGOT) 137 U/L (15-37) 177 U/L (15-37) Alanine Aminotransferase (ALT/SGPT) 73 U/L (12-78) 154 U/L (12-78) Alkaline Phosphatase 81 U/L (46-116) 105 U/L (46-116) Total Creatine Kinase 1013 U/L (26-308) Total Protein 6.9 G/DL (6.4-8.2) 7.2 G/DL (6.4-8.2) Albumin 2.4 G/DL (3.4-5.0) 2.4 G/DL (3.4-5.0) Globulin 4.5 g/dL 4.8 g/dL Albumin/Globulin Ratio 0.5 (1.0-2.7) 0.5 (1.0-2.7) Thyroid Stimulating Hormone (TSH) < 0.010 uiU/mL (0.358-3.740) Free Thyroxine 1.70 NG/DL (0.76-1.46) Free Triiodothyronine 1.8 pg/mL (2.3-4.2) Height (Feet): 5 Height (Inches): 8.00 Weight (Pounds): 148 Objective PHYSICAL EXAMINATION: VITAL SIGNS:reviewed in emr HEENT: PERRLA. NECK: Supple. No lymphadenopathy. CHEST: Clear to auscultation. CARDIOVASCULAR: Regular rate and rhythm. No murmurs or extra sounds. GASTROINTESTINAL: Soft, nontender, and nondistended. No organomegaly. EXTREMITIES: s/p metatarsal right sided amputation PEARL FISHERMAN: Oriented x1. Reflexes equal in both sides. Jose M Wade MD November 12, 2019 10:19
--- NOTE | 2019-11-12 11:37 | Pulmonology Progress Note ---
Assessment/Plan Assessment/Plan IMPRESSION: 1. Pneumonia. 2. Renal failure. 3. Diabetes mellitus. 4. + nares MRSA DISCUSSION: Continue broad-spectrum antibiotics, diabetes control, IV fluids. DC Glucophage. 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 Saturating well on 2L/min O2 Jay Petersen M.D. Subjective ROS Limited/Unobtainable: Yes Interval Events: None new Constitutional: Denies: fever HEENT: Repors: no symptoms; Denies: visual change, discharge, earache, hearing change, coryza, congestion, post-nasal drip, dysphagia, other Respiratory: Reports: no symptoms Gastrointestinal/Abdominal: Reports: no symptoms; Denies: nausea, vomiting, diarrhea, constipation, blood in stool, bloating, other Genitourinary: Reports: no symptoms Allergies: Coded Allergies: No Known Allergies (Unverified , 08/01/18) All Systems: reviewed and negative except above Objective Last 24 Hour Vital Signs Date Time Temp Pulse Resp B/P (MAP) Pulse Ox O2 Delivery O2 Flow Rate FiO2 11/12/19 09:00 Nasal Cannula 2.0 11/12/19 08:56 95 150/84 11/12/19 08:00 97.4 95 20 150/84 (106) 96 11/12/19 08:00 101 11/12/19 04:00 98.0 92 20 130/75 (93) 95 11/12/19 04:00 79 11/12/19 00:00 98.3 95 20 135/70 (91) 96 11/12/19 00:00 82 11/11/19 21:13 93 132/71 11/11/19 21:00 Nasal Cannula 2.0 11/11/19 20:25 97 Nasal Cannula 2.0 28 11/11/19 20:00 95 11/11/19 20:00 98.0 93 20 132/71 (91) 95 11/11/19 16:00 97.7 88 20 134/75 (94) 97 11/11/19 16:00 90 11/11/19 12:00 83 11/11/19 12:00 98.7 91 20 138/67 (90) 97 Intake and Output 11/11/19 11/12/19 19:00 07:00 # Voids 4 3 # Bowel Movements 2 1 General Appearance: no acute distress HEENT: mucous membranes moist Respiratory/Chest: chest wall non-tender, lungs clear Cardiovascular: normal peripheral pulses Abdomen: soft, non tender Extremities: no edema Neurologic/Psychiatric: alert, responsive Laboratory Tests 11/12/19 05:40: White Blood Count 8.1, Red Blood Count 4.40L, Hemoglobin 12.8L, Hematocrit 37.2L , Mean Corpuscular Volume 85, Mean Corpuscular Hemoglobin 29.2, Mean Corpuscular Hemoglobin Concent 34.5, Red Cell Distribution Width 12.6, Platelet Count 264, Mean Platelet Volume 7.0, Neutrophils (%) (Auto) 79.5H, Lymphocytes ( %) (Auto) 15.8L, Monocytes (%) (Auto) 2.5, Eosinophils (%) (Auto) 2.0, Basophils (%) (Auto) 0.2, Sodium Level 147H, Potassium Level 4.0, Chloride Level 111H, Carbon Dioxide Level 25, Anion Gap 11, Blood Urea Nitrogen 21H, Creatinine 0.8, Estimat Glomerular Filtration Rate > 60, Glucose Level 123H, Calcium Level 8.4L, Phosphorus Level 2.7, Magnesium Level 2.5H, Total Bilirubin 1.3H, Direct Bilirubin 0.3, Aspartate Amino Transf (AST/SGOT) 177H, Alanine Aminotransferase (ALT/SGPT) 154H, Alkaline Phosphatase 105, Total Protein 7.2, Albumin 2.4L, Globulin 4.8, Albumin/Globulin Ratio 0.5L Current Medications Medications (Trade) Dose Ordered Sig/Stacey Route PRN Reason Start Time Stop Time Status Last Admin Dose Admin Acetaminophen (Tylenol) 500 mg Q4H PRN ORAL Temp >100.5/pain 11/08/19 16:45 12/08/19 16:44 11/09/19 04:31 Aspirin (Ecotrin) 81 mg DAILY ORAL 11/10/19 09:00 12/25/19 08:59 11/12/19 08:56 Ceftriaxone Sodium 1 gm/ Dextrose 55 ml @ 110 mls/hr Q24H IVPB 11/09/19 12:00 11/16/19 11:59 11/11/19 12:52 Dextrose (Dextrose 50%) 25 ml Q30M PRN IV Hypoglycemia 11/08/19 18:00 02/06/20 17:59 Dextrose (Dextrose 50%) 50 ml Q30M PRN IV Hypoglycemia 11/08/19 18:00 02/06/20 17:59 Insulin Aspart (NovoLOG) BEFORE MEALS AND HS SUBQ 11/08/19 21:00 02/06/20 20:59 11/11/19 21:18 Insulin Detemir (Levemir) 20 units QHS SUBQ 11/10/19 21:00 02/06/20 17:59 11/11/19 21:17 Metoprolol Tartrate (Lopressor) 25 mg Q12HR ORAL 11/09/19 21:00 02/07/20 20:59 11/12/19 08:56 Pantoprazole (Protonix) 40 mg EVERY 12 HOURS ORAL 11/09/19 21:00 12/09/19 20:59 11/12/19 08:56 Potassium Chloride (K-Dur) 40 meq TWICE A DAY ORAL 11/09/19 11:00 02/07/20 10:59 11/12/19 08:56 Tamsulosin HCl (Flomax) 0.4 mg BID ORAL 11/09/19 18:00 12/08/19 17:59 11/12/19 08:55 Jay Petersen MD November 12, 2019 11:37
--- NOTE | 2019-11-12 11:57 | Nephrology Progress Note ---
Assessment/Plan Problem List: (1) STEPHANIE (acute kidney injury) (2) Electrolyte imbalance (3) Hyperglycemia (4) Sepsis (5) Elevated troponin (6) Pneumonia due to COVID-19 virus (7) UTI (urinary tract infection) Assessment Renal failure most likely acute on chronic Diabetes mellitus, presents with hyperglycemia Pneumonia due to COVID-19 virus Elevated troponin Sepsis, UTI, Plan Will adjust blood pressure medications Correct low potassium and low phosphorus Will hold diuretics and metformin Discontinue IV fluid as BUN and creatinine improved Keep the blood pressure and blood sugar in check Monitor renal parameters Avoid nephrotoxic's Antibiotics per ID Per orders Subjective ROS Limited/Unobtainable: No Constitutional: Reports: malaise, weakness Objective Objective Last 24 Hour Vital Signs Date Time Temp Pulse Resp B/P (MAP) Pulse Ox O2 Delivery O2 Flow Rate FiO2 11/12/19 09:00 Nasal Cannula 2.0 11/12/19 08:56 95 150/84 11/12/19 08:00 97.4 95 20 150/84 (106) 96 11/12/19 08:00 101 11/12/19 04:00 98.0 92 20 130/75 (93) 95 11/12/19 04:00 79 11/12/19 00:00 98.3 95 20 135/70 (91) 96 11/12/19 00:00 82 11/11/19 21:13 93 132/71 11/11/19 21:00 Nasal Cannula 2.0 11/11/19 20:25 97 Nasal Cannula 2.0 28 11/11/19 20:00 95 11/11/19 20:00 98.0 93 20 132/71 (91) 95 11/11/19 16:00 97.7 88 20 134/75 (94) 97 11/11/19 16:00 90 11/11/19 12:00 83 11/11/19 12:00 98.7 91 20 138/67 (90) 97 Intake and Output 11/11/19 11/12/19 19:00 07:00 # Voids 4 3 # Bowel Movements 2 1 Laboratory Tests 11/12/19 05:40: White Blood Count 8.1, Red Blood Count 4.40L, Hemoglobin 12.8L, Hematocrit 37.2L , Mean Corpuscular Volume 85, Mean Corpuscular Hemoglobin 29.2, Mean Corpuscular Hemoglobin Concent 34.5, Red Cell Distribution Width 12.6, Platelet Count 264, Mean Platelet Volume 7.0, Neutrophils (%) (Auto) 79.5H, Lymphocytes ( %) (Auto) 15.8L, Monocytes (%) (Auto) 2.5, Eosinophils (%) (Auto) 2.0, Basophils (%) (Auto) 0.2, Sodium Level 147H, Potassium Level 4.0, Chloride Level 111H, Carbon Dioxide Level 25, Anion Gap 11, Blood Urea Nitrogen 21H, Creatinine 0.8, Estimat Glomerular Filtration Rate > 60, Glucose Level 123H, Calcium Level 8.4L, Phosphorus Level 2.7, Magnesium Level 2.5H, Total Bilirubin 1.3H, Direct Bilirubin 0.3, Aspartate Amino Transf (AST/SGOT) 177H, Alanine Aminotransferase (ALT/SGPT) 154H, Alkaline Phosphatase 105, Total Protein 7.2, Albumin 2.4L, Globulin 4.8, Albumin/Globulin Ratio 0.5L Height (Feet): 5 Height (Inches): 8.00 Weight (Pounds): 148 General Appearance: no apparent distress Objective no change Levi Urias MD November 12, 2019 11:57
[2019-11-12 12:00] VITALS: BP 147/94
[2019-11-12] MEDS: cefTRIAXone 1 GM in D5W 55 ML IVPB SCH (12:16)
--- NOTE | 2019-11-12 13:02 | Infectious Diseases Prog Note ---
Assessment/Plan Assessment/Plan IMPRESSION: Sepsis pneumonia,will try to rule out COVID-19. Diabetes mellitus with hyperglycemia. Acute renal failure, lactic acidosis, COPD, Hypertension, Hyperlipidemia, Dementia. MRSA carrier RECOMMENDATION: Continue ceftriaxone. We will follow up the cultures. We will follow up COVID-19 test. Subjective ROS Limited/Unobtainable: Yes Constitutional: Denies: fever Allergies: Coded Allergies: No Known Allergies (Unverified , 08/01/18) Objective Vital Signs Last 24 Hour Vital Signs Date Time Temp Pulse Resp B/P (MAP) Pulse Ox O2 Delivery O2 Flow Rate FiO2 11/12/19 12:00 97.2 87 20 147/94 (111) 96 11/12/19 09:00 Nasal Cannula 2.0 11/12/19 08:56 95 150/84 11/12/19 08:00 97.4 95 20 150/84 (106) 96 11/12/19 08:00 101 11/12/19 04:00 98.0 92 20 130/75 (93) 95 11/12/19 04:00 79 11/12/19 00:00 98.3 95 20 135/70 (91) 96 11/12/19 00:00 82 11/11/19 21:13 93 132/71 11/11/19 21:00 Nasal Cannula 2.0 11/11/19 20:25 97 Nasal Cannula 2.0 28 11/11/19 20:00 95 11/11/19 20:00 98.0 93 20 132/71 (91) 95 11/11/19 16:00 97.7 88 20 134/75 (94) 97 11/11/19 16:00 90 Height (Feet): 5 Height (Inches): 8.00 Weight (Pounds): 148 General Appearance: no acute distress HEENT: mucous membranes moist Respiratory/Chest: lungs clear Cardiovascular: normal rate Abdomen: soft, non tender Extremities: no edema Neurologic/Psychiatric: alert, responsive Laboratory Tests Test 11/12/19 05:40 White Blood Count 8.1 K/UL (4.8-10.8) Red Blood Count 4.40 M/UL (4.70-6.10) L Hemoglobin 12.8 G/DL (14.2-18.0) L Hematocrit 37.2 % (42.0-52.0) L Mean Corpuscular Volume 85 FL (80-99) Mean Corpuscular Hemoglobin 29.2 PG (27.0-31.0) Mean Corpuscular Hemoglobin Concent 34.5 G/DL (32.0-36.0) Red Cell Distribution Width 12.6 % (11.6-14.8) Platelet Count 264 K/UL (150-450) Mean Platelet Volume 7.0 FL (6.5-10.1) Neutrophils (%) (Auto) 79.5 % (45.0-75.0) H Lymphocytes (%) (Auto) 15.8 % (20.0-45.0) L Monocytes (%) (Auto) 2.5 % (1.0-10.0) Eosinophils (%) (Auto) 2.0 % (0.0-3.0) Basophils (%) (Auto) 0.2 % (0.0-2.0) Sodium Level 147 MMOL/L (136-145) H Potassium Level 4.0 MMOL/L (3.5-5.1) Chloride Level 111 MMOL/L (98-107) H Carbon Dioxide Level 25 MMOL/L (21-32) Anion Gap 11 mmol/L (5-15) Blood Urea Nitrogen 21 mg/dL (7-18) H Creatinine 0.8 MG/DL (0.55-1.30) Estimat Glomerular Filtration Rate > 60 mL/min (>60) Glucose Level 123 MG/DL (74-106) H Calcium Level 8.4 MG/DL (8.5-10.1) L Phosphorus Level 2.7 MG/DL (2.5-4.9) Magnesium Level 2.5 MG/DL (1.8-2.4) H Total Bilirubin 1.3 MG/DL (0.2-1.0) H Direct Bilirubin 0.3 MG/DL (0.0-0.3) Aspartate Amino Transf (AST/SGOT) 177 U/L (15-37) H Alanine Aminotransferase (ALT/SGPT) 154 U/L (12-78) H Alkaline Phosphatase 105 U/L (46-116) Total Protein 7.2 G/DL (6.4-8.2) Albumin 2.4 G/DL (3.4-5.0) L Globulin 4.8 g/dL Albumin/Globulin Ratio 0.5 (1.0-2.7) L Current Medications Medications (Trade) Dose Ordered Sig/Stacey Route PRN Reason Start Time Stop Time Status Last Admin Dose Admin Acetaminophen (Tylenol) 500 mg Q4H PRN ORAL Temp >100.5/pain 11/08/19 16:45 12/08/19 16:44 11/09/19 04:31 Aspirin (Ecotrin) 81 mg DAILY ORAL 11/10/19 09:00 12/25/19 08:59 11/12/19 08:56 Ceftriaxone Sodium 1 gm/ Dextrose 55 ml @ 110 mls/hr Q24H IVPB 11/09/19 12:00 11/16/19 11:59 11/12/19 12:16 Dextrose (Dextrose 50%) 25 ml Q30M PRN IV Hypoglycemia 11/08/19 18:00 02/06/20 17:59 Dextrose (Dextrose 50%) 50 ml Q30M PRN IV Hypoglycemia 11/08/19 18:00 02/06/20 17:59 Insulin Aspart (NovoLOG) BEFORE MEALS AND HS SUBQ 11/08/19 21:00 02/06/20 20:59 11/12/19 12:17 Insulin Detemir (Levemir) 20 units QHS SUBQ 11/10/19 21:00 02/06/20 17:59 11/11/19 21:17 Metoprolol Tartrate (Lopressor) 25 mg Q12HR ORAL 11/09/19 21:00 02/07/20 20:59 11/12/19 08:56 Pantoprazole (Protonix) 40 mg EVERY 12 HOURS ORAL 11/09/19 21:00 12/09/19 20:59 11/12/19 08:56 Potassium Chloride (K-Dur) 40 meq TWICE A DAY ORAL 11/09/19 11:00 02/07/20 10:59 11/12/19 08:56 Tamsulosin HCl (Flomax) 0.4 mg BID ORAL 11/09/19 18:00 12/08/19 17:59 11/12/19 08:55 Flako Rivas MD November 12, 2019 13:02
--- NOTE | 2019-11-12 13:19 | Cardiac Electrophysiology PN ---
Assessment/Plan Assessment/Plan 1. Troponin leak. Etiology is not clear . No chest pain. On admission, his creatinine was 2.3 that improved to 1.3 on aspirin and Lopressor Echo EF 60% 2. Hypertension. On metoprolol 25 bid 3. Acute renal failure. Creatinine of 2.3 that normalized to 1.3. Fu by Dr. Urias. 4. Fever and cough and possible COVID pneumonia. Patient is on isolation. Result is pending. 5. Diabetes. Subjective Subjective No CP or SOB. In SR. Still being ruled out for Covid. another test pending tomorrow Objective Last 24 Hour Vital Signs Date Time Temp Pulse Resp B/P (MAP) Pulse Ox O2 Delivery O2 Flow Rate FiO2 11/12/19 12:00 97.2 87 20 147/94 (111) 96 11/12/19 09:00 Nasal Cannula 2.0 11/12/19 08:56 95 150/84 11/12/19 08:00 97.4 95 20 150/84 (106) 96 11/12/19 08:00 101 11/12/19 04:00 98.0 92 20 130/75 (93) 95 11/12/19 04:00 79 11/12/19 00:00 98.3 95 20 135/70 (91) 96 11/12/19 00:00 82 11/11/19 21:13 93 132/71 11/11/19 21:00 Nasal Cannula 2.0 11/11/19 20:25 97 Nasal Cannula 2.0 28 11/11/19 20:00 95 11/11/19 20:00 98.0 93 20 132/71 (91) 95 11/11/19 16:00 97.7 88 20 134/75 (94) 97 11/11/19 16:00 90 Intake and Output 11/11/19 11/12/19 19:00 07:00 # Voids 4 3 # Bowel Movements 2 1 Laboratory Tests Test 11/12/19 05:40 White Blood Count 8.1 K/UL (4.8-10.8) Red Blood Count 4.40 M/UL (4.70-6.10) L Hemoglobin 12.8 G/DL (14.2-18.0) L Hematocrit 37.2 % (42.0-52.0) L Mean Corpuscular Volume 85 FL (80-99) Mean Corpuscular Hemoglobin 29.2 PG (27.0-31.0) Mean Corpuscular Hemoglobin Concent 34.5 G/DL (32.0-36.0) Red Cell Distribution Width 12.6 % (11.6-14.8) Platelet Count 264 K/UL (150-450) Mean Platelet Volume 7.0 FL (6.5-10.1) Neutrophils (%) (Auto) 79.5 % (45.0-75.0) H Lymphocytes (%) (Auto) 15.8 % (20.0-45.0) L Monocytes (%) (Auto) 2.5 % (1.0-10.0) Eosinophils (%) (Auto) 2.0 % (0.0-3.0) Basophils (%) (Auto) 0.2 % (0.0-2.0) Sodium Level 147 MMOL/L (136-145) H Potassium Level 4.0 MMOL/L (3.5-5.1) Chloride Level 111 MMOL/L (98-107) H Carbon Dioxide Level 25 MMOL/L (21-32) Anion Gap 11 mmol/L (5-15) Blood Urea Nitrogen 21 mg/dL (7-18) H Creatinine 0.8 MG/DL (0.55-1.30) Estimat Glomerular Filtration Rate > 60 mL/min (>60) Glucose Level 123 MG/DL (74-106) H Calcium Level 8.4 MG/DL (8.5-10.1) L Phosphorus Level 2.7 MG/DL (2.5-4.9) Magnesium Level 2.5 MG/DL (1.8-2.4) H Total Bilirubin 1.3 MG/DL (0.2-1.0) H Direct Bilirubin 0.3 MG/DL (0.0-0.3) Aspartate Amino Transf (AST/SGOT) 177 U/L (15-37) H Alanine Aminotransferase (ALT/SGPT) 154 U/L (12-78) H Alkaline Phosphatase 105 U/L (46-116) Total Protein 7.2 G/DL (6.4-8.2) Albumin 2.4 G/DL (3.4-5.0) L Globulin 4.8 g/dL Albumin/Globulin Ratio 0.5 (1.0-2.7) L Objective HEAD AND NECK: Showed no JVD. LUNGS: Coarse rhonchi. CARDIOVASCULAR: Regular S1 and S2 with no gallop or murmur. ABDOMEN: Soft. EXTREMITIES: No pitting edema. Igor Zapien MD November 12, 2019 13:19
--- NOTE | 2019-11-12 14:11 | NUR ---
CASE MANAGEMENT:REVIEW 11/12/19 SI: PNEUMONIA. RENAL FAILURE.DM. TROPONIN LEAK 97.2 87 20 147/94 96% ON 2L/NC NA+147 BUN+21 GLUCOSE+123 AST/ALT+177/154 IS: IV ROCEPHIN Q24 LEVEMIR SQ QHS ASA PO QD PROTONIX PO Q12 LOPRESSOR PO Q12 FLOMAX PO BID K-DUR PO BID : TELEMETRY STATUS DCP: FROM [facility] PLAN: F/U ON PENDING COVID 19 TEST DONE ON 11/08/19 AND 11/12/19
[2019-11-12 16:00] VITALS: BP 148/76
--- NOTE | 2019-11-12 17:00 | NUR ---
NURSE NOTES: COVID-19 specimen sent to lab per Dr. Greg Rivas
--- NOTE | 2019-11-12 17:16 | General Progress Note ---
Assessment/Plan Problem List: (1) Diabetes mellitus out of control ICD Codes: E11.65 - Type 2 diabetes mellitus with hyperglycemia SNOMED: 16688795, 918700177 (2) Hyperglycemia ICD Codes: R73.9 - Hyperglycemia, unspecified; J12.89 - Other viral pneumonia SNOMED: 16024663, 832838992 (3) Sepsis ICD Codes: A41.9 - Sepsis, unspecified organism SNOMED: 38040269, 315842221, 589879295 (4) Fever ICD Codes: R50.9 - Fever, unspecified SNOMED: 910458038 (5) Electrolyte imbalance ICD Codes: E87.8 - Other disorders of electrolyte and fluid balance, not elsewhere classified SNOMED: 413065429 (6) UTI (urinary tract infection) ICD Codes: N39.0 - Urinary tract infection, site not specified SNOMED: 54716188 Status: progressing Assessment/Plan: obs on iv abx afebrile uti abx per id sugar improving Subjective ROS Limited/Unobtainable: Yes Allergies: Coded Allergies: No Known Allergies (Unverified , 08/01/18) Objective Last 24 Hour Vital Signs Date Time Temp Pulse Resp B/P (MAP) Pulse Ox O2 Delivery O2 Flow Rate FiO2 11/12/19 16:00 97.1 86 20 148/76 (100) 95 11/12/19 16:00 88 11/12/19 12:00 87 11/12/19 12:00 97.2 87 20 147/94 (111) 96 11/12/19 09:00 Nasal Cannula 2.0 11/12/19 08:56 95 150/84 11/12/19 08:00 97.4 95 20 150/84 (106) 96 11/12/19 08:00 101 11/12/19 04:00 98.0 92 20 130/75 (93) 95 11/12/19 04:00 79 11/12/19 00:00 98.3 95 20 135/70 (91) 96 11/12/19 00:00 82 11/11/19 21:13 93 132/71 11/11/19 21:00 Nasal Cannula 2.0 11/11/19 20:25 97 Nasal Cannula 2.0 28 11/11/19 20:00 95 11/11/19 20:00 98.0 93 20 132/71 (91) 95 Intake and Output 11/11/19 11/12/19 19:00 07:00 # Voids 4 3 # Bowel Movements 2 1 Laboratory Tests 11/12/19 05:40: White Blood Count 8.1, Red Blood Count 4.40L, Hemoglobin 12.8L, Hematocrit 37.2L , Mean Corpuscular Volume 85, Mean Corpuscular Hemoglobin 29.2, Mean Corpuscular Hemoglobin Concent 34.5, Red Cell Distribution Width 12.6, Platelet Count 264, Mean Platelet Volume 7.0, Neutrophils (%) (Auto) 79.5H, Lymphocytes ( %) (Auto) 15.8L, Monocytes (%) (Auto) 2.5, Eosinophils (%) (Auto) 2.0, Basophils (%) (Auto) 0.2, Sodium Level 147H, Potassium Level 4.0, Chloride Level 111H, Carbon Dioxide Level 25, Anion Gap 11, Blood Urea Nitrogen 21H, Creatinine 0.8, Estimat Glomerular Filtration Rate > 60, Glucose Level 123H, Calcium Level 8.4L, Phosphorus Level 2.7, Magnesium Level 2.5H, Total Bilirubin 1.3H, Direct Bilirubin 0.3, Aspartate Amino Transf (AST/SGOT) 177H, Alanine Aminotransferase (ALT/SGPT) 154H, Alkaline Phosphatase 105, Total Protein 7.2, Albumin 2.4L, Globulin 4.8, Albumin/Globulin Ratio 0.5L Height (Feet): 5 Height (Inches): 8.00 Weight (Pounds): 148 General Appearance: confused Wyatt Kelley MD November 12, 2019 17:16
--- NOTE | 2019-11-12 19:29 | NUR ---
HAND-OFF: Report given to NAMAN Coates. Endorsed plan of care.
--- NOTE | 2019-11-12 19:29 | NUR ---
NURSE NOTES: Report received from NAMAN Squires. Patient AOx1, able to follow simple commands. Awake, alert, and responsive. IV on RFA #22g, intact and flushed. On room air, saturating at 92%. Nasal Cannula noted at bedside. Bed in lowest position, brakes engaged, bed rails raised x2. Call light placed within reach. Will continue to monitor.
--- NOTE | 2019-11-12 19:29 | NUR ---
NURSE NOTES: Received report from NAMAN Schwartz. Patient AOx4. Verbally responsive and able to communicate needs. IV on RFA #20g, intact and flushed. On venturi mask at 7L, saturating at 92%. No signs of acute distress. Skin intact. Came in with gee catheter prior to admission, patent and draining well. Call light and belongings placed within reach. Snacks and water placed at bedside. Will continue to monitor. Addendum: 11/12/19 at 2214 by Jaxon Contreras RN Documentation Error: Wrong EMR.
[2019-11-12 20:00] VITALS: BP 126/64
[2019-11-12] MEDS: Levemir Flexpen SUBQ SCH (20:53)
--- NOTE | 2019-11-12 22:06 | NUR ---
NURSE NOTES: Called and left a message with Dr. Yusuf's answering service regarding patient's COVID swab. Awaiting call back.
--- NOTE | 2019-11-12 22:23 | NUR ---
NURSE NOTES: Dr. Evans called back. No new orders.
--- NOTE | 2019-11-12 23:39 | NUR ---
NURSE NOTES: Called and spoke with Dr. Greg Rivas regarding patient's COVID swab: positive. No new orders.
[2019-11-13] VITALS: BP 109/60
--- NOTE | 2019-11-13 01:48 | NUR ---
NURSE NOTES: Patient asleep, but arousable. IV intact and flushed. No signs of acute distress or shortness of breath. Will continue to monitor.
[2019-11-13 04:00] VITALS: BP 100/74
[2019-11-13] MEDS: NovoLOG Insulin Flexpen SUBQ SCH ×4 (05:50→21:00)
--- NOTE | 2019-11-13 06:48 | Hematology/Onc Progress Note ---
Assessment/Plan Assessment/Plan ASSESSMENT AND PLAN: # Leukocytosis. Likely related to underlying infection versus reactive process. In this case likely COVID19 related --> Peripheral has been reviewed --> Medications have been reviewed --> Imaging has been reviewed --> Blood cultures and urine cultures prn has been started on abx, empiric treatment --> COVID19 iso treatment --> abx: cftx ==> wbc trend 16-->8 # Thrombocytopenia likely covid v other infection related --> hep and hiv pending->only if plt drop --> us abd as needed --> smear is noted --> pulm recss noted --> plt 141-->260k # Gangrene in the right third and fifth toes --> s/p right sided a,putation right metatarsal # Diabetic foot ulcer/osteomyelitis. # Diabetes mellitus. --> Aspirin and statin are the mainstay of therapy for peripheral vasculopathy. # History of hypertension --> appreciate cardiology recs # Dvt ppx scds The timing of this note does not necessarily reflect the time of the patient was seen Greatly appreciate consultation! Subjective HEENT: Denies: no symptoms, eye pain, blurred vision, tearing, double vision, ear pain, ear discharge, nose pain, nose congestion, throat pain, throat swelling, mouth pain, mouth swelling, other Cardiovascular: Denies: no symptoms, chest pain, edema, irregular heart rate, lightheadedness, palpitations, syncope, other Respiratory: Denies: no symptoms, cough, shortness of breath, SOB with excertion, SOB at rest, sputum, wheezing, other Gastrointestinal/Abdominal: Denies: no symptoms, abdomen distended, abdominal pain, black stools, tarry stools, blood in stool, constipated, diarrhea, difficulty swallowing, nausea, poor appetite, poor fluid intake, rectal bleeding , vomiting, other Genitourinary: Denies: no symptoms, burning, discharge, frequency, flank pain, hematuria, incontinence, pain, urgency, other Neurologic/Psychiatric: Denies: no symptoms, anxiety, depressed, emotional problems, headache, numbness, paresthesia, pre-existing deficit, seizure, tingling, tremors, weakness, other Endocrine: Denies: no symptoms, excessive sweating, flushing, intolerance to cold, intolerance to heat, increased hunger, increased thirst, increased urine, unexplained weight gain, unexplained weight loss, other Allergies: Coded Allergies: No Known Allergies (Unverified , 08/01/18) Subjective / on tele, no acute events, nc 2l, cftx per id, bp stable 11/11 confused, no night sweats, no bleeding, labs reviewed 11/12 remains confused, is covid19+ no bleeding, labs noted Objective Objective Current Medications Medications (Trade) Dose Ordered Sig/Stacey Route PRN Reason Start Time Stop Time Status Last Admin Dose Admin Acetaminophen (Tylenol) 500 mg Q4H PRN ORAL Temp >100.5/pain 11/08/19 16:45 12/08/19 16:44 11/09/19 04:31 Aspirin (Ecotrin) 81 mg DAILY ORAL 11/10/19 09:00 12/25/19 08:59 11/12/19 08:56 Ceftriaxone Sodium 1 gm/ Dextrose 55 ml @ 110 mls/hr Q24H IVPB 11/09/19 12:00 11/16/19 11:59 11/12/19 12:16 Dextrose (Dextrose 50%) 25 ml Q30M PRN IV Hypoglycemia 11/08/19 18:00 02/06/20 17:59 Dextrose (Dextrose 50%) 50 ml Q30M PRN IV Hypoglycemia 11/08/19 18:00 02/06/20 17:59 Insulin Aspart (NovoLOG) BEFORE MEALS AND HS SUBQ 11/08/19 21:00 02/06/20 20:59 11/12/19 20:54 Insulin Detemir (Levemir) 20 units QHS SUBQ 11/10/19 21:00 02/06/20 17:59 11/12/19 20:53 Metoprolol Tartrate (Lopressor) 25 mg Q12HR ORAL 11/09/19 21:00 02/07/20 20:59 11/12/19 20:52 Pantoprazole (Protonix) 40 mg EVERY 12 HOURS ORAL 11/09/19 21:00 12/09/19 20:59 11/12/19 20:52 Potassium Chloride (K-Dur) 40 meq TWICE A DAY ORAL 11/09/19 11:00 02/07/20 10:59 11/12/19 17:21 Tamsulosin HCl (Flomax) 0.4 mg BID ORAL 11/09/19 18:00 12/08/19 17:59 11/12/19 17:21 Last 24 Hour Vital Signs Date Time Temp Pulse Resp B/P (MAP) Pulse Ox O2 Delivery O2 Flow Rate FiO2 11/13/19 04:00 98 11/13/19 04:00 97.8 93 18 100/74 (83) 96 11/13/19 00:00 89 11/13/19 00:00 97.1 83 19 109/60 (76) 93 11/12/19 21:00 Nasal Cannula 2.0 11/12/19 20:52 87 126/64 11/12/19 20:39 96 Nasal Cannula 2.0 28 11/12/19 20:00 82 11/12/19 20:00 97.0 87 19 126/64 (84) 92 11/12/19 16:00 97.1 86 20 148/76 (100) 95 11/12/19 16:00 88 11/12/19 12:00 87 11/12/19 12:00 97.2 87 20 147/94 (111) 96 11/12/19 09:00 Nasal Cannula 2.0 11/12/19 08:56 95 150/84 11/12/19 08:00 97.4 95 20 150/84 (106) 96 11/12/19 08:00 101 11/12/19 04:00 98.0 92 20 130/75 (93) 95 11/12/19 04:00 79 11/12/19 00:00 98.3 95 20 135/70 (91) 96 11/12/19 00:00 82 11/11/19 21:13 93 132/71 11/11/19 21:00 Nasal Cannula 2.0 11/11/19 20:25 97 Nasal Cannula 2.0 28 11/11/19 20:00 95 11/11/19 20:00 98.0 93 20 132/71 (91) 95 11/11/19 16:00 97.7 88 20 134/75 (94) 97 11/11/19 16:00 90 11/11/19 12:00 83 11/11/19 12:00 98.7 91 20 138/67 (90) 97 11/11/19 09:00 Nasal Cannula 2.0 11/11/19 08:38 93 130/66 5/3/20 08:00 101 11/11/19 08:00 97.8 93 20 130/66 (87) 97 11/11/19 08:00 96 Nasal Cannula 2.0 28 Intake and Output 11/12/19 11/13/19 19:00 07:00 Intake Total 630 ml Balance 630 ml Intake Oral 630 ml # Voids 3 2 # Bowel Movements 3 Labs Test 11/10/19 07:05 11/12/19 05:40 White Blood Count 16.1 K/UL (4.8-10.8) 8.1 K/UL (4.8-10.8) Red Blood Count 4.48 M/UL (4.70-6.10) 4.40 M/UL (4.70-6.10) Hemoglobin 12.9 G/DL (14.2-18.0) 12.8 G/DL (14.2-18.0) Hematocrit 37.9 % (42.0-52.0) 37.2 % (42.0-52.0) Mean Corpuscular Volume 85 FL (80-99) 85 FL (80-99) Mean Corpuscular Hemoglobin 28.9 PG (27.0-31.0) 29.2 PG (27.0-31.0) Mean Corpuscular Hemoglobin Concent 34.2 G/DL (32.0-36.0) 34.5 G/DL (32.0-36.0) Red Cell Distribution Width 12.7 % (11.6-14.8) 12.6 % (11.6-14.8) Platelet Count 161 K/UL (150-450) 264 K/UL (150-450) Mean Platelet Volume 6.7 FL (6.5-10.1) 7.0 FL (6.5-10.1) Neutrophils (%) (Auto) % (45.0-75.0) 79.5 % (45.0-75.0) Lymphocytes (%) (Auto) % (20.0-45.0) 15.8 % (20.0-45.0) Monocytes (%) (Auto) % (1.0-10.0) 2.5 % (1.0-10.0) Eosinophils (%) (Auto) % (0.0-3.0) 2.0 % (0.0-3.0) Basophils (%) (Auto) % (0.0-2.0) 0.2 % (0.0-2.0) Differential Total Cells Counted 100 Neutrophils % (Manual) 88 % (45-75) Lymphocytes % (Manual) 10 % (20-45) Monocytes % (Manual) 2 % (1-10) Eosinophils % (Manual) 0 % (0-3) Basophils % (Manual) 0 % (0-2) Band Neutrophils 0 % (0-8) Platelet Estimate Adequate Platelet Morphology Normal Red Blood Cell Morphology Normal Sodium Level 147 MMOL/L (136-145) 147 MMOL/L (136-145) Potassium Level 3.4 MMOL/L (3.5-5.1) 4.0 MMOL/L (3.5-5.1) Chloride Level 110 MMOL/L (98-107) 111 MMOL/L (98-107) Carbon Dioxide Level 27 MMOL/L (21-32) 25 MMOL/L (21-32) Anion Gap 10 mmol/L (5-15) 11 mmol/L (5-15) Blood Urea Nitrogen 23 mg/dL (7-18) 21 mg/dL (7-18) Creatinine 1.0 MG/DL (0.55-1.30) 0.8 MG/DL (0.55-1.30) Estimat Glomerular Filtration Rate > 60 mL/min (>60) > 60 mL/min (>60) Glucose Level 130 MG/DL (74-106) 123 MG/DL (74-106) Uric Acid 3.2 MG/DL (2.6-7.2) Calcium Level 8.4 MG/DL (8.5-10.1) 8.4 MG/DL (8.5-10.1) Phosphorus Level 2.6 MG/DL (2.5-4.9) 2.7 MG/DL (2.5-4.9) Magnesium Level 2.3 MG/DL (1.8-2.4) 2.5 MG/DL (1.8-2.4) Total Bilirubin 1.1 MG/DL (0.2-1.0) 1.3 MG/DL (0.2-1.0) Direct Bilirubin 0.3 MG/DL (0.0-0.3) 0.3 MG/DL (0.0-0.3) Aspartate Amino Transf (AST/SGOT) 137 U/L (15-37) 177 U/L (15-37) Alanine Aminotransferase (ALT/SGPT) 73 U/L (12-78) 154 U/L (12-78) Alkaline Phosphatase 81 U/L (46-116) 105 U/L (46-116) Total Creatine Kinase 1013 U/L (26-308) Total Protein 6.9 G/DL (6.4-8.2) 7.2 G/DL (6.4-8.2) Albumin 2.4 G/DL (3.4-5.0) 2.4 G/DL (3.4-5.0) Globulin 4.5 g/dL 4.8 g/dL Albumin/Globulin Ratio 0.5 (1.0-2.7) 0.5 (1.0-2.7) Thyroid Stimulating Hormone (TSH) < 0.010 uiU/mL (0.358-3.740) Free Thyroxine 1.70 NG/DL (0.76-1.46) Free Triiodothyronine 1.8 pg/mL (2.3-4.2) Height (Feet): 5 Height (Inches): 8.00 Weight (Pounds): 148 Objective PHYSICAL EXAMINATION: VITAL SIGNS:reviewed in emr HEENT: PERRLA. NECK: Supple. No lymphadenopathy. CHEST: Clear to auscultation. CARDIOVASCULAR: Regular rate and rhythm. No murmurs or extra sounds. GASTROINTESTINAL: Soft, nontender, and nondistended. No organomegaly. EXTREMITIES: s/p metatarsal right sided amputation PLATE AND WELD INSPECTOR: Oriented x1. Reflexes equal in both sides. Jose M Wade MD November 13, 2019 06:48
--- NOTE | 2019-11-13 07:21 | General Progress Note ---
Assessment/Plan Problem List: (1) Necrosis ICD Codes: I96 - Gangrene, not elsewhere classified SNOMED: 443991814, 5276453 (2) Hyperglycemia ICD Codes: R73.9 - Hyperglycemia, unspecified; J12.89 - Other viral pneumonia SNOMED: 97091044, 921506722 (3) Sepsis ICD Codes: A41.9 - Sepsis, unspecified organism SNOMED: 59859781, 827873377, 401331596 (4) Elevated troponin ICD Codes: R79.89 - Other specified abnormal findings of blood chemistry; J12.89 - Other viral pneumonia SNOMED: 753991761, 002999578, 586010904 (5) Pneumonia due to COVID-19 virus ICD Codes: U07.1 - COVID-19; J12.89 - Other viral pneumonia SNOMED: 168726687, 494518003 Status: progressing Assessment/Plan: continue Levemir 20 units qhs continue Novolog sliding scale ac / hs Subjective Allergies: Coded Allergies: No Known Allergies (Unverified , 08/01/18) Subjective events noted glucose values are stable Item Value Date Time Bedside Blood Glucose 139 mg/dl H 11/13/19 0630 Bedside Blood Glucose 168 mg/dl H 11/12/19 2100 Bedside Blood Glucose 163 mg/dl H 11/12/19 1713 Bedside Blood Glucose 179 mg/dl H 11/12/19 1217 Bedside Blood Glucose 119 mg/dl 11/12/19 0630 Objective Last 24 Hour Vital Signs Date Time Temp Pulse Resp B/P (MAP) Pulse Ox O2 Delivery O2 Flow Rate FiO2 11/13/19 04:00 98 11/13/19 04:00 97.8 93 18 100/74 (83) 96 11/13/19 00:00 89 11/13/19 00:00 97.1 83 19 109/60 (76) 93 11/12/19 21:00 Nasal Cannula 2.0 11/12/19 20:52 87 126/64 11/12/19 20:39 96 Nasal Cannula 2.0 28 11/12/19 20:00 82 11/12/19 20:00 97.0 87 19 126/64 (84) 92 11/12/19 16:00 97.1 86 20 148/76 (100) 95 11/12/19 16:00 88 11/12/19 12:00 87 11/12/19 12:00 97.2 87 20 147/94 (111) 96 11/12/19 09:00 Nasal Cannula 2.0 11/12/19 08:56 95 150/84 11/12/19 08:00 97.4 95 20 150/84 (106) 96 11/12/19 08:00 101 Intake and Output 11/12/19 11/13/19 19:00 07:00 Intake Total 630 ml Balance 630 ml Intake Oral 630 ml # Voids 3 2 # Bowel Movements 3 Height (Feet): 5 Height (Inches): 8.00 Weight (Pounds): 148 General Appearance: no apparent distress Neck: normal alignment Cardiovascular: normal rate Respiratory/Chest: lungs clear Abdomen: normal bowel sounds Objective Current Medications Medications (Trade) Dose Ordered Sig/Stacey Route PRN Reason Start Time Stop Time Status Last Admin Dose Admin Acetaminophen (Tylenol) 500 mg Q4H PRN ORAL Temp >100.5/pain 11/08/19 16:45 12/08/19 16:44 11/09/19 04:31 Aspirin (Ecotrin) 81 mg DAILY ORAL 11/10/19 09:00 12/25/19 08:59 11/12/19 08:56 Ceftriaxone Sodium 1 gm/ Dextrose 55 ml @ 110 mls/hr Q24H IVPB 11/09/19 12:00 11/16/19 11:59 11/12/19 12:16 Dextrose (Dextrose 50%) 25 ml Q30M PRN IV Hypoglycemia 11/08/19 18:00 02/06/20 17:59 Dextrose (Dextrose 50%) 50 ml Q30M PRN IV Hypoglycemia 11/08/19 18:00 02/06/20 17:59 Insulin Aspart (NovoLOG) BEFORE MEALS AND HS SUBQ 11/08/19 21:00 02/06/20 20:59 11/12/19 20:54 Insulin Detemir (Levemir) 20 units QHS SUBQ 11/10/19 21:00 02/06/20 17:59 11/12/19 20:53 Metoprolol Tartrate (Lopressor) 25 mg Q12HR ORAL 11/09/19 21:00 02/07/20 20:59 11/12/19 20:52 Pantoprazole (Protonix) 40 mg EVERY 12 HOURS ORAL 11/09/19 21:00 12/09/19 20:59 11/12/19 20:52 Potassium Chloride (K-Dur) 40 meq TWICE A DAY ORAL 11/09/19 11:00 02/07/20 10:59 11/12/19 17:21 Tamsulosin HCl (Flomax) 0.4 mg BID ORAL 11/09/19 18:00 12/08/19 17:59 11/12/19 17:21 Juvencio Short MD November 13, 2019 07:21
--- NOTE | 2019-11-13 07:34 | NUR ---
HAND-OFF: Report given to NAMAN Holman. Plan of care endorsed.
--- NOTE | 2019-11-13 07:35 | NUR ---
NURSE NOTES: Received report from NAMAN Coates. Patient is in bed resting, denies any pain at this time. No s/s of respiratory or acute distress at this time. Patient AOx1, able to follow simple commands. Awake, alert, and responsive. IV is intact, patent and flushed. On room air, saturating at 92%. Nasal Cannula noted at bedside. Bed in lowest position, brakes engaged for safety, bed rails raised x2. Call light is within reach. Will continue with the plan of care.
[2019-11-13 08:00] VITALS: BP 133/77
[2019-11-13] MEDS: Aspirin EC 81mg tab ORAL SCH (08:22)
[2019-11-13] MEDS: Tamsulosin 0.4mg cap ORAL SCH ×2 (08:23→17:14)
--- NOTE | 2019-11-13 10:39 | Cardiac Electrophysiology PN ---
Assessment/Plan Assessment/Plan 1. Troponin leak. Etiology is not clear . No chest pain. On admission, his creatinine was 2.3 that improved to 1.3 on aspirin and Lopressor Echo EF 60% 2. Hypertension. On metoprolol 25 bid 3. Acute renal failure. Creatinine of 2.3 that normalized to 1.3. Fu by Dr. Urias. 4. Fever and cough and possible COVID pneumonia. Patient is on isolation. Results is pending. 5. Diabetes. Subjective Subjective No CP or SOB. In SR. Still being ruled out for Covid. Another test pending today Objective Last 24 Hour Vital Signs Date Time Temp Pulse Resp B/P (MAP) Pulse Ox O2 Delivery O2 Flow Rate FiO2 11/13/19 09:00 Nasal Cannula 2.0 11/13/19 08:26 95 133/77 11/13/19 08:00 97.6 95 18 133/77 (95) 93 11/13/19 04:00 98 11/13/19 04:00 97.8 93 18 100/74 (83) 96 11/13/19 00:00 89 11/13/19 00:00 97.1 83 19 109/60 (76) 93 11/12/19 21:00 Nasal Cannula 2.0 11/12/19 20:52 87 126/64 11/12/19 20:39 96 Nasal Cannula 2.0 28 11/12/19 20:00 82 11/12/19 20:00 97.0 87 19 126/64 (84) 92 11/12/19 16:00 97.1 86 20 148/76 (100) 95 11/12/19 16:00 88 11/12/19 12:00 87 11/12/19 12:00 97.2 87 20 147/94 (111) 96 Intake and Output 11/12/19 11/13/19 19:00 07:00 Intake Total 630 ml Balance 630 ml Intake Oral 630 ml # Voids 3 2 # Bowel Movements 3 Objective HEAD AND NECK: Showed no JVD. LUNGS: Coarse rhonchi. CARDIOVASCULAR: Regular S1 and S2 with no gallop or murmur. ABDOMEN: Soft. EXTREMITIES: No pitting edema. Igor Zapien MD November 13, 2019 10:39
[2019-11-13] MEDS: cefTRIAXone 1 GM in NS 55 ML IVPB SCH (11:48)
[2019-11-13 12:00] VITALS: BP 138/63
--- NOTE | 2019-11-13 12:32 | NUR ---
RD ASSESSMENT & RECOMMENDATIONS SEE CARE ACTIVITY FOR COMPLETE ASSESSMENT DAILY ESTIMATED NEEDS: Needs based on DM/ 67kg 25-30 kcals/kg total kcals 1-1.3 g protein/kg 67-87 g total protein 25-30 mL/kg total fluid mLs NUTRITION DIAGNOSIS: Altered nutrition related lab values R/T diabetes as evidenced by elev BGs and POC glu (168 163 179 119 181), A1C 10.4, U glu 4+ upon adm. CURRENT DIET:CCHO MED, mech soft ground PO DIET RECOMMENDATIONS: CCHO MED/ texture as tolerated or per CRAP SHOOTER ADDITIONAL RECOMMENDATIONS: * Calibrated bedscale wt * Monitor BGs closely -> monitor closely for hypoglycemia w/ variable PO intake * Consider CRAP SHOOTER eval for appropriate texture * Monitor PO intake, need for HPN or additional snacks
--- NOTE | 2019-11-13 14:04 | Nephrology Progress Note ---
Assessment/Plan Problem List: (1) STEPHANIE (acute kidney injury) (2) Electrolyte imbalance (3) Hyperglycemia (4) Sepsis (5) Elevated troponin (6) Pneumonia due to COVID-19 virus (7) UTI (urinary tract infection) Assessment Renal failure most likely acute on chronic Diabetes mellitus, presents with hyperglycemia Pneumonia due to COVID-19 virus Elevated troponin Sepsis, UTI, Plan Will adjust blood pressure medications Correct low potassium and low phosphorus Will hold diuretics and metformin Discontinue IV fluid as BUN and creatinine improved Keep the blood pressure and blood sugar in check Monitor renal parameters Avoid nephrotoxic's Antibiotics per ID Per orders Subjective ROS Limited/Unobtainable: No Constitutional: Reports: malaise, weakness Objective Objective Last 24 Hour Vital Signs Date Time Temp Pulse Resp B/P (MAP) Pulse Ox O2 Delivery O2 Flow Rate FiO2 11/13/19 12:00 97.2 77 18 138/63 (88) 92 11/13/19 09:00 Nasal Cannula 2.0 11/13/19 08:26 95 133/77 11/13/19 08:00 97.6 95 18 133/77 (95) 93 11/13/19 08:00 97 11/13/19 04:00 98 11/13/19 04:00 97.8 93 18 100/74 (83) 96 11/13/19 00:00 89 11/13/19 00:00 97.1 83 19 109/60 (76) 93 11/12/19 21:00 Nasal Cannula 2.0 11/12/19 20:52 87 126/64 11/12/19 20:39 96 Nasal Cannula 2.0 28 11/12/19 20:00 82 11/12/19 20:00 97.0 87 19 126/64 (84) 92 11/12/19 16:00 97.1 86 20 148/76 (100) 95 11/12/19 16:00 88 Intake and Output 11/12/19 11/13/19 19:00 07:00 Intake Total 630 ml Balance 630 ml Intake Oral 630 ml # Voids 3 2 # Bowel Movements 3 No labs were done today Height (Feet): 5 Height (Inches): 8.00 Weight (Pounds): 148 General Appearance: no apparent distress Cardiovascular: tachycardia - Slightly Abdomen: soft Objective no change Levi Urias MD November 13, 2019 14:04
--- NOTE | 2019-11-13 14:27 | Infectious Diseases Prog Note ---
Assessment/Plan Assessment/Plan IMPRESSION: Sepsis pneumonia,with COVID-19. Diabetes mellitus with hyperglycemia. Acute renal failure, resolved lactic acidosis, COPD, Hypertension, Hyperlipidemia, Dementia. MRSA carrier RECOMMENDATION: Continue ceftriaxone. We will follow up the cultures. We will rpeat COVID-19 test. Subjective ROS Limited/Unobtainable: Yes Constitutional: Denies: fever Allergies: Coded Allergies: No Known Allergies (Unverified , 08/01/18) Objective Vital Signs Last 24 Hour Vital Signs Date Time Temp Pulse Resp B/P (MAP) Pulse Ox O2 Delivery O2 Flow Rate FiO2 11/13/19 12:00 97.2 77 18 138/63 (88) 92 11/13/19 09:00 Nasal Cannula 2.0 11/13/19 08:26 95 133/77 11/13/19 08:00 97.6 95 18 133/77 (95) 93 11/13/19 08:00 97 11/13/19 04:00 98 11/13/19 04:00 97.8 93 18 100/74 (83) 96 11/13/19 00:00 89 11/13/19 00:00 97.1 83 19 109/60 (76) 93 11/12/19 21:00 Nasal Cannula 2.0 11/12/19 20:52 87 126/64 11/12/19 20:39 96 Nasal Cannula 2.0 28 11/12/19 20:00 82 11/12/19 20:00 97.0 87 19 126/64 (84) 92 11/12/19 16:00 97.1 86 20 148/76 (100) 95 11/12/19 16:00 88 Height (Feet): 5 Height (Inches): 8.00 Weight (Pounds): 148 General Appearance: no acute distress HEENT: mucous membranes moist Respiratory/Chest: lungs clear Cardiovascular: normal rate Abdomen: soft, non tender Neurologic/Psychiatric: alert, responsive Current Medications Medications (Trade) Dose Ordered Sig/Stacey Route PRN Reason Start Time Stop Time Status Last Admin Dose Admin Acetaminophen (Tylenol) 500 mg Q4H PRN ORAL Temp >100.5/pain 11/08/19 16:45 12/08/19 16:44 11/09/19 04:31 Aspirin (Ecotrin) 81 mg DAILY ORAL 11/10/19 09:00 12/25/19 08:59 11/13/19 08:22 Ceftriaxone Sodium 1 gm/ Sodium Chloride 55 ml @ 110 mls/hr Q24H IVPB 11/13/19 12:00 11/16/19 11:59 11/13/19 11:48 Dextrose (Dextrose 50%) 25 ml Q30M PRN IV Hypoglycemia 11/08/19 18:00 02/06/20 17:59 Dextrose (Dextrose 50%) 50 ml Q30M PRN IV Hypoglycemia 11/08/19 18:00 02/06/20 17:59 Insulin Aspart (NovoLOG) BEFORE MEALS AND HS SUBQ 11/08/19 21:00 02/06/20 20:59 11/13/19 11:50 Insulin Detemir (Levemir) 20 units QHS SUBQ 11/10/19 21:00 02/06/20 17:59 11/12/19 20:53 Metoprolol Tartrate (Lopressor) 25 mg Q12HR ORAL 11/09/19 21:00 02/07/20 20:59 11/13/19 08:26 Pantoprazole (Protonix) 40 mg EVERY 12 HOURS ORAL 11/09/19 21:00 12/09/19 20:59 11/13/19 08:23 Potassium Chloride (K-Dur) 40 meq TWICE A DAY ORAL 11/09/19 11:00 02/07/20 10:59 11/13/19 08:23 Tamsulosin HCl (Flomax) 0.4 mg BID ORAL 11/09/19 18:00 12/08/19 17:59 11/13/19 08:23 Flako Rivas MD November 13, 2019 14:27
[2019-11-13 16:00] VITALS: BP 128/62
--- NOTE | 2019-11-13 16:20 | Pulmonology Progress Note ---
Assessment/Plan Assessment/Plan IMPRESSION: 1. COVID 19 Pneumonia. 2. Renal failure. 3. Diabetes mellitus. 4. + nares MRSA DISCUSSION: Continue broad-spectrum antibiotics, diabetes control, IV fluids. DC Glucophage. I will follow as sneller hand. Saturating well on 2L/min O2 Jay Petersen M.D. Subjective ROS Limited/Unobtainable: Yes Interval Events: None new Constitutional: Denies: fever HEENT: Repors: no symptoms; Denies: visual change, discharge, earache, hearing change, coryza, congestion, post-nasal drip, dysphagia, other Respiratory: Reports: no symptoms Gastrointestinal/Abdominal: Reports: no symptoms; Denies: nausea, vomiting, diarrhea, constipation, blood in stool, bloating, other Genitourinary: Reports: no symptoms Allergies: Coded Allergies: No Known Allergies (Unverified , 08/01/18) All Systems: reviewed and negative except above Objective Last 24 Hour Vital Signs Date Time Temp Pulse Resp B/P (MAP) Pulse Ox O2 Delivery O2 Flow Rate FiO2 11/13/19 12:00 97.2 77 18 138/63 (88) 92 11/13/19 12:00 84 11/13/19 09:00 Nasal Cannula 2.0 11/13/19 08:26 95 133/77 11/13/19 08:00 97.6 95 18 133/77 (95) 93 11/13/19 08:00 97 11/13/19 04:00 98 11/13/19 04:00 97.8 93 18 100/74 (83) 96 11/13/19 00:00 89 11/13/19 00:00 97.1 83 19 109/60 (76) 93 11/12/19 21:00 Nasal Cannula 2.0 11/12/19 20:52 87 126/64 11/12/19 20:39 96 Nasal Cannula 2.0 28 11/12/19 20:00 82 11/12/19 20:00 97.0 87 19 126/64 (84) 92 Intake and Output 11/12/19 11/13/19 19:00 07:00 Intake Total 630 ml Balance 630 ml Intake Oral 630 ml # Voids 3 2 # Bowel Movements 3 General Appearance: no acute distress HEENT: mucous membranes moist Respiratory/Chest: chest wall non-tender, lungs clear Cardiovascular: normal peripheral pulses Abdomen: soft, non tender Extremities: no edema Neurologic/Psychiatric: alert, responsive Current Medications Medications (Trade) Dose Ordered Sig/Stacey Route PRN Reason Start Time Stop Time Status Last Admin Dose Admin Acetaminophen (Tylenol) 500 mg Q4H PRN ORAL Temp >100.5/pain 11/08/19 16:45 12/08/19 16:44 11/09/19 04:31 Aspirin (Ecotrin) 81 mg DAILY ORAL 11/10/19 09:00 12/25/19 08:59 11/13/19 08:22 Ceftriaxone Sodium 1 gm/ Sodium Chloride 55 ml @ 110 mls/hr Q24H IVPB 11/13/19 12:00 11/16/19 11:59 11/13/19 11:48 Dextrose (Dextrose 50%) 25 ml Q30M PRN IV Hypoglycemia 11/08/19 18:00 02/06/20 17:59 Dextrose (Dextrose 50%) 50 ml Q30M PRN IV Hypoglycemia 11/08/19 18:00 02/06/20 17:59 Insulin Aspart (NovoLOG) BEFORE MEALS AND HS SUBQ 11/08/19 21:00 02/06/20 20:59 11/13/19 11:50 Insulin Detemir (Levemir) 20 units QHS SUBQ 11/10/19 21:00 02/06/20 17:59 11/12/19 20:53 Metoprolol Tartrate (Lopressor) 25 mg Q12HR ORAL 11/09/19 21:00 02/07/20 20:59 11/13/19 08:26 Pantoprazole (Protonix) 40 mg EVERY 12 HOURS ORAL 11/09/19 21:00 12/09/19 20:59 11/13/19 08:23 Potassium Chloride (K-Dur) 40 meq TWICE A DAY ORAL 11/09/19 11:00 02/07/20 10:59 11/13/19 08:23 Tamsulosin HCl (Flomax) 0.4 mg BID ORAL 11/09/19 18:00 12/08/19 17:59 11/13/19 08:23 Jay Petersen MD November 13, 2019 16:20
--- NOTE | 2019-11-13 16:43 | General Progress Note ---
Assessment/Plan Problem List: (1) Diabetes mellitus out of control ICD Codes: E11.65 - Type 2 diabetes mellitus with hyperglycemia SNOMED: 23417054, 274144928 (2) Hyperglycemia ICD Codes: R73.9 - Hyperglycemia, unspecified; J12.89 - Other viral pneumonia SNOMED: 37850300, 731787118 (3) Sepsis ICD Codes: A41.9 - Sepsis, unspecified organism SNOMED: 51921685, 568472289, 551103673 (4) Fever ICD Codes: R50.9 - Fever, unspecified SNOMED: 468006759 (5) Electrolyte imbalance ICD Codes: E87.8 - Other disorders of electrolyte and fluid balance, not elsewhere classified SNOMED: 347174629 (6) UTI (urinary tract infection) ICD Codes: N39.0 - Urinary tract infection, site not specified SNOMED: 11149275 Status: progressing Assessment/Plan: covid positive afebrile reviewed chart and labs uti abx per id sugar improving Subjective ROS Limited/Unobtainable: Yes Allergies: Coded Allergies: No Known Allergies (Unverified , 08/01/18) Objective Last 24 Hour Vital Signs Date Time Temp Pulse Resp B/P (MAP) Pulse Ox O2 Delivery O2 Flow Rate FiO2 11/13/19 12:00 97.2 77 18 138/63 (88) 92 11/13/19 12:00 84 11/13/19 09:00 Nasal Cannula 2.0 11/13/19 08:26 95 133/77 11/13/19 08:00 97.6 95 18 133/77 (95) 93 11/13/19 08:00 97 11/13/19 04:00 98 11/13/19 04:00 97.8 93 18 100/74 (83) 96 11/13/19 00:00 89 11/13/19 00:00 97.1 83 19 109/60 (76) 93 11/12/19 21:00 Nasal Cannula 2.0 11/12/19 20:52 87 126/64 11/12/19 20:39 96 Nasal Cannula 2.0 28 11/12/19 20:00 82 11/12/19 20:00 97.0 87 19 126/64 (84) 92 Intake and Output 11/12/19 11/13/19 19:00 07:00 Intake Total 630 ml Balance 630 ml Intake Oral 630 ml # Voids 3 2 # Bowel Movements 3 Height (Feet): 5 Height (Inches): 8.00 Weight (Pounds): 148 Wyatt Kelley MD November 13, 2019 16:43
[2019-11-13 20:00] VITALS: BP 139/66
[2019-11-13] MEDS: Levemir Flexpen SUBQ SCH (21:00)
[2019-11-14] VITALS (7 sets, daily range): BP systolic 96–131; BP diastolic 67–86
--- NOTE | 2019-11-14 06:17 | Hematology/Onc Progress Note ---
Assessment/Plan Assessment/Plan ASSESSMENT AND PLAN: # Leukocytosis. Likely related to underlying infection versus reactive process. In this case likely COVID19 related --> Peripheral has been reviewed --> Medications have been reviewed --> Imaging has been reviewed --> Blood cultures and urine cultures prn has been started on abx, empiric treatment --> COVID19 iso treatment --> abx: cftx ==> wbc trend 16-->8 # Thrombocytopenia likely covid v other infection related --> hep and hiv pending->only if plt drop --> us abd as needed --> smear is noted --> pulm recss noted --> plt 141-->260k # Gangrene in the right third and fifth toes --> s/p right sided a,putation right metatarsal # Diabetic foot ulcer/osteomyelitis. # Diabetes mellitus. --> Aspirin and statin are the mainstay of therapy for peripheral vasculopathy. # History of hypertension --> appreciate cardiology recs # Dvt ppx scds The timing of this note does not necessarily reflect the time of the patient was seen Greatly appreciate consultation! Subjective Allergies: Coded Allergies: No Known Allergies (Unverified , 08/01/18) All Systems: reviewed and negative except above Subjective 5/3 a+o x1, on tele, no acute events, nc 2l, cftx per id, bp stable 11/11 confused, no night sweats, no bleeding, labs reviewed 11/12 remains confused, is covid19+ no bleeding, labs noted /6 labs reviewed, no bleeding, on iso, dw rn, labs pending Objective Objective Current Medications Medications (Trade) Dose Ordered Sig/Stacey Route PRN Reason Start Time Stop Time Status Last Admin Dose Admin Acetaminophen (Tylenol) 500 mg Q4H PRN ORAL Temp >100.5/pain 11/08/19 16:45 12/08/19 16:44 11/09/19 04:31 Aspirin (Ecotrin) 81 mg DAILY ORAL 11/10/19 09:00 12/25/19 08:59 11/13/19 08:22 Ceftriaxone Sodium 1 gm/ Sodium Chloride 55 ml @ 110 mls/hr Q24H IVPB 11/13/19 12:00 11/16/19 11:59 11/13/19 11:48 Dextrose (Dextrose 50%) 25 ml Q30M PRN IV Hypoglycemia 4/30/20 18:00 02/06/20 17:59 Dextrose (Dextrose 50%) 50 ml Q30M PRN IV Hypoglycemia 11/08/19 18:00 02/06/20 17:59 Insulin Aspart (NovoLOG) BEFORE MEALS AND HS SUBQ 11/08/19 21:00 02/06/20 20:59 11/13/19 21:00 Insulin Detemir (Levemir) 20 units QHS SUBQ 11/10/19 21:00 02/06/20 17:59 11/13/19 21:00 Metoprolol Tartrate (Lopressor) 25 mg Q12HR ORAL 11/09/19 21:00 02/07/20 20:59 11/13/19 21:00 Pantoprazole (Protonix) 40 mg EVERY 12 HOURS ORAL 11/09/19 21:00 12/09/19 20:59 11/13/19 21:00 Potassium Chloride (K-Dur) 40 meq TWICE A DAY ORAL 11/09/19 11:00 02/07/20 10:59 11/13/19 17:13 Tamsulosin HCl (Flomax) 0.4 mg BID ORAL 11/09/19 18:00 12/08/19 17:59 11/13/19 17:14 Last 24 Hour Vital Signs Date Time Temp Pulse Resp B/P (MAP) Pulse Ox O2 Delivery O2 Flow Rate FiO2 11/14/19 04:00 100 11/14/19 04:00 97.6 100 18 131/74 (93) 96 11/14/19 00:00 98.0 101 18 122/81 (95) 94 11/14/19 00:00 93 11/13/19 21:00 Nasal Cannula 2.0 11/13/19 21:00 109 139/66 11/13/19 20:00 109 11/13/19 20:00 97.5 109 19 139/66 (90) 93 11/13/19 16:00 98.2 71 18 128/62 (84) 93 11/13/19 16:00 104 11/13/19 12:00 97.2 77 18 138/63 (88) 92 11/13/19 12:00 84 11/13/19 09:00 Nasal Cannula 2.0 11/13/19 08:26 95 133/77 11/13/19 08:00 97.6 95 18 133/77 (95) 93 11/13/19 08:00 97 11/13/19 04:00 98 11/13/19 04:00 97.8 93 18 100/74 (83) 96 11/13/19 00:00 89 11/13/19 00:00 97.1 83 19 109/60 (76) 93 11/12/19 21:00 Nasal Cannula 2.0 11/12/19 20:52 87 126/64 11/12/19 20:39 96 Nasal Cannula 2.0 28 11/12/19 20:00 82 11/12/19 20:00 97.0 87 19 126/64 (84) 92 11/12/19 16:00 97.1 86 20 148/76 (100) 95 11/12/19 16:00 88 11/12/19 12:00 87 11/12/19 12:00 97.2 87 20 147/94 (111) 96 11/12/19 09:00 Nasal Cannula 2.0 11/12/19 08:56 95 150/84 11/12/19 08:00 97.4 95 20 150/84 (106) 96 11/12/19 08:00 101 Intake and Output 11/13/19 11/14/19 19:00 07:00 Intake Total 700 ml Balance 700 ml Intake Oral 700 ml # Voids 4 2 # Bowel Movements 4 2 Labs Test 11/12/19 05:40 White Blood Count 8.1 K/UL (4.8-10.8) Red Blood Count 4.40 M/UL (4.70-6.10) Hemoglobin 12.8 G/DL (14.2-18.0) Hematocrit 37.2 % (42.0-52.0) Mean Corpuscular Volume 85 FL (80-99) Mean Corpuscular Hemoglobin 29.2 PG (27.0-31.0) Mean Corpuscular Hemoglobin Concent 34.5 G/DL (32.0-36.0) Red Cell Distribution Width 12.6 % (11.6-14.8) Platelet Count 264 K/UL (150-450) Mean Platelet Volume 7.0 FL (6.5-10.1) Neutrophils (%) (Auto) 79.5 % (45.0-75.0) Lymphocytes (%) (Auto) 15.8 % (20.0-45.0) Monocytes (%) (Auto) 2.5 % (1.0-10.0) Eosinophils (%) (Auto) 2.0 % (0.0-3.0) Basophils (%) (Auto) 0.2 % (0.0-2.0) Sodium Level 147 MMOL/L (136-145) Potassium Level 4.0 MMOL/L (3.5-5.1) Chloride Level 111 MMOL/L (98-107) Carbon Dioxide Level 25 MMOL/L (21-32) Anion Gap 11 mmol/L (5-15) Blood Urea Nitrogen 21 mg/dL (7-18) Creatinine 0.8 MG/DL (0.55-1.30) Estimat Glomerular Filtration Rate > 60 mL/min (>60) Glucose Level 123 MG/DL (74-106) Calcium Level 8.4 MG/DL (8.5-10.1) Phosphorus Level 2.7 MG/DL (2.5-4.9) Magnesium Level 2.5 MG/DL (1.8-2.4) Total Bilirubin 1.3 MG/DL (0.2-1.0) Direct Bilirubin 0.3 MG/DL (0.0-0.3) Aspartate Amino Transf (AST/SGOT) 177 U/L (15-37) Alanine Aminotransferase (ALT/SGPT) 154 U/L (12-78) Alkaline Phosphatase 105 U/L (46-116) Total Protein 7.2 G/DL (6.4-8.2) Albumin 2.4 G/DL (3.4-5.0) Globulin 4.8 g/dL Albumin/Globulin Ratio 0.5 (1.0-2.7) Height (Feet): 5 Height (Inches): 8.00 Weight (Pounds): 148 Objective PHYSICAL EXAMINATION: VITAL SIGNS:reviewed in emr HEENT: PERRLA. NECK: Supple. No lymphadenopathy. CHEST: Clear to auscultation. CARDIOVASCULAR: Regular rate and rhythm. No murmurs or extra sounds. GASTROINTESTINAL: Soft, nontender, and nondistended. No organomegaly. 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 Reflexes equal in both sides. Jose M Wade MD November 14, 2019 06:16
[2019-11-14] MEDS: NovoLOG Insulin Flexpen SUBQ SCH ×4 (06:30→21:00)
--- NOTE | 2019-11-14 07:15 | NUR ---
HAND-OFF: Report given to [facility]OR[facility].
--- NOTE | 2019-11-14 07:50 | NUR ---
NURSE NOTES: Received report from NAMAN Duran. Patient is in bed resting, denies any pain at this time. No s/s of respiratory or acute distress at this time. Patient AOx1, able to follow simple commands. Awake, alert, and responsive. IV is intact, patent and flushed. On room air. Nasal Cannula noted at bedside. Bed in lowest position, brakes engaged for safety, bed rails raised x2. Call light is within reach. Will continue with the plan of care.
[2019-11-14 08:09] LABS: BASOPHILS % (AUTO) 0.3 % (0.0-2.0); EOSINOPHILS % (AUTO) 1.1 % (0.0-3.0); HEMATOCRIT 35.5 % (42.0-52.0); HEMOGLOBIN 12.4 G/DL (14.2-18.0); LYMPHOCYTES % (AUTO) 11.8 % (20.0-45.0); MEAN CORPUSCULAR VOLUME 84 FL (80-99); NEUTROPHILS % (AUTO) 83.8 % (45.0-75.0); PLATELET COUNT 471 K/UL (150-450); RED BLOOD COUNT 4.23 M/UL (4.70-6.10); WHITE BLOOD COUNT 15.8 K/UL (4.8-10.8)
[2019-11-14 08:14] LABS: ALANINE AMINOTRANSFERASE 117 U/L (12-78); ALBUMIN 2.6 G/DL (3.4-5.0); ALBUMIN/GLOBULIN RATIO 0.5 (1.0-2.7); ALKALINE PHOSPHATASE 142 U/L (46-116); ANION GAP 14 mmol/L (5-15); ASPARTATE AMINO TRANSFERASE 77 U/L (15-37); BILIRUBIN,TOTAL 0.9 MG/DL (0.2-1.0); BLOOD UREA NITROGEN 18 mg/dL (7-18); CALCIUM 8.9 MG/DL (8.5-10.1); CARBON DIOXIDE 21 MMOL/L (21-32); CHLORIDE 115 MMOL/L (98-107); CREATININE 0.9 MG/DL (0.55-1.30); PHOSPHORUS 2.8 MG/DL (2.5-4.9); SODIUM 150 MMOL/L (136-145)
[2019-11-14] MEDS: Tamsulosin 0.4mg cap ORAL SCH ×2 (08:58→17:25)
[2019-11-14] MEDS: Aspirin EC 81mg tab ORAL SCH (08:58)
--- NOTE | 2019-11-14 10:35 | Pulmonology Progress Note ---
Assessment/Plan Assessment/Plan IMPRESSION: 1. COVID 19 Pneumonia. 2. Renal failure. 3. Diabetes mellitus. 4. + nares MRSA DISCUSSION: Continue broad-spectrum antibiotics, diabetes control, IV fluids. Off Glucophage. 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 Saturating well on 2L/min O2 Jay Petersen M.D. Subjective ROS Limited/Unobtainable: Yes Interval Events: None new Constitutional: Denies: fever HEENT: Repors: no symptoms; Denies: visual change, discharge, earache, hearing change, coryza, congestion, post-nasal drip, dysphagia, other Respiratory: Reports: no symptoms Gastrointestinal/Abdominal: Reports: no symptoms; Denies: nausea, vomiting, diarrhea, constipation, blood in stool, bloating, other Genitourinary: Reports: no symptoms Allergies: Coded Allergies: No Known Allergies (Unverified , 08/01/18) All Systems: reviewed and negative except above Objective Last 24 Hour Vital Signs Date Time Temp Pulse Resp B/P (MAP) Pulse Ox O2 Delivery O2 Flow Rate FiO2 11/14/19 09:00 77 114/86 11/14/19 08:00 98.7 77 21 96/71 (79) 95 11/14/19 04:00 100 11/14/19 04:00 97.6 100 18 131/74 (93) 96 11/14/19 00:00 98.0 101 18 122/81 (95) 94 11/14/19 00:00 93 11/13/19 21:00 Nasal Cannula 2.0 11/13/19 21:00 109 139/66 11/13/19 20:00 109 11/13/19 20:00 97.5 109 19 139/66 (90) 93 11/13/19 16:00 98.2 71 18 128/62 (84) 93 11/13/19 16:00 104 11/13/19 12:00 97.2 77 18 138/63 (88) 92 11/13/19 12:00 84 Intake and Output 11/13/19 11/14/19 19:00 07:00 Intake Total 700 ml Balance 700 ml Intake Oral 700 ml # Voids 4 2 # Bowel Movements 4 2 General Appearance: no acute distress HEENT: mucous membranes moist Respiratory/Chest: chest wall non-tender, lungs clear Cardiovascular: normal peripheral pulses Abdomen: soft, non tender Extremities: no edema Neurologic/Psychiatric: alert, responsive Microbiology Date/Time Source Procedure Growth Status 11/12/19 17:00 Nasopharynx Coronavirus COVID-19 PCR ([facility]) - Final Complete Laboratory Tests 11/14/19 06:58: White Blood Count 15.8H, Red Blood Count 4.23L, Hemoglobin 12.4L, Hematocrit 35.5L, Mean Corpuscular Volume 84, Mean Corpuscular Hemoglobin 29.3, Mean Corpuscular Hemoglobin Concent 35.0, Red Cell Distribution Width 13.0, Platelet Count 471H, Mean Platelet Volume 5.7L, Neutrophils (%) (Auto) 83.8H, Lymphocytes (%) (Auto) 11.8L, Monocytes (%) (Auto) 3.0, Eosinophils (%) (Auto) 1.1, Basophils (%) (Auto) 0.3, Sodium Level 150H, Potassium Level 4.0, Chloride Level 115H, Carbon Dioxide Level 21, Anion Gap 14, Blood Urea Nitrogen 18, Creatinine 0.9, Estimat Glomerular Filtration Rate > 60, Glucose Level 145H, Calcium Level 8.9, Phosphorus Level 2.8, Magnesium Level 2.2, Total Bilirubin 0.9, Aspartate Amino Transf (AST/SGOT) 77H, Alanine Aminotransferase (ALT/SGPT) 117H, Alkaline Phosphatase 142H, Total Protein 7.5, Albumin 2.6L, Globulin 4.9, Albumin/Globulin Ratio 0.5L Current Medications Medications (Trade) Dose Ordered Sig/Stacey Route PRN Reason Start Time Stop Time Status Last Admin Dose Admin Acetaminophen (Tylenol) 500 mg Q4H PRN ORAL Temp >100.5/pain 11/08/19 16:45 12/08/19 16:44 11/09/19 04:31 Aspirin (Ecotrin) 81 mg DAILY ORAL 11/10/19 09:00 12/25/19 08:59 11/14/19 08:58 Ceftriaxone Sodium 1 gm/ Sodium Chloride 55 ml @ 110 mls/hr Q24H IVPB 11/13/19 12:00 11/16/19 11:59 11/13/19 11:48 Dextrose (Dextrose 50%) 25 ml Q30M PRN IV Hypoglycemia 11/08/19 18:00 02/06/20 17:59 Dextrose (Dextrose 50%) 50 ml Q30M PRN IV Hypoglycemia 11/08/19 18:00 02/06/20 17:59 Insulin Aspart (NovoLOG) BEFORE MEALS AND HS SUBQ 11/08/19 21:00 02/06/20 20:59 11/13/19 21:00 Insulin Detemir (Levemir) 20 units QHS SUBQ 11/10/19 21:00 02/06/20 17:59 11/13/19 21:00 Metoprolol Tartrate (Lopressor) 25 mg Q12HR ORAL 11/09/19 21:00 02/07/20 20:59 11/14/19 09:00 Pantoprazole (Protonix) 40 mg EVERY 12 HOURS ORAL 11/09/19 21:00 12/09/19 20:59 11/14/19 08:58 Potassium Chloride (K-Dur) 40 meq TWICE A DAY ORAL 11/09/19 11:00 02/07/20 10:59 11/14/19 08:58 Tamsulosin HCl (Flomax) 0.4 mg BID ORAL 11/09/19 18:00 12/08/19 17:59 11/14/19 08:58 Jay Petersen MD November 14, 2019 10:35
--- NOTE | 2019-11-14 11:23 | Cardiac Electrophysiology PN ---
Assessment/Plan Assessment/Plan 1. Troponin leak. Etiology is not clear . No chest pain. Creatinine was 2.3 that improved to 1.3 on aspirin and Lopressor Echo EF 60% 2. Hypertension. On metoprolol 25 bid 3. Acute renal failure. Creatinine of 2.3 that normalized to 1.[address] Urias. 4. Fever and cough and possible COVID pneumonia. Patient is on isolation. Results is pending. 5. Diabetes. Subjective Subjective No CP or SOB. In SR. Still being ruled out for Covid. Objective Last 24 Hour Vital Signs Date Time Temp Pulse Resp B/P (MAP) Pulse Ox O2 Delivery O2 Flow Rate FiO2 11/14/19 09:00 77 114/86 11/14/19 09:00 Nasal Cannula 2.0 11/14/19 08:40 100 114/86 (95) 11/14/19 08:00 100 11/14/19 08:00 98.7 77 21 96/71 (79) 95 11/14/19 04:00 100 11/14/19 04:00 97.6 100 18 131/74 (93) 96 11/14/19 00:00 98.0 101 18 122/81 (95) 94 11/14/19 00:00 93 11/13/19 21:00 Nasal Cannula 2.0 11/13/19 21:00 109 139/66 11/13/19 20:00 109 11/13/19 20:00 97.5 109 19 139/66 (90) 93 11/13/19 16:00 98.2 71 18 128/62 (84) 93 11/13/19 16:00 104 11/13/19 12:00 97.2 77 18 138/63 (88) 92 11/13/19 12:00 84 Intake and Output 11/13/19 11/14/19 19:00 07:00 Intake Total 700 ml Balance 700 ml Intake Oral 700 ml # Voids 4 2 # Bowel Movements 4 2 Laboratory Tests Test 11/14/19 06:58 White Blood Count 15.8 K/UL (4.8-10.8) H Red Blood Count 4.23 M/UL (4.70-6.10) L Hemoglobin 12.4 G/DL (14.2-18.0) L Hematocrit 35.5 % (42.0-52.0) L Mean Corpuscular Volume 84 FL (80-99) Mean Corpuscular Hemoglobin 29.3 PG (27.0-31.0) Mean Corpuscular Hemoglobin Concent 35.0 G/DL (32.0-36.0) Red Cell Distribution Width 13.0 % (11.6-14.8) Platelet Count 471 K/UL (150-450) H Mean Platelet Volume 5.7 FL (6.5-10.1) L Neutrophils (%) (Auto) 83.8 % (45.0-75.0) H Lymphocytes (%) (Auto) 11.8 % (20.0-45.0) L Monocytes (%) (Auto) 3.0 % (1.0-10.0) Eosinophils (%) (Auto) 1.1 % (0.0-3.0) Basophils (%) (Auto) 0.3 % (0.0-2.0) Sodium Level 150 MMOL/L (136-145) H Potassium Level 4.0 MMOL/L (3.5-5.1) Chloride Level 115 MMOL/L (98-107) H Carbon Dioxide Level 21 MMOL/L (21-32) Anion Gap 14 mmol/L (5-15) Blood Urea Nitrogen 18 mg/dL (7-18) Creatinine 0.9 MG/DL (0.55-1.30) Estimat Glomerular Filtration Rate > 60 mL/min (>60) Glucose Level 145 MG/DL (74-106) H Calcium Level 8.9 MG/DL (8.5-10.1) Phosphorus Level 2.8 MG/DL (2.5-4.9) Magnesium Level 2.2 MG/DL (1.8-2.4) Total Bilirubin 0.9 MG/DL (0.2-1.0) Aspartate Amino Transf (AST/SGOT) 77 U/L (15-37) H Alanine Aminotransferase (ALT/SGPT) 117 U/L (12-78) H Alkaline Phosphatase 142 U/L (46-116) H Total Protein 7.5 G/DL (6.4-8.2) Albumin 2.6 G/DL (3.4-5.0) L Globulin 4.9 g/dL Albumin/Globulin Ratio 0.5 (1.0-2.7) L Microbiology Date/Time Source Procedure Growth Status 5/4/20 17:00 Nasopharynx Coronavirus COVID-19 PCR ([facility]) - Final Complete Objective HEAD AND NECK: Showed no JVD. LUNGS: Coarse rhonchi. CARDIOVASCULAR: Regular S1 and S2 with no gallop or murmur. ABDOMEN: Soft. EXTREMITIES: No pitting edema. Igor Zapien MD November 14, 2019 11:23
[2019-11-14] MEDS: cefTRIAXone 1 GM in NS 55 ML IVPB SCH (11:58)
--- NOTE | 2019-11-14 12:15 | Infectious Diseases Prog Note ---
Assessment/Plan Assessment/Plan IMPRESSION: Sepsis pneumonia,with COVID-19.+ 11/07 , 11/11 Diabetes mellitus with hyperglycemia. Acute renal failure, resolved lactic acidosis, COPD, Hypertension, Hyperlipidemia, Dementia. MRSA carrier RECOMMENDATION: Continue ceftriaxone. We will repeat COVID19 test. Subjective ROS Limited/Unobtainable: Yes Allergies: Coded Allergies: No Known Allergies (Unverified , 08/01/18) Objective Vital Signs Last 24 Hour Vital Signs Date Time Temp Pulse Resp B/P (MAP) Pulse Ox O2 Delivery O2 Flow Rate FiO2 11/14/19 09:00 77 114/86 11/14/19 09:00 Nasal Cannula 2.0 11/14/19 08:40 100 114/86 (95) 11/14/19 08:00 100 11/14/19 08:00 98.7 77 21 96/71 (79) 95 11/14/19 04:00 100 11/14/19 04:00 97.6 100 18 131/74 (93) 96 11/14/19 00:00 98.0 101 18 122/81 (95) 94 11/14/19 00:00 93 11/13/19 21:00 Nasal Cannula 2.0 11/13/19 21:00 109 139/66 11/13/19 20:00 109 11/13/19 20:00 97.5 109 19 139/66 (90) 93 11/13/19 16:00 98.2 71 18 128/62 (84) 93 11/13/19 16:00 104 Height (Feet): 5 Height (Inches): 8.00 Weight (Pounds): 148 General Appearance: no acute distress HEENT: mucous membranes moist Cardiovascular: normal rate Abdomen: soft, non tender Extremities: no edema Neurologic/Psychiatric: alert, responsive Microbiology Date/Time Source Procedure Growth Status 11/12/19 17:00 Nasopharynx Coronavirus COVID-19 PCR ([facility]) - Final Complete Laboratory Tests Test 11/14/19 06:58 White Blood Count 15.8 K/UL (4.8-10.8) H Red Blood Count 4.23 M/UL (4.70-6.10) L Hemoglobin 12.4 G/DL (14.2-18.0) L Hematocrit 35.5 % (42.0-52.0) L Mean Corpuscular Volume 84 FL (80-99) Mean Corpuscular Hemoglobin 29.3 PG (27.0-31.0) Mean Corpuscular Hemoglobin Concent 35.0 G/DL (32.0-36.0) Red Cell Distribution Width 13.0 % (11.6-14.8) Platelet Count 471 K/UL (150-450) H Mean Platelet Volume 5.7 FL (6.5-10.1) L Neutrophils (%) (Auto) 83.8 % (45.0-75.0) H Lymphocytes (%) (Auto) 11.8 % (20.0-45.0) L Monocytes (%) (Auto) 3.0 % (1.0-10.0) Eosinophils (%) (Auto) 1.1 % (0.0-3.0) Basophils (%) (Auto) 0.3 % (0.0-2.0) Sodium Level 150 MMOL/L (136-145) H Potassium Level 4.0 MMOL/L (3.5-5.1) Chloride Level 115 MMOL/L (98-107) H Carbon Dioxide Level 21 MMOL/L (21-32) Anion Gap 14 mmol/L (5-15) Blood Urea Nitrogen 18 mg/dL (7-18) Creatinine 0.9 MG/DL (0.55-1.30) Estimat Glomerular Filtration Rate > 60 mL/min (>60) Glucose Level 145 MG/DL (74-106) H Calcium Level 8.9 MG/DL (8.5-10.1) Phosphorus Level 2.8 MG/DL (2.5-4.9) Magnesium Level 2.2 MG/DL (1.8-2.4) Total Bilirubin 0.9 MG/DL (0.2-1.0) Aspartate Amino Transf (AST/SGOT) 77 U/L (15-37) H Alanine Aminotransferase (ALT/SGPT) 117 U/L (12-78) H Alkaline Phosphatase 142 U/L (46-116) H Total Protein 7.5 G/DL (6.4-8.2) Albumin 2.6 G/DL (3.4-5.0) L Globulin 4.9 g/dL Albumin/Globulin Ratio 0.5 (1.0-2.7) L Current Medications Medications (Trade) Dose Ordered Sig/Stacey Route PRN Reason Start Time Stop Time Status Last Admin Dose Admin Acetaminophen (Tylenol) 500 mg Q4H PRN ORAL Temp >100.5/pain 11/08/19 16:45 12/08/19 16:44 11/09/19 04:31 Aspirin (Ecotrin) 81 mg DAILY ORAL 11/10/19 09:00 12/25/19 08:59 11/14/19 08:58 Ceftriaxone Sodium 1 gm/ Sodium Chloride 55 ml @ 110 mls/hr Q24H IVPB 11/13/19 12:00 11/16/19 11:59 11/14/19 11:58 Dextrose (Dextrose 50%) 25 ml Q30M PRN IV Hypoglycemia 11/08/19 18:00 02/06/20 17:59 Dextrose (Dextrose 50%) 50 ml Q30M PRN IV Hypoglycemia 11/08/19 18:00 02/06/20 17:59 Insulin Aspart (NovoLOG) BEFORE MEALS AND HS SUBQ 11/08/19 21:00 02/06/20 20:59 11/14/19 11:57 Insulin Detemir (Levemir) 20 units QHS SUBQ 11/10/19 21:00 02/06/20 17:59 11/13/19 21:00 Metoprolol Tartrate (Lopressor) 25 mg Q12HR ORAL 11/09/19 21:00 02/07/20 20:59 11/14/19 09:00 Pantoprazole (Protonix) 40 mg EVERY 12 HOURS ORAL 11/09/19 21:00 12/09/19 20:59 11/14/19 08:58 Potassium Chloride (K-Dur) 40 meq TWICE A DAY ORAL 11/09/19 11:00 02/07/20 10:59 11/14/19 08:58 Tamsulosin HCl (Flomax) 0.4 mg BID ORAL 11/09/19 18:00 12/08/19 17:59 11/14/19 08:58 Flako Rivas MD November 14, 2019 12:15
--- NOTE | 2019-11-14 13:29 | NUR ---
CASE MANAGEMENT:REVIEW 11/14/19 SI: COVID 19 PNEUMONIA. RENAL FAILURE.DM. TROPONIN LEAK 98.7 100 21 96/71 95% ON RA WBC+15.8 H/H-12.4/35.5 NA+150 AST/ALT+77/117 IS: IV ROCEPHIN Q24 LEVEMIR SQ QHS ASA PO QD PROTONIX PO Q12 LOPRESSOR PO Q12 FLOMAX PO BID K-DUR PO BID : TELEMETRY STATUS DCP: FROM [facility] PLAN: COVID POSITIVE X2
--- NOTE | 2019-11-14 13:32 | Nephrology Progress Note ---
Assessment/Plan Problem List: (1) STEPHANIE (acute kidney injury) (2) Electrolyte imbalance (3) Hyperglycemia (4) Sepsis (5) Elevated troponin (6) Pneumonia due to COVID-19 virus (7) UTI (urinary tract infection) Assessment Renal failure most likely acute on chronic Diabetes mellitus, presents with hyperglycemia Pneumonia due to COVID-19 virus Elevated troponin Sepsis, UTI, Plan Will adjust blood pressure medications Correct low potassium and low phosphorus Will hold diuretics and metformin Discontinue IV fluid as BUN and creatinine improved Keep the blood pressure and blood sugar in check Monitor renal parameters Avoid nephrotoxic's Antibiotics per ID Per orders Subjective ROS Limited/Unobtainable: No Constitutional: Reports: malaise Objective Objective Last 24 Hour Vital Signs Date Time Temp Pulse Resp B/P (MAP) Pulse Ox O2 Delivery O2 Flow Rate FiO2 11/14/19 09:00 77 114/86 11/14/19 09:00 Nasal Cannula 2.0 11/14/19 08:40 100 114/86 (95) 11/14/19 08:00 100 11/14/19 08:00 98.7 77 21 96/71 (79) 95 11/14/19 04:00 100 11/14/19 04:00 97.6 100 18 131/74 (93) 96 11/14/19 00:00 98.0 101 18 122/81 (95) 94 11/14/19 00:00 93 11/13/19 21:00 Nasal Cannula 2.0 11/13/19 21:00 109 139/66 11/13/19 20:00 109 11/13/19 20:00 97.5 109 19 139/66 (90) 93 11/13/19 16:00 98.2 71 18 128/62 (84) 93 11/13/19 16:00 104 Intake and Output 11/13/19 11/14/19 19:00 07:00 Intake Total 700 ml Balance 700 ml Intake Oral 700 ml # Voids 4 2 # Bowel Movements 4 2 Laboratory Tests 11/14/19 06:58: White Blood Count 15.8H, Red Blood Count 4.23L, Hemoglobin 12.4L, Hematocrit 35.5L, Mean Corpuscular Volume 84, Mean Corpuscular Hemoglobin 29.3, Mean Corpuscular Hemoglobin Concent 35.0, Red Cell Distribution Width 13.0, Platelet Count 471H, Mean Platelet Volume 5.7L, Neutrophils (%) (Auto) 83.8H, Lymphocytes (%) (Auto) 11.8L, Monocytes (%) (Auto) 3.0, Eosinophils (%) (Auto) 1.1, Basophils (%) (Auto) 0.3, Sodium Level 150H, Potassium Level 4.0, Chloride Level 115H, Carbon Dioxide Level 21, Anion Gap 14, Blood Urea Nitrogen 18, Creatinine 0.9, Estimat Glomerular Filtration Rate > 60, Glucose Level 145H, Calcium Level 8.9, Phosphorus Level 2.8, Magnesium Level 2.2, Total Bilirubin 0.9, Aspartate Amino Transf (AST/SGOT) 77H, Alanine Aminotransferase (ALT/SGPT) 117H, Alkaline Phosphatase 142H, Total Protein 7.5, Albumin 2.6L, Globulin 4.9, Albumin/Globulin Ratio 0.5L Height (Feet): 5 Height (Inches): 8.00 Weight (Pounds): 148 General Appearance: no apparent distress Cardiovascular: tachycardia Abdomen: distended Objective no change Levi Urias MD November 14, 2019 13:32
--- NOTE | 2019-11-14 15:30 | NUR ---
NURSE NOTES: Second Covid-19 swab done and sent to lab.
--- NOTE | 2019-11-14 17:26 | General Progress Note ---
Assessment/Plan Problem List: (1) Diabetes mellitus out of control ICD Codes: E11.65 - Type 2 diabetes mellitus with hyperglycemia SNOMED: 17207582, 070772328 (2) Hyperglycemia ICD Codes: R73.9 - Hyperglycemia, unspecified; J12.89 - Other viral pneumonia SNOMED: 12142875, 488806381 (3) Sepsis ICD Codes: A41.9 - Sepsis, unspecified organism SNOMED: 42980635, 806946119, 899540313 (4) Fever ICD Codes: R50.9 - Fever, unspecified SNOMED: 446947708 (5) Electrolyte imbalance ICD Codes: E87.8 - Other disorders of electrolyte and fluid balance, not elsewhere classified SNOMED: 724619280 (6) UTI (urinary tract infection) ICD Codes: N39.0 - Urinary tract infection, site not specified SNOMED: 29071559 Status: progressing Assessment/Plan: covid positive weak poor po intake reviewed chart uti abx per id sugar improving Subjective ROS Limited/Unobtainable: Yes Allergies: Coded Allergies: No Known Allergies (Unverified , 08/01/18) Objective Last 24 Hour Vital Signs Date Time Temp Pulse Resp B/P (MAP) Pulse Ox O2 Delivery O2 Flow Rate FiO2 11/14/19 16:00 97.7 86 20 106/71 (83) 97 11/14/19 12:00 101 11/14/19 12:00 97.1 101 20 107/71 (83) 95 11/14/19 09:00 77 114/86 11/14/19 09:00 Nasal Cannula 2.0 11/14/19 08:40 100 114/86 (95) 11/14/19 08:00 100 11/14/19 08:00 98.7 77 21 96/71 (79) 95 11/14/19 04:00 100 11/14/19 04:00 97.6 100 18 131/74 (93) 96 11/14/19 00:00 98.0 101 18 122/81 (95) 94 11/14/19 00:00 93 11/13/19 21:00 Nasal Cannula 2.0 11/13/19 21:00 109 139/66 11/13/19 20:00 109 11/13/19 20:00 97.5 109 19 139/66 (90) 93 Intake and Output 11/13/19 11/14/19 19:00 07:00 Intake Total 700 ml Balance 700 ml Intake Oral 700 ml # Voids 4 2 # Bowel Movements 4 2 Laboratory Tests 11/14/19 06:58: White Blood Count 15.8H, Red Blood Count 4.23L, Hemoglobin 12.4L, Hematocrit 35.5L, Mean Corpuscular Volume 84, Mean Corpuscular Hemoglobin 29.3, Mean Corpuscular Hemoglobin Concent 35.0, Red Cell Distribution Width 13.0, Platelet Count 471H, Mean Platelet Volume 5.7L, Neutrophils (%) (Auto) 83.8H, Lymphocytes (%) (Auto) 11.8L, Monocytes (%) (Auto) 3.0, Eosinophils (%) (Auto) 1.1, Basophils (%) (Auto) 0.3, Sodium Level 150H, Potassium Level 4.0, Chloride Level 115H, Carbon Dioxide Level 21, Anion Gap 14, Blood Urea Nitrogen 18, Creatinine 0.9, Estimat Glomerular Filtration Rate > 60, Glucose Level 145H, Calcium Level 8.9, Phosphorus Level 2.8, Magnesium Level 2.2, Total Bilirubin 0.9, Aspartate Amino Transf (AST/SGOT) 77H, Alanine Aminotransferase (ALT/SGPT) 117H, Alkaline Phosphatase 142H, Total Protein 7.5, Albumin 2.6L, Globulin 4.9, Albumin/Globulin Ratio 0.5L Height (Feet): 5 Height (Inches): 8.00 Weight (Pounds): 148 Wyatt Kelley MD November 14, 2019 17:26
--- NOTE | 2019-11-14 18:00 | General Progress Note ---
Assessment/Plan Problem List: (1) Necrosis ICD Codes: I96 - Gangrene, not elsewhere classified SNOMED: 738000938, 5773315 (2) Hyperglycemia ICD Codes: R73.9 - Hyperglycemia, unspecified; J12.89 - Other viral pneumonia SNOMED: 92210132, 795717070 (3) Sepsis ICD Codes: A41.9 - Sepsis, unspecified organism SNOMED: 03955640, 596478108, 641653489 (4) Elevated troponin ICD Codes: R79.89 - Other specified abnormal findings of blood chemistry; J12.89 - Other viral pneumonia SNOMED: 896622501, 060727893, 568341177 (5) Pneumonia due to COVID-19 virus ICD Codes: U07.1 - COVID-19; J12.89 - Other viral pneumonia SNOMED: 860852467, 454562510 Status: progressing Assessment/Plan: continue Levemir 20 units qhs add Novolog 4 units ac tid continue Novolog sliding scale ac / hs Subjective Allergies: Coded Allergies: No Known Allergies (Unverified , 08/01/18) Subjective events noted mealtime glucose is elevated Item Value Date Time Bedside Blood Glucose 390 mg/dl H 11/14/19 1633 Bedside Blood Glucose 189 mg/dl H 11/14/19 1157 Bedside Blood Glucose 138 mg/dl H 11/14/19 0630 Bedside Blood Glucose 330 mg/dl H 11/13/19 2100 Bedside Blood Glucose 232 mg/dl H 11/13/19 1717 Bedside Blood Glucose 209 mg/dl H 11/13/19 1150 Objective Last 24 Hour Vital Signs Date Time Temp Pulse Resp B/P (MAP) Pulse Ox O2 Delivery O2 Flow Rate FiO2 11/14/19 16:00 97.7 86 20 106/71 (83) 97 11/14/19 12:00 101 11/14/19 12:00 97.1 101 20 107/71 (83) 95 11/14/19 09:00 77 114/86 11/14/19 09:00 Nasal Cannula 2.0 11/14/19 08:40 100 114/86 (95) 11/14/19 08:00 100 11/14/19 08:00 98.7 77 21 96/71 (79) 95 11/14/19 04:00 100 11/14/19 04:00 97.6 100 18 131/74 (93) 96 11/14/19 00:00 98.0 101 18 122/81 (95) 94 11/14/19 00:00 93 11/13/19 21:00 Nasal Cannula 2.0 11/13/19 21:00 109 139/66 11/13/19 20:00 109 11/13/19 20:00 97.5 109 19 139/66 (90) 93 Intake and Output 11/13/19 11/14/19 19:00 07:00 Intake Total 700 ml Balance 700 ml Intake Oral 700 ml # Voids 4 2 # Bowel Movements 4 2 Laboratory Tests 11/14/19 06:58: White Blood Count 15.8H, Red Blood Count 4.23L, Hemoglobin 12.4L, Hematocrit 35.5L, Mean Corpuscular Volume 84, Mean Corpuscular Hemoglobin 29.3, Mean Corpuscular Hemoglobin Concent 35.0, Red Cell Distribution Width 13.0, Platelet Count 471H, Mean Platelet Volume 5.7L, Neutrophils (%) (Auto) 83.8H, Lymphocytes (%) (Auto) 11.8L, Monocytes (%) (Auto) 3.0, Eosinophils (%) (Auto) 1.1, Basophils (%) (Auto) 0.3, Sodium Level 150H, Potassium Level 4.0, Chloride Level 115H, Carbon Dioxide Level 21, Anion Gap 14, Blood Urea Nitrogen 18, Creatinine 0.9, Estimat Glomerular Filtration Rate > 60, Glucose Level 145H, Calcium Level 8.9, Phosphorus Level 2.8, Magnesium Level 2.2, Total Bilirubin 0.9, Aspartate Amino Transf (AST/SGOT) 77H, Alanine Aminotransferase (ALT/SGPT) 117H, Alkaline Phosphatase 142H, Total Protein 7.5, Albumin 2.6L, Globulin 4.9, Albumin/Globulin Ratio 0.5L Height (Feet): 5 Height (Inches): 8.00 Weight (Pounds): 148 General Appearance: no apparent distress Neck: normal alignment Cardiovascular: normal rate Respiratory/Chest: lungs clear Abdomen: normal bowel sounds Objective Current Medications Medications (Trade) Dose Ordered Sig/Stacey Route PRN Reason Start Time Stop Time Status Last Admin Dose Admin Acetaminophen (Tylenol) 500 mg Q4H PRN ORAL Temp >100.5/pain 11/08/19 16:45 12/08/19 16:44 11/09/19 04:31 Aspirin (Ecotrin) 81 mg DAILY ORAL 11/10/19 09:00 12/25/19 08:59 11/14/19 08:58 Ceftriaxone Sodium 1 gm/ Sodium Chloride 55 ml @ 110 mls/hr Q24H IVPB 11/13/19 12:00 11/16/19 11:59 11/14/19 11:58 Dextrose (Dextrose 50%) 25 ml Q30M PRN IV Hypoglycemia 11/08/19 18:00 02/06/20 17:59 Dextrose (Dextrose 50%) 50 ml Q30M PRN IV Hypoglycemia 11/08/19 18:00 02/06/20 17:59 Insulin Aspart (NovoLOG) BEFORE MEALS AND HS SUBQ 11/08/19 21:00 02/06/20 20:59 11/14/19 16:33 Insulin Detemir (Levemir) 20 units QHS SUBQ 11/10/19 21:00 02/06/20 17:59 11/13/19 21:00 Metoprolol Tartrate (Lopressor) 25 mg Q12HR ORAL 11/09/19 21:00 02/07/20 20:59 11/14/19 09:00 Pantoprazole (Protonix) 40 mg EVERY 12 HOURS ORAL 11/09/19 21:00 12/09/19 20:59 11/14/19 08:58 Potassium Chloride (K-Dur) 40 meq DAILY ORAL 11/15/19 09:00 02/07/20 10:59 Tamsulosin HCl (Flomax) 0.4 mg BID ORAL 11/09/19 18:00 12/08/19 17:59 11/14/19 17:25 Juvecnio Short MD November 14, 2019 18:00
--- NOTE | 2019-11-14 19:37 | NUR ---
HAND-OFF: Report given to Roger FLORENCE. Patient is in stable condition.
[2019-11-14] MEDS: Levemir Flexpen SUBQ SCH (21:00)
[2019-11-15] VITALS: BP 107/78
[2019-11-15 04:00] VITALS: BP 125/61
[2019-11-15] MEDS: NovoLOG Insulin Flexpen SUBQ SCH ×7 (06:30→20:42)
--- NOTE | 2019-11-15 07:20 | NUR ---
NURSE NOTES:Handoff received from NAMAN Duran. Patient received awake and alert and resting in bed, patient did not verbally respond. Patient is on room air, no acute signs of distress noted. IV site is clean dry and intact, saline locked. Bed in the low and locked position with call light within reach, will continue to monitor patient.
--- NOTE | 2019-11-15 07:20 | NUR ---
HAND-OFF: Report given to Scott FLORENCE.
--- NOTE | 2019-11-15 07:31 | General Progress Note ---
Assessment/Plan Problem List: (1) Necrosis ICD Codes: I96 - Gangrene, not elsewhere classified SNOMED: 494547795, 8692732 (2) Hyperglycemia ICD Codes: R73.9 - Hyperglycemia, unspecified; J12.89 - Other viral pneumonia SNOMED: 35997616, 282686240 (3) Sepsis ICD Codes: A41.9 - Sepsis, unspecified organism SNOMED: 34167270, 473146515, 903928256 (4) Elevated troponin ICD Codes: R79.89 - Other specified abnormal findings of blood chemistry; J12.89 - Other viral pneumonia SNOMED: 214393724, 460589342, 807200055 (5) Pneumonia due to COVID-19 virus ICD Codes: U07.1 - COVID-19; J12.89 - Other viral pneumonia SNOMED: 638954553, 019290831 Status: progressing Assessment/Plan: continue Levemir 20 units qhs continue Novolog 4 units ac tid continue Novolog sliding scale ac / hs Subjective Allergies: Coded Allergies: No Known Allergies (Unverified , 08/01/18) All Systems: reviewed and negative except above Subjective events noted mealtime glucose is elevated Item Value Date Time Bedside Blood Glucose 137 mg/dl H 11/15/19 0630 Bedside Blood Glucose 346 mg/dl H 11/14/19 2100 Bedside Blood Glucose 390 mg/dl H 11/14/19 1633 Bedside Blood Glucose 189 mg/dl H 11/14/19 1157 Bedside Blood Glucose 138 mg/dl H 11/14/19 0630 Objective Last 24 Hour Vital Signs Date Time Temp Pulse Resp B/P (MAP) Pulse Ox O2 Delivery O2 Flow Rate FiO2 11/15/19 04:00 98.9 99 18 125/61 (82) 97 11/15/19 04:00 120 11/15/19 00:00 122 11/15/19 00:00 98.1 98 18 107/78 (88) 96 11/14/19 21:55 101 109/67 11/14/19 21:00 Nasal Cannula 2.0 11/14/19 20:00 97.2 101 18 109/67 (81) 95 11/14/19 20:00 116 11/14/19 16:00 104 11/14/19 16:00 97.7 86 20 106/71 (83) 97 11/14/19 12:00 101 11/14/19 12:00 97.1 101 20 107/71 (83) 95 11/14/19 09:00 77 114/86 11/14/19 09:00 Nasal Cannula 2.0 11/14/19 08:40 100 114/86 (95) 11/14/19 08:00 100 11/14/19 08:00 98.7 77 21 96/71 (79) 95 Intake and Output 11/14/19 11/15/19 19:00 07:00 Intake Total 600 ml Balance 600 ml Intake Oral 600 ml # Voids 4 2 Height (Feet): 5 Height (Inches): 8.00 Weight (Pounds): 148 General Appearance: no apparent distress Neck: normal alignment Cardiovascular: normal rate Respiratory/Chest: decreased breath sounds Abdomen: normal bowel sounds Pelvis: normal external exam Objective Current Medications Medications (Trade) Dose Ordered Sig/Stacey Route PRN Reason Start Time Stop Time Status Last Admin Dose Admin Acetaminophen (Tylenol) 500 mg Q4H PRN ORAL Temp >100.5/pain 11/08/19 16:45 12/08/19 16:44 11/09/19 04:31 Aspirin (Ecotrin) 81 mg DAILY ORAL 11/10/19 09:00 12/25/19 08:59 11/14/19 08:58 Ceftriaxone Sodium 1 gm/ Sodium Chloride 55 ml @ 110 mls/hr Q24H IVPB 11/13/19 12:00 11/16/19 11:59 11/14/19 11:58 Dextrose (Dextrose 50%) 25 ml Q30M PRN IV Hypoglycemia 11/14/19 18:00 02/12/20 17:59 Dextrose (Dextrose 50%) 50 ml Q30M PRN IV Hypoglycemia 11/14/19 18:00 02/12/20 17:59 Insulin Aspart (NovoLOG) BEFORE MEALS AND HS SUBQ 11/08/19 21:00 02/06/20 20:59 11/14/19 21:00 Insulin Aspart (NovoLOG) 4 units NOVOTIAC SUBQ 11/15/19 06:30 02/13/20 06:29 Insulin Detemir (Levemir) 20 units QHS SUBQ 11/10/19 21:00 02/06/20 17:59 11/14/19 21:00 Metoprolol Tartrate (Lopressor) 25 mg Q12HR ORAL 11/09/19 21:00 02/07/20 20:59 11/14/19 21:55 Pantoprazole (Protonix) 40 mg EVERY 12 HOURS ORAL 11/09/19 21:00 12/09/19 20:59 11/14/19 21:55 Potassium Chloride (K-Dur) 40 meq DAILY ORAL 11/15/19 09:00 02/07/20 10:59 Tamsulosin HCl (Flomax) 0.4 mg BID ORAL 11/09/19 18:00 12/08/19 17:59 11/14/19 17:25 Juvencio Short MD November 15, 2019 07:31
[2019-11-15 07:48] LABS: BASOPHILS % (AUTO) 0.3 % (0.0-2.0); EOSINOPHILS % (AUTO) 0.9 % (0.0-3.0); HEMATOCRIT 37.1 % (42.0-52.0); HEMOGLOBIN 12.7 G/DL (14.2-18.0); LYMPHOCYTES % (AUTO) 14.4 % (20.0-45.0); MEAN CORPUSCULAR VOLUME 84 FL (80-99); MONOCYTES % (AUTO) 3.1 % (1.0-10.0); NEUTROPHILS % (AUTO) 81.3 % (45.0-75.0); PLATELET COUNT 547 K/UL (150-450); RED BLOOD COUNT 4.39 M/UL (4.70-6.10); RED CELL DISTRIBUTION WIDTH 13.1 % (11.6-14.8); WHITE BLOOD COUNT 15.5 K/UL (4.8-10.8)
[2019-11-15 08:00] VITALS: BP 144/107
--- NOTE | 2019-11-15 08:50 | Hematology/Onc Progress Note ---
Assessment/Plan Assessment/Plan ASSESSMENT AND PLAN: # Leukocytosis. Likely related to underlying infection versus reactive process. In this case likely COVID19 related --> Peripheral has been reviewed --> Medications have been reviewed --> Imaging has been reviewed --> Blood cultures and urine cultures prn has been started on abx, empiric treatment --> COVID19 iso treatment --> abx: cftx ==> wbc trend 16-->8-->15 # Thrombcytosis in the past was thrombocytopenia, likely is a reactive process --> hep and hiv pending->only if plt drop --> us abd as needed --> smear is noted --> pulm recss noted --> plt 141-->260k-->547 # Gangrene in the right third and fifth toes --> s/p right sided a,putation right metatarsal # Diabetic foot ulcer/osteomyelitis. # Diabetes mellitus. --> Aspirin and statin are the mainstay of therapy for peripheral vasculopathy. # History of hypertension --> appreciate cardiology recs # Dvt ppx scds The timing of this note does not necessarily reflect the time of the patient was seen Greatly appreciate consultation! Subjective Constitutional: Denies: no symptoms, chills, fever, malaise, weakness, other HEENT: Denies: no symptoms, eye pain, blurred vision, tearing, double vision, ear pain, ear discharge, nose pain, nose congestion, throat pain, throat swelling, mouth pain, mouth swelling, other Cardiovascular: Denies: no symptoms, chest pain, edema, irregular heart rate, lightheadedness, palpitations, syncope, other Respiratory: Denies: no symptoms, cough, shortness of breath, SOB with excertion, SOB at rest, sputum, wheezing, other Genitourinary: Denies: no symptoms, burning, discharge, frequency, flank pain, hematuria, incontinence, pain, urgency, other Neurologic/Psychiatric: Denies: no symptoms, anxiety, depressed, emotional problems, headache, numbness, paresthesia, pre-existing deficit, seizure, tingling, tremors, weakness, other Allergies: Coded Allergies: No Known Allergies (Unverified , 08/01/18) Subjective 5/3 a+o x1, on tele, no acute events, nc 2l, cftx per id, bp stable 5/4 confused, no night sweats, no bleeding, labs reviewed 11/12 remains confused, is covid19+ no bleeding, labs noted 11/13 labs reviewed, no bleeding, on iso, becca rn, labs pending 11/14 reviewed meds, no bleeding, no hemolysis is noted, no fc Objective Objective Current Medications Medications (Trade) Dose Ordered Sig/Stacey Route PRN Reason Start Time Stop Time Status Last Admin Dose Admin Acetaminophen (Tylenol) 500 mg Q4H PRN ORAL Temp >100.5/pain 11/08/19 16:45 12/08/19 16:44 11/09/19 04:31 Aspirin (Ecotrin) 81 mg DAILY ORAL 11/10/19 09:00 12/25/19 08:59 11/14/19 08:58 Ceftriaxone Sodium 1 gm/ Sodium Chloride 55 ml @ 110 mls/hr Q24H IVPB 11/13/19 12:00 11/16/19 11:59 11/14/19 11:58 Dextrose (Dextrose 50%) 25 ml Q30M PRN IV Hypoglycemia 11/14/19 18:00 02/12/20 17:59 Dextrose (Dextrose 50%) 50 ml Q30M PRN IV Hypoglycemia 11/14/19 18:00 02/12/20 17:59 Insulin Aspart (NovoLOG) BEFORE MEALS AND HS SUBQ 11/08/19 21:00 02/06/20 20:59 11/14/19 21:00 Insulin Aspart (NovoLOG) 4 units NOVOTIAC SUBQ 11/15/19 06:30 02/13/20 06:29 Insulin Detemir (Levemir) 20 units QHS SUBQ 11/10/19 21:00 02/06/20 17:59 11/14/19 21:00 Metoprolol Tartrate (Lopressor) 25 mg Q12HR ORAL 11/09/19 21:00 02/07/20 20:59 11/14/19 21:55 Pantoprazole (Protonix) 40 mg EVERY 12 HOURS ORAL 11/09/19 21:00 12/09/19 20:59 11/14/19 21:55 Potassium Chloride (K-Dur) 40 meq DAILY ORAL 11/15/19 09:00 02/07/20 10:59 Tamsulosin HCl (Flomax) 0.4 mg BID ORAL 11/09/19 18:00 12/08/19 17:59 11/14/19 17:25 Last 24 Hour Vital Signs Date Time Temp Pulse Resp B/P (MAP) Pulse Ox O2 Delivery O2 Flow Rate FiO2 11/15/19 08:00 98.4 112 21 144/107 (119) 94 11/15/19 04:00 98.9 99 18 125/61 (82) 97 11/15/19 04:00 120 11/15/19 00:00 122 11/15/19 00:00 98.1 98 18 107/78 (88) 96 11/14/19 21:55 101 109/67 11/14/19 21:00 Nasal Cannula 2.0 11/14/19 20:00 97.2 101 18 109/67 (81) 95 11/14/19 20:00 116 11/14/19 16:00 104 11/14/19 16:00 97.7 86 20 106/71 (83) 97 11/14/19 12:00 101 11/14/19 12:00 97.1 101 20 107/71 (83) 95 11/14/19 09:00 77 114/86 11/14/19 09:00 Nasal Cannula 2.0 11/14/19 08:40 100 114/86 (95) 11/14/19 08:00 100 11/14/19 08:00 98.7 77 21 96/71 (79) 95 11/14/19 04:00 100 11/14/19 04:00 97.6 100 18 131/74 (93) 96 11/14/19 00:00 98.0 101 18 122/81 (95) 94 11/14/19 00:00 93 11/13/19 21:00 Nasal Cannula 2.0 11/13/19 21:00 109 139/66 11/13/19 20:00 109 11/13/19 20:00 97.5 109 19 139/66 (90) 93 11/13/19 16:00 98.2 71 18 128/62 (84) 93 11/13/19 16:00 104 11/13/19 12:00 97.2 77 18 138/63 (88) 92 11/13/19 12:00 84 11/13/19 09:00 Nasal Cannula 2.0 Intake and Output 11/14/19 11/15/19 19:00 07:00 Intake Total 600 ml Balance 600 ml Intake Oral 600 ml # Voids 4 2 Labs Test 11/14/19 06:58 11/15/19 06:53 White Blood Count 15.8 K/UL (4.8-10.8) 15.5 K/UL (4.8-10.8) Red Blood Count 4.23 M/UL (4.70-6.10) 4.39 M/UL (4.70-6.10) Hemoglobin 12.4 G/DL (14.2-18.0) 12.7 G/DL (14.2-18.0) Hematocrit 35.5 % (42.0-52.0) 37.1 % (42.0-52.0) Mean Corpuscular Volume 84 FL (80-99) 84 FL (80-99) Mean Corpuscular Hemoglobin 29.3 PG (27.0-31.0) 29.0 PG (27.0-31.0) Mean Corpuscular Hemoglobin Concent 35.0 G/DL (32.0-36.0) 34.3 G/DL (32.0-36.0) Red Cell Distribution Width 13.0 % (11.6-14.8) 13.1 % (11.6-14.8) Platelet Count 471 K/UL (150-450) 547 K/UL (150-450) Mean Platelet Volume 5.7 FL (6.5-10.1) 5.4 FL (6.5-10.1) Neutrophils (%) (Auto) 83.8 % (45.0-75.0) 81.3 % (45.0-75.0) Lymphocytes (%) (Auto) 11.8 % (20.0-45.0) 14.4 % (20.0-45.0) Monocytes (%) (Auto) 3.0 % (1.0-10.0) 3.1 % (1.0-10.0) Eosinophils (%) (Auto) 1.1 % (0.0-3.0) 0.9 % (0.0-3.0) Basophils (%) (Auto) 0.3 % (0.0-2.0) 0.3 % (0.0-2.0) Sodium Level 150 MMOL/L (136-145) Potassium Level 4.0 MMOL/L (3.5-5.1) Chloride Level 115 MMOL/L (98-107) Carbon Dioxide Level 21 MMOL/L (21-32) Anion Gap 14 mmol/L (5-15) Blood Urea Nitrogen 18 mg/dL (7-18) Creatinine 0.9 MG/DL (0.55-1.30) Estimat Glomerular Filtration Rate > 60 mL/min (>60) Glucose Level 145 MG/DL (74-106) Calcium Level 8.9 MG/DL (8.5-10.1) Phosphorus Level 2.8 MG/DL (2.5-4.9) Magnesium Level 2.2 MG/DL (1.8-2.4) Total Bilirubin 0.9 MG/DL (0.2-1.0) Aspartate Amino Transf (AST/SGOT) 77 U/L (15-37) Alanine Aminotransferase (ALT/SGPT) 117 U/L (12-78) Alkaline Phosphatase 142 U/L (46-116) Total Protein 7.5 G/DL (6.4-8.2) Albumin 2.6 G/DL (3.4-5.0) Globulin 4.9 g/dL Albumin/Globulin Ratio 0.5 (1.0-2.7) Height (Feet): 5 Height (Inches): 8.00 Weight (Pounds): 148 Objective PHYSICAL EXAMINATION: VITAL SIGNS:reviewed in emr HEENT: PERRLA. NECK: Supple. No lymphadenopathy. CHEST: Clear to auscultation. CARDIOVASCULAR: Regular rate and rhythm. No murmurs or extra sounds. GASTROINTESTINAL: Soft, nontender, and nondistended. No organomegaly. 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 Reflexes equal in both sides. Jose M Wade MD November 15, 2019 08:50
[2019-11-15] MEDS: Tamsulosin 0.4mg cap ORAL SCH ×2 (09:11→16:59)
[2019-11-15] MEDS: Aspirin EC 81mg tab ORAL SCH (09:12)
[2019-11-15] MEDS: Enoxaparin 40mg Inj SUBQ SCH (09:12)
--- NOTE | 2019-11-15 10:27 | Nephrology Progress Note ---
Assessment/Plan Problem List: (1) STEPHANIE (acute kidney injury) (2) Electrolyte imbalance (3) Hyperglycemia (4) Sepsis (5) Elevated troponin (6) Pneumonia due to COVID-19 virus (7) UTI (urinary tract infection) Assessment Renal failure most likely acute on chronic Diabetes mellitus, presents with hyperglycemia Pneumonia due to COVID-19 virus Elevated troponin Sepsis, UTI, Plan Discussed with Dr Helm Will adjust blood pressure medications Correct low potassium and low phosphorus Will hold diuretics and metformin Discontinue IV fluid as BUN and creatinine improved Keep the blood pressure and blood sugar in check Monitor renal parameters Avoid nephrotoxic's Antibiotics per ID Per orders Subjective ROS Limited/Unobtainable: No Constitutional: Reports: malaise, weakness Objective Objective Last 24 Hour Vital Signs Date Time Temp Pulse Resp B/P (MAP) Pulse Ox O2 Delivery O2 Flow Rate FiO2 11/15/19 09:11 112 144/107 11/15/19 09:00 Nasal Cannula 2.0 11/15/19 08:00 98.4 112 21 144/107 (119) 94 11/15/19 04:00 98.9 99 18 125/61 (82) 97 11/15/19 04:00 120 11/15/19 00:00 122 11/15/19 00:00 98.1 98 18 107/78 (88) 96 11/14/19 21:55 101 109/67 11/14/19 21:00 Nasal Cannula 2.0 11/14/19 20:00 97.2 101 18 109/67 (81) 95 11/14/19 20:00 116 11/14/19 16:00 104 11/14/19 16:00 97.7 86 20 106/71 (83) 97 11/14/19 12:00 101 11/14/19 12:00 97.1 101 20 107/71 (83) 95 Intake and Output 11/14/19 11/15/19 19:00 07:00 Intake Total 600 ml Balance 600 ml Intake Oral 600 ml # Voids 4 2 Laboratory Tests 11/15/19 06:53: White Blood Count 15.5H, Red Blood Count 4.39L, Hemoglobin 12.7L, Hematocrit 37.1L, Mean Corpuscular Volume 84, Mean Corpuscular Hemoglobin 29.0, Mean Corpuscular Hemoglobin Concent 34.3, Red Cell Distribution Width 13.1, Platelet Count 547H, Mean Platelet Volume 5.4L, Neutrophils (%) (Auto) 81.3H, Lymphocytes (%) (Auto) 14.4L, Monocytes (%) (Auto) 3.1, Eosinophils (%) (Auto) 0.9, Basophils (%) (Auto) 0.3 Height (Feet): 5 Height (Inches): 8.00 Weight (Pounds): 148 General Appearance: no apparent distress, lethargic Cardiovascular: tachycardia Respiratory/Chest: decreased breath sounds Abdomen: distended Objective no change Levi Urias MD November 15, 2019 10:27
--- NOTE | 2019-11-15 10:47 | Pulmonology Progress Note ---
Subjective ROS Limited/Unobtainable: No Interval Events: None new Constitutional: Denies: fever HEENT: Repors: no symptoms; Denies: visual change, discharge, earache, hearing change, coryza, congestion, post-nasal drip, dysphagia, other Respiratory: Reports: no symptoms Gastrointestinal/Abdominal: Reports: no symptoms; Denies: nausea, vomiting, diarrhea, constipation, blood in stool, bloating, other Genitourinary: Reports: no symptoms Allergies: Coded Allergies: No Known Allergies (Unverified , 08/01/18) All Systems: reviewed and negative except above Objective Last 24 Hour Vital Signs Date Time Temp Pulse Resp B/P (MAP) Pulse Ox O2 Delivery O2 Flow Rate FiO2 11/15/19 09:11 112 144/107 11/15/19 09:00 Nasal Cannula 2.0 11/15/19 08:00 118 11/15/19 08:00 98.4 112 21 144/107 (119) 94 11/15/19 04:00 98.9 99 18 125/61 (82) 97 11/15/19 04:00 120 11/15/19 00:00 122 11/15/19 00:00 98.1 98 18 107/78 (88) 96 11/14/19 21:55 101 109/67 11/14/19 21:00 Nasal Cannula 2.0 11/14/19 20:00 97.2 101 18 109/67 (81) 95 11/14/19 20:00 116 11/14/19 16:00 104 11/14/19 16:00 97.7 86 20 106/71 (83) 97 11/14/19 12:00 101 11/14/19 12:00 97.1 101 20 107/71 (83) 95 Intake and Output 11/14/19 11/15/19 19:00 07:00 Intake Total 600 ml Balance 600 ml Intake Oral 600 ml # Voids 4 2 General Appearance: no acute distress HEENT: mucous membranes moist Respiratory/Chest: chest wall non-tender, lungs clear Cardiovascular: normal peripheral pulses Abdomen: soft, non tender Extremities: no edema Neurologic/Psychiatric: alert, responsive Microbiology Date/Time Source Procedure Growth Status 11/12/19 17:00 Nasopharynx Coronavirus COVID-19 PCR ([facility]) - Final Complete Laboratory Tests 11/15/19 06:53: White Blood Count 15.5H, Red Blood Count 4.39L, Hemoglobin 12.7L, Hematocrit 37.1L, Mean Corpuscular Volume 84, Mean Corpuscular Hemoglobin 29.0, Mean Corpuscular Hemoglobin Concent 34.3, Red Cell Distribution Width 13.1, Platelet Count 547H, Mean Platelet Volume 5.4L, Neutrophils (%) (Auto) 81.3H, Lymphocytes (%) (Auto) 14.4L, Monocytes (%) (Auto) 3.1, Eosinophils (%) (Auto) 0.9, Basophils (%) (Auto) 0.3 Current Medications Medications (Trade) Dose Ordered Sig/Stacey Route PRN Reason Start Time Stop Time Status Last Admin Dose Admin Acetaminophen (Tylenol) 500 mg Q4H PRN ORAL Temp >100.5/pain 11/08/19 16:45 12/08/19 16:44 11/09/19 04:31 Aspirin (Ecotrin) 81 mg DAILY ORAL 11/10/19 09:00 12/25/19 08:59 11/15/19 09:12 Ceftriaxone Sodium 1 gm/ Sodium Chloride 55 ml @ 110 mls/hr Q24H IVPB 11/13/19 12:00 11/16/19 11:59 11/14/19 11:58 Dextrose 500 ml @ 500 mls/hr ONCE ONCE IV 11/15/19 10:30 11/15/19 11:29 Dextrose (Dextrose 50%) 25 ml Q30M PRN IV Hypoglycemia 11/14/19 18:00 02/12/20 17:59 Dextrose (Dextrose 50%) 50 ml Q30M PRN IV Hypoglycemia 11/14/19 18:00 02/12/20 17:59 Enoxaparin Sodium (Lovenox) 40 mg DAILY SUBQ 11/15/19 09:00 02/13/20 08:59 11/15/19 09:12 Insulin Aspart (NovoLOG) BEFORE MEALS AND HS SUBQ 11/08/19 21:00 02/06/20 20:59 11/14/19 21:00 Insulin Aspart (NovoLOG) 4 units NOVOTIAC SUBQ 11/15/19 06:30 02/13/20 06:29 Insulin Detemir (Levemir) 20 units QHS SUBQ 11/10/19 21:00 02/06/20 17:59 11/14/19 21:00 Metoprolol Tartrate (Lopressor) 25 mg Q12HR ORAL 11/09/19 21:00 02/07/20 20:59 11/15/19 09:11 Pantoprazole (Protonix) 40 mg EVERY 12 HOURS ORAL 11/09/19 21:00 12/09/19 20:59 11/15/19 09:11 Potassium Chloride (K-Dur) 40 meq DAILY ORAL 11/15/19 09:00 02/07/20 10:59 11/15/19 09:13 Tamsulosin HCl (Flomax) 0.4 mg BID ORAL 11/09/19 18:00 12/08/19 17:59 11/15/19 09:11 Assessment/Plan Assessment/Plan IMPRESSION: 1. COVID 19 Pneumonia. 2. Renal failure. 3. Diabetes mellitus. 4. + nares MRSA DISCUSSION: Continue broad-spectrum antibiotics, diabetes control, IV fluids. Off Glucophage. 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 Saturating well on 2L/min O2 Gustavo Bernal Omar Syed MD November 15, 2019 10:46
--- NOTE | 2019-11-15 11:55 | Cardiac Electrophysiology PN ---
Assessment/Plan Assessment/Plan 1. Troponin leak. Etiology is not clear . No chest pain. Creatinine was 2.3 that improved to 1.3 on aspirin and Lopressor Echo EF 60% 2. Hypertension. Increase metoprolol to 50 bid 3. Acute renal failure. Creatinine of 2.3 that normalized to 1.[address] Urias. 4. Fever and cough due to COVID pneumonia. Patient is on isolation. 5. Diabetes. DW Dr Urias and RN Subjective Subjective No CP or SOB. In SR. Is Covid positive x2 on 11/07 and 11/11. BP running high and tachy Objective Last 24 Hour Vital Signs Date Time Temp Pulse Resp B/P (MAP) Pulse Ox O2 Delivery O2 Flow Rate FiO2 11/15/19 09:11 112 144/107 11/15/19 09:00 Nasal Cannula 2.0 11/15/19 08:00 118 11/15/19 08:00 98.4 112 21 144/107 (119) 94 11/15/19 04:00 98.9 99 18 125/61 (82) 97 11/15/19 04:00 120 11/15/19 00:00 122 11/15/19 00:00 98.1 98 18 107/78 (88) 96 11/14/19 21:55 101 109/67 11/14/19 21:00 Nasal Cannula 2.0 11/14/19 20:00 97.2 101 18 109/67 (81) 95 11/14/19 20:00 116 11/14/19 16:00 104 11/14/19 16:00 97.7 86 20 106/71 (83) 97 11/14/19 12:00 101 11/14/19 12:00 97.1 101 20 107/71 (83) 95 Intake and Output 11/14/19 11/15/19 19:00 07:00 Intake Total 600 ml Balance 600 ml Intake Oral 600 ml # Voids 4 2 Laboratory Tests Test 11/15/19 06:53 White Blood Count 15.5 K/UL (4.8-10.8) H Red Blood Count 4.39 M/UL (4.70-6.10) L Hemoglobin 12.7 G/DL (14.2-18.0) L Hematocrit 37.1 % (42.0-52.0) L Mean Corpuscular Volume 84 FL (80-99) Mean Corpuscular Hemoglobin 29.0 PG (27.0-31.0) Mean Corpuscular Hemoglobin Concent 34.3 G/DL (32.0-36.0) Red Cell Distribution Width 13.1 % (11.6-14.8) Platelet Count 547 K/UL (150-450) H Mean Platelet Volume 5.4 FL (6.5-10.1) L Neutrophils (%) (Auto) 81.3 % (45.0-75.0) H Lymphocytes (%) (Auto) 14.4 % (20.0-45.0) L Monocytes (%) (Auto) 3.1 % (1.0-10.0) Eosinophils (%) (Auto) 0.9 % (0.0-3.0) Basophils (%) (Auto) 0.3 % (0.0-2.0) Microbiology Date/Time Source Procedure Growth Status 11/12/19 17:00 Nasopharynx Coronavirus COVID-19 PCR ([facility]) - Final Complete Objective HEAD AND NECK: Showed no JVD. LUNGS: Coarse rhonchi. CARDIOVASCULAR: Regular S1 and S2 with no gallop or murmur. ABDOMEN: Soft. EXTREMITIES: No pitting edema. Igor Zapien MD November 15, 2019 11:55
[2019-11-15 12:00] VITALS: BP 139/77
[2019-11-15] MEDS: cefTRIAXone 1 GM in NS 55 ML IVPB SCH (12:44)
--- NOTE | 2019-11-15 13:54 | NUR ---
DISCHARGE PLANNING COVID 19 PNEUMONIA NOT READY FOR DISCHARGE HR~112 WBC+15.5 NA+150 PATIENT CANNOT RETURN TO [facility] LONG HE IS COVID POSITIVE
--- NOTE | 2019-11-15 14:27 | Infectious Diseases Prog Note ---
Assessment/Plan Assessment/Plan IMPRESSION: Sepsis pneumonia,with COVID-19.+ 11/07 , 11/11 Diabetes mellitus with hyperglycemia. Acute renal failure, resolved lactic acidosis, COPD, Hypertension, Hyperlipidemia, Dementia. MRSA carrier RECOMMENDATION: Continue ceftriaxone. Repeat CXR We will repeat COVID19 test. Subjective ROS Limited/Unobtainable: Yes Constitutional: Denies: fever Allergies: Coded Allergies: No Known Allergies (Unverified , 08/01/18) Objective Vital Signs Last 24 Hour Vital Signs Date Time Temp Pulse Resp B/P (MAP) Pulse Ox O2 Delivery O2 Flow Rate FiO2 11/15/19 12:00 98.6 86 20 139/77 (97) 97 11/15/19 12:00 111 11/15/19 09:11 112 144/107 11/15/19 09:00 Nasal Cannula 2.0 11/15/19 08:00 118 11/15/19 08:00 98.4 112 21 144/107 (119) 94 11/15/19 04:00 98.9 99 18 125/61 (82) 97 11/15/19 04:00 120 11/15/19 00:00 122 11/15/19 00:00 98.1 98 18 107/78 (88) 96 11/14/19 21:55 101 109/67 11/14/19 21:00 Nasal Cannula 2.0 11/14/19 20:00 97.2 101 18 109/67 (81) 95 11/14/19 20:00 116 11/14/19 16:00 104 11/14/19 16:00 97.7 86 20 106/71 (83) 97 Height (Feet): 5 Height (Inches): 8.00 Weight (Pounds): 148 General Appearance: no acute distress HEENT: mucous membranes moist Cardiovascular: tachycardia Abdomen: soft, non tender Neurologic/Psychiatric: alert, responsive Microbiology Date/Time Source Procedure Growth Status 11/12/19 17:00 Nasopharynx Coronavirus COVID-19 PCR ([facility]) - Final Complete Laboratory Tests Test 11/15/19 06:53 White Blood Count 15.5 K/UL (4.8-10.8) H Red Blood Count 4.39 M/UL (4.70-6.10) L Hemoglobin 12.7 G/DL (14.2-18.0) L Hematocrit 37.1 % (42.0-52.0) L Mean Corpuscular Volume 84 FL (80-99) Mean Corpuscular Hemoglobin 29.0 PG (27.0-31.0) Mean Corpuscular Hemoglobin Concent 34.3 G/DL (32.0-36.0) Red Cell Distribution Width 13.1 % (11.6-14.8) Platelet Count 547 K/UL (150-450) H Mean Platelet Volume 5.4 FL (6.5-10.1) L Neutrophils (%) (Auto) 81.3 % (45.0-75.0) H Lymphocytes (%) (Auto) 14.4 % (20.0-45.0) L Monocytes (%) (Auto) 3.1 % (1.0-10.0) Eosinophils (%) (Auto) 0.9 % (0.0-3.0) Basophils (%) (Auto) 0.3 % (0.0-2.0) Current Medications Medications (Trade) Dose Ordered Sig/Stacey Route PRN Reason Start Time Stop Time Status Last Admin Dose Admin Acetaminophen (Tylenol) 500 mg Q4H PRN ORAL Temp >100.5/pain 11/08/19 16:45 12/08/19 16:44 11/09/19 04:31 Aspirin (Ecotrin) 81 mg DAILY ORAL 11/10/19 09:00 12/25/19 08:59 11/15/19 09:12 Ceftriaxone Sodium 1 gm/ Sodium Chloride 55 ml @ 110 mls/hr Q24H IVPB 11/13/19 12:00 11/16/19 11:59 11/15/19 12:44 Dextrose (Dextrose 50%) 25 ml Q30M PRN IV Hypoglycemia 11/14/19 18:00 02/12/20 17:59 Dextrose (Dextrose 50%) 50 ml Q30M PRN IV Hypoglycemia 11/14/19 18:00 02/12/20 17:59 Enoxaparin Sodium (Lovenox) 40 mg DAILY SUBQ 11/15/19 09:00 02/13/20 08:59 11/15/19 09:12 Insulin Aspart (NovoLOG) BEFORE MEALS AND HS SUBQ 11/08/19 21:00 02/06/20 20:59 11/15/19 12:28 Insulin Aspart (NovoLOG) 4 units NOVOTIAC SUBQ 11/15/19 06:30 02/13/20 06:29 11/15/19 11:50 Insulin Detemir (Levemir) 20 units QHS SUBQ 11/10/19 21:00 02/06/20 17:59 11/14/19 21:00 Metoprolol Tartrate (Lopressor) 50 mg Q12HR ORAL 11/15/19 21:00 02/07/20 20:59 Pantoprazole (Protonix) 40 mg EVERY 12 HOURS ORAL 11/09/19 21:00 12/09/19 20:59 11/15/19 09:11 Potassium Chloride (K-Dur) 40 meq DAILY ORAL 11/15/19 09:00 02/07/20 10:59 11/15/19 09:13 Tamsulosin HCl (Flomax) 0.4 mg BID ORAL 11/09/19 18:00 12/08/19 17:59 11/15/19 09:11 Flako Rivas MD November 15, 2019 14:27
[2019-11-15 16:00] VITALS: BP 113/63
--- NOTE | 2019-11-15 16:28 | General Progress Note ---
Assessment/Plan Problem List: (1) Diabetes mellitus out of control ICD Codes: E11.65 - Type 2 diabetes mellitus with hyperglycemia SNOMED: 84483717, 051045263 (2) Hyperglycemia ICD Codes: R73.9 - Hyperglycemia, unspecified; J12.89 - Other viral pneumonia SNOMED: 10564373, 358262111 (3) Sepsis ICD Codes: A41.9 - Sepsis, unspecified organism SNOMED: 34521162, 880305836, 386160085 (4) Fever ICD Codes: R50.9 - Fever, unspecified SNOMED: 190631226 (5) Electrolyte imbalance ICD Codes: E87.8 - Other disorders of electrolyte and fluid balance, not elsewhere classified SNOMED: 431768987 (6) UTI (urinary tract infection) ICD Codes: N39.0 - Urinary tract infection, site not specified SNOMED: 10363285 Status: progressing Assessment/Plan: covid positive malnutrition seak afebrile no fever obs uti abx per id sugar improving Subjective ROS Limited/Unobtainable: Yes Allergies: Coded Allergies: No Known Allergies (Unverified , 08/01/18) Objective Last 24 Hour Vital Signs Date Time Temp Pulse Resp B/P (MAP) Pulse Ox O2 Delivery O2 Flow Rate FiO2 11/15/19 12:00 98.6 86 20 139/77 (97) 97 11/15/19 12:00 111 11/15/19 09:11 112 144/107 11/15/19 09:00 Nasal Cannula 2.0 11/15/19 08:00 118 11/15/19 08:00 98.4 112 21 144/107 (119) 94 11/15/19 04:00 98.9 99 18 125/61 (82) 97 11/15/19 04:00 120 11/15/19 00:00 122 11/15/19 00:00 98.1 98 18 107/78 (88) 96 11/14/19 21:55 101 109/67 11/14/19 21:00 Nasal Cannula 2.0 11/14/19 20:00 97.2 101 18 109/67 (81) 95 11/14/19 20:00 116 Intake and Output 11/14/19 11/15/19 19:00 07:00 Intake Total 600 ml Balance 600 ml Intake Oral 600 ml # Voids 4 2 Laboratory Tests 11/15/19 06:53: White Blood Count 15.5H, Red Blood Count 4.39L, Hemoglobin 12.7L, Hematocrit 37.1L, Mean Corpuscular Volume 84, Mean Corpuscular Hemoglobin 29.0, Mean Corpuscular Hemoglobin Concent 34.3, Red Cell Distribution Width 13.1, Platelet Count 547H, Mean Platelet Volume 5.4L, Neutrophils (%) (Auto) 81.3H, Lymphocytes (%) (Auto) 14.4L, Monocytes (%) (Auto) 3.1, Eosinophils (%) (Auto) 0.9, Basophils (%) (Auto) 0.3 Height (Feet): 5 Height (Inches): 8.00 Weight (Pounds): 148 yWatt Kelley MD November 15, 2019 16:28
[2019-11-15] MEDS: Acetaminophen 500mg (ES) tab ORAL PRN (17:26)
--- NOTE | 2019-11-15 19:41 | NUR ---
HAND-OFF: Report given to NAMAN Dailey. Pt in stable condition; plan of care endorsed.
[2019-11-15 20:00] VITALS: BP 115/68
[2019-11-15] MEDS: Levemir Flexpen SUBQ SCH (20:38)
[2019-11-15] MEDS: Metoprolol Tartrate 50mg tab ORAL SCH (21:23)
--- NOTE | 2019-11-15 22:06 | NUR ---
NURSE NOTES: RECEIVED REPORT FROM NAMAN BARTLETT. PATIENT AWAKE IN BED, ALERT, OX1. PATIENT IS NON-VERBAL, UNABLE TO MAKE NEEDS KNOWN, BUT IS ABLE TO FOLLOW SIMPLE COMMANDS, SUCH ADJUSTING POSITION IN BED, OPENING MOUTH. PATIENT NOTED TO BE LAYING HORIZONTALLY IN BED, WAS REPOSITIONED TO BE VERTICAL. BREATHING EVEN AND UNLABORED ON ROOM AIR, NO S/SX OF DISTRESS NOTED. NO S/SX OF PAIN OR DISCOMFORT NOTED AT THIS TIME. IV SITES ON LFA AND RFA ASYMPTOMATIC, PATENT, INTACT AND SALINE-LOCKED. BED LOCKED AND IN LOWEST POSITION WITH SIDERAILS UP X 3. DROPLET AND CONTACT PRECAUTIONS IMPLEMENTED. CALL LIGHT WITHIN REACH. WILL CONTINUE TO MONITOR.
[2019-11-16] VITALS: BP 135/73
[2019-11-16 04:00] VITALS: BP 142/86
[2019-11-16 06:07] LABS: BASOPHILS % (AUTO) 0.6 % (0.0-2.0); EOSINOPHILS % (AUTO) 1.3 % (0.0-3.0); HEMATOCRIT 37.9 % (42.0-52.0); LYMPHOCYTES % (AUTO) 16.8 % (20.0-45.0); MEAN CORPUSCULAR VOLUME 85 FL (80-99); MONOCYTES % (AUTO) 2.6 % (1.0-10.0); NEUTROPHILS % (AUTO) 78.8 % (45.0-75.0); PLATELET COUNT 556 K/UL (150-450); RED BLOOD COUNT 4.45 M/UL (4.70-6.10); RED CELL DISTRIBUTION WIDTH 13.3 % (11.6-14.8); WHITE BLOOD COUNT 15.1 K/UL (4.8-10.8)
[2019-11-16] MEDS: NovoLOG Insulin Flexpen SUBQ SCH ×7 (06:22→21:45)
--- NOTE | 2019-11-16 06:50 | General Progress Note ---
Assessment/Plan Problem List: (1) Hyperglycemia (2) Elevated troponin (3) Pneumonia due to COVID-19 virus (4) Abnormal TSH Status: progressing Assessment/Plan: increase Levemir 20 to 30 units qhs increase Novolog 4 to 10 units ac tid continue Novolog sliding scale ac / hs start Tapazole 10 mg daily repeat thyroid function in 3 weeks Subjective Allergies: Coded Allergies: No Known Allergies (Unverified , 08/01/18) Subjective events noted - interval notes reviewed fasting and meal time glucose elevated repeat thyroid function confirmed suppressed TSH and free T4 is elevated Item Value Date Time Bedside Blood Glucose 267 mg/dl H 11/16/19 0630 Bedside Blood Glucose 253 mg/dl H 11/15/19 2100 Bedside Blood Glucose 352 mg/dl H 11/15/19 1659 Bedside Blood Glucose 341 mg/dl H 11/15/19 1228 Bedside Blood Glucose 137 mg/dl H 11/15/19 0630 Objective Last 24 Hour Vital Signs Date Time Temp Pulse Resp B/P (MAP) Pulse Ox O2 Delivery O2 Flow Rate FiO2 11/16/19 04:00 111 11/16/19 04:00 98.0 98 20 142/86 (104) 100 11/16/19 00:00 96 11/16/19 00:00 98.1 98 21 135/73 (93) 98 11/15/19 21:23 70 115/68 11/15/19 21:00 Room Air 11/15/19 20:02 98 Room Air 21 11/15/19 20:00 114 11/15/19 20:00 98.9 70 20 115/68 (84) 98 11/15/19 17:56 99.2 11/15/19 16:00 102.1 69 17 113/63 (80) 95 11/15/19 16:00 112 11/15/19 12:00 98.6 86 20 139/77 (97) 97 11/15/19 12:00 111 11/15/19 09:11 112 144/107 11/15/19 09:00 Nasal Cannula 2.0 11/15/19 08:00 118 11/15/19 08:00 98.4 112 21 144/107 (119) 94 Intake and Output 11/15/19 11/16/19 19:00 07:00 Intake Total 960 ml Balance 960 ml Intake Oral 960 ml # Voids 2 2 Laboratory Tests 11/15/19 06:53: White Blood Count 15.5H, Red Blood Count 4.39L, Hemoglobin 12.7L, Hematocrit 37.1L, Mean Corpuscular Volume 84, Mean Corpuscular Hemoglobin 29.0, Mean Corpuscular Hemoglobin Concent 34.3, Red Cell Distribution Width 13.1, Platelet Count 547H, Mean Platelet Volume 5.4L, Neutrophils (%) (Auto) 81.3H, Lymphocytes (%) (Auto) 14.4L, Monocytes (%) (Auto) 3.1, Eosinophils (%) (Auto) 0.9, Basophils (%) (Auto) 0.3 11/16/19 05:30: White Blood Count 15.1H, Red Blood Count 4.45L, Hemoglobin 13.0L, Hematocrit 37.9L, Mean Corpuscular Volume 85, Mean Corpuscular Hemoglobin 29.3, Mean Corpuscular Hemoglobin Concent 34.4, Red Cell Distribution Width 13.3, Platelet Count 556H, Mean Platelet Volume 5.2L, Neutrophils (%) (Auto) 78.8H, Lymphocytes (%) (Auto) 16.8L, Monocytes (%) (Auto) 2.6, Eosinophils (%) (Auto) 1.3, Basophils (%) (Auto) 0.6 Height (Feet): 5 Height (Inches): 8.00 Weight (Pounds): 148 General Appearance: no apparent distress Neck: normal alignment Cardiovascular: normal rate Respiratory/Chest: decreased breath sounds Abdomen: normal bowel sounds Objective Current Medications Medications (Trade) Dose Ordered Sig/Stacey Route PRN Reason Start Time Stop Time Status Last Admin Dose Admin Acetaminophen (Tylenol) 500 mg Q4H PRN ORAL Temp >100.5/pain 11/08/19 16:45 12/08/19 16:44 11/15/19 17:26 Aspirin (Ecotrin) 81 mg DAILY ORAL 11/10/19 09:00 12/25/19 08:59 11/15/19 09:12 Ceftriaxone Sodium 1 gm/ Sodium Chloride 55 ml @ 110 mls/hr Q24H IVPB 11/13/19 12:00 11/16/19 11:59 11/15/19 12:44 Dextrose (Dextrose 50%) 25 ml Q30M PRN IV Hypoglycemia 11/14/19 18:00 02/12/20 17:59 Dextrose (Dextrose 50%) 50 ml Q30M PRN IV Hypoglycemia 11/14/19 18:00 02/12/20 17:59 Enoxaparin Sodium (Lovenox) 40 mg DAILY SUBQ 11/15/19 09:00 02/13/20 08:59 11/15/19 09:12 Insulin Aspart (NovoLOG) BEFORE MEALS AND HS SUBQ 11/08/19 21:00 02/06/20 20:59 11/16/19 06:22 Insulin Aspart (NovoLOG) 4 units NOVOTIAC SUBQ 11/15/19 06:30 02/13/20 06:29 11/16/19 06:26 Insulin Detemir (Levemir) 20 units QHS SUBQ 11/10/19 21:00 02/06/20 17:59 11/15/19 20:38 Metoprolol Tartrate (Lopressor) 50 mg Q12HR ORAL 11/15/19 21:00 02/07/20 20:59 11/15/19 21:23 Pantoprazole (Protonix) 40 mg EVERY 12 HOURS ORAL 11/09/19 21:00 12/09/19 20:59 11/15/19 20:13 Potassium Chloride (K-Dur) 40 meq DAILY ORAL 11/15/19 09:00 02/07/20 10:59 11/15/19 09:13 Tamsulosin HCl (Flomax) 0.4 mg BID ORAL 11/09/19 18:00 12/08/19 17:59 11/15/19 16:59 Juvencio Short MD November 16, 2019 06:50
--- NOTE | 2019-11-16 07:30 | NUR ---
NURSE NOTES: Received report from NAMAN De Luna. Observed pt sleeping, lying horizontally in bed, repositioned the pt. No s/sx of acute distress. IV sites patent and asymptomatic. Bed on lowest position, call light within reach. Will continue plan of care.
--- NOTE | 2019-11-16 07:33 | NUR ---
HAND-OFF: Report given to NAMAN SEBASTIAN. PLAN OF CARE ENDORSED.
[2019-11-16 08:00] VITALS: BP 112/72
[2019-11-16] MEDS: Tamsulosin 0.4mg cap ORAL SCH ×2 (08:57→17:33)
[2019-11-16] MEDS: Aspirin EC 81mg tab ORAL SCH (08:57)
[2019-11-16] MEDS: methIMAzole 10mg tab ORAL SCH (08:57)
[2019-11-16] MEDS: Metoprolol Tartrate 50mg tab ORAL SCH ×2 (08:57→21:42)
[2019-11-16] MEDS: Enoxaparin 40mg Inj SUBQ SCH (08:58)
--- NOTE | 2019-11-16 10:19 | Diagnostic Imaging Report ---
Indication: Cough Technique: One view of the chest Comparison: November 08, 2019 Findings: Wedge-shaped right mid to upper lung opacity appears more dense but less extensive than on the prior exam, probably reflects decreasing infiltrate but increasing atelectasis. The remainder of the lungs and pleural spaces are clear. Previously demonstrated left midlung atelectasis has cleared. Impression: Probably improved right mid to upper lung atelectasis/infiltrate since prior exam of 8 days earlier. Resolved left perihilar atelectasis
--- NOTE | 2019-11-16 11:08 | Pulmonology Progress Note ---
Subjective ROS Limited/Unobtainable: Yes Interval Events: None new Constitutional: Denies: fever HEENT: Repors: no symptoms Respiratory: Reports: no symptoms Gastrointestinal/Abdominal: Reports: no symptoms Genitourinary: Reports: no symptoms Allergies: Coded Allergies: No Known Allergies (Unverified , 08/01/18) All Systems: reviewed and negative except above Objective Last 24 Hour Vital Signs Date Time Temp Pulse Resp B/P (MAP) Pulse Ox O2 Delivery O2 Flow Rate FiO2 11/16/19 09:00 Room Air 11/16/19 08:57 91 112/72 11/16/19 08:00 98.7 91 20 112/72 (85) 97 11/16/19 04:00 111 11/16/19 04:00 98.0 98 20 142/86 (104) 100 11/16/19 00:00 96 11/16/19 00:00 98.1 98 21 135/73 (93) 98 11/15/19 21:23 70 115/68 11/15/19 21:00 Room Air 11/15/19 20:02 98 Room Air 21 11/15/19 20:00 114 11/15/19 20:00 98.9 70 20 115/68 (84) 98 11/15/19 17:56 99.2 11/15/19 16:00 102.1 69 17 113/63 (80) 95 11/15/19 16:00 112 11/15/19 12:00 98.6 86 20 139/77 (97) 97 11/15/19 12:00 111 Intake and Output 11/15/19 11/16/19 19:00 07:00 Intake Total 960 ml Balance 960 ml Intake Oral 960 ml # Voids 2 2 General Appearance: no acute distress HEENT: mucous membranes moist Respiratory/Chest: chest wall non-tender, lungs clear Cardiovascular: normal peripheral pulses Abdomen: soft, non tender Extremities: no edema Neurologic/Psychiatric: alert, responsive Microbiology Date/Time Source Procedure Growth Status 11/14/19 14:50 Nasopharynx Coronavirus COVID-19 PCR ([facility]) - Final Complete Laboratory Tests 11/16/19 05:30: White Blood Count 15.1H, Red Blood Count 4.45L, Hemoglobin 13.0L, Hematocrit 37.9L, Mean Corpuscular Volume 85, Mean Corpuscular Hemoglobin 29.3, Mean Corpuscular Hemoglobin Concent 34.4, Red Cell Distribution Width 13.3, Platelet Count 556H, Mean Platelet Volume 5.2L, Neutrophils (%) (Auto) 78.8H, Lymphocytes (%) (Auto) 16.8L, Monocytes (%) (Auto) 2.6, Eosinophils (%) (Auto) 1.3, Basophils (%) (Auto) 0.6 Current Medications Medications (Trade) Dose Ordered Sig/Stacey Route PRN Reason Start Time Stop Time Status Last Admin Dose Admin Acetaminophen (Tylenol) 500 mg Q4H PRN ORAL Temp >100.5/pain 11/08/19 16:45 12/08/19 16:44 11/15/19 17:26 Aspirin (Ecotrin) 81 mg DAILY ORAL 11/10/19 09:00 12/25/19 08:59 11/16/19 08:57 Ceftriaxone Sodium 1 gm/ Sodium Chloride 55 ml @ 110 mls/hr Q24H IVPB 11/13/19 12:00 11/16/19 11:59 11/15/19 12:44 Dextrose (Dextrose 50%) 25 ml Q30M PRN IV Hypoglycemia 11/14/19 18:00 02/12/20 17:59 Dextrose (Dextrose 50%) 50 ml Q30M PRN IV Hypoglycemia 11/14/19 18:00 02/12/20 17:59 Enoxaparin Sodium (Lovenox) 40 mg DAILY SUBQ 11/15/19 09:00 02/13/20 08:59 11/16/19 08:58 Insulin Aspart (NovoLOG) BEFORE MEALS AND HS SUBQ 11/08/19 21:00 02/06/20 20:59 11/16/19 06:22 Insulin Aspart (NovoLOG) 10 units NOVOTIAC SUBQ 11/16/19 11:50 02/13/20 06:29 Insulin Detemir (Levemir) 30 units QHS SUBQ 11/16/19 21:00 02/06/20 17:59 Methimazole (Tapazole) 10 mg DAILY ORAL 11/16/19 09:00 12/16/19 08:59 11/16/19 08:57 Metoprolol Tartrate (Lopressor) 50 mg Q12HR ORAL 11/15/19 21:00 02/07/20 20:59 11/16/19 08:57 Pantoprazole (Protonix) 40 mg EVERY 12 HOURS ORAL 11/09/19 21:00 12/09/19 20:59 11/16/19 08:57 Potassium Chloride (K-Dur) 40 meq DAILY ORAL 11/15/19 09:00 02/07/20 10:59 11/16/19 08:57 Tamsulosin HCl (Flomax) 0.4 mg BID ORAL 11/09/19 18:00 12/08/19 17:59 11/16/19 08:57 Assessment/Plan Assessment/Plan IMPRESSION: 1. COVID 19 Pneumonia. 2. Renal failure. 3. Diabetes mellitus. 4. + nares MRSA DISCUSSION: Continue broad-spectrum antibiotics, diabetes control, IV fluids. Off Glucophage. 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 Saturating well on RA Gustavo Bernal Omar Syed MD November 16, 2019 11:08
--- NOTE | 2019-11-16 11:12 | Hematology/Onc Progress Note ---
Assessment/Plan Assessment/Plan ASSESSMENT AND PLAN: # Leukocytosis. Likely related to underlying infection versus reactive process. In this case likely COVID19 related --> Peripheral has been reviewed --> Medications have been reviewed --> Imaging has been reviewed --> Blood cultures and urine cultures prn has been started on abx, empiric treatment --> COVID19 iso treatment --> abx: cftx ==> wbc trend 16-->8-->15->13 # Thrombcytosis in the past was thrombocytopenia, likely is a reactive process --> hep and hiv pending->only if plt drop --> us abd as needed --> smear is noted --> pulm recss noted --> plt 141-->260k-->547 # Gangrene in the right third and fifth toes --> s/p right sided a,putation right metatarsal # Diabetic foot ulcer/osteomyelitis. --> endo recs noted # Diabetes mellitus. --> Aspirin and statin are the mainstay of therapy for peripheral vasculopathy. # History of hypertension --> appreciate cardiology recs # Dvt ppx lovenox sq started The timing of this note does not necessarily reflect the time of the patient was seen Greatly appreciate consultation! Subjective Constitutional: Denies: no symptoms, chills, fever, malaise, weakness, other HEENT: Denies: no symptoms, eye pain, blurred vision, tearing, double vision, ear pain, ear discharge, nose pain, nose congestion, throat pain, throat swelling, mouth pain, mouth swelling, other Respiratory: Denies: no symptoms, cough, shortness of breath, SOB with excertion, SOB at rest, sputum, wheezing, other Gastrointestinal/Abdominal: Denies: no symptoms, abdomen distended, abdominal pain, black stools, tarry stools, blood in stool, constipated, diarrhea, difficulty swallowing, nausea, poor appetite, poor fluid intake, rectal bleeding , vomiting, other Allergies: Coded Allergies: No Known Allergies (Unverified , 08/01/18) Subjective 5/3 a+o x1, on tele, no acute events, nc 2l, cftx per id, bp stable / confused, no night sweats, no bleeding, labs reviewed 11/12 remains confused, is covid19+ no bleeding, labs noted 5/6 labs reviewed, no bleeding, on iso, dw rn, labs pending 11/14 reviewed meds, no bleeding, no hemolysis is noted, no fc 11/15 is covid 19 positive, no bleeding, on iso, wbc elev, on abx Objective Objective Current Medications Medications (Trade) Dose Ordered Sig/Stacey Route PRN Reason Start Time Stop Time Status Last Admin Dose Admin Acetaminophen (Tylenol) 500 mg Q4H PRN ORAL Temp >100.5/pain 11/08/19 16:45 12/08/19 16:44 11/15/19 17:26 Aspirin (Ecotrin) 81 mg DAILY ORAL 11/10/19 09:00 12/25/19 08:59 11/16/19 08:57 Ceftriaxone Sodium 1 gm/ Sodium Chloride 55 ml @ 110 mls/hr Q24H IVPB 11/13/19 12:00 11/16/19 11:59 11/15/19 12:44 Dextrose (Dextrose 50%) 25 ml Q30M PRN IV Hypoglycemia 11/14/19 18:00 02/12/20 17:59 Dextrose (Dextrose 50%) 50 ml Q30M PRN IV Hypoglycemia 11/14/19 18:00 02/12/20 17:59 Enoxaparin Sodium (Lovenox) 40 mg DAILY SUBQ 11/15/19 09:00 02/13/20 08:59 11/16/19 08:58 Insulin Aspart (NovoLOG) BEFORE MEALS AND HS SUBQ 11/08/19 21:00 02/06/20 20:59 11/16/19 06:22 Insulin Aspart (NovoLOG) 10 units NOVOTIAC SUBQ 11/16/19 11:50 02/13/20 06:29 Insulin Detemir (Levemir) 30 units QHS SUBQ 11/16/19 21:00 02/06/20 17:59 Methimazole (Tapazole) 10 mg DAILY ORAL 11/16/19 09:00 12/16/19 08:59 11/16/19 08:57 Metoprolol Tartrate (Lopressor) 50 mg Q12HR ORAL 11/15/19 21:00 02/07/20 20:59 11/16/19 08:57 Pantoprazole (Protonix) 40 mg EVERY 12 HOURS ORAL 11/09/19 21:00 12/09/19 20:59 11/16/19 08:57 Potassium Chloride (K-Dur) 40 meq DAILY ORAL 11/15/19 09:00 02/07/20 10:59 11/16/19 08:57 Tamsulosin HCl (Flomax) 0.4 mg BID ORAL 11/09/19 18:00 12/08/19 17:59 11/16/19 08:57 Last 24 Hour Vital Signs Date Time Temp Pulse Resp B/P (MAP) Pulse Ox O2 Delivery O2 Flow Rate FiO2 11/16/19 09:00 Room Air 11/16/19 08:57 91 112/72 11/16/19 08:00 98.7 91 20 112/72 (85) 97 11/16/19 04:00 111 11/16/19 04:00 98.0 98 20 142/86 (104) 100 11/16/19 00:00 96 11/16/19 00:00 98.1 98 21 135/73 (93) 98 11/15/19 21:23 70 115/68 11/15/19 21:00 Room Air 11/15/19 20:02 98 Room Air 21 11/15/19 20:00 114 11/15/19 20:00 98.9 70 20 115/68 (84) 98 11/15/19 17:56 99.2 11/15/19 16:00 102.1 69 17 113/63 (80) 95 11/15/19 16:00 112 11/15/19 12:00 98.6 86 20 139/77 (97) 97 11/15/19 12:00 111 11/15/19 09:11 112 144/107 11/15/19 09:00 Nasal Cannula 2.0 11/15/19 08:00 118 11/15/19 08:00 98.4 112 21 144/107 (119) 94 11/15/19 04:00 98.9 99 18 125/61 (82) 97 11/15/19 04:00 120 11/15/19 00:00 122 11/15/19 00:00 98.1 98 18 107/78 (88) 96 11/14/19 21:55 101 109/67 11/14/19 21:00 Nasal Cannula 2.0 11/14/19 20:00 97.2 101 18 109/67 (81) 95 11/14/19 20:00 116 11/14/19 16:00 104 11/14/19 16:00 97.7 86 20 106/71 (83) 97 11/14/19 12:00 101 11/14/19 12:00 97.1 101 20 107/71 (83) 95 Intake and Output 11/15/19 11/16/19 19:00 07:00 Intake Total 960 ml Balance 960 ml Intake Oral 960 ml # Voids 2 2 Labs Test 11/14/19 06:58 11/15/19 06:53 11/16/19 05:30 White Blood Count 15.8 K/UL (4.8-10.8) 15.5 K/UL (4.8-10.8) 15.1 K/UL (4.8-10.8) Red Blood Count 4.23 M/UL (4.70-6.10) 4.39 M/UL (4.70-6.10) 4.45 M/UL (4.70-6.10) Hemoglobin 12.4 G/DL (14.2-18.0) 12.7 G/DL (14.2-18.0) 13.0 G/DL (14.2-18.0) Hematocrit 35.5 % (42.0-52.0) 37.1 % (42.0-52.0) 37.9 % (42.0-52.0) Mean Corpuscular Volume 84 FL (80-99) 84 FL (80-99) 85 FL (80-99) Mean Corpuscular Hemoglobin 29.3 PG (27.0-31.0) 29.0 PG (27.0-31.0) 29.3 PG (27.0-31.0) Mean Corpuscular Hemoglobin Concent 35.0 G/DL (32.0-36.0) 34.3 G/DL (32.0-36.0) 34.4 G/DL (32.0-36.0) Red Cell Distribution Width 13.0 % (11.6-14.8) 13.1 % (11.6-14.8) 13.3 % (11.6-14.8) Platelet Count 471 K/UL (150-450) 547 K/UL (150-450) 556 K/UL (150-450) Mean Platelet Volume 5.7 FL (6.5-10.1) 5.4 FL (6.5-10.1) 5.2 FL (6.5-10.1) Neutrophils (%) (Auto) 83.8 % (45.0-75.0) 81.3 % (45.0-75.0) 78.8 % (45.0-75.0) Lymphocytes (%) (Auto) 11.8 % (20.0-45.0) 14.4 % (20.0-45.0) 16.8 % (20.0-45.0) Monocytes (%) (Auto) 3.0 % (1.0-10.0) 3.1 % (1.0-10.0) 2.6 % (1.0-10.0) Eosinophils (%) (Auto) 1.1 % (0.0-3.0) 0.9 % (0.0-3.0) 1.3 % (0.0-3.0) Basophils (%) (Auto) 0.3 % (0.0-2.0) 0.3 % (0.0-2.0) 0.6 % (0.0-2.0) Sodium Level 150 MMOL/L (136-145) Potassium Level 4.0 MMOL/L (3.5-5.1) Chloride Level 115 MMOL/L (98-107) Carbon Dioxide Level 21 MMOL/L (21-32) Anion Gap 14 mmol/L (5-15) Blood Urea Nitrogen 18 mg/dL (7-18) Creatinine 0.9 MG/DL (0.55-1.30) Estimat Glomerular Filtration Rate > 60 mL/min (>60) Glucose Level 145 MG/DL (74-106) Calcium Level 8.9 MG/DL (8.5-10.1) Phosphorus Level 2.8 MG/DL (2.5-4.9) Magnesium Level 2.2 MG/DL (1.8-2.4) Total Bilirubin 0.9 MG/DL (0.2-1.0) Aspartate Amino Transf (AST/SGOT) 77 U/L (15-37) Alanine Aminotransferase (ALT/SGPT) 117 U/L (12-78) Alkaline Phosphatase 142 U/L (46-116) Total Protein 7.5 G/DL (6.4-8.2) Albumin 2.6 G/DL (3.4-5.0) Globulin 4.9 g/dL Albumin/Globulin Ratio 0.5 (1.0-2.7) Height (Feet): 5 Height (Inches): 8.00 Weight (Pounds): 148 Objective PHYSICAL EXAMINATION: VITAL SIGNS:reviewed in emr HEENT: PERRLA. NECK: Supple. No lymphadenopathy. CHEST: Clear to auscultation. CARDIOVASCULAR: Regular rate and rhythm. No murmurs or extra sounds. GASTROINTESTINAL: Soft, nontender, and nondistended. No organomegaly. EXTREMITIES: s/p metatarsal right sided amputation [employer]: Oriented x1. Reflexes equal in both sides. Jose M Wade MD November 16, 2019 11:12
--- NOTE | 2019-11-16 11:14 | NUR ---
RD ASSESSMENT & RECOMMENDATIONS SEE CARE ACTIVITY FOR COMPLETE ASSESSMENT DAILY ESTIMATED NEEDS: Needs based on DM/ 67kg 25-30 kcals/kg total kcals 1-1.3 g protein/kg 67-87 g total protein 25-30 mL/kg total fluid mLs NUTRITION DIAGNOSIS: Altered nutrition related lab values R/T diabetes as evidenced by elev BGs and POC glu (253 352 341 137 346 390), A1C 10.4, U glu 4+ upon adm. [facility] DIET RECOMMENDATIONS: CCHO MED/ texture as tolerated or per [employer]ING [employer] ADDITIONAL RECOMMENDATIONS: * Calibrated bedscale wt * Monitor BGs closely, monitor closely for hypoglycemia w/ poor and variable PO intake * Consider [employer] eval for appropriate texture * Add Glucerna BID w/ poor and variable PO intake (220kcal, 10g prot, 26g CHO each)
--- NOTE | 2019-11-16 11:28 | NUR ---
CASE MANAGEMENT:REVIEW 11/16/19 SI: COVID 19 PNEUMONIA. RENAL FAILURE.DM. TROPONIN LEAK 98.7 119 20 112/72 97% ON RA WBC+15.1 IS: IV ROCEPHIN Q24 LEVEMIR SQ QHS ASA PO QD PROTONIX PO Q12 LOPRESSOR PO Q12 FLOMAX PO BID K-DUR PO BID : TELEMETRY STATUS DCP: FROM [facility] PLAN: COVID POSITIVE X2
--- NOTE | 2019-11-16 11:34 | NUR ---
DISCHARGE PLANNING COVID 19 DETECTED X2 PATIENT IS FROM [facility] AND CANNOT RETURN IF COVID POSITIVE NOT READY FOR DISCHARGE TODAY D/T HR~119 WBC+15.1 NA+150 TEMP OF 102.1 YESTERDAY ......NEEDS TO BE AFEBRILE X 72HRS PRIOR TO DISCHARGE
--- NOTE | 2019-11-16 11:44 | NUR ---
NURSE NOTES: Informed Dr Wade that PLT is trending up from 547 yesterday to 556 today. Addendum: 11/16/19 at 1903 by Calista Macias RN aware. No new orders.
[2019-11-16 12:00] VITALS: BP 130/69
--- NOTE | 2019-11-16 12:11 | Nephrology Progress Note ---
Assessment/Plan Problem List: (1) STEPHANIE (acute kidney injury) (2) Electrolyte imbalance (3) Hyperglycemia (4) Sepsis (5) Elevated troponin (6) Pneumonia due to COVID-19 virus (7) UTI (urinary tract infection) Assessment Renal failure most likely acute on chronic Diabetes mellitus, presents with hyperglycemia Pneumonia due to COVID-19 virus Elevated troponin Sepsis, UTI, Plan Will adjust blood pressure medications Correct low potassium and low phosphorus Will hold diuretics and metformin Discontinue IV fluid as BUN and creatinine improved Keep the blood pressure and blood sugar in check Monitor renal parameters Avoid nephrotoxic's Antibiotics per ID Per orders Subjective ROS Limited/Unobtainable: No Constitutional: Reports: malaise Objective Objective Last 24 Hour Vital Signs Date Time Temp Pulse Resp B/P (MAP) Pulse Ox O2 Delivery O2 Flow Rate FiO2 11/16/19 09:00 Room Air 11/16/19 08:57 91 112/72 11/16/19 08:23 119 11/16/19 08:00 98.7 91 20 112/72 (85) 97 11/16/19 04:00 111 11/16/19 04:00 98.0 98 20 142/86 (104) 100 11/16/19 00:00 96 11/16/19 00:00 98.1 98 21 135/73 (93) 98 11/15/19 21:23 70 115/68 11/15/19 21:00 Room Air 11/15/19 20:02 98 Room Air 21 11/15/19 20:00 114 11/15/19 20:00 98.9 70 20 115/68 (84) 98 11/15/19 17:56 99.2 11/15/19 16:00 102.1 69 17 113/63 (80) 95 11/15/19 16:00 112 Intake and Output 11/15/19 11/16/19 19:00 07:00 Intake Total 960 ml Balance 960 ml Intake Oral 960 ml # Voids 2 2 Laboratory Tests 11/16/19 05:30: White Blood Count 15.1H, Red Blood Count 4.45L, Hemoglobin 13.0L, Hematocrit 37.9L, Mean Corpuscular Volume 85, Mean Corpuscular Hemoglobin 29.3, Mean Corpuscular Hemoglobin Concent 34.4, Red Cell Distribution Width 13.3, Platelet Count 556H, Mean Platelet Volume 5.2L, Neutrophils (%) (Auto) 78.8H, Lymphocytes (%) (Auto) 16.8L, Monocytes (%) (Auto) 2.6, Eosinophils (%) (Auto) 1.3, Basophils (%) (Auto) 0.6 Height (Feet): 5 Height (Inches): 8.00 Weight (Pounds): 148 General Appearance: no apparent distress Cardiovascular: tachycardia Abdomen: distended Objective no change Levi Urias MD November 16, 2019 12:11
--- NOTE | 2019-11-16 12:21 | Infectious Diseases Prog Note ---
Assessment/Plan Assessment/Plan IMPRESSION: Leukocytosis pneumonia,with COVID-19.+ 11/07 , 11/11, 11/13 Diabetes mellitus with hyperglycemia. Acute renal failure, resolved lactic acidosis, COPD, Hypertension, Hyperlipidemia, Dementia. MRSA carrier RECOMMENDATION: Repeat CXR: improving We will repeat COVID19 test. Subjective ROS Limited/Unobtainable: Yes Allergies: Coded Allergies: No Known Allergies (Unverified , 08/01/18) Objective Vital Signs Last 24 Hour Vital Signs Date Time Temp Pulse Resp B/P (MAP) Pulse Ox O2 Delivery O2 Flow Rate FiO2 11/16/19 12:00 99.0 91 21 130/69 (89) 91 11/16/19 09:00 Room Air 11/16/19 08:57 91 112/72 11/16/19 08:23 119 11/16/19 08:00 98.7 91 20 112/72 (85) 97 11/16/19 04:00 111 11/16/19 04:00 98.0 98 20 142/86 (104) 100 11/16/19 00:00 96 11/16/19 00:00 98.1 98 21 135/73 (93) 98 11/15/19 21:23 70 115/68 11/15/19 21:00 Room Air 11/15/19 20:02 98 Room Air 21 11/15/19 20:00 114 11/15/19 20:00 98.9 70 20 115/68 (84) 98 11/15/19 17:56 99.2 11/15/19 16:00 102.1 69 17 113/63 (80) 95 11/15/19 16:00 112 Height (Feet): 5 Height (Inches): 8.00 Weight (Pounds): 148 General Appearance: no acute distress HEENT: mucous membranes moist Respiratory/Chest: lungs clear Cardiovascular: normal rate Abdomen: soft, non tender Extremities: no edema Neurologic/Psychiatric: disoriented Microbiology Date/Time Source Procedure Growth Status 11/14/19 14:50 Nasopharynx Coronavirus COVID-19 PCR ([facility]) - Final Complete Laboratory Tests Test 11/16/19 05:30 White Blood Count 15.1 K/UL (4.8-10.8) H Red Blood Count 4.45 M/UL (4.70-6.10) L Hemoglobin 13.0 G/DL (14.2-18.0) L Hematocrit 37.9 % (42.0-52.0) L Mean Corpuscular Volume 85 FL (80-99) Mean Corpuscular Hemoglobin 29.3 PG (27.0-31.0) Mean Corpuscular Hemoglobin Concent 34.4 G/DL (32.0-36.0) Red Cell Distribution Width 13.3 % (11.6-14.8) Platelet Count 556 K/UL (150-450) H Mean Platelet Volume 5.2 FL (6.5-10.1) L Neutrophils (%) (Auto) 78.8 % (45.0-75.0) H Lymphocytes (%) (Auto) 16.8 % (20.0-45.0) L Monocytes (%) (Auto) 2.6 % (1.0-10.0) Eosinophils (%) (Auto) 1.3 % (0.0-3.0) Basophils (%) (Auto) 0.6 % (0.0-2.0) Current Medications Medications (Trade) Dose Ordered Sig/Stacey Route PRN Reason Start Time Stop Time Status Last Admin Dose Admin Acetaminophen (Tylenol) 500 mg Q4H PRN ORAL Temp >100.5/pain 11/08/19 16:45 12/08/19 16:44 11/15/19 17:26 Aspirin (Ecotrin) 81 mg DAILY ORAL 11/10/19 09:00 12/25/19 08:59 11/16/19 08:57 Dextrose (Dextrose 50%) 25 ml Q30M PRN IV Hypoglycemia 11/14/19 18:00 02/12/20 17:59 Dextrose (Dextrose 50%) 50 ml Q30M PRN IV Hypoglycemia 11/14/19 18:00 02/12/20 17:59 Enoxaparin Sodium (Lovenox) 40 mg DAILY SUBQ 11/15/19 09:00 02/13/20 08:59 11/16/19 08:58 Insulin Aspart (NovoLOG) BEFORE MEALS AND HS SUBQ 11/08/19 21:00 02/06/20 20:59 11/16/19 11:30 Insulin Aspart (NovoLOG) 10 units NOVOTIAC SUBQ 11/16/19 11:50 8/5/20 06:29 Insulin Detemir (Levemir) 30 units QHS SUBQ 11/16/19 21:00 02/06/20 17:59 Methimazole (Tapazole) 10 mg DAILY ORAL 11/16/19 09:00 12/16/19 08:59 11/16/19 08:57 Metoprolol Tartrate (Lopressor) 50 mg Q12HR ORAL 11/15/19 21:00 02/07/20 20:59 11/16/19 08:57 Pantoprazole (Protonix) 40 mg EVERY 12 HOURS ORAL 11/09/19 21:00 12/09/19 20:59 11/16/19 08:57 Potassium Chloride (K-Dur) 20 meq DAILY ORAL 11/17/19 09:00 02/07/20 10:59 Tamsulosin HCl (Flomax) 0.4 mg BID ORAL 11/09/19 18:00 12/08/19 17:59 11/16/19 08:57 Flako Riavs MD November 16, 2019 12:21
--- NOTE | 2019-11-16 12:29 | NUR ---
RADIOLOGY DEPT., CHEST X-RAY DONE.-P.DYE
--- NOTE | 2019-11-16 13:48 | Cardiac Electrophysiology PN ---
Assessment/Plan Assessment/Plan 1. Troponin leak. Etiology is not clear. No chest pain. Creatinine was 2.3 improved to 1.3 on aspirin and Lopressor Echo EF 60% 2. Hypertension. On metoprolol 50 bid 3. Acute renal failure. Creatinine of 2.3 that normalized to 1.[address] Urias. 4. Fever and cough due to COVID pneumonia. Patient is on isolation. Reswapped again 5. Diabetes. DW RN Subjective Subjective No CP or SOB. In SR. Is Covid positive x2 on 11/07 and 11/11. Reswapped for Covid today Objective Last 24 Hour Vital Signs Date Time Temp Pulse Resp B/P (MAP) Pulse Ox O2 Delivery O2 Flow Rate FiO2 11/16/19 12:00 99.0 91 21 130/69 (89) 91 11/16/19 09:00 Room Air 11/16/19 08:57 91 112/72 11/16/19 08:23 119 11/16/19 08:00 98.7 91 20 112/72 (85) 97 11/16/19 04:00 111 11/16/19 04:00 98.0 98 20 142/86 (104) 100 11/16/19 00:00 96 11/16/19 00:00 98.1 98 21 135/73 (93) 98 11/15/19 21:23 70 115/68 11/15/19 21:00 Room Air 11/15/19 20:02 98 Room Air 21 11/15/19 20:00 114 11/15/19 20:00 98.9 70 20 115/68 (84) 98 11/15/19 17:56 99.2 11/15/19 16:00 102.1 69 17 113/63 (80) 95 11/15/19 16:00 112 Intake and Output 11/15/19 11/16/19 19:00 07:00 Intake Total 960 ml Balance 960 ml Intake Oral 960 ml # Voids 2 2 Laboratory Tests Test 11/16/19 05:30 White Blood Count 15.1 K/UL (4.8-10.8) H Red Blood Count 4.45 M/UL (4.70-6.10) L Hemoglobin 13.0 G/DL (14.2-18.0) L Hematocrit 37.9 % (42.0-52.0) L Mean Corpuscular Volume 85 FL (80-99) Mean Corpuscular Hemoglobin 29.3 PG (27.0-31.0) Mean Corpuscular Hemoglobin Concent 34.4 G/DL (32.0-36.0) Red Cell Distribution Width 13.3 % (11.6-14.8) Platelet Count 556 K/UL (150-450) H Mean Platelet Volume 5.2 FL (6.5-10.1) L Neutrophils (%) (Auto) 78.8 % (45.0-75.0) H Lymphocytes (%) (Auto) 16.8 % (20.0-45.0) L Monocytes (%) (Auto) 2.6 % (1.0-10.0) Eosinophils (%) (Auto) 1.3 % (0.0-3.0) Basophils (%) (Auto) 0.6 % (0.0-2.0) Microbiology Date/Time Source Procedure Growth Status 11/14/19 14:50 Nasopharynx Coronavirus COVID-19 PCR ([facility]) - Final Complete Objective HEAD AND NECK: No JVD. LUNGS: Coarse rhonchi. CARDIOVASCULAR: Regular S1 and S2 with no gallop or murmur. ABDOMEN: Soft. EXTREMITIES: No pitting edema. Igor Zapien MD November 16, 2019 13:48
[2019-11-16 16:00] VITALS: BP 114/69
--- NOTE | 2019-11-16 16:33 | General Progress Note ---
Assessment/Plan Problem List: (1) Diabetes mellitus out of control ICD Codes: E11.65 - Type 2 diabetes mellitus with hyperglycemia SNOMED: 42407755, 031946071 (2) Hyperglycemia ICD Codes: R73.9 - Hyperglycemia, unspecified; J12.89 - Other viral pneumonia SNOMED: 53685192, 731548208 (3) Sepsis ICD Codes: A41.9 - Sepsis, unspecified organism SNOMED: 90325143, 145031780, 516004324 (4) Fever ICD Codes: R50.9 - Fever, unspecified SNOMED: 670381084 (5) Electrolyte imbalance ICD Codes: E87.8 - Other disorders of electrolyte and fluid balance, not elsewhere classified SNOMED: 322445235 (6) UTI (urinary tract infection) ICD Codes: N39.0 - Urinary tract infection, site not specified SNOMED: 15570088 Status: progressing Assessment/Plan: covid positive abx per id leukocytosis worsening hypernatremia due to dehydration obs uti ab Subjective ROS Limited/Unobtainable: Yes Allergies: Coded Allergies: No Known Allergies (Unverified , 08/01/18) Objective Last 24 Hour Vital Signs Date Time Temp Pulse Resp B/P (MAP) Pulse Ox O2 Delivery O2 Flow Rate FiO2 11/16/19 16:00 97.9 112 20 114/69 (84) 93 11/16/19 12:09 101 11/16/19 12:00 99.0 91 21 130/69 (89) 91 11/16/19 09:00 Room Air 11/16/19 08:57 91 112/72 11/16/19 08:23 119 11/16/19 08:00 98.7 91 20 112/72 (85) 97 11/16/19 04:00 111 11/16/19 04:00 98.0 98 20 142/86 (104) 100 11/16/19 00:00 96 11/16/19 00:00 98.1 98 21 135/73 (93) 98 11/15/19 21:23 70 115/68 11/15/19 21:00 Room Air 11/15/19 20:02 98 Room Air 21 11/15/19 20:00 114 11/15/19 20:00 98.9 70 20 115/68 (84) 98 5/7/20 17:56 99.2 Intake and Output 11/15/19 11/16/19 19:00 07:00 Intake Total 960 ml Balance 960 ml Intake Oral 960 ml # Voids 2 2 Laboratory Tests 11/16/19 05:30: White Blood Count 15.1H, Red Blood Count 4.45L, Hemoglobin 13.0L, Hematocrit 37.9L, Mean Corpuscular Volume 85, Mean Corpuscular Hemoglobin 29.3, Mean Corpuscular Hemoglobin Concent 34.4, Red Cell Distribution Width 13.3, Platelet Count 556H, Mean Platelet Volume 5.2L, Neutrophils (%) (Auto) 78.8H, Lymphocytes (%) (Auto) 16.8L, Monocytes (%) (Auto) 2.6, Eosinophils (%) (Auto) 1.3, Basophils (%) (Auto) 0.6 Height (Feet): 5 Height (Inches): 8.00 Weight (Pounds): 148 Wyatt Kelley MD November 16, 2019 16:33
--- NOTE | 2019-11-16 17:10 | NUR ---
NURSE NOTES: Informed Dr Kelley that pt shows to be declining, eats less than before, and needed to be reminded to swallow. MD ordered labs (ammonia, CBC, CMP), ST with swallow eval, and nutrition consult. CBC was already ordered by Dr Wade, others were entered as ordered.
--- NOTE | 2019-11-16 19:53 | NUR ---
HAND-OFF: Report given to EMMA Dewitt. Pt in stable condition, endorsed plan of care.
[2019-11-16 20:00] VITALS: BP_SYST 110; BP_SYST 122; BP_DIAS 65; BP_DIAS 72
--- NOTE | 2019-11-16 20:00 | NUR ---
NURSE NOTES: RECEIVED PATIENT LYING IN BED, EYES OPEN, NON VERBAL, ALL NEEDS ANTICIPATED AND MET BY NURSING STAFF, NO SIGNS AND SYMPTOMS OF ACUTE CARDIO RESPIRATORY DISTRESS/SHORTNESS OF BREATH, NO PERIPHERAL EDEMA NOTED, COVID POSITIVE,DROPLET PRECAUTIONS OBSERVED AT ALL TIMES/CONTACT PRECAUTIONS MRSA NARES, SIGN POSTED. PATIENT INCONTINENT OF BLADDER, NOTED WITH REDNESS BENJAMIN ANAL/PERINEAL, TRIAD CREAM APPLIED - OPEN AREA TO RIGHT MEDIAL THIGH, NOTED WITH OPTIFOAM, ASSISTED WITH REPOSITIONING, TOLERATED WELL. SIDE RAILS UP X3/BED IN LOWEST POSITION FOR SAFETY, FREQUENT ROUNDING FOR SAFETY/NEEDS, BED ALARM ACTIVATED. CONTINUE WITH CURRENT PLAN OF CARE. NAD.
[2019-11-16] MEDS ORDERED: Levemir Flexpen SUBQ SCH (21:00)
[2019-11-17] VITALS (41 sets, daily range): BP systolic 43–122; BP diastolic 25–80
[2019-11-17] MEDS: NovoLOG Insulin Flexpen SUBQ SCH ×6 (06:17→21:19)
--- NOTE | 2019-11-17 06:22 | NUR ---
NURSE NOTES: BLOOD GLUCOSE MONITORED VIA GLUCOMETER WITH RESULT 327MG/DL, ASSESSED FOR SIGNS AND SYMPTOMS OF HYPERGLYCEMIA, NONE NOTED, MEDICATED WITH NOVOLOG SLIDING SCALE/MAINTENANCE DOSE NOVOLOG, TOLERATED WELL, NO ADVERSE REACTION NOTED AFTER 15 MINUTES.
--- NOTE | 2019-11-17 07:30 | NUR ---
HAND-OFF: Report given to NAMAN SEBASTIAN.
[2019-11-17 08:06] LABS: BASOPHILS % (AUTO) 0.2 % (0.0-2.0); EOSINOPHILS % (AUTO) 0.5 % (0.0-3.0); HEMATOCRIT 40.4 % (42.0-52.0); LYMPHOCYTES % (AUTO) 12.1 % (20.0-45.0); MEAN CORPUSCULAR VOLUME 87 FL (80-99); MONOCYTES % (AUTO) 3.2 % (1.0-10.0); PLATELET COUNT 568 K/UL (150-450); RED BLOOD COUNT 4.66 M/UL (4.70-6.10); RED CELL DISTRIBUTION WIDTH 14.1 % (11.6-14.8); WHITE BLOOD COUNT 16.3 K/UL (4.8-10.8)
--- NOTE | 2019-11-17 08:15 | NUR ---
NURSE NOTES: Received report from EMMA Dewitt. Observed pt lying in bed, aphasic. Pt nasal cannula increased to 4L, as O2 sat goes low 88-90% on 2L. Pt noticed to be having RR on 40s per min. Will communicate with metal rolling mill operator. Redness noted on jose raul area, possibly related to urination. Multiple tries of condom cath insertion failed. Will change and clean pt more often. Bed on lowest position, call light within reach. Will continue plan of care.
[2019-11-17 08:42] LABS: AMMONIA 38 umol/L (11-32)
[2019-11-17] MEDS: Metoprolol Tartrate 50mg tab ORAL SCH (09:00)
[2019-11-17] MEDS: Aspirin EC 81mg tab ORAL SCH ×2 (09:00→09:29)
[2019-11-17] MEDS: Tamsulosin 0.4mg cap ORAL SCH ×2 (09:00→09:28)
[2019-11-17] MEDS: methIMAzole 10mg tab ORAL SCH ×2 (09:00→09:29)
[2019-11-17] MEDS: Enoxaparin 40mg Inj SUBQ SCH (09:31)
--- NOTE | 2019-11-17 09:38 | NUR ---
NURSE NOTES: Patient was placed on NC 4 L was on 2L, due to saturation of 88 at 0800. Right now the pt is on 4L and is now saturating at 83-84%.. Called Md chetan irvinig pt status... Called RT for non-rebreather.. waiting concreter back from , he called back and approved non-rebreather.. Addendum: 11/17/19 at 0945 by KISHA ZEPEDA RN Patients respiration are 42-46 and having Altered level of Conciseness
--- NOTE | 2019-11-17 09:50 | NUR ---
NURSE NOTES: Held AM PO meds, pt unable to follow simple commands, at high risk for aspiration. Continues to have high RR and low O2 sat. RT came.
[2019-11-17 10:53] LABS: ALANINE AMINOTRANSFERASE 126 U/L (12-78); ALBUMIN 2.9 G/DL (3.4-5.0); ALBUMIN/GLOBULIN RATIO 0.5 (1.0-2.7); ALKALINE PHOSPHATASE 150 U/L (46-116); ANION GAP 17 mmol/L (5-15); ASPARTATE AMINO TRANSFERASE 75 U/L (15-37); BILIRUBIN,TOTAL 0.8 MG/DL (0.2-1.0); BLOOD UREA NITROGEN 45 mg/dL (7-18); CALCIUM 9.8 MG/DL (8.5-10.1); CARBON DIOXIDE 19 MMOL/L (21-32); CHLORIDE 125 MMOL/L (98-107); CREATININE 1.8 MG/DL (0.55-1.30); POTASSIUM 4.6 MMOL/L (3.5-5.1); SODIUM 160 MMOL/L (136-145)
--- NOTE | 2019-11-17 11:01 | NUR ---
NURSE NOTES: Called [facility] again patient is desaturating on a non-rebreather mask with 100% FIO2 and 15L, patients respirations are now 50 per min. BP is 99/73 and oxygenation status is 91%.. Called and left message..
--- NOTE | 2019-11-17 11:24 | Pulmonology Progress Note ---
Subjective ROS Limited/Unobtainable: Yes Interval Events: clinically worse; tachypnic, on NRBM Constitutional: Denies: fever HEENT: Repors: no symptoms Respiratory: Reports: dry cough, shortness of breath Gastrointestinal/Abdominal: Reports: no symptoms Genitourinary: Reports: no symptoms Allergies: Coded Allergies: No Known Allergies (Unverified , 08/01/18) All Systems: reviewed and negative except above Objective Last 24 Hour Vital Signs Date Time Temp Pulse Resp B/P (MAP) Pulse Ox O2 Delivery O2 Flow Rate FiO2 11/17/19 09:42 Non-Rebreather 15.0 11/17/19 09:00 118 108/67 11/17/19 08:00 97.7 118 46 108/67 (81) 95 11/17/19 07:45 113 11/17/19 04:00 102 11/17/19 04:00 97.3 89 19 108/70 (83) 95 11/17/19 00:00 86 11/17/19 00:00 97.7 90 19 103/65 (78) 93 11/16/19 21:42 112 127/69 11/16/19 20:43 Room Air 11/16/19 20:00 117 11/16/19 20:00 96.8 120 19 122/72 (89) 93 11/16/19 16:00 97.9 112 20 114/69 (84) 93 11/16/19 15:33 111 11/16/19 12:09 101 11/16/19 12:00 99.0 91 21 130/69 (89) 91 Intake and Output 11/16/19 11/17/19 19:00 07:00 # Voids 5 1 General Appearance: no acute distress HEENT: mucous membranes moist Respiratory/Chest: chest wall non-tender, lungs clear Cardiovascular: normal peripheral pulses Abdomen: soft, non tender Extremities: no edema Neurologic/Psychiatric: disoriented Microbiology Date/Time Source Procedure Growth Status 11/14/19 14:50 Nasopharynx Coronavirus COVID-19 PCR ([facility]) - Final Complete Laboratory Tests 11/17/19 05:25: White Blood Count 16.3H, Red Blood Count 4.66L, Hemoglobin 14.0L, Hematocrit 40.4L, Mean Corpuscular Volume 87, Mean Corpuscular Hemoglobin 30.0, Mean Corpuscular Hemoglobin Concent 34.5, Red Cell Distribution Width 14.1, Platelet Count 568H, Mean Platelet Volume 5.4L, Neutrophils (%) (Auto) 84.0H, Lymphocytes (%) (Auto) 12.1L, Monocytes (%) (Auto) 3.2, Eosinophils (%) (Auto) 0.5, Basophils (%) (Auto) 0.2, Sodium Level 160H, Potassium Level 4.6, Chloride Level 125H, Carbon Dioxide Level 19L, Anion Gap 17H, Blood Urea Nitrogen 45H, Creatinine 1.8H, Estimat Glomerular Filtration Rate 37.6, Glucose Level 298H, Calcium Level 9.8, Total Bilirubin 0.8, Aspartate Amino Transf (AST/SGOT) 75H, Alanine Aminotransferase (ALT/SGPT) 126H, Alkaline Phosphatase 150H, Ammonia 38H , Total Protein 8.3H, Albumin 2.9L, Globulin 5.4, Albumin/Globulin Ratio 0.5L 11/17/19 09:45: Arterial Blood pH 7.421, Arterial Blood Partial Pressure CO2 29.5L, Arterial Blood Partial Pressure O2 74.3L, Arterial Blood HCO3 18.7L, Arterial Blood Oxygen Saturation 93.3L, Arterial Blood Base Excess -4.4L, Gordon Test Positive Current Medications Medications (Trade) Dose Ordered Sig/Stacey Route PRN Reason Start Time Stop Time Status Last Admin Dose Admin Acetaminophen (Tylenol) 500 mg Q4H PRN ORAL Temp >100.5/pain 11/08/19 16:45 12/08/19 16:44 11/15/19 17:26 Aspirin (Ecotrin) 81 mg DAILY ORAL 11/10/19 09:00 12/25/19 08:59 11/16/19 08:57 Dextrose (Dextrose 50%) 25 ml Q30M PRN IV Hypoglycemia 11/14/19 18:00 02/12/20 17:59 Dextrose (Dextrose 50%) 50 ml Q30M PRN IV Hypoglycemia 11/14/19 18:00 02/12/20 17:59 Enoxaparin Sodium (Lovenox) 40 mg DAILY SUBQ 11/15/19 09:00 02/13/20 08:59 11/17/19 09:31 Insulin Aspart (NovoLOG) BEFORE MEALS AND HS SUBQ 11/08/19 21:00 02/06/20 20:59 11/17/19 06:17 Insulin Aspart (NovoLOG) 10 units NOVOTIAC SUBQ 11/16/19 11:50 02/13/20 06:29 11/17/19 06:19 Insulin Detemir (Levemir) 30 units QHS SUBQ 11/16/19 21:00 02/06/20 17:59 11/16/19 21:44 Methimazole (Tapazole) 10 mg DAILY ORAL 11/16/19 09:00 12/16/19 08:59 11/16/19 08:57 Metoprolol Tartrate (Lopressor) 50 mg Q12HR ORAL 11/15/19 21:00 02/07/20 20:59 11/16/19 21:42 Pantoprazole (Protonix) 40 mg EVERY 12 HOURS ORAL 11/09/19 21:00 12/09/19 20:59 11/16/19 21:42 Sodium Chloride 1,000 ml @ 100 mls/hr Q10H IV 11/17/19 11:30 12/17/19 11:29 UNV Tamsulosin HCl (Flomax) 0.4 mg BID ORAL 11/09/19 18:00 12/08/19 17:59 11/16/19 17:33 Assessment/Plan Assessment/Plan IMPRESSION: 1. COVID 19 Pneumonia. 2. Renal failure. Cr 1.8 3. Diabetes mellitus. 4. + nares MRSA DISCUSSION: Continue broad-spectrum antibiotics, diabetes control, IV fluids. Off Glucophage. 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 Saturating poorly now; on NRBM mask now CXR clear Will transfer to SDU Start BiPAP Start IV heparin empirically, I suspect PE Gustavo Bernal Omar Syed MD November 17, 2019 11:24
[2019-11-17] MEDS ORDERED: Heparin1,000 units/500ml Premix(Conc:2 units/ml) IV SCH (11:30)
--- NOTE | 2019-11-17 12:00 | NUR ---
NURSE NOTES: Pt continues to show decline, Dr Petersen aware. Pt being transferred to higher level of care.
--- NOTE | 2019-11-17 12:10 | NUR ---
NURSE NOTES: Unable to administer insulin and pantoprazole as scheduled because pt is being transferred to high level of care.
--- NOTE | 2019-11-17 12:10 | Diagnostic Imaging Report ---
EXAM: XR Chest, 1 View CLINICAL HISTORY: SOB TECHNIQUE: Frontal view of the chest. COMPARISON: Chest radiograph on 11/16/2019 FINDINGS: Hardware: None. Lungs/pleura: Decreased atelectasis versus pneumonia in the right upper lung. Perihilar opacities. Slightly increased patchy opacity in the left mid and lower lung. No pleural effusion or pneumothorax. Heart/mediastinum: Atherosclerotic calcifications of the aorta. No cardiomegaly. Soft tissues: Unremarkable. Bones: No acute fracture. Upper abdomen: Normal. IMPRESSION: Decreased atelectasis versus pneumonia in the right upper lung. Perihilar opacities. Slightly increased patchy opacity in the left mid and lower lung.
--- NOTE | 2019-11-17 12:15 | NUR ---
NURSE NOTES: Patient was seen by Md Trinity Md stated that he mostly likely has a pulmonary embolism but unable to confirm due to pt being CV positive. Md ordered the pt to be on BiPap and a heparin drip and to be transfered to higher level of care in either [facility] or ICU. Pt was ordered to go to [facility] and while there the pt was placed on BiPAP saturation trended to 96% then dropped with heart rate of 140... was then transfered to ICU to be intubated...
--- NOTE | 2019-11-17 12:19 | NUR ---
NURSE NOTES: Spoke with Dr. Petersen via telephone. Informed MD that patient is on Fio2 100% and oxygen saturation is low 74-82%. Respiratory Therapist/Ivette in the room says that patient is not really stable. Transfer order to ICU and Intubation order obtained from Dr. Petersen. Charge nurse/shanta made aware.
--- NOTE | 2019-11-17 12:30 | General Progress Note ---
Assessment/Plan Problem List: (1) Hyperglycemia ICD Codes: R73.9 - Hyperglycemia, unspecified; J12.89 - Other viral pneumonia SNOMED: 65432374, 771855566 (2) Elevated troponin ICD Codes: R79.89 - Other specified abnormal findings of blood chemistry; J12.89 - Other viral pneumonia SNOMED: 669615012, 248805929, 636472085 (3) Pneumonia due to COVID-19 virus ICD Codes: U07.1 - COVID-19; J12.89 - Other viral pneumonia SNOMED: 521310534, 510557170 (4) Abnormal TSH ICD Codes: R79.89 - Other specified abnormal findings of blood chemistry SNOMED: 719987112 Status: progressing Assessment/Plan: continue Levemir 30 units qhs continue Novolog 10 units ac tid continue Novolog sliding scale ac / hs continue Tapazole 10 mg daily repeat thyroid function in 3 weeks Subjective Allergies: Coded Allergies: No Known Allergies (Unverified , 08/01/18) Subjective events noted - interval notes reviewed glucose values are improving Item Value Date Time Bedside Blood Glucose 131 mg/dl H 11/17/19 1130 Bedside Blood Glucose 327 mg/dl H 11/17/19 0622 Bedside Blood Glucose 321 mg/dl H 11/16/19 2145 Bedside Blood Glucose 290 mg/dl H 11/16/19 1630 Bedside Blood Glucose 287 mg/dl H 11/16/19 1130 Objective Last 24 Hour Vital Signs Date Time Temp Pulse Resp B/P (MAP) Pulse Ox O2 Delivery O2 Flow Rate FiO2 11/17/19 12:14 60 23 80 100 11/17/19 12:13 Bi-pap 11/17/19 09:42 Non-Rebreather 15.0 11/17/19 09:00 118 108/67 11/17/19 08:00 97.7 118 46 108/67 (81) 95 11/17/19 07:45 113 11/17/19 04:00 102 11/17/19 04:00 97.3 89 19 108/70 (83) 95 11/17/19 00:00 86 11/17/19 00:00 97.7 90 19 103/65 (78) 93 11/16/19 21:42 112 127/69 11/16/19 20:43 Room Air 11/16/19 20:00 117 11/16/19 20:00 96.8 120 19 122/72 (89) 93 11/16/19 16:00 97.9 112 20 114/69 (84) 93 11/16/19 15:33 111 Intake and Output 11/16/19 11/17/19 19:00 07:00 # Voids 5 1 Laboratory Tests 11/17/19 05:25: White Blood Count 16.3H, Red Blood Count 4.66L, Hemoglobin 14.0L, Hematocrit 40.4L, Mean Corpuscular Volume 87, Mean Corpuscular Hemoglobin 30.0, Mean Corpuscular Hemoglobin Concent 34.5, Red Cell Distribution Width 14.1, Platelet Count 568H, Mean Platelet Volume 5.4L, Neutrophils (%) (Auto) 84.0H, Lymphocytes (%) (Auto) 12.1L, Monocytes (%) (Auto) 3.2, Eosinophils (%) (Auto) 0.5, Basophils (%) (Auto) 0.2, Sodium Level 160H, Potassium Level 4.6, Chloride Level 125H, Carbon Dioxide Level 19L, Anion Gap 17H, Blood Urea Nitrogen 45H, Creatinine 1.8H, Estimat Glomerular Filtration Rate 37.6, Glucose Level 298H, Calcium Level 9.8, Total Bilirubin 0.8, Aspartate Amino Transf (AST/SGOT) 75H, Alanine Aminotransferase (ALT/SGPT) 126H, Alkaline Phosphatase 150H, Ammonia 38H , Total Protein 8.3H, Albumin 2.9L, Globulin 5.4, Albumin/Globulin Ratio 0.5L 11/17/19 09:45: Arterial Blood pH 7.421, Arterial Blood Partial Pressure CO2 29.5L, Arterial Blood Partial Pressure O2 74.3L, Arterial Blood HCO3 18.7L, Arterial Blood Oxygen Saturation 93.3L, Arterial Blood Base Excess -4.4L, Gordon Test Positive Height (Feet): 5 Height (Inches): 8.00 Weight (Pounds): 148 General Appearance: no apparent distress Neck: normal alignment Cardiovascular: normal rate Respiratory/Chest: lungs clear Abdomen: normal bowel sounds Pelvis: normal external exam Objective Current Medications Medications (Trade) Dose Ordered Sig/Stacey Route PRN Reason Start Time Stop Time Status Last Admin Dose Admin Acetaminophen (Tylenol) 500 mg Q4H PRN ORAL Temp >100.5/pain 11/08/19 16:45 12/08/19 16:44 11/15/19 17:26 Aspirin (Ecotrin) 81 mg DAILY ORAL 11/10/19 09:00 12/25/19 08:59 11/16/19 08:57 Dextrose (Dextrose 50%) 25 ml Q30M PRN IV Hypoglycemia 11/14/19 18:00 02/12/20 17:59 Dextrose (Dextrose 50%) 50 ml Q30M PRN IV Hypoglycemia 11/14/19 18:00 02/12/20 17:59 Enoxaparin Sodium (Lovenox) 40 mg DAILY SUBQ 11/15/19 09:00 02/13/20 08:59 11/17/19 09:31 Heparin Sodium/ Sodium Chloride (Heparin 1000 units/500ml Premix) 1,000 unit ONCE IV 11/17/19 11:30 11/17/19 22:00 UNV Insulin Aspart (NovoLOG) BEFORE MEALS AND HS SUBQ 11/08/19 21:00 02/06/20 20:59 11/17/19 06:17 Insulin Aspart (NovoLOG) 10 units NOVOTIAC SUBQ 11/16/19 11:50 02/13/20 06:29 11/17/19 06:19 Insulin Detemir (Levemir) 30 units QHS SUBQ 11/16/19 21:00 02/06/20 17:59 11/16/19 21:44 Methimazole (Tapazole) 10 mg DAILY ORAL 11/16/19 09:00 12/16/19 08:59 11/16/19 08:57 Metoprolol Tartrate (Lopressor) 50 mg Q12HR ORAL 11/15/19 21:00 02/07/20 20:59 11/16/19 21:42 Pantoprazole (Protonix) 40 mg EVERY 12 HOURS ORAL 11/09/19 21:00 12/09/19 20:59 11/16/19 21:42 Sodium Chloride 1,000 ml @ 100 mls/hr Q10H IV 11/17/19 11:30 12/17/19 11:29 Tamsulosin HCl (Flomax) 0.4 mg BID ORAL 11/09/19 18:00 12/08/19 17:59 11/16/19 17:33 Juvencio Short MD November 17, 2019 12:30
--- NOTE | 2019-11-17 12:56 | Nephrology Progress Note ---
Assessment/Plan Problem List: (1) STEPHANIE (acute kidney injury) (2) Electrolyte imbalance (3) Hyperglycemia (4) Sepsis (5) Elevated troponin (6) Pneumonia due to COVID-19 virus (7) UTI (urinary tract infection) Assessment Renal failure most likely acute on chronic Diabetes mellitus, presents with hyperglycemia Pneumonia due to COVID-19 virus Elevated troponin Sepsis, UTI, Plan November 16: Patient is deteriorating, in respiratory distress, with worsening renal parameters Discussed with Dr. Petersen the painter and body work, patient suspected pulmonary emboli, heparin is being initiated, Will transfer the patient to stepdown unit, BiPAP, Belcher, D5W IV hydration for hypernatremia Continue treatment of underlying sepsis Adjust blood pressure medication, discontinue metolazone Will adjust blood pressure medications Correct low potassium and low phosphorus Will hold diuretics and metformin Discontinue IV fluid as BUN and creatinine improved Keep the blood pressure and blood sugar in check Monitor renal parameters Avoid nephrotoxic's Antibiotics per ID Per orders Subjective ROS Limited/Unobtainable: No Constitutional: Reports: malaise, weakness Objective Objective Last 24 Hour Vital Signs Date Time Temp Pulse Resp B/P (MAP) Pulse Ox O2 Delivery O2 Flow Rate FiO2 11/17/19 12:14 60 23 80 100 11/17/19 12:13 Bi-pap 11/17/19 09:42 Non-Rebreather 15.0 11/17/19 09:00 118 108/67 11/17/19 08:00 97.7 118 46 108/67 (81) 95 11/17/19 07:45 113 11/17/19 04:00 102 11/17/19 04:00 97.3 89 19 108/70 (83) 95 11/17/19 00:00 86 11/17/19 00:00 97.7 90 19 103/65 (78) 93 11/16/19 21:42 112 127/69 11/16/19 20:43 Room Air 11/16/19 20:00 117 11/16/19 20:00 96.8 120 19 122/72 (89) 93 11/16/19 16:00 97.9 112 20 114/69 (84) 93 11/16/19 15:33 111 Intake and Output 11/16/19 11/17/19 19:00 07:00 # Voids 5 1 Laboratory Tests 11/17/19 05:25: White Blood Count 16.3H, Red Blood Count 4.66L, Hemoglobin 14.0L, Hematocrit 40.4L, Mean Corpuscular Volume 87, Mean Corpuscular Hemoglobin 30.0, Mean Corpuscular Hemoglobin Concent 34.5, Red Cell Distribution Width 14.1, Platelet Count 568H, Mean Platelet Volume 5.4L, Neutrophils (%) (Auto) 84.0H, Lymphocytes (%) (Auto) 12.1L, Monocytes (%) (Auto) 3.2, Eosinophils (%) (Auto) 0.5, Basophils (%) (Auto) 0.2, Sodium Level 160H, Potassium Level 4.6, Chloride Level 125H, Carbon Dioxide Level 19L, Anion Gap 17H, Blood Urea Nitrogen 45H, Creatinine 1.8H, Estimat Glomerular Filtration Rate 37.6, Glucose Level 298H, Calcium Level 9.8, Total Bilirubin 0.8, Aspartate Amino Transf (AST/SGOT) 75H, Alanine Aminotransferase (ALT/SGPT) 126H, Alkaline Phosphatase 150H, Ammonia 38H , Total Protein 8.3H, Albumin 2.9L, Globulin 5.4, Albumin/Globulin Ratio 0.5L 11/17/19 09:45: Arterial Blood pH 7.421, Arterial Blood Partial Pressure CO2 29.5L, Arterial Blood Partial Pressure O2 74.3L, Arterial Blood HCO3 18.7L, Arterial Blood Oxygen Saturation 93.3L, Arterial Blood Base Excess -4.4L, Gordon Test Positive Height (Feet): 5 Height (Inches): 8.00 Weight (Pounds): 148 General Appearance: moderate distress Respiratory/Chest: decreased breath sounds, rhonchi - bilaterally Abdomen: distended Objective no change Levi Urias MD November 17, 2019 12:56
[2019-11-17] MEDS ORDERED: Pantoprazole Inj IVP SCH (13:00)
--- NOTE | 2019-11-17 13:00 | NUR ---
NURSE NOTES: Pt received from Telemetry unit via hospital bed and non-rebreather mask at 15L O2 100% spO2 70s. Dr. Spencer (ER ) notified and is at bedside- just completed intubation and is currently placing central line for dopamine infusion. Per Sherry, charge nurse, a voicemail was left for Dr Petersen requesting vent settings and to update him with pt's current status (unstable VS). Awaiting call back. Physical Assessment as follows: Neuro: Bilat pupils equal and round 3mm with sluggish light rxn. Pt is not arousable and does not follow commands. Gag reflex intact. non-purposeful movements noted to all extremities. Pt withdraws to light pain stimuli. Resp: All lung lobes noted with diminished rhonchi upon auscultation. Pt noted with labored breathing. Pt is mechanically intubated with 7.5 ETT noted 22 cm at mid lip. Vent settings: AC 20 TV 480 FiO2 100% Peep 10. Cardiac: SR to radar air traffic controller (HR 60-70s). Bilateral radial and dorsalis pedis pulses 1`+. Extremities are cool to touch. Pt is afebrile at this time (97.4 F ax). Extensive mottling noted to bilateral lower extremities. GI: Abd is round, soft, with active bowel sounds to all quadrants. Pt currently NPO. : F/C noted draining small amount of yellow urine- Per clemente Gonzalez RN, Dr Urias is aware pt is oliguric. Integ: skin alterations noted. Right toes previously amputated. Perineal redness noted. Optifoam applied to both heels and sacrum for protection. Pt placed on BED TEACHER restraints for safety purposes and also d/t extremity movements near ETT. Skin to both wrists intact without redness. Bed in lowest position, alarm on, side rails up x 3, call light within reach. Pt belongings at bedside. Meds received from NAMAN Gonzalez and placed in pt's bin.
--- NOTE | 2019-11-17 13:15 | NUR ---
NURSE NOTES: Pt is currently being bolused with 1 L 1/2 [address] x [address] Spencer.
[2019-11-17] MEDS ORDERED: Levophed 4mg/4mL Inj IV ONE (13:45)
--- NOTE | 2019-11-17 13:45 | NUR ---
NURSE NOTES: Message left for Dr. Zapien regarding pt's VS (hypotension). Levo and dopamine were over-ridden by otilia Powell RN until we receive call back from Dr Petersen/Rupali.
--- NOTE | 2019-11-17 13:50 | NUR ---
NURSE NOTES: emergency RIJ TLC insertion completed by CHARO Davila to use central line before CXR per Dr Spencer. STAT CXR ordered.
--- NOTE | 2019-11-17 13:55 | NUR ---
NURSE NOTES: Received call back from Dr Zapien with order to keep pt on dopamine and levophed drip to keep SBP>90. if SBP<90, OK to start pt on phenylephrine drip.
--- NOTE | 2019-11-17 13:55 | GI Initial Consult Note ---
History of Present Illness General Date patient seen: November 17, 2019 Time patient seen: 13:41 Reason for Hospitalization: Fever Referring physician: SHANELL FRANCO Reason for Consultation: DYSPHAGIA/ELEVATED LFTs Present Illness HPI 68-year-old male with a history of diabetes, COPD, hypertension, hyperlipidemia , peripheral arterial disease presents for evaluation of fever, hypoxia and hypotension. He presents from a nursing facility. Reportedly has been febrile over the past few days and short of breath. EMS denied cough. Patient does not provide any significant history and is not conversant. He appears to understand and sometimes nods at questions but does not seem to engage verbally. He does not provide any additional history. EMS states he is full code. They state he was hypoxic on room air approximately 88% but improved on 2 L nasal cannula. They also noted slight hypotension and tachycardia on route. GI consulted for new onset of encephalopathy, elevated LFTs, possible dysphasia. ROS limited, patient unable to provide any significant history at this time. Patient is currently positive for COVID-19. Laboratory review; WBC 16.3 hemoglobin 14.0 sodium 160, AST 75, ALT 126, alkaline phosphatase 150, ammonia 38, free T4 1.7, free T3 1.8. Unknown history of endoscopic or colonoscopy. Home Meds Reported Medications Telmisartan (Telmisartan) 80 Mg Tablet, 80 MG PO for HTN, TAB 11/08/19 Insulin Detemir (LEVEMIR) 100 Unit/1 Ml Vial, 70 SUBQ BEDTIME for DM, VIAL 11/08/19 Insulin Aspart (NOVOLOG) 100 Unit/1 Ml Cartridge, UNIT SQ for DM 11/08/19 Ceftriaxone Sodium (CEFTRIAXONE) 1 Gm Vial.port, 1 GM IV DAILY for 6 Days, VIAL 12/06/18 Quetiapine Fumarate (SEROQUEL XR) 150 Mg Tab.er.24h, 150 MG ORAL BEDTIME, TAB 12/02/18 Potassium Chloride (POTASSIUM CHLORIDE) 10 Meq Tablet.er, 10 MEQ ORAL DAILY, # 30 TAB 0 Refills 12/02/18 Metformin Hcl (METFORMIN HCL ER) 1,000 Mg Tab.er.24, 2000 MG ORAL DAILY, TAB 12/02/18 Risperidone (RISPERIDONE ODT) 0.5 Mg Tab.rapdis, 0.5 MG PO HS, TAB 12/02/18 Hydrochlorothiazide* (HYDROCHLOROTHIAZIDE*) 12.5 Mg Capsule, 12.5 MG ORAL DAILY , CAP 12/02/18 Rosuvastatin Calcium* (CRESTOR*) 10 Mg Tablet, 10 MG ORAL HS, TAB 12/02/18 Valsartan (DIOVAN) 320 Mg Tablet, 320 MG ORAL DAILY, TAB 12/02/18 Glimepiride* (GLIMEPIRIDE*) 1 Mg Tablet, 2 MG ORAL DAILY, TAB 12/02/18 Amlodipine Besylate* (AMLODIPINE BESYLATE*) 10 Mg Tablet, 10 MG ORAL DAILY, TAB 08/01/18 Tamsulosin HCl (Flomax) 0.4 Mg Cap.er.24h, 0.4 MG ORAL HS, CAP 08/01/18 Med list reviewed/reconciled: Yes Allergies: Coded Allergies: No Known Allergies (Unverified , 08/01/18) Patient History Limited by: medical condition History Provided By: Medical Record PMH Narrative PMH: Hyperlipidemia, hypertension, diabetes, COPD PSH: Right transmetatarsal amputation, right lower extremity orthopedic repair Allergies: None listed in chart Social Hx: None listed in chart Allergies: Coded Allergies: No Known Allergies (Unverified , 08/01/18) COVID-19 Screening Contact w/high risk pt: No Recent Travel to affected area: No Experienced COVID-19 symptoms?: Yes COVID-19 symptoms experienced: Fever (T>100.4F or >38C), Shortness of Breath Nursing Documentation-PMH Hx Cardiac Problems: Yes Hx Hypertension: Yes Hx Diabetes: Yes Hx Cancer: No Hx Gastrointestinal Problems: No Hx Neurological Problems: Yes Hx Weakness: Yes Review of Systems All Other Systems: limited Physical Exam Vital Signs Date Time Temp Pulse Resp B/P (MAP) Pulse Ox O2 Delivery O2 Flow Rate FiO2 11/13/19 08:00 97 11/13/19 08:00 97.6 18 133/77 (95) 93 11/13/19 09:00 Nasal Cannula 2.0 11/15/19 20:02 21 Sp02 EP Interpretation: reviewed Labs Laboratory Tests Test 11/17/19 05:25 11/17/19 09:45 White Blood Count 16.3 K/UL (4.8-10.8) H Red Blood Count 4.66 M/UL (4.70-6.10) L Hemoglobin 14.0 G/DL (14.2-18.0) L Hematocrit 40.4 % (42.0-52.0) L Mean Corpuscular Volume 87 FL (80-99) Mean Corpuscular Hemoglobin 30.0 PG (27.0-31.0) Mean Corpuscular Hemoglobin Concent 34.5 G/DL (32.0-36.0) Red Cell Distribution Width 14.1 % (11.6-14.8) Platelet Count 568 K/UL (150-450) H Mean Platelet Volume 5.4 FL (6.5-10.1) L Neutrophils (%) (Auto) 84.0 % (45.0-75.0) H Lymphocytes (%) (Auto) 12.1 % (20.0-45.0) L Monocytes (%) (Auto) 3.2 % (1.0-10.0) Eosinophils (%) (Auto) 0.5 % (0.0-3.0) Basophils (%) (Auto) 0.2 % (0.0-2.0) Sodium Level 160 MMOL/L (136-145) H Potassium Level 4.6 MMOL/L (3.5-5.1) Chloride Level 125 MMOL/L (98-107) H Carbon Dioxide Level 19 MMOL/L (21-32) L Anion Gap 17 mmol/L (5-15) H Blood Urea Nitrogen 45 mg/dL (7-18) H Creatinine 1.8 MG/DL (0.55-1.30) H Estimat Glomerular Filtration Rate 37.6 mL/min (>60) Glucose Level 298 MG/DL (74-106) H Calcium Level 9.8 MG/DL (8.5-10.1) Total Bilirubin 0.8 MG/DL (0.2-1.0) Aspartate Amino Transf (AST/SGOT) 75 U/L (15-37) H Alanine Aminotransferase (ALT/SGPT) 126 U/L (12-78) H Alkaline Phosphatase 150 U/L (46-116) H Ammonia 38 umol/L (11-32) H Total Protein 8.3 G/DL (6.4-8.2) H Albumin 2.9 G/DL (3.4-5.0) L Globulin 5.4 g/dL Albumin/Globulin Ratio 0.5 (1.0-2.7) L Arterial Blood pH 7.421 (7.350-7.450) Arterial Blood Partial Pressure CO2 29.5 mmHg (35.0-45.0) L Arterial Blood Partial Pressure O2 74.3 mmHg (75.0-100.0) L Arterial Blood HCO3 18.7 mmol/L (22.0-26.0) L Arterial Blood Oxygen Saturation 93.3 % (95-100) L Arterial Blood Base Excess -4.4 (-2-2) L Gordon Test Positive Head: normocephalic Neck: supple Respiratory: respiratory distress Cardiovascular: tachycardia Gastrointestinal: soft Rectal: deferred Musculoskeletal: decreased range of motion Current Medications Current Medications Medications (Trade) Dose Ordered Sig/Stacey Route PRN Reason Start Time Stop Time Status Last Admin Dose Admin Acetaminophen (Tylenol) 500 mg Q4H PRN ORAL Temp >100.5/pain 11/08/19 16:45 12/08/19 16:44 11/15/19 17:26 Aspirin (Ecotrin) 81 mg DAILY ORAL 11/10/19 09:00 12/25/19 08:59 11/16/19 08:57 Dextrose (Dextrose 50%) 25 ml Q30M PRN IV Hypoglycemia 11/14/19 18:00 02/12/20 17:59 Dextrose (Dextrose 50%) 50 ml Q30M PRN IV Hypoglycemia 11/14/19 18:00 02/12/20 17:59 Enoxaparin Sodium (Lovenox) 40 mg DAILY SUBQ 11/15/19 09:00 02/13/20 08:59 11/17/19 09:31 Heparin Sodium/ Sodium Chloride (Heparin 1000 units/500ml Premix) 1,000 unit ONCE IV 11/17/19 11:30 11/17/19 22:00 UNV Insulin Aspart (NovoLOG) BEFORE MEALS AND HS SUBQ 11/08/19 21:00 02/06/20 20:59 11/17/19 06:17 Insulin Aspart (NovoLOG) 10 units NOVOTIAC SUBQ 11/16/19 11:50 02/13/20 06:29 11/17/19 06:19 Insulin Detemir (Levemir) 30 units QHS SUBQ 11/16/19 21:00 02/06/20 17:59 11/16/19 21:44 Metoprolol Tartrate (Lopressor) 50 mg Q12HR ORAL 11/15/19 21:00 02/07/20 20:59 11/16/19 21:42 Pantoprazole (Protonix) 40 mg EVERY 12 HOURS IVP 11/17/19 13:00 12/17/19 12:59 Sodium Chloride 1,000 ml @ 100 mls/hr Q10H IV 11/17/19 11:30 12/17/19 11:29 GI: Plan Problems: (1) Encephalopathy (2) Elevated liver function tests (3) Dysphasia (4) Pneumonia due to COVID-19 virus (5) Low iron Plan #Encephalopathy multifactorial most likely secondary due to COVID infection versus sepsis versus hypernatremia. Less likely hepatic encephalopathy given no indications of cirrhosis. -Continue antibiotics per infectious diseases -Correct sodium -Maintain n.p.o. plus IV fluids, reassess swallowing function when more alert. Consider NGT placement if not improved. #Rising elevated liver enzymes possibly drug-induced hepatitis given use of methimazole. Methimazole is also capable of causing clinically apparent, idiosyncratic liver injury. The onset of hepatotoxicity is usually within 2 to 12 weeks. Less likely viral hepatitis or hepatocellular disease given new onset. Elevated alkaline phosphatase not hepatic in origin given normal GGT levels. -Trend liver function enzymes. -consider dc methimazole Discussed with Dr. Palacios. Thank you for this patient referral, we will follow. The patient was seen and examined at bedside and all new and available data was reviewed in the patients chart. I agree with the above findings, impression and plan. (Patient seen earlier today. Signature stamp does not reflect patient encounter time.). - MD Janna CapellanBannerJaren [employer] TECH[employer]ICIAN INST[employer]ER November 17, 2019 13:55
[2019-11-17] MEDS: DOPamine 400mg/250ml 250 ML IV SCH ×3 (14:00→22:33)
[2019-11-17] MEDS ORDERED: DOPamine 400mg/250ml 250 ML IV SCH (14:00)
--- NOTE | 2019-11-17 14:00 | NUR ---
NURSE NOTES: Pt report received from NAMAN Gonzalez. Pt started on levo and dopamine drip (20 mcg/min and 10 mcg/kg/hr respectively) at higher rate due to hypotension (see VS). Addendum: 11/17/19 at 1926 by Natalie Lemus RN Late entry: Betzy from pharmacy made aware I was unable to scan dopamine and levophed hung at 1400- pt was unstable at that time and medication administration was documented later.
--- NOTE | 2019-11-17 14:00 | NUR ---
HAND-OFF: Report given to Natalie COOPERATIVE EXTENSION AGENT. Endorsed plan of care.
--- NOTE | 2019-11-17 14:15 | NUR ---
NURSE NOTES: Second attempt to contact Dr Petersen- no response yet.
--- NOTE | 2019-11-17 14:28 | Emergency Room Report ---
History of Present Illness General Chief Complaint: Fever Source: Medical Record Present Illness Allergies: Coded Allergies: No Known Allergies (Unverified , 08/01/18) COVID-19 Screening Contact w/high risk pt: Yes Recent Travel to affected area: No Experienced COVID-19 symptoms?: No COVID-19 symptoms experienced: Fever (T>100.4F or >38C), Shortness of Breath Nursing Documentation-[facility] Past Medical History Deferred: Pt Cognitively Impaired Past Medical History: Deferred Hx Cardiac Problems: Yes Hx Hypertension: Yes Hx COPD: Yes Hx Cancer: No Hx Gastrointestinal Problems: No Hx Neurological Problems: Yes Hx Dementia: Yes Hx Weakness: Yes Physical Exam Vital Signs Date Time Temp Pulse Resp B/P (MAP) Pulse Ox O2 Delivery O2 Flow Rate FiO2 11/13/19 08:00 97 11/13/19 08:00 97.6 18 133/77 (95) 93 11/13/19 09:00 Nasal Cannula 2.0 11/15/19 20:02 21 Procedures Central Line Central Line : Consent: Emergent Central Line Lumen: triple Maximal Sterile Barrier Tech: yes cap, yes mask, yes sterile gown, yes sterile gloves, yes large sterile sheet, yes hand hygiene, yes chlorhexidine prep Central Line Postion: internal jugular (R) Anesthesia: local cc's of anesthesia: 3 Complications: none Central Line Post Position: sutured, good blood return, position confirmed w / CXR Attempts: One Patient Tolerated: Well Complications: None Intubation Intubation : Consent: Emergent Intubation Method: orotracheal Tube Size (cm): 7.0 Medications: Etomidate Breath Sounds after Intubation: equal Intubation Complications: no complications Post Intubation Xray: Yes Attempts: One Patient Tolerated: Well Complications: None Progress Patient was intubated for desaturation. Patient was noted to be hypotensive and was started on IV fluids. Central venous catheter with was placed due to hypotension for pressor management. Medical Decision Making Diagnostic Impression: Primary Impression: Pneumonia due to COVID-19 virus Additional Impressions: Hyperglycemia Elevated troponin Sepsis UTI (urinary tract infection) Last Vital Signs Date Time Temp Pulse Resp B/P (MAP) Pulse Ox O2 Delivery O2 Flow Rate FiO2 11/17/19 12:53 75 21 100 11/17/19 12:45 97.4 84/66 (72) 74 11/17/19 12:13 Bi-pap 11/17/19 09:42 15.0 Disposition: ELOPED Condition: Serious Referrals: Wyatt Kelley MD (PCP) Azeem Spencer MD November 17, 2019 14:28
--- NOTE | 2019-11-17 14:33 | Diagnostic Imaging Report ---
EXAM: XR Chest, 1 View CLINICAL HISTORY: LINE TECHNIQUE: Frontal view of the chest. COMPARISON: Chest radiograph on 11/17/2019 at 1148 hrs. FINDINGS: Hardware: Interval placement of an endotracheal tube which terminates in the region of the lower thoracic trachea above the jose antonio. Interval placement of a right internal jugular central venous catheter which terminates in the region of the SVC. Lungs/pleura: Left basilar opacity may represent atelectasis versus pneumonia. No pleural effusion or pneumothorax. Heart/mediastinum: Atherosclerotic calcifications of the aorta. No cardiomegaly. Soft tissues: Unremarkable. Bones: No acute fracture. Degenerative changes of the acromioclavicular joints. Upper abdomen: Gas-filled stomach. IMPRESSION: 1. Interval placement of an endotracheal tube which terminates in the region of the lower thoracic trachea above the jose antonio. Interval placement of a right internal jugular central venous catheter which terminates in the region of the SVC. 2. Left basilar opacity may represent atelectasis versus pneumonia.
--- NOTE | 2019-11-17 15:00 | NUR ---
NURSE NOTES: Dr Zapien at bedside assessing pt, made aware pt's HR on dopa drip is in the 120-130s. No new orders.
[2019-11-17] MEDS ORDERED: Heparin 25,000u/D5W 500ml 500 ML IV SCH (15:15)
--- NOTE | 2019-11-17 15:40 | NUR ---
NURSE NOTES: Received call back from Dr Petersen with new vent settings: AC 16 TV 500 FiO2 100% PEEP 10. Kita, RT notified and vent settings changed.
[2019-11-17] MEDS ORDERED: Acetaminophen 500mg (ES) tab ORAL PRN (16:00)
--- NOTE | 2019-11-17 16:00 | NUR ---
NURSE NOTES: Pt repositioned and oral care provided. No distress noted at this time.
--- NOTE | 2019-11-17 16:05 | Cardiac Electrophysiology PN ---
Assessment/Plan Assessment/Plan 1. Troponin leak. Etiology is not clear. No chest pain. Creatinine was 2.3 improved to 1.3 on aspirin and Lopressor Echo EF 60% 2. Hypertension. On metoprolol 50 bid 3. Acute renal failure. Creatinine of 2.3 that normalized to 1.[address] Urias. 4. Fever and cough due to COVID pneumonia. Patient is on isolation. Reswapped again 5. Diabetes. DW RN Subjective Subjective No CP or SOB. In SR. Is Covid positive x2 on 11/07 and 11/11. Reswapped for Covid yesterday Objective Last 24 Hour Vital Signs Date Time Temp Pulse Resp B/P (MAP) Pulse Ox O2 Delivery O2 Flow Rate FiO2 11/17/19 15:13 117 26 100 11/17/19 15:00 117 28 90/50 (63) 91 11/17/19 14:45 117 28 91/48 (62) 91 11/17/19 14:31 115 28 87/47 (60) 91 11/17/19 14:30 115 28 84/50 (61) 91 11/17/19 14:15 111 27 74/46 (55) 90 11/17/19 14:00 103 27 66/42 (50) 85 11/17/19 13:45 88 26 57/35 (42) 71 11/17/19 13:30 69 22 44/31 (35) 90 11/17/19 13:15 69 21 45/27 (33) 86 11/17/19 13:00 70 22 43/35 (38) 86 11/17/19 12:53 75 21 100 11/17/19 12:45 97.4 86 22 84/66 (72) 74 11/17/19 12:40 101 22 55/35 (42) 79 11/17/19 12:40 78 11/17/19 12:14 60 23 80 100 11/17/19 12:13 Bi-pap 11/17/19 12:00 98.3 133 52 101/57 (72) 91 11/17/19 11:46 131 11/17/19 09:42 Non-Rebreather 15.0 11/17/19 09:00 118 108/67 11/17/19 08:00 97.7 118 46 108/67 (81) 95 11/17/19 07:45 113 11/17/19 04:00 102 11/17/19 04:00 97.3 89 19 108/70 (83) 95 11/17/19 00:00 86 11/17/19 00:00 97.7 90 19 103/65 (78) 93 11/16/19 21:42 112 127/69 11/16/19 20:43 Room Air 11/16/19 20:00 117 11/16/19 20:00 96.8 120 19 122/72 (89) 93 Intake and Output 11/16/19 11/17/19 19:00 07:00 # Voids 5 1 Laboratory Tests Test 11/17/19 05:25 11/17/19 09:45 11/17/19 14:26 White Blood Count 16.3 K/UL (4.8-10.8) H Red Blood Count 4.66 M/UL (4.70-6.10) L Hemoglobin 14.0 G/DL (14.2-18.0) L Hematocrit 40.4 % (42.0-52.0) L Mean Corpuscular Volume 87 FL (80-99) Mean Corpuscular Hemoglobin 30.0 PG (27.0-31.0) Mean Corpuscular Hemoglobin Concent 34.5 G/DL (32.0-36.0) Red Cell Distribution Width 14.1 % (11.6-14.8) Platelet Count 568 K/UL (150-450) H Mean Platelet Volume 5.4 FL (6.5-10.1) L Neutrophils (%) (Auto) 84.0 % (45.0-75.0) H Lymphocytes (%) (Auto) 12.1 % (20.0-45.0) L Monocytes (%) (Auto) 3.2 % (1.0-10.0) Eosinophils (%) (Auto) 0.5 % (0.0-3.0) Basophils (%) (Auto) 0.2 % (0.0-2.0) Sodium Level 160 MMOL/L (136-145) H Potassium Level 4.6 MMOL/L (3.5-5.1) Chloride Level 125 MMOL/L (98-107) H Carbon Dioxide Level 19 MMOL/L (21-32) L Anion Gap 17 mmol/L (5-15) H Blood Urea Nitrogen 45 mg/dL (7-18) H Creatinine 1.8 MG/DL (0.55-1.30) H Estimat Glomerular Filtration Rate 37.6 mL/min (>60) Glucose Level 298 MG/DL (74-106) H Calcium Level 9.8 MG/DL (8.5-10.1) Total Bilirubin 0.8 MG/DL (0.2-1.0) Aspartate Amino Transf (AST/SGOT) 75 U/L (15-37) H Alanine Aminotransferase (ALT/SGPT) 126 U/L (12-78) H Alkaline Phosphatase 150 U/L (46-116) H Ammonia 38 umol/L (11-32) H Total Protein 8.3 G/DL (6.4-8.2) H Albumin 2.9 G/DL (3.4-5.0) L Globulin 5.4 g/dL Albumin/Globulin Ratio 0.5 (1.0-2.7) L Arterial Blood pH 7.421 (7.350-7.450) 7.041 (7.350-7.450) Arterial Blood Partial Pressure CO2 29.5 mmHg (35.0-45.0) L 58.9 mmHg (35.0-45.0) *H Arterial Blood Partial Pressure O2 74.3 mmHg (75.0-100.0) L 81.6 mmHg (75.0-100.0) Arterial Blood HCO3 18.7 mmol/L (22.0-26.0) L 15.6 mmol/L (22.0-26.0) *L Arterial Blood Oxygen Saturation 93.3 % (95-100) L 87.9 % (95-100) *L Arterial Blood Base Excess -4.4 (-2-2) L -15.1 (-2-2) *L Gordon Test Positive N/a Objective HEAD AND NECK: No JVD. LUNGS: Coarse rhonchi. CARDIOVASCULAR: Regular S1 and S2 with no gallop or murmur. ABDOMEN: Soft. EXTREMITIES: No pitting edema. Igor Zapien MD November 17, 2019 16:05
--- NOTE | 2019-11-17 16:11 | Cardiac Electrophysiology PN ---
Assessment/Plan Assessment/Plan 1. Troponin leak. Etiology is not clear. No chest pain. Creatinine was 2.3 improved to 1.3 Echo EF 60% 2. SHock. Maxed out on Levophed and Dopamine. DC metoprolol 3. Acute renal failure. Creatinine of 2.3 that normalized to 1.[address] Urias. 4. Respiratory failure due to COVID pneumonia and possible PE. Intubated on 100 % Fio2 and PEEP 10 and heparin drip. 5. Diabetes. VALERIA RN, Dr Urias and [place] Subjective Subjective Is Covid positive x2 on 11/07 and 11/11. Coded and intubated for respiratory failure and now is in ICU on 100% Fio2 and PEEP 10. Also started on heparin drip for possible PE. Maxed out on Levophed and Dopamine. Already got 2 liter 1/2 NS Objective Last 24 Hour Vital Signs Date Time Temp Pulse Resp B/P (MAP) Pulse Ox O2 Delivery O2 Flow Rate FiO2 11/17/19 15:13 117 26 100 11/17/19 15:00 117 28 90/50 (63) 91 11/17/19 14:45 117 28 91/48 (62) 91 11/17/19 14:31 115 28 87/47 (60) 91 11/17/19 14:30 115 28 84/50 (61) 91 11/17/19 14:15 111 27 74/46 (55) 90 11/17/19 14:00 103 27 66/42 (50) 85 11/17/19 13:45 88 26 57/35 (42) 71 11/17/19 13:30 69 22 44/31 (35) 90 11/17/19 13:15 69 21 45/27 (33) 86 11/17/19 13:00 70 22 43/35 (38) 86 11/17/19 12:53 75 21 100 11/17/19 12:45 97.4 86 22 84/66 (72) 74 11/17/19 12:40 101 22 55/35 (42) 79 11/17/19 12:40 78 11/17/19 12:14 60 23 80 100 11/17/19 12:13 Bi-pap 11/17/19 12:00 98.3 133 52 101/57 (72) 91 11/17/19 11:46 131 11/17/19 09:42 Non-Rebreather 15.0 11/17/19 09:00 118 108/67 11/17/19 08:00 97.7 118 46 108/67 (81) 95 11/17/19 07:45 113 11/17/19 04:00 102 11/17/19 04:00 97.3 89 19 108/70 (83) 95 11/17/19 00:00 86 11/17/19 00:00 97.7 90 19 103/65 (78) 93 11/16/19 21:42 112 127/69 11/16/19 20:43 Room Air 11/16/19 20:00 117 11/16/19 20:00 96.8 120 19 122/72 (89) 93 Intake and Output 11/16/19 11/17/19 19:00 07:00 # Voids 5 1 Laboratory Tests Test 11/17/19 05:25 11/17/19 09:45 11/17/19 14:26 White Blood Count 16.3 K/UL (4.8-10.8) H Red Blood Count 4.66 M/UL (4.70-6.10) L Hemoglobin 14.0 G/DL (14.2-18.0) L Hematocrit 40.4 % (42.0-52.0) L Mean Corpuscular Volume 87 FL (80-99) Mean Corpuscular Hemoglobin 30.0 PG (27.0-31.0) Mean Corpuscular Hemoglobin Concent 34.5 G/DL (32.0-36.0) Red Cell Distribution Width 14.1 % (11.6-14.8) Platelet Count 568 K/UL (150-450) H Mean Platelet Volume 5.4 FL (6.5-10.1) L Neutrophils (%) (Auto) 84.0 % (45.0-75.0) H Lymphocytes (%) (Auto) 12.1 % (20.0-45.0) L Monocytes (%) (Auto) 3.2 % (1.0-10.0) Eosinophils (%) (Auto) 0.5 % (0.0-3.0) Basophils (%) (Auto) 0.2 % (0.0-2.0) Sodium Level 160 MMOL/L (136-145) H Potassium Level 4.6 MMOL/L (3.5-5.1) Chloride Level 125 MMOL/L (98-107) H Carbon Dioxide Level 19 MMOL/L (21-32) L Anion Gap 17 mmol/L (5-15) H Blood Urea Nitrogen 45 mg/dL (7-18) H Creatinine 1.8 MG/DL (0.55-1.30) H Estimat Glomerular Filtration Rate 37.6 mL/min (>60) Glucose Level 298 MG/DL (74-106) H Calcium Level 9.8 MG/DL (8.5-10.1) Total Bilirubin 0.8 MG/DL (0.2-1.0) Aspartate Amino Transf (AST/SGOT) 75 U/L (15-37) H Alanine Aminotransferase (ALT/SGPT) 126 U/L (12-78) H Alkaline Phosphatase 150 U/L (46-116) H Ammonia 38 umol/L (11-32) H Total Protein 8.3 G/DL (6.4-8.2) H Albumin 2.9 G/DL (3.4-5.0) L Globulin 5.4 g/dL Albumin/Globulin Ratio 0.5 (1.0-2.7) L Arterial Blood pH 7.421 (7.350-7.450) 7.041 (7.350-7.450) Arterial Blood Partial Pressure CO2 29.5 mmHg (35.0-45.0) L 58.9 mmHg (35.0-45.0) *H Arterial Blood Partial Pressure O2 74.3 mmHg (75.0-100.0) L 81.6 mmHg (75.0-100.0) Arterial Blood HCO3 18.7 mmol/L (22.0-26.0) L 15.6 mmol/L (22.0-26.0) *L Arterial Blood Oxygen Saturation 93.3 % (95-100) L 87.9 % (95-100) *L Arterial Blood Base Excess -4.4 (-2-2) L -15.1 (-2-2) *L Gordon Test Positive N/a Objective HEAD AND NECK: Orally intubated LUNGS: Coarse rhonchi. CARDIOVASCULAR: Regular S1 and S2 with no gallop or murmur. ABDOMEN: Soft. EXTREMITIES: No pitting edema. Igor Zapien MD November 17, 2019 16:11
[2019-11-17] MEDS: Norepinephrine Bitartrate 8 MG in D5W 500ml 550 ML IV SCH ×2 (16:21→21:20)
--- NOTE | 2019-11-17 16:49 | General Progress Note ---
Assessment/Plan Problem List: (1) Diabetes mellitus out of control ICD Codes: E11.65 - Type 2 diabetes mellitus with hyperglycemia SNOMED: 59323986, 534850641 (2) Hyperglycemia ICD Codes: R73.9 - Hyperglycemia, unspecified; J12.89 - Other viral pneumonia SNOMED: 62527623, 766327029 (3) Sepsis ICD Codes: A41.9 - Sepsis, unspecified organism SNOMED: 68988208, 336279572, 578348239 (4) Fever ICD Codes: R50.9 - Fever, unspecified SNOMED: 127624579 (5) Electrolyte imbalance ICD Codes: E87.8 - Other disorders of electrolyte and fluid balance, not elsewhere classified SNOMED: 314457380 (6) UTI (urinary tract infection) ICD Codes: N39.0 - Urinary tract infection, site not specified SNOMED: 54836083 Status: progressing Assessment/Plan: covid positive worsening azotemia afebrile getting worse will discuss w renal re plan of rx for worsening cr and na leukocytosis worsening hypernatremia due to dehydration obs uti Subjective ROS Limited/Unobtainable: Yes Allergies: Coded Allergies: No Known Allergies (Unverified , 08/01/18) Objective Last 24 Hour Vital Signs Date Time Temp Pulse Resp B/P (MAP) Pulse Ox O2 Delivery O2 Flow Rate FiO2 11/17/19 16:30 119 29 89/46 (60) 92 11/17/19 16:21 81/42 11/17/19 16:15 119 29 81/42 (55) 92 11/17/19 16:00 100 11/17/19 16:00 98.2 117 29 89/44 (59) 11/17/19 15:45 117 29 100/45 (63) 91 11/17/19 15:30 115 29 97/40 (59) 91 11/17/19 15:15 117 29 101/43 (62) 91 11/17/19 15:13 117 26 100 11/17/19 15:00 117 28 90/50 (63) 91 11/17/19 14:45 117 28 91/48 (62) 91 11/17/19 14:31 115 28 87/47 (60) 91 11/17/19 14:30 115 28 84/50 (61) 91 11/17/19 14:15 111 27 74/46 (55) 90 11/17/19 14:00 100 11/17/19 14:00 66/42 11/17/19 14:00 66/42 11/17/19 14:00 103 27 66/42 (50) 85 11/17/19 13:45 88 26 57/35 (42) 71 11/17/19 13:30 69 22 44/31 (35) 90 11/17/19 13:15 69 21 45/27 (33) 86 11/17/19 13:00 70 22 43/35 (38) 86 11/17/19 12:53 75 21 100 11/17/19 12:45 97.4 86 22 84/66 (72) 74 11/17/19 12:40 101 22 55/35 (42) 79 11/17/19 12:40 78 11/17/19 12:14 60 23 80 100 11/17/19 12:13 Bi-pap 11/17/19 12:00 98.3 133 52 101/57 (72) 91 11/17/19 11:46 131 11/17/19 09:42 Non-Rebreather 15.0 11/17/19 09:00 118 108/67 11/17/19 08:00 97.7 118 46 108/67 (81) 95 11/17/19 07:45 113 11/17/19 04:00 102 11/17/19 04:00 97.3 89 19 108/70 (83) 95 11/17/19 00:00 86 11/17/19 00:00 97.7 90 19 103/65 (78) 93 11/16/19 21:42 112 127/69 11/16/19 20:43 Room Air 11/16/19 20:00 117 11/16/19 20:00 96.8 120 19 122/72 (89) 93 Intake and Output 11/16/19 11/17/19 19:00 07:00 # Voids 5 1 Laboratory Tests 11/17/19 05:25: White Blood Count 16.3H, Red Blood Count 4.66L, Hemoglobin 14.0L, Hematocrit 40.4L, Mean Corpuscular Volume 87, Mean Corpuscular Hemoglobin 30.0, Mean Corpuscular Hemoglobin Concent 34.5, Red Cell Distribution Width 14.1, Platelet Count 568H, Mean Platelet Volume 5.4L, Neutrophils (%) (Auto) 84.0H, Lymphocytes (%) (Auto) 12.1L, Monocytes (%) (Auto) 3.2, Eosinophils (%) (Auto) 0.5, Basophils (%) (Auto) 0.2, Sodium Level 160H, Potassium Level 4.6, Chloride Level 125H, Carbon Dioxide Level 19L, Anion Gap 17H, Blood Urea Nitrogen 45H, Creatinine 1.8H, Estimat Glomerular Filtration Rate 37.6, Glucose Level 298H, Calcium Level 9.8, Total Bilirubin 0.8, Aspartate Amino Transf (AST/SGOT) 75H, Alanine Aminotransferase (ALT/SGPT) 126H, Alkaline Phosphatase 150H, Ammonia 38H , Total Protein 8.3H, Albumin 2.9L, Globulin 5.4, Albumin/Globulin Ratio 0.5L 11/17/19 09:45: Arterial Blood pH 7.421, Arterial Blood Partial Pressure CO2 29.5L, Arterial Blood Partial Pressure O2 74.3L, Arterial Blood HCO3 18.7L, Arterial Blood Oxygen Saturation 93.3L, Arterial Blood Base Excess -4.4L, Gordon Test Positive 11/17/19 14:26: Arterial Blood pH 7.041*L, Arterial Blood Partial Pressure CO2 58.9*H, Arterial Blood Partial Pressure O2 81.6, Arterial Blood HCO3 15.6*L, Arterial Blood Oxygen Saturation 87.9*L, Arterial Blood Base Excess -15.1*L, Gordon Test N/a 11/17/19 15:00: Activated Partial Thromboplast Time [Pending] Height (Feet): 5 Height (Inches): 8.00 Weight (Pounds): 148 Wyatt Kelley MD November 17, 2019 16:49
[2019-11-17] MEDS ORDERED: NovoLOG Insulin Flexpen SUBQ SCH (16:50)
--- NOTE | 2019-11-17 17:00 | NUR ---
NURSE NOTES: Pt repositioned, no distress noted. Pt remains on max dose of levo and dopa drip at this time with SBP 90-100. Pt also on heparin gtt at this time with repeat PTT timed for 2300.
[2019-11-17] MEDS ORDERED: D5W 275ml ONE (17:37)
--- NOTE | 2019-11-17 19:19 | NUR ---
HAND-OFF: Report given to NAMAN Pringle. BP now noted 111/69. HR 125-130 (Dr Zapien aware). spO2 100%.
--- NOTE | 2019-11-17 19:45 | NUR ---
NURSE NOTES: PATIENT ASLEEP STATUS, ON ETT TO VENT, AC16/TV500/FIO2 100%/PEEP10, O2 SATURATION 100% NOTED. HR 120'S/MIN ST NOTED, F/C INTACT AND PATENT, YELLOW URINE OUTED, TLC TO RIGHT IJ AND PPL TO BOTH FA INTACT AND PATENT, ONGOING LEVOPHED 30MCG/MIN, DOPAMINE 20MCG/KG/MIN, HEPARIN 18 UNITS/KG/HR AND IV FLUID 1/2 NS AT 100ML/HR VIA TLC, 2 POINT SOFT RESTRAINTS STATUS, LOWER BED POSITION, ON BED ALARM AND LOCKED, WILL CONTINUE TO MONITOR.
[2019-11-17] MEDS: Pantoprazole Inj IVP SCH (20:21)
[2019-11-17] MEDS: Dyna-Hex 2% Top Sol 2oz TOPIC SCH (20:21)
[2019-11-17] MEDS ORDERED: Levemir Flexpen SUBQ SCH (21:00)
[2019-11-17] MEDS ORDERED: Rocuronium Bromide 50mg/5ml Inj IV ONE (21:11)
[2019-11-17] MEDS ORDERED: Etomidate 40mg/20ml Inj IV ONE (21:11)
[2019-11-17] MEDS: Phenylephrine 50 MG in D5W 245 ML IV PRN (21:20)
--- NOTE | 2019-11-17 22:50 | NUR ---
NURSE NOTES: LE: BS 465MG/DL NOTED AT 2115PM. CALLED BACK FROM DR. SHEPHERD , RECEIVED NEW ORDER BY CHARGE NURSE, WILL FOLLOW UP.
--- NOTE | 2019-11-17 23:45 | Diagnostic Imaging Report ---
EXAM: XR Abdomen, 2 Views CLINICAL HISTORY: NGT TECHNIQUE: Frontal view of the abdomen/pelvis with upright view of the abdomen. COMPARISON: No relevant prior studies available. IMPRESSION: NG tube side-port terminates in the proximal stomach. Tip terminates in the proximal to mid stomach.
--- NOTE | 2019-11-17 23:48 | NUR ---
NURSE NOTES: PENDING PTT RESULT AT THIS TIME.
[2019-11-18] VITALS (68 sets, daily range): BP systolic 45–168; BP diastolic 10–121
[2019-11-18] MEDS ORDERED: Heparin 5000 units/ml inj IV ONE (00:30)
[2019-11-18] MEDS ORDERED: Heparin 25,000u/D5W 500ml 500 ML IV SCH ×4 (00:30→20:15)
[2019-11-18] MEDS: NovoLOG Insulin Flexpen SUBQ SCH ×12 (00:47→20:22)
[2019-11-18] MEDS: Norepinephrine Bitartrate 8 MG in D5W 500ml 550 ML IV SCH ×5 (01:20→21:35)
--- NOTE | 2019-11-18 01:51 | NUR ---
NURSE NOTES: ONGOING HEPARIN DRIP 20 UNITS/KG/HR VIA TLC PER PROTOCOLS
[2019-11-18] MEDS: Phenylephrine 50 MG in D5W 245 ML IV PRN ×3 (03:23→12:00)
--- NOTE | 2019-11-18 03:49 | NUR ---
NURSE NOTES: BP 111/79MMHG, HR 118/MIN ST NOTED, ONGOING LEVOPHED 30MCG/MIN, DOPAMINE 14MCG/KG/MIN AND PHENYLEPHRINE 200MCG/MIN VIA TLC.
[2019-11-18] MEDS: DOPamine 400mg/250ml 250 ML IV SCH ×4 (04:43→21:36)
--- NOTE | 2019-11-18 05:27 | NUR ---
NURSE NOTES: CALLED DR. SHEPHERD REGARDING BS 478MG/DL THAT LEFT MESSAGE.
--- NOTE | 2019-11-18 06:30 | NUR ---
NURSE NOTES: LE: FAILED BLOOD DRAW, WILL CALLED LAB FOR SPECIMEN.
--- NOTE | 2019-11-18 06:40 | NUR ---
NURSE NOTES: LE; VOMITED, YELLOWISH GREEN DISCHARGE, CONNECTED OGT LOWER INTERMITTENT SUCTION, DARK GREENISH DISCHARGE OUTED, DESATURATION NOTED BLOW 70% THAT CALLED RT.
--- NOTE | 2019-11-18 07:10 | NUR ---
HAND-OFF: Report given to NAMAN FERNÁNDEZ.
--- NOTE | 2019-11-18 07:10 | NUR ---
NURSE NOTES: Pt received from NAMAN Pringle. Pt currently in unstable condition with spO2 in 60s % and agonal breathing. Left message for Dr Kelley regarding pt's status at this time. Awaiting call back. Physical Assessment as follows: Neuro: Bilat pupils equal and round 3mm with sluggish light rxn. Pt is not arousable and does not follow commands. Gag reflex intact. no movements or response to pain noted. Resp: All lung lobes noted diminished upon auscultation. Pt noted with agonal breathing. Pt is mechanically intubated with 7.5 ETT noted 22 cm at mid lip. Vent settings: AC 20 TV 480 FiO2 100% Peep 10. Cardiac: ST to general expeditor (HR 110s). Bilateral radial and dorsalis pedis pulses 1+. Extremities are cool to touch. Pt is afebrile at this time. Extensive mottling noted to bilateral lower extremities. GI: Abd is round, soft, with hypoactive bowel sounds to all quadrants. Pt currently NPO. OGT noted connected to low, intermittent suction with brown gastric secretions noted. : F/C noted draining yellow urine. Integ: skin alterations noted. Right toes previously amputated. Perineal redness noted. Optifoam noted to both heels and sacrum for protection. 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 Bed in lowest position, alarm on, side rails up x 3, call light within reach. Per Pino, lab was contacted multiple times regarding lab draws for this morning (multiple attempts by 3 different RNs to collect blood unsuccessfully and lab personnel were made aware- I contacted lab myself at this time and was told they will send up load out worker shortly). Pino was able to collect a small amount of blood for PTT draw at 0630 - however, vein did not yield enough blood- Pino still sent PTT down for processing. Will follow up with lab. Addendum: 11/18/19 at 0920 by Natalie Lemus RN Late entry: Pt has a LFA 20 g IV running 1/2 NS at 100 cc/hr. TXJ TLC with dry and intact dressing noted running: dopamine at 20 mcg/kig/min, levophed at 30 mcg/min, phenylepherine at 240 mcg/min, and heparin at 20 units/kg/hr.
--- NOTE | 2019-11-18 08:02 | NUR ---
RD ASSESSMENT & RECOMMENDATIONS SEE CARE ACTIVITY FOR COMPLETE ASSESSMENT DAILY ESTIMATED NEEDS: Needs based on Critical care, DM/ 67kg 22-28 kcals/kg 5615-1661 total kcals 1.2-2 g protein/kg 80-134 g total protein 25-30 mL/kg 1989-1814 total fluid mLs NUTRITION DIAGNOSIS: 1) Swallowing difficulty r/t respiratory status as evidenced by pt now orally intubated, (+) covid pna, on pressor support ICU status. 2)Altered nutrition related lab values R/T diabetes as evidenced by elev BGs and POC glu, A1C 10.4, U glu 4+ upon adm. CURRENT DIET:NPO ENTERAL NUTRITION RECOMMENDATIONS: As medically able, Glucerna 1.5 @45ml/hr x24 hrs to provide 1080ml, 1620 kcal, 89g pro, 820ml free H2O - As medically appropriate, rec OGT feeds of Glucerna 1.5, start @15ml/hr for 6 hrs. Advance 10ml/hr q4-6 hrs as tolerated to goal. - Flush per MD. HOB over 30 degrees -> Pt is currently not hemodynamically stable for feeds at goal, rec trophic feeds of 5-10ml/hr as appropriate to maintain gut integrity. ADDITIONAL RECOMMENDATIONS: * Calibrated bedscale wt s/p txr to ICU * Monitor for stability to feeds, pt w/ clamped OGT -> 5/10, currently on pressors x3, febrile * IVF hydration for worsening Na, BUN, Creat . .
--- NOTE | 2019-11-18 08:08 | NUR ---
NURSE NOTES: Second attempt to contact lab for STAT blood draw orders (spoke to Joan- she states a field care coordinator will come up shortly). Addendum: 11/18/19 at 1152 by Natalie Lemus RN Amendment: Srinivas pugh)
--- NOTE | 2019-11-18 08:29 | General Progress Note ---
Assessment/Plan Problem List: (1) Hyperglycemia ICD Codes: R73.9 - Hyperglycemia, unspecified; J12.89 - Other viral pneumonia SNOMED: 17050030, 239539804 (2) Elevated troponin ICD Codes: R79.89 - Other specified abnormal findings of blood chemistry; J12.89 - Other viral pneumonia SNOMED: 714117734, 454721646, 537503936 (3) Pneumonia due to COVID-19 virus ICD Codes: U07.1 - COVID-19; J12.89 - Other viral pneumonia SNOMED: 491068024, 750791314 (4) Abnormal TSH ICD Codes: R79.89 - Other specified abnormal findings of blood chemistry SNOMED: 825154698 Status: progressing Assessment/Plan: Novolog 18 units every 4 hours Novolog sliding scale high dose every 4 hours continue Tapazole 10 mg daily discussed with RN - last night and this morning Subjective ROS Limited/Unobtainable: Yes Allergies: Coded Allergies: No Known Allergies (Unverified , 08/01/18) Subjective events noted - interval notes reviewed intubated and transferred to ICU on pressors and glucose is elevated doing poorly critically ill Item Value Date Time Bedside Blood Glucose 478 mg/dl H 11/18/19 0456 Bedside Blood Glucose 456 mg/dl H 11/18/19 0049 Bedside Blood Glucose 465 mg/dl H 11/17/19 2119 Bedside Blood Glucose 422 mg/dl H 11/17/19 1652 Bedside Blood Glucose 301 mg/dl H 11/17/19 1150 Objective Last 24 Hour Vital Signs Date Time Temp Pulse Resp B/P (MAP) Pulse Ox O2 Delivery O2 Flow Rate FiO2 11/18/19 08:04 106 164/87 11/18/19 07:00 106 23 157/88 (111) 75 11/18/19 07:00 157/88 11/18/19 07:00 157/88 11/18/19 06:45 110 23 80/30 (47) 71 11/18/19 06:45 80/30 11/18/19 06:30 102/52 11/18/19 06:30 102/52 11/18/19 06:30 109 24 102/52 (69) 72 11/18/19 06:15 102/17 11/18/19 06:15 109 23 102/17 (45) 75 11/18/19 06:00 111 23 149/78 (101) 100 11/18/19 06:00 149/78 11/18/19 06:00 149/78 11/18/19 05:51 146/99 11/18/19 05:00 114 23 156/91 (112) 100 11/18/19 05:00 156/91 11/18/19 05:00 156/91 11/18/19 04:43 118/83 11/18/19 04:30 115 25 118/83 (95) 100 11/18/19 04:00 99.8 116 24 145/78 (100) 100 11/18/19 04:00 100 11/18/19 04:00 160/106 11/18/19 04:00 160/106 11/18/19 04:00 Mechanical Ventilator 11/18/19 03:30 118 24 93/79 (84) 11/18/19 03:30 93/79 11/18/19 03:23 122 147/96 11/18/19 03:04 121 11/18/19 03:00 165/121 11/18/19 03:00 165/121 11/18/19 03:00 121 24 165/121 (136) 100 121 11/18/19 02:30 124 25 138/85 (102) 100 124 11/18/19 02:00 126 25 126/112 (117) 100 126 11/18/19 02:00 126/112 11/18/19 02:00 126/112 11/18/19 01:41 128 20 100 11/18/19 01:30 126/112 11/18/19 01:30 127 26 139/121 (127) 100 127 11/18/19 01:20 125/43 11/18/19 01:00 129 25 121/73 (89) 100 129 11/18/19 01:00 121/73 11/18/19 01:00 121/73 11/18/19 00:45 127 25 114/32 (59) 100 127 11/18/19 00:30 116 23 45/10 (22) 98 116 11/18/19 00:15 99 23 66/14 (31) 100 99 11/18/19 00:00 100 11/18/19 00:00 100.2 113 25 104/64 (77) 97 113 11/18/19 00:00 106/64 11/18/19 00:00 106/64 11/18/19 00:00 113 11/18/19 00:00 Mechanical Ventilator 11/17/19 23:30 129 24 106/67 (80) 97 11/17/19 23:15 130 25 122/80 (94) 98 11/17/19 23:00 130 25 96/67 (77) 98 11/17/19 23:00 96/67 11/17/19 23:00 96/67 11/17/19 23:00 130 25 96/67 (77) 100 130 11/17/19 23:00 131 25 100 11/17/19 22:45 131 25 102/42 (62) 98 11/17/19 22:33 97/45 11/17/19 22:30 132 25 97/45 (62) 100 11/17/19 22:00 96/38 11/17/19 22:00 96/38 11/17/19 22:00 132 26 96/38 (57) 100 132 11/17/19 21:45 132 22 97/69 (78) 100 11/17/19 21:30 132 25 111/48 (69) 100 11/17/19 21:20 130 89/56 11/17/19 21:20 89/56 11/17/19 21:15 130 24 107/66 (80) 100 11/17/19 21:00 95/52 11/17/19 21:00 95/52 11/17/19 21:00 127 20 86/25 (45) 100 11/17/19 20:30 128 24 85/52 (63) 100 11/17/19 20:00 99.4 133 25 102/30 (54) 100 11/17/19 20:00 Mechanical Ventilator 11/17/19 20:00 100 11/17/19 19:36 133 11/17/19 19:30 132 27 96/28 (50) 100 11/17/19 19:18 131 28 100 11/17/19 19:00 130 25 86/26 (46) 100 11/17/19 19:00 111/69 11/17/19 19:00 111/69 11/17/19 18:51 94/37 11/17/19 18:30 130 41 93/63 (73) 100 11/17/19 18:00 93/38 11/17/19 18:00 93/38 11/17/19 18:00 129 43 93/38 (56) 99 11/17/19 17:30 127 27 98/41 (60) 99 11/17/19 17:00 98/41 11/17/19 17:00 98/41 11/17/19 17:00 125 27 100/60 (73) 11/17/19 16:45 124 28 94/50 (65) 11/17/19 16:30 119 29 89/46 (60) 92 11/17/19 16:21 81/42 11/17/19 16:15 119 29 81/42 (55) 92 11/17/19 16:00 100 11/17/19 16:00 Mechanical Ventilator 11/17/19 16:00 79/43 11/17/19 16:00 79/43 11/17/19 16:00 98.2 117 29 89/44 (59) 91 11/17/19 16:00 125 11/17/19 15:45 117 29 100/45 (63) 91 11/17/19 15:30 115 29 97/40 (59) 91 11/17/19 15:15 97/40 11/17/19 15:15 97/40 11/17/19 15:15 117 29 101/43 (62) 91 11/17/19 15:13 117 26 100 11/17/19 15:00 88/40 11/17/19 15:00 88/40 11/17/19 15:00 117 28 90/50 (63) 91 11/17/19 14:45 117 28 91/48 (62) 91 11/17/19 14:45 90/50 11/17/19 14:45 90/50 11/17/19 14:31 115 28 87/47 (60) 91 11/17/19 14:30 84/50 11/17/19 14:30 84/50 11/17/19 14:30 115 28 84/50 (61) 91 11/17/19 14:15 87/47 11/17/19 14:15 87/47 11/17/19 14:15 111 27 74/46 (55) 90 11/17/19 14:00 100 11/17/19 14:00 66/42 11/17/19 14:00 66/42 11/17/19 14:00 103 27 66/42 (50) 85 11/17/19 14:00 Mechanical Ventilator 11/17/19 13:45 88 26 57/35 (42) 71 11/17/19 13:30 69 22 44/31 (35) 90 11/17/19 13:15 69 21 45/27 (33) 86 11/17/19 13:00 70 22 43/35 (38) 86 11/17/19 12:53 75 21 100 11/17/19 12:45 97.4 86 22 84/66 (72) 74 11/17/19 12:40 101 22 55/35 (42) 79 11/17/19 12:40 78 11/17/19 12:14 60 23 80 100 11/17/19 12:13 Bi-pap 11/17/19 12:00 98.3 133 52 101/57 (72) 91 11/17/19 11:46 131 11/17/19 09:42 Non-Rebreather 15.0 11/17/19 09:00 118 108/67 Intake and Output 11/17/19 11/18/19 19:00 07:00 Intake Total 1428.56456 ml 3559.79339 ml Output Total 390 ml 305 ml Balance 1038.39152 ml 3254.31630 ml IV Total 1428.94224 ml 3559.15412 ml Output Urine Total 390 ml 305 ml # Voids 1 Laboratory Tests 11/17/19 09:45: Arterial Blood pH 7.421, Arterial Blood Partial Pressure CO2 29.5L, Arterial Blood Partial Pressure O2 74.3L, Arterial Blood HCO3 18.7L, Arterial Blood Oxygen Saturation 93.3L, Arterial Blood Base Excess -4.4L, Gordon Test Positive 11/17/19 14:26: Arterial Blood pH 7.041*L, Arterial Blood Partial Pressure CO2 58.9*H, Arterial Blood Partial Pressure O2 81.6, Arterial Blood HCO3 15.6*L, Arterial Blood Oxygen Saturation 87.9*L, Arterial Blood Base Excess -15.1*L, Gordon Test N/a 11/17/19 15:00: Activated Partial Thromboplast Time 25 11/17/19 23:15: Activated Partial Thromboplast Time 56H Height (Feet): 5 Height (Inches): 8.00 Weight (Pounds): 148 General Appearance: severe distress, other - intubated EENT: other - eTT Cardiovascular: tachycardia Respiratory/Chest: decreased breath sounds Abdomen: normal bowel sounds Pelvis: normal external exam Edema: 1+ Arm (L), 1+ Arm (R), 1+ Leg (L), 1+ Leg (R), 1+ Pedal (L), 1+ Pedal ( R), 1+ Generalized Objective Current Medications Medications (Trade) Dose Ordered Sig/Stacey Route PRN Reason Start Time Stop Time Status Last Admin Dose Admin Acetaminophen (Tylenol) 500 mg Q4H PRN ORAL Temp >100.5/pain 11/17/19 16:00 12/08/19 15:59 Aspirin (Ecotrin) 81 mg DAILY ORAL 11/18/19 09:00 12/25/19 08:59 Chlorhexidine Gluconate (Dacia-Hex 2%) 1 applic DAILY@2000 TOPIC 11/17/19 20:00 02/15/20 19:59 11/17/19 20:21 Dextrose (Dextrose 50%) 25 ml Q30M PRN IV Hypoglycemia 11/17/19 21:45 02/15/20 21:44 Dextrose (Dextrose 50%) 50 ml Q30M PRN IV Hypoglycemia 11/17/19 21:45 02/15/20 21:44 Dopamine HCl/ Dextrose 250 ml @ 0 mls/hr Q24H IV 11/17/19 16:00 02/15/20 15:59 11/18/19 04:43 Heparin Sodium/ Dextrose 500 ml @ 26.854 mls/ hr ADJUST PER PROTOCOL IV 11/18/19 00:30 12/18/19 00:29 11/18/19 00:27 Insulin Aspart (NovoLOG) EVERY 4 HOURS SUBQ 11/18/19 01:00 02/16/20 00:59 11/18/19 04:55 Insulin Aspart (NovoLOG) 18 units EVERY 4 HOURS SUBQ 11/18/19 09:00 02/16/20 00:59 UNV Norepinephrine Bitartrate 8 mg/ Dextrose 558 ml @ 0 mls/hr Q24H IV 11/17/19 16:30 12/17/19 16:29 11/18/19 05:51 Pantoprazole (Protonix) 40 mg EVERY 12 HOURS IVP 11/17/19 21:00 12/17/19 12:59 11/17/19 20:21 Phenylephrine HCl 50 mg/Dextrose 250 ml @ 0 mls/hr Q24H PRN IV For hypotension 11/17/19 19:15 12/17/19 19:14 11/18/19 08:04 Sodium Chloride 1,000 ml @ 100 mls/hr Q10H IV 11/17/19 15:45 12/17/19 11:29 11/18/19 01:19 Juvencio Short MD November 18, 2019 08:29
--- NOTE | 2019-11-18 08:44 | NUR ---
NURSE NOTES: Dr Petersen at bedside assessing pt noting spO2 in 50-60s. ABG and CXR ordered. Will continue to monitor pt.
--- NOTE | 2019-11-18 08:48 | Nephrology Progress Note ---
Assessment/Plan Problem List: (1) STEPHANIE (acute kidney injury) (2) Electrolyte imbalance (3) Hyperglycemia (4) Sepsis (5) Elevated troponin (6) Pneumonia due to COVID-19 virus (7) UTI (urinary tract infection) (8) Acute respiratory failure Assessment Renal failure most likely acute on chronic Diabetes mellitus, presents with hyperglycemia Pneumonia due to COVID-19 virus Elevated troponin Sepsis, UTI, Plan November 10: 9:30 AM Today's labs available. Potassium and creatinine elevated. LFTs are elevated. ABG noted pH acidotic Will give IV bicarb, IV insulin, Kayexalate through NG tube, Repeat can panel and ABG at 2 PM Prognosis remains dismal. November 10: 8:30 AM Patient is now in ICU. Intubated on mechanical ventilation. On multiple pressors to keep the blood pressure at the reasonable range. Urine output is low. Today's labs pending. Patient is doing poorly, prognosis is dismal, remains full code. According to how his blood results are and how his clinical condition evolves we make the proper recommendations for further renal related management November 9: Patient is deteriorating, in respiratory distress, with worsening renal parameters Discussed with Dr. Petersen the label sewer, patient suspected pulmonary emboli, heparin is being initiated, Will transfer the patient to stepdown unit, BiPAP, Belcher, D5W IV hydration for hypernatremia Continue treatment of underlying sepsis Adjust blood pressure medication, discontinue metolazone Will adjust blood pressure medications Correct low potassium and low phosphorus Will hold diuretics and metformin Discontinue IV fluid as BUN and creatinine improved Keep the blood pressure and blood sugar in check Monitor renal parameters Avoid nephrotoxic's Antibiotics per ID Per orders Subjective ROS Limited/Unobtainable: Yes Objective Objective Last 24 Hour Vital Signs Date Time Temp Pulse Resp B/P (MAP) Pulse Ox O2 Delivery O2 Flow Rate FiO2 11/18/19 08:30 107 24 155/71 (99) 59 11/18/19 08:15 108 23 108/62 (77) 60 11/18/19 08:04 106 164/87 11/18/19 08:00 99.0 108 23 164/87 (112) 65 11/18/19 08:00 100 11/18/19 07:45 108 23 142/83 (102) 62 11/18/19 07:30 109 25 111/42 (65) 60 11/18/19 07:15 109 25 120/81 (94) 65 11/18/19 07:00 106 23 157/88 (111) 75 11/18/19 07:00 157/88 11/18/19 07:00 157/88 11/18/19 06:45 110 23 80/30 (47) 71 11/18/19 06:45 80/30 11/18/19 06:30 102/52 11/18/19 06:30 102/52 11/18/19 06:30 109 24 102/52 (69) 72 11/18/19 06:15 102/17 11/18/19 06:15 109 23 102/17 (45) 75 11/18/19 06:00 111 23 149/78 (101) 100 11/18/19 06:00 149/78 11/18/19 06:00 149/78 11/18/19 05:51 146/99 11/18/19 05:00 114 23 156/91 (112) 100 11/18/19 05:00 156/91 11/18/19 05:00 156/91 11/18/19 04:43 118/83 11/18/19 04:30 115 25 118/83 (95) 100 11/18/19 04:00 99.8 116 24 145/78 (100) 100 11/18/19 04:00 100 11/18/19 04:00 160/106 11/18/19 04:00 160/106 11/18/19 04:00 Mechanical Ventilator 11/18/19 03:30 118 24 93/79 (84) 11/18/19 03:30 93/79 11/18/19 03:23 122 147/96 11/18/19 03:04 121 11/18/19 03:00 165/121 11/18/19 03:00 165/121 11/18/19 03:00 121 24 165/121 (136) 100 121 11/18/19 02:30 124 25 138/85 (102) 100 124 11/18/19 02:00 126 25 126/112 (117) 100 126 11/18/19 02:00 126/112 11/18/19 02:00 126/112 11/18/19 01:41 128 20 100 11/18/19 01:30 126/112 11/18/19 01:30 127 26 139/121 (127) 100 127 11/18/19 01:20 125/43 11/18/19 01:00 129 25 121/73 (89) 100 129 11/18/19 01:00 121/73 11/18/19 01:00 121/73 11/18/19 00:45 127 25 114/32 (59) 100 127 11/18/19 00:30 116 23 45/10 (22) 98 116 11/18/19 00:15 99 23 66/14 (31) 100 99 11/18/19 00:00 100 11/18/19 00:00 100.2 113 25 104/64 (77) 97 113 11/18/19 00:00 106/64 11/18/19 00:00 106/64 11/18/19 00:00 113 11/18/19 00:00 Mechanical Ventilator 11/17/19 23:30 129 24 106/67 (80) 97 11/17/19 23:15 130 25 122/80 (94) 98 11/17/19 23:00 130 25 96/67 (77) 98 11/17/19 23:00 96/67 11/17/19 23:00 96/67 11/17/19 23:00 130 25 96/67 (77) 100 130 11/17/19 23:00 131 25 100 11/17/19 22:45 131 25 102/42 (62) 98 11/17/19 22:33 97/45 11/17/19 22:30 132 25 97/45 (62) 100 11/17/19 22:00 96/38 11/17/19 22:00 96/38 11/17/19 22:00 132 26 96/38 (57) 100 132 11/17/19 21:45 132 22 97/69 (78) 100 11/17/19 21:30 132 25 111/48 (69) 100 11/17/19 21:20 130 89/56 11/17/19 21:20 89/56 11/17/19 21:15 130 24 107/66 (80) 100 11/17/19 21:00 95/52 11/17/19 21:00 95/52 11/17/19 21:00 127 20 86/25 (45) 100 5/9/20 20:30 128 24 85/52 (63) 100 11/17/19 20:00 99.4 133 25 102/30 (54) 100 11/17/19 20:00 Mechanical Ventilator 11/17/19 20:00 100 11/17/19 19:36 133 11/17/19 19:30 132 27 96/28 (50) 100 11/17/19 19:18 131 28 100 11/17/19 19:00 130 25 86/26 (46) 100 11/17/19 19:00 111/69 11/17/19 19:00 111/69 11/17/19 18:51 94/37 11/17/19 18:30 130 41 93/63 (73) 100 11/17/19 18:00 93/38 11/17/19 18:00 93/38 11/17/19 18:00 129 43 93/38 (56) 99 11/17/19 17:30 127 27 98/41 (60) 99 11/17/19 17:00 98/41 11/17/19 17:00 98/41 11/17/19 17:00 125 27 100/60 (73) 11/17/19 16:45 124 28 94/50 (65) 11/17/19 16:30 119 29 89/46 (60) 92 11/17/19 16:21 81/42 11/17/19 16:15 119 29 81/42 (55) 92 11/17/19 16:00 100 11/17/19 16:00 Mechanical Ventilator 11/17/19 16:00 79/43 11/17/19 16:00 79/43 11/17/19 16:00 98.2 117 29 89/44 (59) 91 11/17/19 16:00 125 11/17/19 15:45 117 29 100/45 (63) 91 11/17/19 15:30 115 29 97/40 (59) 91 11/17/19 15:15 97/40 11/17/19 15:15 97/40 11/17/19 15:15 117 29 101/43 (62) 91 11/17/19 15:13 117 26 100 11/17/19 15:00 88/40 11/17/19 15:00 88/40 11/17/19 15:00 117 28 90/50 (63) 91 11/17/19 14:45 117 28 91/48 (62) 91 11/17/19 14:45 90/50 11/17/19 14:45 90/50 11/17/19 14:31 115 28 87/47 (60) 91 11/17/19 14:30 84/50 11/17/19 14:30 84/50 11/17/19 14:30 115 28 84/50 (61) 91 11/17/19 14:15 87/47 11/17/19 14:15 87/47 11/17/19 14:15 111 27 74/46 (55) 90 11/17/19 14:00 100 11/17/19 14:00 66/42 11/17/19 14:00 66/42 11/17/19 14:00 103 27 66/42 (50) 85 11/17/19 14:00 Mechanical Ventilator 11/17/19 13:45 88 26 57/35 (42) 71 11/17/19 13:30 69 22 44/31 (35) 90 11/17/19 13:15 69 21 45/27 (33) 86 11/17/19 13:00 70 22 43/35 (38) 86 11/17/19 12:53 75 21 100 11/17/19 12:45 97.4 86 22 84/66 (72) 74 11/17/19 12:40 101 22 55/35 (42) 79 11/17/19 12:40 78 11/17/19 12:14 60 23 80 100 11/17/19 12:13 Bi-pap 11/17/19 12:00 98.3 133 52 101/57 (72) 91 11/17/19 11:46 131 11/17/19 09:42 Non-Rebreather 15.0 11/17/19 09:00 118 108/67 Intake and Output 11/17/19 11/18/19 19:00 07:00 Intake Total 1428.73954 ml 3559.08675 ml Output Total 390 ml 305 ml Balance 1038.48701 ml 3254.88744 ml IV Total 1428.87584 ml 3559.53664 ml Output Urine Total 390 ml 305 ml # Voids 1 Current Medications Medications (Trade) Dose Ordered Sig/Stacey Route PRN Reason Start Time Stop Time Status Last Admin Dose Admin Acetaminophen (Tylenol) 500 mg Q4H PRN ORAL Temp >100.5/pain 11/17/19 16:00 12/08/19 15:59 Aspirin (Ecotrin) 81 mg DAILY ORAL 11/18/19 09:00 12/25/19 08:59 Chlorhexidine Gluconate (Dacia-Hex 2%) 1 applic DAILY@2000 TOPIC 11/17/19 20:00 02/15/20 19:59 11/17/19 20:21 Dextrose (Dextrose 50%) 25 ml Q30M PRN IV Hypoglycemia 11/17/19 21:45 02/15/20 21:44 Dextrose (Dextrose 50%) 50 ml Q30M PRN IV Hypoglycemia 11/17/19 21:45 02/15/20 21:44 Dopamine HCl/ Dextrose 250 ml @ 0 mls/hr Q24H IV 11/17/19 16:00 02/15/20 15:59 11/18/19 04:43 Heparin Sodium/ Dextrose 500 ml @ 26.854 mls/ hr ADJUST PER PROTOCOL IV 11/18/19 00:30 12/18/19 00:29 11/18/19 00:27 Insulin Aspart (NovoLOG) EVERY 4 HOURS SUBQ 11/18/19 01:00 02/16/20 00:59 11/18/19 04:55 Insulin Aspart (NovoLOG) 18 units EVERY 4 HOURS SUBQ 11/18/19 09:00 02/16/20 00:59 UNV Norepinephrine Bitartrate 8 mg/ Dextrose 558 ml @ 0 mls/hr Q24H IV 11/17/19 16:30 12/17/19 16:29 11/18/19 05:51 Pantoprazole (Protonix) 40 mg EVERY 12 HOURS IVP 11/17/19 21:00 12/17/19 12:59 11/17/19 20:21 Phenylephrine HCl 50 mg/Dextrose 250 ml @ 0 mls/hr Q24H PRN IV For hypotension 11/17/19 19:15 12/17/19 19:14 11/18/19 08:04 Sodium Chloride 1,000 ml @ 100 mls/hr Q10H IV 11/17/19 15:45 12/17/19 11:29 11/18/19 01:19 Laboratory Tests 11/17/19 09:45: Arterial Blood pH 7.421, Arterial Blood Partial Pressure CO2 29.5L, Arterial Blood Partial Pressure O2 74.3L, Arterial Blood HCO3 18.7L, Arterial Blood Oxygen Saturation 93.3L, Arterial Blood Base Excess -4.4L, Gordon Test Positive 11/17/19 14:26: Arterial Blood pH 7.041*L, Arterial Blood Partial Pressure CO2 58.9*H, Arterial Blood Partial Pressure O2 81.6, Arterial Blood HCO3 15.6*L, Arterial Blood Oxygen Saturation 87.9*L, Arterial Blood Base Excess -15.1*L, Gordon Test N/a 11/17/19 15:00: Activated Partial Thromboplast Time 25 11/17/19 23:15: Activated Partial Thromboplast Time 56H Height (Feet): 5 Height (Inches): 8.00 Weight (Pounds): 148 General Appearance: mild distress EENT: other - Intubated on ventilator Cardiovascular: tachycardia Respiratory/Chest: decreased breath sounds, rhonchi - bilaterally Abdomen: distended Objective no change Levi Urias MD November 18, 2019 08:48
[2019-11-18] MEDS ORDERED: Aspirin EC 81mg tab ORAL SCH (09:00)
[2019-11-18 09:05] LABS: HEMATOCRIT 39.7 % (42.0-52.0); HEMOGLOBIN 12.7 G/DL (14.2-18.0); MEAN CORPUSCULAR VOLUME 92 FL (80-99); PLATELET COUNT 375 K/UL (150-450); RED BLOOD COUNT 4.33 M/UL (4.70-6.10); RED CELL DISTRIBUTION WIDTH 15.6 % (11.6-14.8)
--- NOTE | 2019-11-18 09:10 | Pulmonology Progress Note ---
Subjective ROS Limited/Unobtainable: Yes Interval Events: ntubated 11/16/29; on max pressors Constitutional: Reports: no symptoms; Denies: fever HEENT: Repors: no symptoms Respiratory: Reports: no symptoms Gastrointestinal/Abdominal: Reports: no symptoms Genitourinary: Reports: no symptoms Neurologic: Reports: no symptoms Allergies: Coded Allergies: No Known Allergies (Unverified , 08/01/18) All Systems: reviewed and negative except above Objective Last 24 Hour Vital Signs Date Time Temp Pulse Resp B/P (MAP) Pulse Ox O2 Delivery O2 Flow Rate FiO2 11/18/19 08:30 107 24 155/71 (99) 59 11/18/19 08:15 108 23 108/62 (77) 60 11/18/19 08:04 106 164/87 11/18/19 08:00 99.0 108 23 164/87 (112) 65 11/18/19 08:00 94 11/18/19 08:00 Mechanical Ventilator 11/18/19 08:00 100 11/18/19 07:45 108 23 142/83 (102) 62 11/18/19 07:30 109 25 111/42 (65) 60 11/18/19 07:15 109 25 120/81 (94) 65 11/18/19 07:00 106 23 157/88 (111) 75 11/18/19 07:00 157/88 11/18/19 07:00 157/88 11/18/19 06:45 110 23 80/30 (47) 71 11/18/19 06:45 80/30 11/18/19 06:30 102/52 11/18/19 06:30 102/52 11/18/19 06:30 109 24 102/52 (69) 72 11/18/19 06:15 102/17 11/18/19 06:15 109 23 102/17 (45) 75 11/18/19 06:00 111 23 149/78 (101) 100 11/18/19 06:00 149/78 11/18/19 06:00 149/78 11/18/19 05:51 146/99 11/18/19 05:00 114 23 156/91 (112) 100 11/18/19 05:00 156/91 11/18/19 05:00 156/91 11/18/19 04:43 118/83 11/18/19 04:30 115 25 118/83 (95) 100 11/18/19 04:00 99.8 116 24 145/78 (100) 100 11/18/19 04:00 100 11/18/19 04:00 160/106 11/18/19 04:00 160/106 11/18/19 04:00 Mechanical Ventilator 11/18/19 03:30 118 24 93/79 (84) 11/18/19 03:30 93/79 11/18/19 03:23 122 147/96 11/18/19 03:04 121 11/18/19 03:00 165/121 11/18/19 03:00 165/121 11/18/19 03:00 121 24 165/121 (136) 100 121 11/18/19 02:30 124 25 138/85 (102) 100 124 11/18/19 02:00 126 25 126/112 (117) 100 126 11/18/19 02:00 126/112 11/18/19 02:00 126/112 11/18/19 01:41 128 20 100 11/18/19 01:30 126/112 11/18/19 01:30 127 26 139/121 (127) 100 127 11/18/19 01:20 125/43 11/18/19 01:00 129 25 121/73 (89) 100 129 11/18/19 01:00 121/73 11/18/19 01:00 121/73 11/18/19 00:45 127 25 114/32 (59) 100 127 11/18/19 00:30 116 23 45/10 (22) 98 116 11/18/19 00:15 99 23 66/14 (31) 100 99 11/18/19 00:00 100 11/18/19 00:00 100.2 113 25 104/64 (77) 97 113 11/18/19 00:00 106/64 11/18/19 00:00 106/64 11/18/19 00:00 113 11/18/19 00:00 Mechanical Ventilator 11/17/19 23:30 129 24 106/67 (80) 97 11/17/19 23:15 130 25 122/80 (94) 98 11/17/19 23:00 130 25 96/67 (77) 98 11/17/19 23:00 96/67 11/17/19 23:00 96/67 11/17/19 23:00 130 25 96/67 (77) 100 130 11/17/19 23:00 131 25 100 11/17/19 22:45 131 25 102/42 (62) 98 11/17/19 22:33 97/45 11/17/19 22:30 132 25 97/45 (62) 100 11/17/19 22:00 96/38 11/17/19 22:00 96/38 11/17/19 22:00 132 26 96/38 (57) 100 132 11/17/19 21:45 132 22 97/69 (78) 100 11/17/19 21:30 132 25 111/48 (69) 100 11/17/19 21:20 130 89/56 11/17/19 21:20 89/56 11/17/19 21:15 130 24 107/66 (80) 100 11/17/19 21:00 95/52 11/17/19 21:00 95/52 11/17/19 21:00 127 20 86/25 (45) 100 11/17/19 20:30 128 24 85/52 (63) 100 11/17/19 20:00 99.4 133 25 102/30 (54) 100 11/17/19 20:00 Mechanical Ventilator 11/17/19 20:00 100 11/17/19 19:36 133 11/17/19 19:30 132 27 96/28 (50) 100 11/17/19 19:18 131 28 100 11/17/19 19:00 130 25 86/26 (46) 100 11/17/19 19:00 111/69 11/17/19 19:00 111/69 11/17/19 18:51 94/37 11/17/19 18:30 130 41 93/63 (73) 100 11/17/19 18:00 93/38 11/17/19 18:00 93/38 11/17/19 18:00 129 43 93/38 (56) 99 11/17/19 17:30 127 27 98/41 (60) 99 11/17/19 17:00 98/41 11/17/19 17:00 98/41 11/17/19 17:00 125 27 100/60 (73) 11/17/19 16:45 124 28 94/50 (65) 11/17/19 16:30 119 29 89/46 (60) 92 11/17/19 16:21 81/42 11/17/19 16:15 119 29 81/42 (55) 92 11/17/19 16:00 100 11/17/19 16:00 Mechanical Ventilator 11/17/19 16:00 79/43 11/17/19 16:00 79/43 11/17/19 16:00 98.2 117 29 89/44 (59) 91 11/17/19 16:00 125 11/17/19 15:45 117 29 100/45 (63) 91 11/17/19 15:30 115 29 97/40 (59) 91 11/17/19 15:15 97/40 11/17/19 15:15 97/40 11/17/19 15:15 117 29 101/43 (62) 91 11/17/19 15:13 117 26 100 11/17/19 15:00 88/40 11/17/19 15:00 88/40 11/17/19 15:00 117 28 90/50 (63) 91 11/17/19 14:45 117 28 91/48 (62) 91 11/17/19 14:45 90/50 11/17/19 14:45 90/50 11/17/19 14:31 115 28 87/47 (60) 91 11/17/19 14:30 84/50 11/17/19 14:30 84/50 11/17/19 14:30 115 28 84/50 (61) 91 11/17/19 14:15 87/47 11/17/19 14:15 87/47 11/17/19 14:15 111 27 74/46 (55) 90 11/17/19 14:00 100 11/17/19 14:00 66/42 11/17/19 14:00 66/42 11/17/19 14:00 103 27 66/42 (50) 85 11/17/19 14:00 Mechanical Ventilator 11/17/19 13:45 88 26 57/35 (42) 71 11/17/19 13:30 69 22 44/31 (35) 90 11/17/19 13:15 69 21 45/27 (33) 86 11/17/19 13:00 70 22 43/35 (38) 86 11/17/19 12:53 75 21 100 11/17/19 12:45 97.4 86 22 84/66 (72) 74 11/17/19 12:40 101 22 55/35 (42) 79 11/17/19 12:40 78 11/17/19 12:14 60 23 80 100 11/17/19 12:13 Bi-pap 11/17/19 12:00 98.3 133 52 101/57 (72) 91 11/17/19 11:46 131 11/17/19 09:42 Non-Rebreather 15.0 Intake and Output 11/17/19 11/18/19 19:00 07:00 Intake Total 1428.14075 ml 3559.28491 ml Output Total 390 ml 305 ml Balance 1038.49822 ml 3254.93153 ml IV Total 1428.80313 ml 3559.38584 ml Output Urine Total 390 ml 305 ml # Voids 1 General Appearance: no acute distress HEENT: mucous membranes moist Respiratory/Chest: chest wall non-tender, lungs clear Cardiovascular: normal peripheral pulses Abdomen: soft, non tender Extremities: no edema Neurologic/Psychiatric: disoriented Microbiology Date/Time Source Procedure Growth Status 11/16/19 13:45 Nasopharynx Coronavirus COVID-19 PCR ([facility]) - Final Complete Laboratory Tests 11/17/19 09:45: Arterial Blood pH 7.421, Arterial Blood Partial Pressure CO2 29.5L, Arterial Blood Partial Pressure O2 74.3L, Arterial Blood HCO3 18.7L, Arterial Blood Oxygen Saturation 93.3L, Arterial Blood Base Excess -4.4L, Gordon Test Positive 11/17/19 14:26: Arterial Blood pH 7.041*L, Arterial Blood Partial Pressure CO2 58.9*H, Arterial Blood Partial Pressure O2 81.6, Arterial Blood HCO3 15.6*L, Arterial Blood Oxygen Saturation 87.9*L, Arterial Blood Base Excess -15.1*L, Gordon Test N/a 11/17/19 15:00: Activated Partial Thromboplast Time 25 11/17/19 23:15: Activated Partial Thromboplast Time 56H 11/18/19 08:20: White Blood Count [Pending], Red Blood Count [Pending], Hemoglobin [Pending], Hematocrit [Pending], Mean Corpuscular Volume [Pending], Mean Corpuscular Hemoglobin [Pending], Mean Corpuscular Hemoglobin Concent [Pending], Red Cell Distribution Width [Pending], Platelet Count [Pending], Mean Platelet Volume [ Pending], Neutrophils (%) (Auto) [Pending], Lymphocytes (%) (Auto) [Pending], Monocytes (%) (Auto) [Pending], Eosinophils (%) (Auto) [Pending], Basophils (%) (Auto) [Pending], Activated Partial Thromboplast Time [Pending], D-Dimer [ Pending], Sodium Level [Pending], Potassium Level [Pending], Chloride Level [ Pending], Carbon Dioxide Level [Pending], Blood Urea Nitrogen [Pending], Creatinine [Pending], Estimat Glomerular Filtration Rate [Pending], Glucose Level [Pending], Calcium Level [Pending], Phosphorus Level [Pending], Magnesium Level [Pending], Ferritin [Pending], Total Bilirubin [Pending], Aspartate Amino Transf (AST/SGOT) [Pending], Alanine Aminotransferase (ALT/SGPT) [Pending], Alkaline Phosphatase [Pending], Lactate Dehydrogenase [Pending], Total Protein [ Pending], Albumin [Pending], Globulin [Pending] Current Medications Medications (Trade) Dose Ordered Sig/Stacey Route PRN Reason Start Time Stop Time Status Last Admin Dose Admin Acetaminophen (Tylenol) 500 mg Q4H PRN ORAL Temp >100.5/pain 11/17/19 16:00 12/08/19 15:59 Aspirin (Ecotrin) 81 mg DAILY ORAL 11/18/19 09:00 12/25/19 08:59 Chlorhexidine Gluconate (Dacia-Hex 2%) 1 applic DAILY@2000 TOPIC 11/17/19 20:00 02/15/20 19:59 11/17/19 20:21 Dextrose (Dextrose 50%) 25 ml Q30M PRN IV Hypoglycemia 11/17/19 21:45 02/15/20 21:44 Dextrose (Dextrose 50%) 50 ml Q30M PRN IV Hypoglycemia 11/17/19 21:45 02/15/20 21:44 Dopamine HCl/ Dextrose 250 ml @ 0 mls/hr Q24H IV 11/17/19 16:00 02/15/20 15:59 11/18/19 04:43 Heparin Sodium/ Dextrose 500 ml @ 26.854 mls/ hr ADJUST PER PROTOCOL IV 11/18/19 00:30 12/18/19 00:29 11/18/19 00:27 Insulin Aspart (NovoLOG) EVERY 4 HOURS SUBQ 11/18/19 01:00 02/16/20 00:59 11/18/19 04:55 Insulin Aspart (NovoLOG) 18 units EVERY 4 HOURS SUBQ 11/18/19 09:00 02/16/20 00:59 UNV Norepinephrine Bitartrate 8 mg/ Dextrose 558 ml @ 0 mls/hr Q24H IV 11/17/19 16:30 12/17/19 16:29 11/18/19 05:51 Pantoprazole (Protonix) 40 mg EVERY 12 HOURS IVP 11/17/19 21:00 12/17/19 12:59 11/17/19 20:21 Phenylephrine HCl 50 mg/Dextrose 250 ml @ 0 mls/hr Q24H PRN IV For hypotension 11/17/19 19:15 12/17/19 19:14 11/18/19 08:04 Sodium Chloride 1,000 ml @ 100 mls/hr Q10H IV 11/17/19 15:45 12/17/19 11:29 11/18/19 01:19 Assessment/Plan Assessment/Plan IMPRESSION: 1. COVID 19 Pneumonia. 2. Renal failure. Cr 1.8 3. Diabetes mellitus. 4. + nares MRSA 5. Respiraotory failure 6. Shock; on max pressors DISCUSSION: Continue broad-spectrum antibiotics, IV fluids. Off Glucophage. 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 Doing very poorly On IV heparin empirically, I suspect PE Max pressors On 100 FiO2; vent Gustavo Bernal Omar Syed MD November 18, 2019 09:10
[2019-11-18 09:11] LABS: ALANINE AMINOTRANSFERASE 309 U/L (12-78); ALBUMIN/GLOBULIN RATIO 0.4 (1.0-2.7); ALKALINE PHOSPHATASE 177 U/L (46-116); ANION GAP 14 mmol/L (5-15); ASPARTATE AMINO TRANSFERASE 528 U/L (15-37); BILIRUBIN,TOTAL 0.8 MG/DL (0.2-1.0); BLOOD UREA NITROGEN 52 mg/dL (7-18); CALCIUM 7.6 MG/DL (8.5-10.1); CARBON DIOXIDE 19 MMOL/L (21-32); CHLORIDE 111 MMOL/L (98-107); CREATININE 3.5 MG/DL (0.55-1.30); PHOSPHORUS 10.1 MG/DL (2.5-4.9); SODIUM 144 MMOL/L (136-145)
[2019-11-18 09:18] LABS: POTASSIUM 6.6 MMOL/L (3.5-5.1); WHITE BLOOD COUNT 23.2 K/UL (4.8-10.8)
[2019-11-18 09:23] LABS: FERRITIN 1714 NG/ML (8-388); LACTATE DEHYDROGENASE 765 U/L (81-234)
--- NOTE | 2019-11-18 09:23 | NUR ---
NURSE NOTES: Dr Urias was paged via hospital phone and made aware of potassium 6.6 at this time. He will place orders. Addendum: 11/18/19 at 0931 by Natalie Lemus RN Dr Urias also made aware of blood glucose level of [address] order for insulin. Dr Short made aware as well. Addendum: 11/18/19 at 0956 by Natalie Lemus RN BG of 529 (not 569).
--- NOTE | 2019-11-18 09:28 | NUR ---
NURSE NOTES: Dr Petersen paged via hospital phone and made aware of ABG results (pH 6.958 pCO2 61 p)2 275 HCO3 13.3 spO2 99%). New order received to decrease peep to [address] Petersen also made aware of potassium and WBC of 23.2.
[2019-11-18] MEDS ORDERED: Sodium Polystyrene Sulfonate 15gm Powder NG SCH (09:30)
[2019-11-18] MEDS ORDERED: Sodium Bicarbonate 50ml Carp IV SCH (09:30)
[2019-11-18] MEDS ORDERED: Insulin Human Regular 100units/ml 3ml IV SCH (09:30)
[2019-11-18] MEDS: Pantoprazole Inj IVP SCH ×2 (09:55→20:15)
[2019-11-18] MEDS: Aluminum Hydroxide Gel Susp 15ml ORAL SCH ×3 (09:59→21:20)
--- NOTE | 2019-11-18 10:49 | NUR ---
NURSE NOTES: Dr Eusebio Rivas in the unit reviewing labs today (aware of WBC count) and placing orders.
--- NOTE | 2019-11-18 10:56 | Infectious Diseases Prog Note ---
Assessment/Plan Assessment/Plan IMPRESSION: Shock Hypercapnic respiratory failure pneumonia,with COVID-19.+ 11/07 , 11/11, 11/13, 11/15 Diabetes mellitus with hyperglycemia. Acute renal failure, resolved lactic acidosis, COPD, Hypertension, Hyperlipidemia, Dementia. MRSA carrier Acute renal failure Hyperkalemia RECOMMENDATION: Sputum culture Started on Vancomycin & Zosyn Repeat EKG Subjective ROS Limited/Unobtainable: Yes Constitutional: Reports: fever, other - Wy=[id number] Respiratory: Reports: other - intubated yesterday Cardiovascular: Reports: other - on maximal dose of vasopressors Allergies: Coded Allergies: No Known Allergies (Unverified , 08/01/18) Objective Vital Signs Last 24 Hour Vital Signs Date Time Temp Pulse Resp B/P (MAP) Pulse Ox O2 Delivery O2 Flow Rate FiO2 11/18/19 10:30 115 25 87/46 (60) 99 11/18/19 10:00 116 24 157/73 (101) 75 11/18/19 09:46 100 11/18/19 09:45 106 24 145/98 (114) 75 11/18/19 09:30 103 23 126/21 (56) 93 11/18/19 09:00 104 26 166/95 (118) 57 11/18/19 08:45 105 25 168/95 (119) 57 11/18/19 08:30 107 24 155/71 (99) 59 11/18/19 08:15 108 23 108/62 (77) 60 11/18/19 08:04 106 164/87 11/18/19 08:00 99.0 108 23 164/87 (112) 65 11/18/19 08:00 94 11/18/19 08:00 Mechanical Ventilator 11/18/19 08:00 100 11/18/19 07:45 108 23 142/83 (102) 62 11/18/19 07:30 109 25 111/42 (65) 60 11/18/19 07:15 109 25 120/81 (94) 65 11/18/19 07:00 106 23 157/88 (111) 75 11/18/19 07:00 157/88 11/18/19 07:00 157/88 11/18/19 06:45 110 23 80/30 (47) 71 11/18/19 06:45 80/30 11/18/19 06:30 102/52 11/18/19 06:30 102/52 11/18/19 06:30 109 24 102/52 (69) 72 11/18/19 06:15 102/17 11/18/19 06:15 109 23 102/17 (45) 75 11/18/19 06:00 111 23 149/78 (101) 100 11/18/19 06:00 149/78 11/18/19 06:00 149/78 11/18/19 05:51 146/99 11/18/19 05:00 114 23 156/91 (112) 100 11/18/19 05:00 156/91 11/18/19 05:00 156/91 11/18/19 04:43 118/83 11/18/19 04:30 115 25 118/83 (95) 100 11/18/19 04:00 99.8 116 24 145/78 (100) 100 11/18/19 04:00 100 11/18/19 04:00 160/106 11/18/19 04:00 160/106 11/18/19 04:00 Mechanical Ventilator 11/18/19 03:30 118 24 93/79 (84) 11/18/19 03:30 93/79 11/18/19 03:23 122 147/96 11/18/19 03:04 121 11/18/19 03:00 165/121 11/18/19 03:00 165/121 11/18/19 03:00 121 24 165/121 (136) 100 121 11/18/19 02:30 124 25 138/85 (102) 100 124 11/18/19 02:00 126 25 126/112 (117) 100 126 11/18/19 02:00 126/112 11/18/19 02:00 126/112 11/18/19 01:41 128 20 100 11/18/19 01:30 126/112 11/18/19 01:30 127 26 139/121 (127) 100 127 11/18/19 01:20 125/43 11/18/19 01:00 129 25 121/73 (89) 100 129 11/18/19 01:00 121/73 11/18/19 01:00 121/73 11/18/19 00:45 127 25 114/32 (59) 100 127 11/18/19 00:30 116 23 45/10 (22) 98 116 11/18/19 00:15 99 23 66/14 (31) 100 99 11/18/19 00:00 100 11/18/19 00:00 100.2 113 25 104/64 (77) 97 113 11/18/19 00:00 106/64 11/18/19 00:00 106/64 11/18/19 00:00 113 11/18/19 00:00 Mechanical Ventilator 11/17/19 23:30 129 24 106/67 (80) 97 11/17/19 23:15 130 25 122/80 (94) 98 11/17/19 23:00 130 25 96/67 (77) 98 11/17/19 23:00 96/67 11/17/19 23:00 96/67 11/17/19 23:00 130 25 96/67 (77) 100 130 11/17/19 23:00 131 25 100 11/17/19 22:45 131 25 102/42 (62) 98 11/17/19 22:33 97/45 11/17/19 22:30 132 25 97/45 (62) 100 11/17/19 22:00 96/38 11/17/19 22:00 96/38 11/17/19 22:00 132 26 96/38 (57) 100 132 11/17/19 21:45 132 22 97/69 (78) 100 11/17/19 21:30 132 25 111/48 (69) 100 11/17/19 21:20 130 89/56 11/17/19 21:20 89/56 11/17/19 21:15 130 24 107/66 (80) 100 11/17/19 21:00 95/52 11/17/19 21:00 95/52 11/17/19 21:00 127 20 86/25 (45) 100 11/17/19 20:30 128 24 85/52 (63) 100 11/17/19 20:00 99.4 133 25 102/30 (54) 100 11/17/19 20:00 Mechanical Ventilator 11/17/19 20:00 100 11/17/19 19:36 133 11/17/19 19:30 132 27 96/28 (50) 100 11/17/19 19:18 131 28 100 11/17/19 19:00 130 25 86/26 (46) 100 11/17/19 19:00 111/69 11/17/19 19:00 111/69 11/17/19 18:51 94/37 11/17/19 18:30 130 41 93/63 (73) 100 11/17/19 18:00 93/38 11/17/19 18:00 93/38 11/17/19 18:00 129 43 93/38 (56) 99 11/17/19 17:30 127 27 98/41 (60) 99 11/17/19 17:00 98/41 11/17/19 17:00 98/41 11/17/19 17:00 125 27 100/60 (73) 11/17/19 16:45 124 28 94/50 (65) 11/17/19 16:30 119 29 89/46 (60) 92 11/17/19 16:21 81/42 11/17/19 16:15 119 29 81/42 (55) 92 11/17/19 16:00 100 11/17/19 16:00 Mechanical Ventilator 11/17/19 16:00 79/43 11/17/19 16:00 79/43 11/17/19 16:00 98.2 117 29 89/44 (59) 91 11/17/19 16:00 125 11/17/19 15:45 117 29 100/45 (63) 91 11/17/19 15:30 115 29 97/40 (59) 91 11/17/19 15:15 97/40 11/17/19 15:15 97/40 11/17/19 15:15 117 29 101/43 (62) 11/17/19 15:13 117 26 100 11/17/19 15:00 88/40 11/17/19 15:00 88/40 11/17/19 15:00 117 28 90/50 (63) 91 11/17/19 14:45 117 28 91/48 (62) 91 11/17/19 14:45 90/50 11/17/19 14:45 90/50 11/17/19 14:31 115 28 87/47 (60) 91 11/17/19 14:30 84/50 11/17/19 14:30 84/50 11/17/19 14:30 115 28 84/50 (61) 91 11/17/19 14:15 87/47 11/17/19 14:15 87/47 11/17/19 14:15 111 27 74/46 (55) 90 11/17/19 14:00 100 11/17/19 14:00 66/42 11/17/19 14:00 66/42 11/17/19 14:00 103 27 66/42 (50) 85 11/17/19 14:00 Mechanical Ventilator 11/17/19 13:45 88 26 57/35 (42) 71 11/17/19 13:30 69 22 44/31 (35) 90 11/17/19 13:15 69 21 45/27 (33) 86 11/17/19 13:00 70 22 43/35 (38) 86 11/17/19 12:53 75 21 100 11/17/19 12:45 97.4 86 22 84/66 (72) 74 11/17/19 12:40 101 22 55/35 (42) 79 11/17/19 12:40 78 11/17/19 12:14 60 23 80 100 11/17/19 12:13 Bi-pap 11/17/19 12:00 98.3 133 52 101/57 (72) 91 11/17/19 11:46 131 Height (Feet): 5 Height (Inches): 8.00 Weight (Pounds): 148 HEENT: other - orally intubated Respiratory/Chest: other - on ventilator Cardiovascular: tachycardia Abdomen: soft, non tender Extremities: no edema Neurologic/Psychiatric: other - sedated Microbiology Date/Time Source Procedure Growth Status 11/16/19 13:45 Nasopharynx Coronavirus COVID-19 PCR ([facility]) - Final Complete Laboratory Tests Test 11/17/19 14:26 11/17/19 15:00 11/17/19 23:15 11/18/19 08:20 Arterial Blood pH 7.041 (7.350-7.450) Arterial Blood Partial Pressure CO2 58.9 mmHg (35.0-45.0) *H Arterial Blood Partial Pressure O2 81.6 mmHg (75.0-100.0) Arterial Blood HCO3 15.6 mmol/L (22.0-26.0) *L Arterial Blood Oxygen Saturation 87.9 % (95-100) *L Arterial Blood Base Excess -15.1 (-2-2) *L Gordon Test N/a Activated Partial Thromboplast Time 25 SEC (23-33) 56 SEC (23-33) H 114 SEC (23-33) H White Blood Count 23.2 K/UL (4.8-10.8) *H Red Blood Count 4.33 M/UL (4.70-6.10) L Hemoglobin 12.7 G/DL (14.2-18.0) L Hematocrit 39.7 % (42.0-52.0) L Mean Corpuscular Volume 92 FL (80-99) Mean Corpuscular Hemoglobin 29.3 PG (27.0-31.0) Mean Corpuscular Hemoglobin Concent 32.0 G/DL (32.0-36.0) Red Cell Distribution Width 15.6 % (11.6-14.8) H Platelet Count 375 K/UL (150-450) Mean Platelet Volume 5.6 FL (6.5-10.1) L Neutrophils (%) (Auto) % (45.0-75.0) Lymphocytes (%) (Auto) % (20.0-45.0) Monocytes (%) (Auto) % (1.0-10.0) Eosinophils (%) (Auto) % (0.0-3.0) Basophils (%) (Auto) % (0.0-2.0) Neutrophils % (Manual) Pending Lymphocytes % (Manual) Pending Platelet Estimate Pending Platelet Morphology Pending D-Dimer 25.88 mg/L FEU (0.00-0.49) H Sodium Level 144 MMOL/L (136-145) Potassium Level 6.6 MMOL/L (3.5-5.1) *H Chloride Level 111 MMOL/L (98-107) H Carbon Dioxide Level 19 MMOL/L (21-32) L Anion Gap 14 mmol/L (5-15) Blood Urea Nitrogen 52 mg/dL (7-18) H Creatinine 3.5 MG/DL (0.55-1.30) #H Estimat Glomerular Filtration Rate 17.5 mL/min (>60) Glucose Level 529 MG/DL (74-106) #*H Calcium Level 7.6 MG/DL (8.5-10.1) #L Phosphorus Level 10.1 MG/DL (2.5-4.9) H Magnesium Level 2.4 MG/DL (1.8-2.4) Ferritin 1714 NG/ML (8-388) H Total Bilirubin 0.8 MG/DL (0.2-1.0) Aspartate Amino Transf (AST/SGOT) 528 U/L (15-37) H Alanine Aminotransferase (ALT/SGPT) 309 U/L (12-78) H Alkaline Phosphatase 177 U/L (46-116) H Lactate Dehydrogenase 765 U/L (81-234) H Total Protein 6.6 G/DL (6.4-8.2) Albumin 2.0 G/DL (3.4-5.0) L Globulin 4.6 g/dL Albumin/Globulin Ratio 0.4 (1.0-2.7) L Test 11/18/19 09:02 Arterial Blood pH 6.958 (7.350-7.450) Arterial Blood Partial Pressure CO2 61.0 mmHg (35.0-45.0) *H Arterial Blood Partial Pressure O2 275.3 mmHg (75.0-100.0) H Arterial Blood HCO3 13.3 mmol/L (22.0-26.0) *L Arterial Blood Oxygen Saturation 99.1 % (95-100) Arterial Blood Base Excess -18.8 (-2-2) *L Gordon Test Positive Current Medications Medications (Trade) Dose Ordered Sig/Stacey Route PRN Reason Start Time Stop Time Status Last Admin Dose Admin Acetaminophen (Tylenol) 500 mg Q4H PRN ORAL Temp >100.5/pain 11/17/19 16:00 12/08/19 15:59 Albumin Human 500 ml @ 0 mls/hr Q0M IV 11/18/19 09:30 11/18/19 12:00 11/18/19 09:55 Aluminum Hydroxide (Amphojel) 1,920 mg Q6H ORAL 11/18/19 10:00 12/18/19 09:59 11/18/19 09:59 Aspirin (Ecotrin) 81 mg DAILY ORAL 11/18/19 09:00 12/25/19 08:59 11/18/19 09:55 Chlorhexidine Gluconate (Dacia-Hex 2%) 1 applic DAILY@2000 TOPIC 11/17/19 20:00 02/15/20 19:59 11/17/19 20:21 Dextrose (Dextrose 50%) 25 ml Q30M PRN IV Hypoglycemia 11/17/19 21:45 02/15/20 21:44 Dextrose (Dextrose 50%) 50 ml Q30M PRN IV Hypoglycemia 11/17/19 21:45 02/15/20 21:44 Dopamine HCl/ Dextrose 250 ml @ 0 mls/hr Q24H IV 11/17/19 16:00 02/15/20 15:59 11/18/19 04:43 Heparin Sodium/ Dextrose 500 ml @ 26.854 mls/ hr ADJUST PER PROTOCOL IV 11/18/19 00:30 12/18/19 00:29 11/18/19 00:27 Insulin Aspart (NovoLOG) EVERY 4 HOURS SUBQ 11/18/19 01:00 02/16/20 00:59 11/18/19 10:09 Insulin Aspart (NovoLOG) 18 units EVERY 4 HOURS SUBQ 11/18/19 09:00 02/16/20 00:59 11/18/19 09:57 Insulin Human Regular (NovoLIN R) 20 units ONCE IV 11/18/19 09:30 11/18/19 11:00 11/18/19 09:58 Norepinephrine Bitartrate 8 mg/ Dextrose 558 ml @ 0 mls/hr Q24H IV 11/17/19 16:30 12/17/19 16:29 11/18/19 05:51 Pantoprazole (Protonix) 40 mg EVERY 12 HOURS IVP 11/17/19 21:00 12/17/19 12:59 11/18/19 09:55 Phenylephrine HCl 50 mg/Dextrose 250 ml @ 0 mls/hr Q24H PRN IV For hypotension 11/17/19 19:15 12/17/19 19:14 11/18/19 08:04 Piperacillin Sod/ Tazobactam Sod 3.375 gm/Sodium Chloride 110 ml @ 27.5 mls/hr EVERY 12 HOURS IVPB 11/18/19 10:45 11/23/19 10:44 UNV Sodium Polystyrene Sulfonate (Kayexalate) 30 gm ONCE NG 11/18/19 09:30 11/18/19 11:00 11/18/19 09:58 Sodium Bicarbonate (Sodium Bicarbonate) 100 ml ONCE IV 11/18/19 09:30 11/18/19 11:00 11/18/19 09:57 Sodium Chloride 1,000 ml @ 100 mls/hr Q10H IV 11/17/19 15:45 12/17/19 11:29 11/18/19 01:19 Vancomycin HCl (Vanco rx to dose) 1 ea DAILY PRN MISC Per rx protocol 11/18/19 11:00 12/18/19 10:59 Flako Montero MD November 18, 2019 10:56
--- NOTE | 2019-11-18 11:00 | NUR ---
Spoke with Rain from pharmacy and was instructed to hold heparin gtt for 30 min, then decrease the rate by 3 units. Pharmacy will bring up another lablel. Heparin held.
--- NOTE | 2019-11-18 12:00 | NUR ---
NURSE NOTES: Pt repositioned, oral care provided, Heparin label just received from pharmacy. new heparin rate now at 17 units/kg/hr per protocol. No s/s of bleeding or bruising at this time.
--- NOTE | 2019-11-18 12:49 | Hematology/Onc Progress Note ---
Assessment/Plan Assessment/Plan ASSESSMENT AND PLAN: # Leukocytosis. Likely related to underlying infection versus reactive process. In this case likely COVID19 related --> Peripheral has been reviewed --> Medications have been reviewed --> Imaging has been reviewed --> Blood cultures and urine cultures prn has been started on abx, empiric treatment --> COVID19 iso treatment --> abx: cftx ==> wbc trend 16-->8-->15->13 # Thrombcytosis in the past was thrombocytopenia, likely is a reactive process --> hep and hiv pending->only if plt drop --> us abd as needed --> smear is noted --> pulm recss noted --> plt 141-->260k-->547 # Pulm embolism suspected --> on hep gtt --> resp support # Gangrene in the right third and fifth toes --> s/p right sided a,putation right metatarsal # Diabetic foot ulcer/osteomyelitis. --> endo recs noted # Diabetes mellitus. --> Aspirin and statin are the mainstay of therapy for peripheral vasculopathy. # History of hypertension --> appreciate cardiology recs # Dvt ppx heparin gtt The timing of this note does not necessarily reflect the time of the patient was seen Greatly appreciate consultation! Subjective Constitutional: Denies: no symptoms, chills, fever, malaise, weakness, other Gastrointestinal/Abdominal: Denies: no symptoms, abdomen distended, abdominal pain, black stools, tarry stools, blood in stool, constipated, diarrhea, difficulty swallowing, nausea, poor appetite, poor fluid intake, rectal bleeding , vomiting, other Genitourinary: Denies: no symptoms, burning, discharge, frequency, flank pain, hematuria, incontinence, pain, urgency, other Neurologic/Psychiatric: Denies: no symptoms, anxiety, depressed, emotional problems, headache, numbness, paresthesia, pre-existing deficit, seizure, tingling, tremors, weakness, other Endocrine: Denies: no symptoms, excessive sweating, flushing, intolerance to cold, intolerance to heat, increased hunger, increased thirst, increased urine, unexplained weight gain, unexplained weight loss, other Allergies: Coded Allergies: No Known Allergies (Unverified , 08/01/18) Subjective 5/3 a+o x1, on tele, no acute events, nc 2l, cftx per id, bp stable 11/11 confused, no night sweats, no bleeding, labs reviewed 11/12 remains confused, is covid19+ no bleeding, labs noted 11/13 labs reviewed, no bleeding, on iso, dw rn, labs pending 11/14 reviewed meds, no bleeding, no hemolysis is noted, no fc 11/15 is covid 19 positive, no bleeding, on iso, wbc elev, on abx 11/17 confused, labs noted, onheparin gtt per pulm, for pe Objective Objective Current Medications Medications (Trade) Dose Ordered Sig/Stacey Route PRN Reason Start Time Stop Time Status Last Admin Dose Admin Acetaminophen (Tylenol) 500 mg Q4H PRN ORAL Temp >100.5/pain 11/17/19 16:00 12/08/19 15:59 Aluminum Hydroxide (Amphojel) 1,920 mg Q6H ORAL 11/18/19 10:00 12/18/19 09:59 11/18/19 09:59 Aspirin (Ecotrin) 81 mg DAILY ORAL 11/18/19 09:00 12/25/19 08:59 11/18/19 09:55 Chlorhexidine Gluconate (Dacia-Hex 2%) 1 applic DAILY@2000 TOPIC 11/17/19 20:00 02/15/20 19:59 11/17/19 20:21 Dextrose (Dextrose 50%) 25 ml Q30M PRN IV Hypoglycemia 11/17/19 21:45 02/15/20 21:44 Dextrose (Dextrose 50%) 50 ml Q30M PRN IV Hypoglycemia 11/17/19 21:45 02/15/20 21:44 Dopamine HCl/ Dextrose 250 ml @ 0 mls/hr Q24H IV 11/17/19 16:00 02/15/20 15:59 11/18/19 11:00 Heparin Sodium/ Dextrose 500 ml @ 22.826 mls/ hr ADJUST PER PROTOCOL IV 11/18/19 11:15 12/18/19 00:29 11/18/19 12:03 Insulin Aspart (NovoLOG) EVERY 4 HOURS SUBQ 11/18/19 01:00 02/16/20 00:59 11/18/19 12:20 Insulin Aspart (NovoLOG) 18 units EVERY 4 HOURS SUBQ 11/18/19 09:00 02/16/20 00:59 11/18/19 12:18 Norepinephrine Bitartrate 8 mg/ Dextrose 558 ml @ 0 mls/hr Q24H IV 11/17/19 16:30 12/17/19 16:29 11/18/19 10:59 Pantoprazole (Protonix) 40 mg EVERY 12 HOURS IVP 11/17/19 21:00 12/17/19 12:59 11/18/19 09:55 Phenylephrine HCl 50 mg/Dextrose 250 ml @ 0 mls/hr Q24H PRN IV For hypotension 11/17/19 19:15 12/17/19 19:14 11/18/19 12:00 Piperacillin Sod/ Tazobactam Sod 3.375 gm/Sodium Chloride 110 ml @ 27.5 mls/hr Q12H IVPB 11/18/19 16:00 11/25/19 15:59 Sodium Chloride 1,000 ml @ 100 mls/hr Q10H IV 11/17/19 15:45 12/17/19 11:29 11/18/19 10:51 Vancomycin HCl (Vanco rx to dose) 1 ea DAILY PRN MISC Per rx protocol 11/18/19 11:00 12/18/19 10:59 Vancomycin/Sodium Chloride 275 ml @ 137.5 mls/ hr ONCE IVPB 11/18/19 14:00 11/18/19 16:00 Last 24 Hour Vital Signs Date Time Temp Pulse Resp B/P (MAP) Pulse Ox O2 Delivery O2 Flow Rate FiO2 11/18/19 12:00 Mechanical Ventilator 11/18/19 12:00 117 11/18/19 12:00 115 99/48 11/18/19 12:00 92/42 11/18/19 12:00 92/42 11/18/19 12:00 99.9 116 24 92/42 (59) 100 11/18/19 11:30 117 25 94/42 (59) 100 11/18/19 11:00 115 25 94/41 (58) 100 11/18/19 11:00 87/32 11/18/19 10:59 87/32 11/18/19 10:55 102 24 100 11/18/19 10:30 115 25 87/46 (60) 99 11/18/19 10:00 145/98 11/18/19 10:00 145/98 11/18/19 10:00 116 24 157/73 (101) 75 11/18/19 09:46 100 11/18/19 09:45 106 24 145/98 (114) 75 11/18/19 09:30 103 23 126/21 (56) 93 11/18/19 09:00 104 26 166/95 (118) 57 11/18/19 09:00 166/95 11/18/19 09:00 166/95 11/18/19 08:45 105 25 168/95 (119) 57 11/18/19 08:30 107 24 155/71 (99) 59 11/18/19 08:15 108 23 108/62 (77) 60 11/18/19 08:04 106 164/87 11/18/19 08:00 99.0 108 23 164/87 (112) 65 11/18/19 08:00 94 11/18/19 08:00 164/87 11/18/19 08:00 164/87 11/18/19 08:00 Mechanical Ventilator 11/18/19 08:00 100 11/18/19 07:45 108 23 142/83 (102) 62 11/18/19 07:30 109 25 111/42 (65) 60 11/18/19 07:15 109 25 120/81 (94) 65 11/18/19 07:10 109 24 100 11/18/19 07:00 106 23 157/88 (111) 75 11/18/19 07:00 157/88 11/18/19 07:00 157/88 11/18/19 06:45 110 23 80/30 (47) 71 11/18/19 06:45 80/30 11/18/19 06:30 102/52 11/18/19 06:30 102/52 11/18/19 06:30 109 24 102/52 (69) 72 11/18/19 06:15 102/17 11/18/19 06:15 109 23 102/17 (45) 75 11/18/19 06:00 111 23 149/78 (101) 100 11/18/19 06:00 149/78 11/18/19 06:00 149/78 11/18/19 05:51 146/99 11/18/19 05:00 114 23 156/91 (112) 100 11/18/19 05:00 156/91 11/18/19 05:00 156/91 11/18/19 04:43 118/83 11/18/19 04:30 115 25 118/83 (95) 100 11/18/19 04:00 99.8 116 24 145/78 (100) 100 11/18/19 04:00 100 11/18/19 04:00 160/106 11/18/19 04:00 160/106 11/18/19 04:00 Mechanical Ventilator 11/18/19 03:30 118 24 93/79 (84) 11/18/19 03:30 93/79 11/18/19 03:23 122 147/96 11/18/19 03:04 121 11/18/19 03:00 165/121 11/18/19 03:00 165/121 11/18/19 03:00 121 24 165/121 (136) 100 121 11/18/19 02:30 124 25 138/85 (102) 100 124 11/18/19 02:00 126 25 126/112 (117) 100 126 11/18/19 02:00 126/112 11/18/19 02:00 126/112 11/18/19 01:41 128 20 100 11/18/19 01:30 126/112 11/18/19 01:30 127 26 139/121 (127) 100 127 11/18/19 01:20 125/43 11/18/19 01:00 129 25 121/73 (89) 100 129 11/18/19 01:00 121/73 11/18/19 01:00 121/73 11/18/19 00:45 127 25 114/32 (59) 100 127 11/18/19 00:30 116 23 45/10 (22) 98 116 11/18/19 00:15 99 23 66/14 (31) 100 99 11/18/19 00:00 100 11/18/19 00:00 100.2 113 25 104/64 (77) 97 113 11/18/19 00:00 106/64 11/18/19 00:00 106/64 11/18/19 00:00 113 11/18/19 00:00 Mechanical Ventilator 11/17/19 23:30 129 24 106/67 (80) 97 5/9/20 23:15 130 25 122/80 (94) 98 11/17/19 23:00 130 25 96/67 (77) 98 11/17/19 23:00 96/67 11/17/19 23:00 96/67 11/17/19 23:00 130 25 96/67 (77) 100 130 11/17/19 23:00 131 25 100 11/17/19 22:45 131 25 102/42 (62) 98 11/17/19 22:33 97/45 11/17/19 22:30 132 25 97/45 (62) 100 11/17/19 22:00 96/38 11/17/19 22:00 96/38 11/17/19 22:00 132 26 96/38 (57) 100 132 11/17/19 21:45 132 22 97/69 (78) 100 11/17/19 21:30 132 25 111/48 (69) 100 11/17/19 21:20 130 89/56 11/17/19 21:20 89/56 11/17/19 21:15 130 24 107/66 (80) 100 11/17/19 21:00 95/52 11/17/19 21:00 95/52 11/17/19 21:00 127 20 86/25 (45) 100 11/17/19 20:30 128 24 85/52 (63) 100 11/17/19 20:00 99.4 133 25 102/30 (54) 100 11/17/19 20:00 Mechanical Ventilator 11/17/19 20:00 100 11/17/19 19:36 133 11/17/19 19:30 132 27 96/28 (50) 100 11/17/19 19:18 131 28 100 11/17/19 19:00 130 25 86/26 (46) 100 11/17/19 19:00 111/69 11/17/19 19:00 111/69 11/17/19 18:51 94/37 11/17/19 18:30 130 41 93/63 (73) 100 11/17/19 18:00 93/38 11/17/19 18:00 93/38 11/17/19 18:00 129 43 93/38 (56) 99 11/17/19 17:30 127 27 98/41 (60) 99 11/17/19 17:00 98/41 11/17/19 17:00 98/41 11/17/19 17:00 125 27 100/60 (73) 11/17/19 16:45 124 28 94/50 (65) 11/17/19 16:30 119 29 89/46 (60) 92 11/17/19 16:21 81/42 11/17/19 16:15 119 29 81/42 (55) 92 11/17/19 16:00 100 11/17/19 16:00 Mechanical Ventilator 11/17/19 16:00 79/43 11/17/19 16:00 79/43 11/17/19 16:00 98.2 117 29 89/44 (59) 91 11/17/19 16:00 125 11/17/19 15:45 117 29 100/45 (63) 91 11/17/19 15:30 115 29 97/40 (59) 91 11/17/19 15:15 97/40 11/17/19 15:15 97/40 11/17/19 15:15 117 29 101/43 (62) 91 11/17/19 15:13 117 26 100 11/17/19 15:00 88/40 11/17/19 15:00 88/40 11/17/19 15:00 117 28 90/50 (63) 91 11/17/19 14:45 117 28 91/48 (62) 91 11/17/19 14:45 90/50 11/17/19 14:45 90/50 11/17/19 14:31 115 28 87/47 (60) 91 11/17/19 14:30 84/50 11/17/19 14:30 84/50 11/17/19 14:30 115 28 84/50 (61) 91 11/17/19 14:15 87/47 11/17/19 14:15 87/47 11/17/19 14:15 111 27 74/46 (55) 90 11/17/19 14:00 100 11/17/19 14:00 66/42 11/17/19 14:00 66/42 11/17/19 14:00 103 27 66/42 (50) 85 11/17/19 14:00 Mechanical Ventilator 11/17/19 13:45 88 26 57/35 (42) 71 5/9/20 13:30 69 22 44/31 (35) 90 11/17/19 13:15 69 21 45/27 (33) 86 11/17/19 13:00 70 22 43/35 (38) 86 11/17/19 12:53 75 21 100 11/17/19 12:45 97.4 86 22 84/66 (72) 74 11/17/19 12:40 101 22 55/35 (42) 79 11/17/19 12:40 78 11/17/19 12:14 60 23 80 100 11/17/19 12:13 Bi-pap 11/17/19 12:00 98.3 133 52 101/57 (72) 91 11/17/19 11:46 131 11/17/19 09:42 Non-Rebreather 15.0 11/17/19 09:00 118 108/67 11/17/19 08:00 97.7 118 46 108/67 (81) 95 11/17/19 07:45 113 11/17/19 04:00 102 11/17/19 04:00 97.3 89 19 108/70 (83) 95 11/17/19 00:00 86 11/17/19 00:00 97.7 90 19 103/65 (78) 93 11/16/19 21:42 112 127/69 11/16/19 20:43 Room Air 11/16/19 20:00 117 11/16/19 20:00 96.8 120 19 122/72 (89) 93 11/16/19 16:00 97.9 112 20 114/69 (84) 93 11/16/19 15:33 111 Intake and Output 11/17/19 11/18/19 19:00 07:00 Intake Total 1428.70955 ml 3559.68704 ml Output Total 390 ml 305 ml Balance 1038.70955 ml 3254.40800 ml IV Total 1428.24973 ml 3559.90073 ml Output Urine Total 390 ml 305 ml # Voids 1 Labs Test 11/16/19 05:30 11/17/19 05:25 11/17/19 09:45 11/17/19 14:26 White Blood Count 15.1 K/UL (4.8-10.8) 16.3 K/UL (4.8-10.8) Red Blood Count 4.45 M/UL (4.70-6.10) 4.66 M/UL (4.70-6.10) Hemoglobin 13.0 G/DL (14.2-18.0) 14.0 G/DL (14.2-18.0) Hematocrit 37.9 % (42.0-52.0) 40.4 % (42.0-52.0) Mean Corpuscular Volume 85 FL (80-99) 87 FL (80-99) Mean Corpuscular Hemoglobin 29.3 PG (27.0-31.0) 30.0 PG (27.0-31.0) Mean Corpuscular Hemoglobin Concent 34.4 G/DL (32.0-36.0) 34.5 G/DL (32.0-36.0) Red Cell Distribution Width 13.3 % (11.6-14.8) 14.1 % (11.6-14.8) Platelet Count 556 K/UL (150-450) 568 K/UL (150-450) Mean Platelet Volume 5.2 FL (6.5-10.1) 5.4 FL (6.5-10.1) Neutrophils (%) (Auto) 78.8 % (45.0-75.0) 84.0 % (45.0-75.0) Lymphocytes (%) (Auto) 16.8 % (20.0-45.0) 12.1 % (20.0-45.0) Monocytes (%) (Auto) 2.6 % (1.0-10.0) 3.2 % (1.0-10.0) Eosinophils (%) (Auto) 1.3 % (0.0-3.0) 0.5 % (0.0-3.0) Basophils (%) (Auto) 0.6 % (0.0-2.0) 0.2 % (0.0-2.0) Sodium Level 160 MMOL/L (136-145) Potassium Level 4.6 MMOL/L (3.5-5.1) Chloride Level 125 MMOL/L (98-107) Carbon Dioxide Level 19 MMOL/L (21-32) Anion Gap 17 mmol/L (5-15) Blood Urea Nitrogen 45 mg/dL (7-18) Creatinine 1.8 MG/DL (0.55-1.30) Estimat Glomerular Filtration Rate 37.6 mL/min (>60) Glucose Level 298 MG/DL (74-106) Calcium Level 9.8 MG/DL (8.5-10.1) Total Bilirubin 0.8 MG/DL (0.2-1.0) Aspartate Amino Transf (AST/SGOT) 75 U/L (15-37) Alanine Aminotransferase (ALT/SGPT) 126 U/L (12-78) Alkaline Phosphatase 150 U/L (46-116) Ammonia 38 umol/L (11-32) Total Protein 8.3 G/DL (6.4-8.2) Albumin 2.9 G/DL (3.4-5.0) Globulin 5.4 g/dL Albumin/Globulin Ratio 0.5 (1.0-2.7) Arterial Blood pH 7.421 (7.350-7.450) 7.041 (7.350-7.450) Arterial Blood Partial Pressure CO2 29.5 mmHg (35.0-45.0) 58.9 mmHg (35.0-45.0) Arterial Blood Partial Pressure O2 74.3 mmHg (75.0-100.0) 81.6 mmHg (75.0-100.0) Arterial Blood HCO3 18.7 mmol/L (22.0-26.0) 15.6 mmol/L (22.0-26.0) Arterial Blood Oxygen Saturation 93.3 % (95-100) 87.9 % (95-100) Arterial Blood Base Excess -4.4 (-2-2) -15.1 (-2-2) Gordon Test Positive N/a Test 11/17/19 15:00 11/17/19 23:15 11/18/19 08:20 11/18/19 09:02 Activated Partial Thromboplast Time 25 SEC (23-33) 56 SEC (23-33) 114 SEC (23-33) White Blood Count 23.2 K/UL (4.8-10.8) Red Blood Count 4.33 M/UL (4.70-6.10) Hemoglobin 12.7 G/DL (14.2-18.0) Hematocrit 39.7 % (42.0-52.0) Mean Corpuscular Volume 92 FL (80-99) Mean Corpuscular Hemoglobin 29.3 PG (27.0-31.0) Mean Corpuscular Hemoglobin Concent 32.0 G/DL (32.0-36.0) Red Cell Distribution Width 15.6 % (11.6-14.8) Platelet Count 375 K/UL (150-450) Mean Platelet Volume 5.6 FL (6.5-10.1) Neutrophils (%) (Auto) % (45.0-75.0) Lymphocytes (%) (Auto) % (20.0-45.0) Monocytes (%) (Auto) % (1.0-10.0) Eosinophils (%) (Auto) % (0.0-3.0) Basophils (%) (Auto) % (0.0-2.0) Differential Total Cells Counted 100 Neutrophils % (Manual) 76 % (45-75) Lymphocytes % (Manual) 3 % (20-45) Monocytes % (Manual) 5 % (1-10) Eosinophils % (Manual) 1 % (0-3) Basophils % (Manual) 0 % (0-2) Band Neutrophils 15 % (0-8) Platelet Estimate Adequate Platelet Morphology Normal Polychromasia 1+ Anisocytosis 1+ D-Dimer 25.88 mg/L FEU (0.00-0.49) Sodium Level 144 MMOL/L (136-145) Potassium Level 6.6 MMOL/L (3.5-5.1) Chloride Level 111 MMOL/L (98-107) Carbon Dioxide Level 19 MMOL/L (21-32) Anion Gap 14 mmol/L (5-15) Blood Urea Nitrogen 52 mg/dL (7-18) Creatinine 3.5 MG/DL (0.55-1.30) Estimat Glomerular Filtration Rate 17.5 mL/min (>60) Glucose Level 529 MG/DL (74-106) Calcium Level 7.6 MG/DL (8.5-10.1) Phosphorus Level 10.1 MG/DL (2.5-4.9) Magnesium Level 2.4 MG/DL (1.8-2.4) Ferritin 1714 NG/ML (8-388) Total Bilirubin 0.8 MG/DL (0.2-1.0) Aspartate Amino Transf (AST/SGOT) 528 U/L (15-37) Alanine Aminotransferase (ALT/SGPT) 309 U/L (12-78) Alkaline Phosphatase 177 U/L (46-116) Lactate Dehydrogenase 765 U/L (81-234) Total Protein 6.6 G/DL (6.4-8.2) Albumin 2.0 G/DL (3.4-5.0) Globulin 4.6 g/dL Albumin/Globulin Ratio 0.4 (1.0-2.7) Arterial Blood pH 6.958 (7.350-7.450) Arterial Blood Partial Pressure CO2 61.0 mmHg (35.0-45.0) Arterial Blood Partial Pressure O2 275.3 mmHg (75.0-100.0) Arterial Blood HCO3 13.3 mmol/L (22.0-26.0) Arterial Blood Oxygen Saturation 99.1 % (95-100) Arterial Blood Base Excess -18.8 (-2-2) Gordon Test Positive Height (Feet): 5 Height (Inches): 8.00 Weight (Pounds): 148 Objective PHYSICAL EXAMINATION: VITAL SIGNS:reviewed in emr HEENT: PERRLA. NECK: Supple. No lymphadenopathy. CHEST: ecreased bs +++ intubated CARDIOVASCULAR: Regular rate and rhythm. No murmurs or extra sounds. GASTROINTESTINAL: Soft, nontender, and nondistended. No organomegaly. EXTREMITIES: s/p metatarsal right sided amputation CARDIAC CATH LAB RADIOLOGY TECHNOLOGIST: Oriented x1. Reflexes equal in both sides. Jose M Wade MD November 18, 2019 12:49
[2019-11-18] MEDS ORDERED: Vancomycin 1.5gm/NS Premix IVPB SCH (14:00)
[2019-11-18] MEDS ORDERED: 1/2 NS 1000ml IV ONE (14:50)
--- NOTE | 2019-11-18 14:59 | NUR ---
NURSE NOTES: Spoke with Sun from lab regarding STAT CMP blood draw scheduled for 1400 to let her know that pt is hard stick with multiple unsuccessful attempts to draw blood by more than 1 RN. Sun states she will come up to draw CMP shortly.
--- NOTE | 2019-11-18 15:10 | GI Progress Note ---
Assessment/Plan Problems: (1) Acute respiratory failure ICD Codes: J96.00 - Acute respiratory failure, unspecified whether with hypoxia or hypercapnia SNOMED: 72092731 (2) Pneumonia due to COVID-19 virus ICD Codes: U07.1 - COVID-19; J12.89 - Other viral pneumonia SNOMED: 007413512, 219749268 (3) Elevated troponin ICD Codes: R79.89 - Other specified abnormal findings of blood chemistry; J12.89 - Other viral pneumonia SNOMED: 368068480, 993434070, 812606285 (4) Elevated liver function tests ICD Codes: R79.89 - Other specified abnormal findings of blood chemistry SNOMED: 447995627, 701964294 (5) Encephalopathy ICD Codes: G93.40 - Encephalopathy, unspecified SNOMED: 35960498 (6) Low iron ICD Codes: E61.1 - Iron deficiency SNOMED: 942145826 Status: not improved Status Narrative Discussed with Dr. Palacios. Assessment/Plan #Encephalopathy multifactorial most likely secondary due to COVID infection versus sepsis versus hypernatremia. Less likely hepatic encephalopathy given no indications of cirrhosis. -Continue antibiotics per infectious diseases -Correct sodium -Maintain n.p.o. plus IV fluids, reassess swallowing function when more alert. Insert NGT. -intubated now on pressors #Rising elevated liver enzymes possibly 2/2 liver shock vs drug-induced hepatitis given use of methimazole. Methimazole is also capable of causing clinically apparent, idiosyncratic liver injury. The onset of hepatotoxicity is usually within 2 to 12 weeks. Less likely viral hepatitis or hepatocellular disease given new onset. Elevated alkaline phosphatase not hepatic in origin given normal GGT levels. -Trend liver function enzymes. -trend LFTs The patient was seen and examined at bedside and all new and available data was reviewed in the patients chart. I agree with the above findings, impression and plan. (Patient seen earlier today. Signature stamp does not reflect patient encounter time.). - Ramos Palacios MD Subjective Subjective limited Objective Last 24 Hour Vital Signs Date Time Temp Pulse Resp B/P (MAP) Pulse Ox O2 Delivery O2 Flow Rate FiO2 11/18/19 14:00 121 24 101/62 (75) 83 11/18/19 14:00 101/62 11/18/19 14:00 101/62 5/10/20 13:30 121 24 112/46 (68) 83 11/18/19 13:00 120 24 103/51 (68) 84 11/18/19 13:00 103/51 11/18/19 13:00 103/51 11/18/19 12:30 118 24 103/44 (63) 85 11/18/19 12:00 Mechanical Ventilator 11/18/19 12:00 117 11/18/19 12:00 115 99/48 11/18/19 12:00 92/42 11/18/19 12:00 92/42 11/18/19 12:00 99.9 116 24 92/42 (59) 100 11/18/19 11:30 117 25 94/42 (59) 100 11/18/19 11:00 115 25 94/41 (58) 100 11/18/19 11:00 87/32 11/18/19 10:59 87/32 11/18/19 10:55 102 24 100 11/18/19 10:30 115 25 87/46 (60) 99 11/18/19 10:00 145/98 11/18/19 10:00 145/98 11/18/19 10:00 116 24 157/73 (101) 75 11/18/19 09:46 100 11/18/19 09:45 106 24 145/98 (114) 75 11/18/19 09:30 103 23 126/21 (56) 93 11/18/19 09:00 104 26 166/95 (118) 57 11/18/19 09:00 166/95 11/18/19 09:00 166/95 11/18/19 08:45 105 25 168/95 (119) 57 11/18/19 08:30 107 24 155/71 (99) 59 11/18/19 08:15 108 23 108/62 (77) 60 11/18/19 08:04 106 164/87 11/18/19 08:00 99.0 108 23 164/87 (112) 65 11/18/19 08:00 94 11/18/19 08:00 164/87 11/18/19 08:00 164/87 11/18/19 08:00 Mechanical Ventilator 11/18/19 08:00 100 11/18/19 07:45 108 23 142/83 (102) 62 11/18/19 07:30 109 25 111/42 (65) 60 11/18/19 07:15 109 25 120/81 (94) 65 11/18/19 07:10 109 24 100 11/18/19 07:00 106 23 157/88 (111) 75 11/18/19 07:00 157/88 11/18/19 07:00 157/88 11/18/19 06:45 110 23 80/30 (47) 71 11/18/19 06:45 80/30 11/18/19 06:30 102/52 11/18/19 06:30 102/52 11/18/19 06:30 109 24 102/52 (69) 72 11/18/19 06:15 102/17 11/18/19 06:15 109 23 102/17 (45) 75 11/18/19 06:00 111 23 149/78 (101) 100 11/18/19 06:00 149/78 11/18/19 06:00 149/78 11/18/19 05:51 146/99 11/18/19 05:00 114 23 156/91 (112) 100 11/18/19 05:00 156/91 11/18/19 05:00 156/91 11/18/19 04:43 118/83 11/18/19 04:30 115 25 118/83 (95) 100 11/18/19 04:00 99.8 116 24 145/78 (100) 100 11/18/19 04:00 100 11/18/19 04:00 160/106 11/18/19 04:00 160/106 11/18/19 04:00 Mechanical Ventilator 11/18/19 03:30 118 24 93/79 (84) 11/18/19 03:30 93/79 11/18/19 03:23 122 147/96 11/18/19 03:04 121 11/18/19 03:00 165/121 11/18/19 03:00 165/121 11/18/19 03:00 121 24 165/121 (136) 100 121 11/18/19 02:30 124 25 138/85 (102) 100 124 11/18/19 02:00 126 25 126/112 (117) 100 126 11/18/19 02:00 126/112 11/18/19 02:00 126/112 11/18/19 01:41 128 20 100 11/18/19 01:30 126/112 11/18/19 01:30 127 26 139/121 (127) 100 127 11/18/19 01:20 125/43 11/18/19 01:00 129 25 121/73 (89) 100 129 11/18/19 01:00 121/73 11/18/19 01:00 121/73 11/18/19 00:45 127 25 114/32 (59) 100 127 11/18/19 00:30 116 23 45/10 (22) 98 116 11/18/19 00:15 99 23 66/14 (31) 100 99 11/18/19 00:00 100 11/18/19 00:00 100.2 113 25 104/64 (77) 97 113 11/18/19 00:00 106/64 11/18/19 00:00 106/64 11/18/19 00:00 113 11/18/19 00:00 Mechanical Ventilator 11/17/19 23:30 129 24 106/67 (80) 97 11/17/19 23:15 130 25 122/80 (94) 98 11/17/19 23:00 130 25 96/67 (77) 98 11/17/19 23:00 96/67 11/17/19 23:00 96/67 11/17/19 23:00 130 25 96/67 (77) 100 130 11/17/19 23:00 131 25 100 11/17/19 22:45 131 25 102/42 (62) 98 11/17/19 22:33 97/45 11/17/19 22:30 132 25 97/45 (62) 100 11/17/19 22:00 96/38 11/17/19 22:00 96/38 11/17/19 22:00 132 26 96/38 (57) 100 132 11/17/19 21:45 132 22 97/69 (78) 100 11/17/19 21:30 132 25 111/48 (69) 100 11/17/19 21:20 130 89/56 11/17/19 21:20 89/56 11/17/19 21:15 130 24 107/66 (80) 100 11/17/19 21:00 95/52 11/17/19 21:00 95/52 11/17/19 21:00 127 20 86/25 (45) 100 11/17/19 20:30 128 24 85/52 (63) 100 11/17/19 20:00 99.4 133 25 102/30 (54) 100 11/17/19 20:00 Mechanical Ventilator 11/17/19 20:00 100 11/17/19 19:36 133 11/17/19 19:30 132 27 96/28 (50) 100 11/17/19 19:18 131 28 100 11/17/19 19:00 130 25 86/26 (46) 100 11/17/19 19:00 111/69 11/17/19 19:00 111/69 11/17/19 18:51 94/37 11/17/19 18:30 130 41 93/63 (73) 100 11/17/19 18:00 93/38 11/17/19 18:00 93/38 11/17/19 18:00 129 43 93/38 (56) 99 11/17/19 17:30 127 27 98/41 (60) 99 11/17/19 17:00 98/41 11/17/19 17:00 98/41 11/17/19 17:00 125 27 100/60 (73) 11/17/19 16:45 124 28 94/50 (65) 11/17/19 16:30 119 29 89/46 (60) 92 11/17/19 16:21 81/42 11/17/19 16:15 119 29 81/42 (55) 92 11/17/19 16:00 100 11/17/19 16:00 Mechanical Ventilator 11/17/19 16:00 79/43 11/17/19 16:00 79/43 11/17/19 16:00 98.2 117 29 89/44 (59) 91 11/17/19 16:00 125 11/17/19 15:45 117 29 100/45 (63) 91 11/17/19 15:30 115 29 97/40 (59) 91 11/17/19 15:15 97/40 11/17/19 15:15 97/40 11/17/19 15:15 117 29 101/43 (62) 91 11/17/19 15:13 117 26 100 Intake and Output 11/17/19 11/18/19 19:00 07:00 Intake Total 1428.59109 ml 3559.63765 ml Output Total 390 ml 305 ml Balance 1038.98561 ml 3254.56451 ml IV Total 1428.80112 ml 3559.48380 ml Output Urine Total 390 ml 305 ml # Voids 1 Laboratory Tests Test 11/17/19 23:15 11/18/19 08:20 11/18/19 09:02 11/18/19 14:01 Activated Partial Thromboplast Time 56 SEC (23-33) H 114 SEC (23-33) H White Blood Count 23.2 K/UL (4.8-10.8) *H Red Blood Count 4.33 M/UL (4.70-6.10) L Hemoglobin 12.7 G/DL (14.2-18.0) L Hematocrit 39.7 % (42.0-52.0) L Mean Corpuscular Volume 92 FL (80-99) Mean Corpuscular Hemoglobin 29.3 PG (27.0-31.0) Mean Corpuscular Hemoglobin Concent 32.0 G/DL (32.0-36.0) Red Cell Distribution Width 15.6 % (11.6-14.8) H Platelet Count 375 K/UL (150-450) Mean Platelet Volume 5.6 FL (6.5-10.1) L Neutrophils (%) (Auto) % (45.0-75.0) Lymphocytes (%) (Auto) % (20.0-45.0) Monocytes (%) (Auto) % (1.0-10.0) Eosinophils (%) (Auto) % (0.0-3.0) Basophils (%) (Auto) % (0.0-2.0) Differential Total Cells Counted 100 Neutrophils % (Manual) 76 % (45-75) H Lymphocytes % (Manual) 3 % (20-45) L Monocytes % (Manual) 5 % (1-10) Eosinophils % (Manual) 1 % (0-3) Basophils % (Manual) 0 % (0-2) Band Neutrophils 15 % (0-8) H Platelet Estimate Adequate Platelet Morphology Normal Polychromasia 1+ Anisocytosis 1+ D-Dimer 25.88 mg/L FEU (0.00-0.49) H Sodium Level 144 MMOL/L (136-145) Potassium Level 6.6 MMOL/L (3.5-5.1) *H Chloride Level 111 MMOL/L (98-107) H Carbon Dioxide Level 19 MMOL/L (21-32) L Anion Gap 14 mmol/L (5-15) Blood Urea Nitrogen 52 mg/dL (7-18) H Creatinine 3.5 MG/DL (0.55-1.30) #H Estimat Glomerular Filtration Rate 17.5 mL/min (>60) Glucose Level 529 MG/DL (74-106) #*H Calcium Level 7.6 MG/DL (8.5-10.1) #L Phosphorus Level 10.1 MG/DL (2.5-4.9) H Magnesium Level 2.4 MG/DL (1.8-2.4) Ferritin 1714 NG/ML (8-388) H Total Bilirubin 0.8 MG/DL (0.2-1.0) Aspartate Amino Transf (AST/SGOT) 528 U/L (15-37) H Alanine Aminotransferase (ALT/SGPT) 309 U/L (12-78) H Alkaline Phosphatase 177 U/L (46-116) H Lactate Dehydrogenase 765 U/L (81-234) H Total Protein 6.6 G/DL (6.4-8.2) Albumin 2.0 G/DL (3.4-5.0) L Globulin 4.6 g/dL Albumin/Globulin Ratio 0.4 (1.0-2.7) L Arterial Blood pH 6.958 (7.350-7.450) 7.121 (7.350-7.450) Arterial Blood Partial Pressure CO2 61.0 mmHg (35.0-45.0) *H 51.2 mmHg (35.0-45.0) H Arterial Blood Partial Pressure O2 275.3 mmHg (75.0-100.0) H 339.1 mmHg (75.0-100.0) H Arterial Blood HCO3 13.3 mmol/L (22.0-26.0) *L 16.3 mmol/L (22.0-26.0) *L Arterial Blood Oxygen Saturation 99.1 % (95-100) 99.0 % (95-100) Arterial Blood Base Excess -18.8 (-2-2) *L -12.7 (-2-2) *L Gordon Test Positive Positive Height (Feet): 5 Height (Inches): 8.00 Weight (Pounds): 148 General Appearance: lethargic Cardiovascular: normal rate Abdominal Exam: soft Jasmin Saldivar NP November 18, 2019 15:10
[2019-11-18] MEDS ORDERED: Hydroxychloroquine Fact Sheet MISC SCH (15:45)
[2019-11-18] MEDS: PHENYLEPHRINE IV PRN ×2 (15:59→22:55)
[2019-11-18] MEDS: D5W IV PRN ×2 (15:59→22:55)
[2019-11-18] MEDS ORDERED: Piperacillin/Tazobactam 3.375 GM in NS 110 ML IVPB SCH (16:00)
--- NOTE | 2019-11-18 16:00 | NUR ---
NURSE NOTES: Spoke to Rain from pharmacy as well as Dr Greg Rivas to let them know pt has no family available on chart to obtain consent for Plaquenil Tx and provide plaquenil fact sheet. Spoke to "Sanket Spencer" who was referenced on his chart as "caregiver"- however, she states she is not the pt's decision maker and that she cannot provide consent. Dr Becerril made aware and states OK to go ahead and waive consent + administer plaquenil for now.
--- NOTE | 2019-11-18 16:54 | NUR ---
NURSE NOTES: Called lab again spoke with Sun, she states she is on her way up to draw blood.
--- NOTE | 2019-11-18 18:00 | NUR ---
NURSE NOTES: Pt repositioned and cleaned, no distress noted. No changes in mental status- pt still non-responsive, does not obey commands or respond to deep pain stimuli, no movements noted to extremities, gag reflex is hypoactive. Pt still noted with labored breathing. Will continue to monitor.
--- NOTE | 2019-11-18 18:33 | NUR ---
NURSE NOTES: Dr Zapien at bedside assessing pt.
[2019-11-18 18:47] LABS: ANION GAP 18 mmol/L (5-15); BLOOD UREA NITROGEN 53 mg/dL (7-18); CALCIUM 6.9 MG/DL (8.5-10.1); CARBON DIOXIDE 17 MMOL/L (21-32); CHLORIDE 109 MMOL/L (98-107); CREATININE 3.7 MG/DL (0.55-1.30); POTASSIUM 5.6 MMOL/L (3.5-5.1); SODIUM 144 MMOL/L (136-145)
[2019-11-18 18:57] LABS: ALANINE AMINOTRANSFERASE 531 U/L (12-78); ALBUMIN 2.4 G/DL (3.4-5.0); ALBUMIN/GLOBULIN RATIO 0.7 (1.0-2.7); ALKALINE PHOSPHATASE 204 U/L (46-116); ASPARTATE AMINO TRANSFERASE 1117 U/L (15-37); BILIRUBIN,TOTAL 1.2 MG/DL (0.2-1.0)
--- NOTE | 2019-11-18 19:00 | NUR ---
NURSE NOTES: Received phone call from pharmacy with instructions to hold heparin gtt for 1 hour- pharmacy to send new label with decreased rate.
[2019-11-18 19:01] LABS: BILIRUBIN,DIRECT 0.5 MG/DL (0.0-0.3)
--- NOTE | 2019-11-18 19:30 | NUR ---
NURSE NOTES: Received report from NAMAN Lemus. Pt is resting on the bed and obtunded. 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 Pt has ETT #7.5 orally orally intubated at 22cm. Vent dependent and Setting with AC:16, T:500, P:5, FiO2 100% and SaO2 fluctuated. Pt has OGT with low intermittent suction and greenish color discharge noted. on NPO. Swelling on whole body and poor circulation noted. Pt has Rt. IJ and dressing is clean and dry. On running with Levophed drip @30mcg/min, Dopamine @ 20mcg/kg/min, Phenylephrine @240mcg/min and 1/2NS @ 100cc/hr. Bp is stable. Will start heparin drip @ 8pm. No fever noted. Noted redness on perineal area. Pt has Belcher cath and no urine out noted. MD aware. Provided oral care and suction. Placed fall precaution. Will continue to care plan.
--- NOTE | 2019-11-18 19:30 | NUR ---
HAND-OFF: Report given to NAMAN Vazquez. New label sent up from pharmacy and given to Taylor for rate change schedules for 1999.
[2019-11-18] MEDS: Dyna-Hex 2% Top Sol 2oz TOPIC SCH (20:12)
--- NOTE | 2019-11-18 20:33 | General Progress Note ---
Assessment/Plan Problem List: (1) Diabetes mellitus out of control ICD Codes: E11.65 - Type 2 diabetes mellitus with hyperglycemia SNOMED: 17597763, 019240813 (2) Hyperglycemia ICD Codes: R73.9 - Hyperglycemia, unspecified; J12.89 - Other viral pneumonia SNOMED: 64338903, 831861089 (3) Sepsis ICD Codes: A41.9 - Sepsis, unspecified organism SNOMED: 13117578, 926064841, 144482658 (4) Fever ICD Codes: R50.9 - Fever, unspecified SNOMED: 455363231 (5) Electrolyte imbalance ICD Codes: E87.8 - Other disorders of electrolyte and fluid balance, not elsewhere classified SNOMED: 725923648 (6) UTI (urinary tract infection) ICD Codes: N39.0 - Urinary tract infection, site not specified SNOMED: 48281485 Status: not improved Assessment/Plan: covid positive pn pressor lyte abnormality shock liver critical condition will discuss w renal re plan of rx for worsening cr and na leukocytosis hypernatremia due to dehydration obs uti Subjective ROS Limited/Unobtainable: Yes Allergies: Coded Allergies: No Known Allergies (Unverified , 08/01/18) Objective Last 24 Hour Vital Signs Date Time Temp Pulse Resp B/P (MAP) Pulse Ox O2 Delivery O2 Flow Rate FiO2 11/18/19 19:00 136/49 11/18/19 19:00 136/49 11/18/19 19:00 114 27 136/49 (78) 46 11/18/19 18:45 115 24 128/53 (78) 47 11/18/19 18:30 115 24 130/57 (81) 51 11/18/19 18:00 125/48 11/18/19 18:00 125/48 11/18/19 18:00 116 22 125/48 (73) 96 11/18/19 17:30 119 23 127/57 (80) 94 11/18/19 17:00 121 23 120/40 (66) 94 11/18/19 17:00 120/40 11/18/19 17:00 120/40 11/18/19 16:30 121 24 118/50 (72) 94 11/18/19 16:00 Mechanical Ventilator 11/18/19 16:00 120 11/18/19 16:00 100.0 121 26 111/86 (94) 90 11/18/19 16:00 100.5 11/18/19 16:00 102/74 11/18/19 16:00 102/74 11/18/19 16:00 100 11/18/19 15:59 120 102/74 11/18/19 15:30 120 24 101/38 (59) 95 11/18/19 15:15 118 24 100 11/18/19 15:00 101/67 11/18/19 15:00 101/67 11/18/19 15:00 113 23 101/67 (78) 99 11/18/19 14:30 121 24 104/65 (78) 100 11/18/19 14:00 121 24 101/62 (75) 83 11/18/19 14:00 101/62 11/18/19 14:00 101/62 11/18/19 13:30 121 24 112/46 (68) 83 11/18/19 13:00 120 24 103/51 (68) 84 11/18/19 13:00 103/51 11/18/19 13:00 103/51 11/18/19 12:30 118 24 103/44 (63) 85 11/18/19 12:00 Mechanical Ventilator 11/18/19 12:00 117 11/18/19 12:00 115 99/48 11/18/19 12:00 92/42 11/18/19 12:00 92/42 11/18/19 12:00 99.9 116 24 92/42 (59) 100 11/18/19 11:30 117 25 94/42 (59) 100 11/18/19 11:00 115 25 94/41 (58) 100 11/18/19 11:00 87/32 11/18/19 10:59 87/32 11/18/19 10:55 102 24 100 11/18/19 10:30 115 25 87/46 (60) 99 11/18/19 10:00 145/98 11/18/19 10:00 145/98 11/18/19 10:00 116 24 157/73 (101) 75 11/18/19 09:46 100 11/18/19 09:45 106 24 145/98 (114) 75 11/18/19 09:30 103 23 126/21 (56) 93 11/18/19 09:00 104 26 166/95 (118) 57 11/18/19 09:00 166/95 11/18/19 09:00 166/95 11/18/19 08:45 105 25 168/95 (119) 57 11/18/19 08:30 107 24 155/71 (99) 59 11/18/19 08:15 108 23 108/62 (77) 60 11/18/19 08:04 106 164/87 11/18/19 08:00 99.0 108 23 164/87 (112) 65 11/18/19 08:00 94 11/18/19 08:00 164/87 11/18/19 08:00 164/87 11/18/19 08:00 Mechanical Ventilator 11/18/19 08:00 100 11/18/19 07:45 108 23 142/83 (102) 62 11/18/19 07:30 109 25 111/42 (65) 60 11/18/19 07:15 109 25 120/81 (94) 65 11/18/19 07:10 109 24 100 11/18/19 07:00 106 23 157/88 (111) 75 11/18/19 07:00 157/88 11/18/19 07:00 157/88 11/18/19 06:45 110 23 80/30 (47) 71 11/18/19 06:45 80/30 11/18/19 06:30 102/52 11/18/19 06:30 102/52 11/18/19 06:30 109 24 102/52 (69) 72 11/18/19 06:15 102/17 11/18/19 06:15 109 23 102/17 (45) 75 11/18/19 06:00 111 23 149/78 (101) 100 11/18/19 06:00 149/78 11/18/19 06:00 149/78 11/18/19 05:51 146/99 11/18/19 05:00 114 23 156/91 (112) 100 11/18/19 05:00 156/91 11/18/19 05:00 156/91 11/18/19 04:43 118/83 11/18/19 04:30 115 25 118/83 (95) 100 11/18/19 04:00 99.8 116 24 145/78 (100) 100 11/18/19 04:00 100 11/18/19 04:00 160/106 11/18/19 04:00 160/106 11/18/19 04:00 Mechanical Ventilator 11/18/19 03:30 118 24 93/79 (84) 11/18/19 03:30 93/79 11/18/19 03:23 122 147/96 11/18/19 03:04 121 11/18/19 03:00 165/121 11/18/19 03:00 165/121 11/18/19 03:00 121 24 165/121 (136) 100 121 11/18/19 02:30 124 25 138/85 (102) 100 124 11/18/19 02:00 126 25 126/112 (117) 100 126 11/18/19 02:00 126/112 11/18/19 02:00 126/112 11/18/19 01:41 128 20 100 11/18/19 01:30 126/112 11/18/19 01:30 127 26 139/121 (127) 100 127 11/18/19 01:20 125/43 11/18/19 01:00 129 25 121/73 (89) 100 129 11/18/19 01:00 121/73 11/18/19 01:00 121/73 11/18/19 00:45 127 25 114/32 (59) 100 127 11/18/19 00:30 116 23 45/10 (22) 98 116 11/18/19 00:15 99 23 66/14 (31) 100 99 11/18/19 00:00 100 11/18/19 00:00 100.2 113 25 104/64 (77) 97 113 11/18/19 00:00 106/64 11/18/19 00:00 106/64 11/18/19 00:00 113 11/18/19 00:00 Mechanical Ventilator 11/17/19 23:30 129 24 106/67 (80) 97 11/17/19 23:15 130 25 122/80 (94) 98 11/17/19 23:00 130 25 96/67 (77) 98 11/17/19 23:00 96/67 11/17/19 23:00 96/67 11/17/19 23:00 130 25 96/67 (77) 100 130 11/17/19 23:00 131 25 100 11/17/19 22:45 131 25 102/42 (62) 98 11/17/19 22:33 97/45 11/17/19 22:30 132 25 97/45 (62) 100 11/17/19 22:00 96/38 11/17/19 22:00 96/38 11/17/19 22:00 132 26 96/38 (57) 100 132 11/17/19 21:45 132 22 97/69 (78) 100 11/17/19 21:30 132 25 111/48 (69) 100 11/17/19 21:20 130 89/56 11/17/19 21:20 89/56 11/17/19 21:15 130 24 107/66 (80) 100 11/17/19 21:00 95/52 11/17/19 21:00 95/52 11/17/19 21:00 127 20 86/25 (45) 100 Intake and Output 11/17/19 11/18/19 19:00 07:00 Intake Total 1428.62285 ml 3559.23287 ml Output Total 390 ml 305 ml Balance 1038.91266 ml 3254.83872 ml IV Total 1428.88988 ml 3559.87360 ml Output Urine Total 390 ml 305 ml # Voids 1 Laboratory Tests 11/17/19 23:15: Activated Partial Thromboplast Time 56H 11/18/19 08:20: Activated Partial Thromboplast Time 114H, White Blood Count 23.2*H, Red Blood Count 4.33L, Hemoglobin 12.7L, Hematocrit 39.7L, Mean Corpuscular Volume 92, Mean Corpuscular Hemoglobin 29.3, Mean Corpuscular Hemoglobin Concent 32.0, Red Cell Distribution Width 15.6H, Platelet Count 375, Mean Platelet Volume 5.6L, Neutrophils (%) (Auto) , Lymphocytes (%) (Auto) , Monocytes (%) (Auto) , Eosinophils (%) (Auto) , Basophils (%) (Auto) , Differential Total Cells Counted 100, Neutrophils % (Manual) 76H, Lymphocytes % (Manual) 3L, Monocytes % (Manual) 5, Eosinophils % (Manual) 1, Basophils % (Manual) 0, Band Neutrophils 15H, Platelet Estimate Adequate, Platelet Morphology Normal, Polychromasia 1+, Anisocytosis 1+, D-Dimer 25.88H, Sodium Level 144, Potassium Level 6.6*H, Chloride Level 111H, Carbon Dioxide Level 19L, Anion Gap 14, Blood Urea Nitrogen 52H, Creatinine 3.5#H, Estimat Glomerular Filtration Rate 17.5, Glucose Level 529#*H, Calcium Level 7.6#L, Phosphorus Level 10.1H, Magnesium Level 2.4, Ferritin 1714H, Total Bilirubin 0.8, Aspartate Amino Transf (AST/SGOT ) 528H, Alanine Aminotransferase (ALT/SGPT) 309H, Alkaline Phosphatase 177H, Lactate Dehydrogenase 765H, Total Protein 6.6, Albumin 2.0L, Globulin 4.6, Albumin/Globulin Ratio 0.4L 11/18/19 09:02: Arterial Blood pH 6.958*L, Arterial Blood Partial Pressure CO2 61.0*H, Arterial Blood Partial Pressure O2 275.3H, Arterial Blood HCO3 13.3*L, Arterial Blood Oxygen Saturation 99.1, Arterial Blood Base Excess -18.8*L, Gordon Test Positive 11/18/19 14:01: Arterial Blood pH 7.121*L, Arterial Blood Partial Pressure CO2 51.2H, Arterial Blood Partial Pressure O2 339.1H, Arterial Blood HCO3 16.3*L, Arterial Blood Oxygen Saturation 99.0, Arterial Blood Base Excess -12.7*L, Gordon Test Positive 11/18/19 17:30: Activated Partial Thromboplast Time 149H, Sodium Level 144, Potassium Level 5.6H , Chloride Level 109H, Carbon Dioxide Level 17L, Anion Gap 18H, Blood Urea Nitrogen 53H, Creatinine 3.7H, Estimat Glomerular Filtration Rate 16.4, Glucose Level 182#H, Calcium Level 6.9L, Total Bilirubin 1.2H, Direct Bilirubin 0.5H, Aspartate Amino Transf (AST/SGOT) 1117H, Alanine Aminotransferase (ALT/SGPT) 531H, Alkaline Phosphatase 204H, Total Protein 6.0L, Albumin 2.4L, Globulin 3.6 , Albumin/Globulin Ratio 0.7L Height (Feet): 5 Height (Inches): 8.00 Weight (Pounds): 148 General Appearance: lethargic, confused Wyatt Kelley MD November 18, 2019 20:33
--- NOTE | 2019-11-18 22:00 | NUR ---
NURSE NOTES: Pt is sleeping on the bed and obtunded and no response to pain stimuli. Pupil response to sluggish. Pt is not arousable and does not follow commands. No fever noted. SaO2 89-90% with current Vent setting. on running with Dopamine @ 20mcg/kg/min, Levophed 30mcg/min, Phenylephrin2 @ 240mcg/min, Heparin @ 14U/kg/hr and 1/2NS @ 100cc/hr and BP checked 145/45mmHg. No urine out put noteed via Belcher cath. On OGT and keep intermittent suction and still noted Greenish color discharge. Given suction and oral care. Will continue to monitor any change of condition.
--- NOTE | 2019-11-18 23:25 | Cardiac Electrophysiology PN ---
Assessment/Plan Assessment/Plan 1. Troponin leak. Etiology is not clear. No chest pain. Creatinine was 2.3 improved to 1.3 Echo EF 60% 2. Septic Shock. Maxed out on Levophed and Dopamine and jerome 3. Acute renal failure. Creatinine of 2.3 that normalized to 1.3 and worsened to 3.[address] Urias. 4. Respiratory failure due to COVID pneumonia and possible PE. Intubated on 90% Fio2 and PEEP 5 and heparin drip. 5. Diabetes. VALERIA RN, Dr Urias and Trinity Subjective Subjective Is Covid positive x2 on 11/07 and 11/11. Coded and intubated for respiratory failure and now is in ICU on 90% Fio2 and PEEP 5 on heparin drip for possible PE. Maxed out on Levophed, phenylepherine and Dopamine.On 07/12 NS Objective Last 24 Hour Vital Signs Date Time Temp Pulse Resp B/P (MAP) Pulse Ox O2 Delivery O2 Flow Rate FiO2 11/18/19 22:55 99 128/43 11/18/19 22:00 145/45 11/18/19 22:00 145/45 11/18/19 22:00 104 25 145/45 (78) 90 11/18/19 21:45 102 24 144/46 (78) 90 11/18/19 21:36 107/46 11/18/19 21:35 107/46 11/18/19 21:30 88 22 107/46 (66) 90 11/18/19 21:15 85 22 102/45 (64) 90 11/18/19 21:00 106 27 147/47 (80) 90 11/18/19 21:00 147/47 11/18/19 21:00 147/47 11/18/19 20:45 107 26 141/46 (77) 90 11/18/19 20:30 107 24 138/48 (78) 90 11/18/19 20:28 107 25 135/43 (73) 90 11/18/19 20:15 109 26 145/50 (81) 90 11/18/19 20:15 145/50 11/18/19 20:00 100 11/18/19 20:00 97.9 110 26 130/47 (74) 90 11/18/19 20:00 111 11/18/19 20:00 130/47 11/18/19 20:00 130/47 11/18/19 19:45 111 25 131/48 (75) 90 11/18/19 19:30 111 25 145/51 (82) 90 11/18/19 19:15 112 25 140/56 (84) 90 11/18/19 19:00 136/49 11/18/19 19:00 136/49 11/18/19 19:00 114 27 136/49 (78) 46 11/18/19 18:45 115 24 128/53 (78) 47 11/18/19 18:30 115 24 130/57 (81) 51 11/18/19 18:00 125/48 11/18/19 18:00 125/48 11/18/19 18:00 116 22 125/48 (73) 96 11/18/19 17:30 119 23 127/57 (80) 94 11/18/19 17:00 121 23 120/40 (66) 94 11/18/19 17:00 120/40 11/18/19 17:00 120/40 11/18/19 16:30 121 24 118/50 (72) 94 11/18/19 16:00 Mechanical Ventilator 11/18/19 16:00 120 11/18/19 16:00 100.0 121 26 111/86 (94) 90 11/18/19 16:00 100.5 11/18/19 16:00 102/74 11/18/19 16:00 102/74 11/18/19 16:00 100 11/18/19 15:59 120 102/74 11/18/19 15:30 120 24 101/38 (59) 95 11/18/19 15:15 118 24 100 11/18/19 15:00 101/67 11/18/19 15:00 101/67 11/18/19 15:00 113 23 101/67 (78) 99 11/18/19 14:30 121 24 104/65 (78) 100 11/18/19 14:00 121 24 101/62 (75) 83 11/18/19 14:00 101/62 11/18/19 14:00 101/62 11/18/19 13:30 121 24 112/46 (68) 83 11/18/19 13:00 120 24 103/51 (68) 84 11/18/19 13:00 103/51 11/18/19 13:00 103/51 11/18/19 12:30 118 24 103/44 (63) 85 11/18/19 12:00 Mechanical Ventilator 11/18/19 12:00 117 11/18/19 12:00 115 99/48 11/18/19 12:00 92/42 11/18/19 12:00 92/42 11/18/19 12:00 99.9 116 24 92/42 (59) 100 11/18/19 11:30 117 25 94/42 (59) 100 11/18/19 11:00 115 25 94/41 (58) 100 11/18/19 11:00 87/32 11/18/19 10:59 87/32 11/18/19 10:55 102 24 100 11/18/19 10:30 115 25 87/46 (60) 99 11/18/19 10:00 145/98 11/18/19 10:00 145/98 11/18/19 10:00 116 24 157/73 (101) 75 11/18/19 09:46 100 11/18/19 09:45 106 24 145/98 (114) 75 11/18/19 09:30 103 23 126/21 (56) 93 11/18/19 09:00 104 26 166/95 (118) 57 11/18/19 09:00 166/95 11/18/19 09:00 166/95 11/18/19 08:45 105 25 168/95 (119) 57 11/18/19 08:30 107 24 155/71 (99) 59 11/18/19 08:15 108 23 108/62 (77) 60 11/18/19 08:04 106 164/87 11/18/19 08:00 99.0 108 23 164/87 (112) 65 11/18/19 08:00 94 11/18/19 08:00 164/87 11/18/19 08:00 164/87 11/18/19 08:00 Mechanical Ventilator 11/18/19 08:00 100 11/18/19 07:45 108 23 142/83 (102) 62 11/18/19 07:30 109 25 111/42 (65) 60 11/18/19 07:15 109 25 120/81 (94) 65 11/18/19 07:10 109 24 100 11/18/19 07:00 106 23 157/88 (111) 75 11/18/19 07:00 157/88 11/18/19 07:00 157/88 11/18/19 06:45 110 23 80/30 (47) 71 11/18/19 06:45 80/30 11/18/19 06:30 102/52 11/18/19 06:30 102/52 11/18/19 06:30 109 24 102/52 (69) 72 11/18/19 06:15 102/17 11/18/19 06:15 109 23 102/17 (45) 75 11/18/19 06:00 111 23 149/78 (101) 100 11/18/19 06:00 149/78 11/18/19 06:00 149/78 11/18/19 05:51 146/99 11/18/19 05:00 114 23 156/91 (112) 100 11/18/19 05:00 156/91 11/18/19 05:00 156/91 11/18/19 04:43 118/83 11/18/19 04:30 115 25 118/83 (95) 100 11/18/19 04:00 99.8 116 24 145/78 (100) 100 11/18/19 04:00 100 11/18/19 04:00 160/106 11/18/19 04:00 160/106 11/18/19 04:00 Mechanical Ventilator 11/18/19 03:30 118 24 93/79 (84) 11/18/19 03:30 93/79 11/18/19 03:23 122 147/96 11/18/19 03:04 121 11/18/19 03:00 165/121 11/18/19 03:00 165/121 11/18/19 03:00 121 24 165/121 (136) 100 121 11/18/19 02:30 124 25 138/85 (102) 100 124 11/18/19 02:00 126 25 126/112 (117) 100 126 11/18/19 02:00 126/112 11/18/19 02:00 126/112 11/18/19 01:41 128 20 100 11/18/19 01:30 126/112 11/18/19 01:30 127 26 139/121 (127) 100 127 11/18/19 01:20 125/43 11/18/19 01:00 129 25 121/73 (89) 100 129 11/18/19 01:00 121/73 11/18/19 01:00 121/73 11/18/19 00:45 127 25 114/32 (59) 100 127 11/18/19 00:30 116 23 45/10 (22) 98 116 11/18/19 00:15 99 23 66/14 (31) 100 99 11/18/19 00:00 100 11/18/19 00:00 100.2 113 25 104/64 (77) 97 113 11/18/19 00:00 106/64 11/18/19 00:00 106/64 11/18/19 00:00 113 11/18/19 00:00 Mechanical Ventilator 11/17/19 23:30 129 24 106/67 (80) 97 Intake and Output 11/17/19 11/18/19 19:00 07:00 Intake Total 1428.20395 ml 3559.42760 ml Output Total 390 ml 305 ml Balance 1038.12897 ml 3254.99864 ml IV Total 1428.19972 ml 3559.23976 ml Output Urine Total 390 ml 305 ml # Voids 1 Laboratory Tests Test 11/18/19 08:20 11/18/19 09:02 11/18/19 14:01 11/18/19 17:30 White Blood Count 23.2 K/UL (4.8-10.8) *H Red Blood Count 4.33 M/UL (4.70-6.10) L Hemoglobin 12.7 G/DL (14.2-18.0) L Hematocrit 39.7 % (42.0-52.0) L Mean Corpuscular Volume 92 FL (80-99) Mean Corpuscular Hemoglobin 29.3 PG (27.0-31.0) Mean Corpuscular Hemoglobin Concent 32.0 G/DL (32.0-36.0) Red Cell Distribution Width 15.6 % (11.6-14.8) H Platelet Count 375 K/UL (150-450) Mean Platelet Volume 5.6 FL (6.5-10.1) L Neutrophils (%) (Auto) % (45.0-75.0) Lymphocytes (%) (Auto) % (20.0-45.0) Monocytes (%) (Auto) % (1.0-10.0) Eosinophils (%) (Auto) % (0.0-3.0) Basophils (%) (Auto) % (0.0-2.0) Differential Total Cells Counted 100 Neutrophils % (Manual) 76 % (45-75) H Lymphocytes % (Manual) 3 % (20-45) L Monocytes % (Manual) 5 % (1-10) Eosinophils % (Manual) 1 % (0-3) Basophils % (Manual) 0 % (0-2) Band Neutrophils 15 % (0-8) H Platelet Estimate Adequate Platelet Morphology Normal Polychromasia 1+ Anisocytosis 1+ Activated Partial Thromboplast Time 114 SEC (23-33) H 149 SEC (23-33) H D-Dimer 25.88 mg/L FEU (0.00-0.49) H Sodium Level 144 MMOL/L (136-145) 144 MMOL/L (136-145) Potassium Level 6.6 MMOL/L (3.5-5.1) *H 5.6 MMOL/L (3.5-5.1) H Chloride Level 111 MMOL/L (98-107) H 109 MMOL/L (98-107) H Carbon Dioxide Level 19 MMOL/L (21-32) L 17 MMOL/L (21-32) L Anion Gap 14 mmol/L (5-15) 18 mmol/L (5-15) H Blood Urea Nitrogen 52 mg/dL (7-18) H 53 mg/dL (7-18) H Creatinine 3.5 MG/DL (0.55-1.30) #H 3.7 MG/DL (0.55-1.30) H Estimat Glomerular Filtration Rate 17.5 mL/min (>60) 16.4 mL/min (>60) Glucose Level 529 MG/DL (74-106) #*H 182 MG/DL (74-106) #H Calcium Level 7.6 MG/DL (8.5-10.1) #L 6.9 MG/DL (8.5-10.1) L Phosphorus Level 10.1 MG/DL (2.5-4.9) H Magnesium Level 2.4 MG/DL (1.8-2.4) Ferritin 1714 NG/ML (8-388) H Total Bilirubin 0.8 MG/DL (0.2-1.0) 1.2 MG/DL (0.2-1.0) H Aspartate Amino Transf (AST/SGOT) 528 U/L (15-37) H 1117 U/L (15-37) H Alanine Aminotransferase (ALT/SGPT) 309 U/L (12-78) H 531 U/L (12-78) H Alkaline Phosphatase 177 U/L (46-116) H 204 U/L (46-116) H Lactate Dehydrogenase 765 U/L (81-234) H Total Protein 6.6 G/DL (6.4-8.2) 6.0 G/DL (6.4-8.2) L Albumin 2.0 G/DL (3.4-5.0) L 2.4 G/DL (3.4-5.0) L Globulin 4.6 g/dL 3.6 g/dL Albumin/Globulin Ratio 0.4 (1.0-2.7) L 0.7 (1.0-2.7) L Arterial Blood pH 6.958 (7.350-7.450) 7.121 (7.350-7.450) Arterial Blood Partial Pressure CO2 61.0 mmHg (35.0-45.0) *H 51.2 mmHg (35.0-45.0) H Arterial Blood Partial Pressure O2 275.3 mmHg (75.0-100.0) H 339.1 mmHg (75.0-100.0) H Arterial Blood HCO3 13.3 mmol/L (22.0-26.0) *L 16.3 mmol/L (22.0-26.0) *L Arterial Blood Oxygen Saturation 99.1 % (95-100) 99.0 % (95-100) Arterial Blood Base Excess -18.8 (-2-2) *L -12.7 (-2-2) *L Gordon Test Positive Positive Direct Bilirubin 0.5 MG/DL (0.0-0.3) H Microbiology Date/Time Source Procedure Growth Status 11/16/19 13:45 Nasopharynx Coronavirus COVID-19 PCR ([facility]) - Final Complete Objective HEAD AND NECK: Orally intubated LUNGS: Coarse rhonchi. CARDIOVASCULAR: Regular S1 and S2 with no gallop or murmur. ABDOMEN: Soft. EXTREMITIES: No pitting edema. Igor Zapien MD November 18, 2019 23:25
[2019-11-19] VITALS: BP 118/54
--- NOTE | 2019-11-19 | NUR ---
NURSE NOTES: Pt is sleeping on the bed and Still no response. No fever noted. SaO2 88-90% with current Vent setting. On running with Dopamine @ 20mcg/kg/min, Levophed 30mcg/min, Phenylephrin2 @ 240mcg/min, Heparin @ 14U/kg/hr and 1/2NS @ 100cc/hr and BP checked 118/54mmHg. Still No urine out put noted via [place] cath. Noted swelling on whole body with poor circulation. Will continue to monitor any change of condition.
[2019-11-19 00:15] VITALS: BP 100/67
[2019-11-19 00:30] VITALS: BP 107/68
[2019-11-19] MEDS: NovoLOG Insulin Flexpen SUBQ SCH ×2 (00:31)
[2019-11-19 00:45] VITALS: BP 128/34
[2019-11-19 01:00] VITALS: BP 117/37
--- NOTE | 2019-11-19 01:00 | NUR ---
NURSE NOTES: Pt is sleeping on the bed and no response. SaO2 89-90% with current Vent setting. BP 117/37mmg with current drip as protocol. Will continue to monitor any change of condition.
[2019-11-19 01:10] VITALS: BP 94/21
--- NOTE | 2019-11-19 01:14 | NUR ---
CODE BLUE: Noted asystole started CPR and call code blue. See Code sheet which remains on paper.
--- NOTE | 2019-11-19 01:24 | NUR ---
NURSE NOTES: Patient at 0124. Pronounced by ER MD Dr. Saldivar.
--- NOTE | 2019-11-19 01:26 | NUR ---
NURSE NOTES: Left message to Dr. Kelley and Sanket Spencer who is his med care manager: [phone] for his
--- NOTE | 2019-11-19 01:50 | NUR ---
NURSE NOTES: Post mortem care was done.
--- NOTE | 2019-11-19 02:20 | NUR ---
NURSE NOTES: Pt's body transferred to hospital mortuary.
--- NOTE | 2019-11-19 04:35 | Emergency Room Report ---
Physical Exam Vital Signs Date Time Temp Pulse Resp B/P (MAP) Pulse Ox O2 Delivery O2 Flow Rate FiO2 11/15/19 08:00 98.4 112 21 144/107 (119) 94 11/15/19 09:00 Nasal Cannula 2.0 11/15/19 20:02 21 Medical Decision Making Diagnostic Impression: Primary Impression: Pneumonia due to COVID-19 virus Additional Impressions: Hyperglycemia Elevated troponin Sepsis UTI (urinary tract infection) Cardiac arrest ER Course This patient was admitted to the ICU secondary to cover pneumonia. He developed ARDS secondary to cover pneumonia. Patient had a arley course during the hospitalization. He coded and I responded to the CODE BLUE. Patient received a total of 4 mg of epinephrine. He remained in asystole. There was a pulse with CPR. There is a pulse with Doppler with CPR. There was no pulse without CPR. After 4 rounds of epinephrine, I called the code and pronounced patient at 1:24 AM. Last Vital Signs Date Time Temp Pulse Resp B/P (MAP) Pulse Ox O2 Delivery O2 Flow Rate FiO2 11/19/19 01:10 80 21 94/21 (45) 89 11/19/19 00:40 100 11/19/19 00:00 99.0 11/19/19 00:00 Mechanical Ventilator 11/17/19 09:42 15.0 Disposition: ADMITTED INPATIENT Condition: Referrals: Wyatt Kelley MD (PCP) Amos Saldivar MD November 19, 2019 04:35
--- NOTE | 2019-11-20 21:29 | Discharge Summary ---
Discharge Summary Discharge Summary _ SUMMARY DATE OF ADMISSION: 11/08/2019 DATE OF EXPIRATION 11/19/2019 REASON FOR ADMISSION: 68 years old male with past medical history of diabetes mellitus, hypertension, hyperlipidemia, peripheral arterial disease with right transmetatarsal amputation,, COPD, presented for evaluation from the snf facility due to fever, hypoxia and hypotension. Patient apparently was febrile over the last few days. Patient also was short of breath. Patient by himself was unable to provide much of the information.: Upon evaluation patient was hypotensive and hypoxic requiring supplemental oxygen. Laboratory work-up revealed leukocytosis, stable hemoglobin hematocrit, lymphopenia. Urinalysis revealed +3 protein +4 glucose +3 ketones pyuria plus leukocytosis trace of urine bacteria. Maintenance. Stable electrolytes. BUN 41, creatinine 2.3. Lactic acid 4.9. AST 57 ALT 58. Troponin 0 0.088. proBNP 491. EKG revealed sinus tachycardia no acute ischemic changes Chest x-ray demonstrated wedge-shaped infiltrate in the inferior right upper lobe. Most likely area of pneumonia. [place] will call hazy right lower lung periphery opacity. Left perihilar atelectasis. Patient pancultured started on IV fluids and empiric antibiotic. Patient received IV insulin. Patient subsequently admitted to isolation room for further management. CONSULTANTS: art professor Dr. Rey pulmonary Dr. Petersen ID specialist Dr. Flako Holliday GI specialist Dr. Palacios geophysics professor Dr. Urias hot tamale worker Dr. Short estimating engineer/oncologist Dr. Wade [facility]SE: [] Patient admitted to isolation room. Patient was provided with IV fluids and antibiotics. Blood cultures were negative. Urine culture revealed Aleena. Ean calls to by PCR on 430 was detected. Isolation continued. Repeated CIWA score of 2 by PCR on 5 6 on 5 4, 5 6, and 580 was detected. Isolation continued. Antibiotic regimen provided as per ID specialist recommendation. Supplemental oxygen provided and titrated to keep pulse oximetry above 90%. Pulmonary toilet provided. Serial troponin were monitored second troponin 0 0.137. EKG revealed no acute ischemic changes. Per art professor patient had troponin leak with unclear if etiology. No chest pain. Possibly due to renal failure. Echocardiogram demonstrated preserved ejection fraction estimated to be 60%. No evidence of wall motion abnormality to the extent visualized. Renal parameters electrolytes were closely monitored. Electrolytes corrected as needed nephrotoxic's were avoided. Creatinine from initial 2.3 initially trended down to normal 0.9 but then started to rise up and last creatinine 3.7. Electrolytes corrected as needed. Renal failure was most likely acute on chronic as per geophysics professor. Blood sugar was managed as per hot tamale worker. Hemoglobin A1c 10.4.. Noted very low TSH less than 0.01. Free T4 elevated. Patient started on Tapazole. Alum Plant Operator recommended to repeat thyroid function in 3 weeks. NG tube was inserted for medication and nutrition. Patient was kept n.p.o. GI specialist recommended reassess swallowing function when patient is more alert. Liver enzymes were closely monitored and trending up; last AST 1117 ALT 531. Ammonia 38. Encephalopathy was multifactorial likely related to COVID infection versus sepsis versus hypernatremia. Sodium corrected. Elevated enzymes are possibly due to shock liver versus drug-induced hepatitis given use of methimazole. On 5 9 patient was emergently intubated due to desaturation. Patient also noted to be hypotensive. Central line was placed for pressors. Patient was on multiply pressors to keep for hemodynamic support including dopamine, norepinephrine and phenylephrine. Pressors titrated to keep mean arterial blood pressure above 65. Due to sudden desaturation patient also suspected to have possible pulmonary emboli. Patient started on heparin drip. Ventilator support and pulmonary toilet provided. Patient was follow-up with ABG. On 511 patient sustained cardiopulmonary arrest. Code ACLS protocol initiated. Unfortunately all resuscitative efforts appear to be futile. Patient was pronounced at 1:24 AM 511. Cause of cardiopulmonary arrest FINAL DIAGNOSES: Septic shock Acute hypercapnic respiratory failure Confirmed COVID-19 infection Pneumonia due to COVID-19 infection Possible PE Encephalopathy, multifactorial Diabetes mellitus with hyperglycemia/diabetes [id number] with hemoglobin A1c 10.4 Acute kidney injury on chronic kidney disease Lactic acidosis Troponin leak Transaminitis COPD History of hypertension Hyperlipidemia Dementia Hyperkalemia I have been assigned to dictate discharge summary for this account. I was not involved in the patient's management. Rossi Randhawa NP November 20, 2019 21:29
== END 2019-11-19 01:24 | disposition expired | DRG 871 ==
LOC: EDBD 11:28 → EMR 12:04 → 2E 12:17 → EDBEDREQ 14:07 → 2E 11-13 12:42 → 2W 11-17 12:12 → ICU 11-17 12:32
DX: A41.89 Other specified sepsis (principal); U07.1 COVID-19; J12.89 Other viral pneumonia; N39.0 Urinary tract infection, site not specified; M86.171 Other acute osteomyelitis, right ankle and foot; N17.9 Acute kidney failure, unspecified; E11.69 Type 2 diabetes mellitus with other specified complication; D69.6 Thrombocytopenia, unspecified
CPT/HCPCS: 36415; 36600; 71045; 74018; 80053; 80061; 81003; 82009; 82140; 82248; 82550; 82553; 82728; 82803; 82962; 82977; 83036; 83605; 83615; 83735; 83880; 84100; 84439; 84443; 84481; 84484; 84550; 85007; 85025; 85379; 85610; 85730; 86140; 87040; 87070; 87081; 87086; 87205; 87635; 93005; 93306; 94002; 94003; 96365; 96368; 96375; 99291; C9399; J1815; J2370; J7030; J8499; S5561